=== PATIENT | female | born 1960 | race African-American/Black ===

== ENCOUNTER 2017-07-20 09:17 | Day surgery (SDC) | payer OTHER ==
[2017-07-19 14:59] VITALS: BMI 30.9
[2017-07-20 11:15] VITALS: TEMP 98.7
[2017-07-20 12:02] VITALS: BP 159/92; PULSE 62
--- NOTE | 2017-07-23 16:56 | PATH ---
Surgical Pathology Report Patient Name: FREDA VICTOR [facility]. Rec. #: [id number] /Age/Gender: 1960 (Age: 57) / F Account: [id number] Location: U-ENDOSCOPY Taken: 07/20/2017 Received: 07/20/2017 Reported: 07/23/2017 Physicians: Jimmy Smith M.D. Specimen(s) Received A: BX 2ND PORTION DUODENUM AND BULB B: BX ANTRUM C: SIGMOID POLYP D: POLYPS TRANSVERSE COLON Clinical History Preoperative diagnosis: Weight loss Postoperative diagnosis: Gastritis, polyps, diverticulosis Final Diagnosis A. DUODENUM, SECOND PORTION AND BULB, BIOPSY: DUODENAL MUCOSA WITHOUT SIGNIFICANT PATHOLOGIC FINDINGS. B. STOMACH, ANTRUM, BIOPSY: GASTRIC ANTRAL MUCOSA WITH SEVERE CHRONIC AND FOCAL ACTIVE GASTRITIS. DIFF-QUIK SPECIAL STAIN IS POSITIVE FOR HELICOBACTER-LIKE ORGANISMS. C. SIGMOID, POLYPS, BIOPSY: HYPERPLASTIC POLYP(S). D. TRANSVERSE COLON, POLYPS, BIOPSY: TUBULAR ADENOMA(S). Electronically Signed Tanja Xie M.D. Gross Description A. Received in formalin, labeled "biopsy second portion of duodenum and bulb" are 3 cook, irregular portions of soft tissue ranging from 0.3-0.4 cm. in greatest dimension. The specimens are submitted in toto in one cassette. B. Received in formalin, labeled "biopsy antrum" is a cook, irregular portion of soft tissue measuring 0.4 cm. in greatest dimension. The specimen is submitted in toto in one cassette. C. Received in formalin, labeled "sigmoid polyps" are 4 cook, irregular portions of soft tissue ranging from 0.2-0.3 cm. in greatest dimension. The specimens are submitted in toto in one cassette. D. Received in formalin, labeled "polyps transverse colon" are 6 cook, irregular portions of soft tissue ranging from 0.2-0.4 cm. in greatest dimension. The specimens are submitted in toto in one cassette. 07/20/201707/20/2017
== END 2017-07-20 12:02 | disposition home or self-care (01) ==
LOC: JASU-ENDO 09:17
PROVIDERS: ATTEND Internal Medicine Gastroenterology
PROC: 0DBL8ZX Excision of Transverse Colon, Via Natural or Artificial Opening Endoscopic, Diagnostic (ICD-10-PCS; 2017-07-20)
PROC: 0DB98ZX Excision of Duodenum, Via Natural or Artificial Opening Endoscopic, Diagnostic (ICD-10-PCS; 2017-07-20)
PROC: 0DB68ZX Excision of Stomach, Via Natural or Artificial Opening Endoscopic, Diagnostic (ICD-10-PCS; 2017-07-20)
PROC: 0DBN8ZX Excision of Sigmoid Colon, Via Natural or Artificial Opening Endoscopic, Diagnostic (ICD-10-PCS; principal; 2017-07-20 10:30)
DX: Z12.11 Encounter for screening for malignant neoplasm of colon (principal); R63.4 Abnormal weight loss; D64.9 Anemia, unspecified; D12.3 Benign neoplasm of transverse colon; D12.5 Benign neoplasm of sigmoid colon; K57.30 Diverticulosis of large intestine without perforation or abscess without bleeding; K64.8 Other hemorrhoids; K29.50 Unspecified chronic gastritis without bleeding; B96.81 Helicobacter pylori [H. pylori] as the cause of diseases classified elsewhere; I10 Essential (primary) hypertension; Z86.718 Personal history of other venous thrombosis and embolism
CPT/HCPCS: 88305-TC; 88312-TC

== ENCOUNTER 2017-09-05 12:43 | Inpatient (IN) | payer OTHER ==
[2017-09-05] MEDS ORDERED: ONDANSETRON 4 MG/2 ML VIAL IVPUSH ONE ×2 (13:41→13:45)
[2017-09-05] MEDS ORDERED: SODIUM CHLORIDE 1,000 ML IV STA (13:41)
[2017-09-05] MEDS ORDERED: FAMOTIDINE IV 20 MG/12 ML VIAL IVPB ONE (13:45)
--- NOTE | 2017-09-05 13:48 | PDOC ---
History of Present Illness - General Chief Complaint: Cold Symptoms Stated Complaint: FEVER, CHILLS Time Seen by Provider: 09/05/17 13:10 History Source: Patient Exam Limitations: No Limitations - History of Present Illness Initial Comments: This is a 57 YOF with h/o gastritis diverticulosis (dx by endoscopy in 07/2017) , HTN, distant DVT (on coumadin with unknown date or result of last INR), depression, and methadone use who p/w 10 episodes NBNB vomiting since this morning. She states she has taken Pepto Bismol without relief. Her additional symptoms are hot/cold flashes and decreased appetite. She denies measured fever , headache, numbness, tingling, focal weakness, chest pain, SOB, abdominal pain , diarrhea, blood in the vomit or stool, dysuria, or other symptoms. She has not missed any recent medication doses. Past History - Past Medical History Allergies/Adverse Reactions: Allergies Allergy/AdvReac Type Severity Reaction Status Date / Time No Known Allergies Allergy Verified 09/05/17 13:00 Home Medications: Ambulatory Orders Diltiazem HCl [Tiazac] 240 mg PO DAILY 11/04/13 Methadone [Dolophine -] 50 mg PO DAILY 11/04/13 Cholecalciferol (Vitamin D3) [Vitamin D3] 5,000 unit PO DAILY 07/18/17 Quetiapine Fumarate [Seroquel] 300 mg PO DAILY 07/18/17 Warfarin Sodium [Coumadin] 7 mg PO HS #60 tablet 07/20/17 Anemia: Yes Asthma: No Cancer: No Cardiac Disorders: (PULMONARY EMBOLI/DVT) CVA: No COPD: No CHF: No Dementia: No Diabetes: No GI Disorders: No Disorders: No HTN: Yes Hypercholesterolemia: No Liver Disease: No Psychiatric Problems: Yes (DEPRESSION) Seizures: No Thyroid Disease: Yes (hyper,not on meds x 1 year..) - Immunization History Immunization Up to Date: No - Suicide/Smoking/Psychosocial Hx Smoking History: Former smoker Have you smoked in the past 12 months: Yes Number of Cigarettes Smoked Daily: 0 If you are a former smoker, when did you quit?: 2013 Information on smoking cessation initiated: No 'Breaking Loose' booklet given: 11/04/13 Hx Alcohol Use: No Drug/Substance Use Hx: Yes (Methadone) Substance Use Type: Heroin Hx Substance Use Treatment: Yes *Physical Exam - Vital Signs Last Vital Signs Temp Pulse Resp BP Pulse Ox 98.2 F 83 18 147/89 99 09/05/17 13:00 09/05/17 13:00 09/05/17 13:00 09/05/17 13:00 09/05/17 13:00 - Physical Exam General Appearance: Yes: Nourished, Appropriately Dressed, Mild Distress, Other (initially in mild distress which increases to moderate distress with conversation, writhing on bed but states no pain, anxious, one episode of vomiting clear secretions) HEENT: positive: EOMI, PAUL, Normal Voice, Hearing Grossly Normal, Other ( mostly edentulous). negative: Scleral Icterus (R), Scleral Icterus (L), Nasal Congestion Neck: positive: Trachea midline, Supple. negative: Tender, Rigid Respiratory/Chest: positive: Lungs Clear, Normal Breath Sounds. negative: Chest Tender, Respiratory Distress, Crackles, Rhonchi, Stridor, Wheezing Cardiovascular: positive: Regular Rhythm, Regular Rate, S1, S2, Systolic Murmur (2/6 early systolic murmur at LUSB). negative: Edema Gastrointestinal/Abdominal: positive: Normal Bowel Sounds, Soft. negative: Tender, Organomegaly, Pulsatile Mass, Guarding, Rebound Musculoskeletal: positive: Normal Inspection. negative: Decreased Range of Motion, Vertebral Tenderness Extremity: positive: Normal Capillary Refill, Normal Inspection, Normal Range of Motion. negative: Tender, Cyanosis Integumentary: positive: Normal Color, Dry, Warm, Clammy, Diaphoresis. negative : Erythema, Rash, Bruising Neurologic: positive: speech and language assistant II-XII NML intact (grossly), Fully Oriented, Alert, Normal Mood/Affect, Normal Response, Motor Strength 5/5 ED Treatment Course - LABORATORY CBC & Chemistry Diagram: 09/05/17 13:49 09/05/17 15:15 - RADIOLOGY Radiology Studies Ordered: Category Date Time Status CHEST X-RAY PORTABLE* [RAD] Stat Radiology 09/05/17 13:41 Ordered Medical Decision Making - Medical Decision Making 57 YOF p/w nausea/vomiting without pain. On exam VS wnl except slight HTN, appears very uncomfortable, yelling, but states not in pain. Active vomiting x1 episode. DDX IBNLT gastritis, PUD, med withdrawal/ingestion, pancreatitis, cholecystitis , esophageal dysmotility/strict, influenza, ect. Ordered is CBCD CMP cardiac panel lipase UA Cx EKG CXR NS bolus Pepcid Zofran. 09/05/17 15:01 Chemistry, Mg, Phos, lipase, and cardiac panel hemolyzed and will be re-drawn. CBCD and UA wnl. EKG with prolonged QTc, otherwise unremarkable for acute pathology. 09/05/17 15:35 Patient with continued nausea, states still spitting up secretions. Benadryl and Reglan IV ordered. 09/05/17 16:29 Still awaiting results of chemistries. 09/05/17 17:20 Patient appears much more comfortable after additional medications. Mg repleted as she had Mg 1.7 on chemistries. 09/05/17 20:05 Patient's troponin slightly higher, now CK flags as elevated. Patient's PCP is Jeffery Garzon. Symphony microblogged for admission. *DC/Admit/Observation/Transfer Diagnosis at time of Disposition: Troponin level elevated, Acute electrocardiogram changes, Hypomagnesemia, Prolonged QT interval Vomiting Qualifiers: Vomiting type: unspecified Vomiting Intractability: non-intractable Nausea presence: with nausea Qualified Code(s): R11.2 - Nausea with vomiting, unspecified - Discharge Dispostion Condition at time of disposition: Guarded Admit: Yes - Referrals - Patient Instructions - Post Discharge Activity
--- NOTE | 2017-09-05 13:49 | PDOC ---
Attending Attestation - HPI HPI: 09/05/17 13:53 57 y.o female with significant past medical history of gastritis, diverticulitis , previous DVT (on Coumadin), and HTN, who presents today complaining of 10 episodes of nonbilious, nonbloody vomiting today. <Mari Putnam - Last Filed: 09/05/17 13:53> - Resident Resident Name: Taylor Fuentes - ED Attending Attestation I have performed the following: I have examined & evaluated the patient, The case was reviewed & discussed with the resident, I agree w/resident's findings & plan, Exceptions are as noted - Physicial Exam PE: 09/05/17 16:23 Patient is awake and alert, afebrile, nontoxic appearing. Intermittently, patient is noted to be writhing in pain. nc, atr adentuless mm-dry cta rrr sft, nt, nd - Medical Decision Making 09/05/17 16:27 Patient is a 57-year-old female with multiple comorbidities who presents to the ER with persistent nausea, and numerous episodes of nonbloody, nonbilious vomiting but denies abdominal pain. Symptoms appear he attic in nature. Serial abdominal exams reveal no focal abdominal tenderness. I suspect esophagitis/ gastritis. SBO is unlikely given the absence of abdominal pain. Will obtain CBC/ CMP/lipase/UA. Will hydrate, we'll administer antiemetics. Will reassess. Likely discharge if tolerates by mouth. <Enrico Mackey - Last Filed: 09/05/17 16:28>
[2017-09-05] MEDS ORDERED: ONDANSETRON 4 MG/2 ML VIAL ONE (13:55)
[2017-09-05] MEDS ORDERED: FAMOTIDINE 20 MG/50 ML IVPB 20 MG/50 ML MG IVPB ONE (13:55)
[2017-09-05 14:10] LABS: BASO % 0.7 % (0-2.0); HEMATOCRIT 36.4 % (32.4-45.2); LYMPH % 4.4 % (8-40); MCH 23.8 pg (25.7-33.7); MCHC 30.3 g/dl (32.0-36.0); MEAN CELL VOLUME 78.7 fl (80-96); MEAN PLT VOLUME 7.7 fl (7.5-11.1); MONO % 1.1 % (3.8-10.2); NEUT % 93.8 % (42.8-82.8); PLATELET COUNT 314 K/MM3 (134-434); RBC 4.63 M/mm3 (3.60-5.2); RDW 21.6 % (11.6-15.6); WHITE BLOOD COUNT 7.3 K/mm3 (4.0-10.0)
[2017-09-05 14:22] LABS: ADD RBC MORPHOLOGY YES
[2017-09-05 14:36] LABS: URINE APPEARANCE CLEAR; URINE BILIRUBIN NEGATIVE (NEGATIVE); URINE BLOOD NEGATIVE (NEGATIVE); URINE COLOR STRAW; URINE GLUCOSE (UA) 1+ (NEGATIVE); URINE KETONE NEGATIVE (NEGATIVE); URINE LEUK ESTERASE NEGATIVE (NEGATIVE); URINE NITRITE NEGATIVE (NEGATIVE); URINE UROBILINOGEN NEGATIVE mg/dL (0.2-1.0)
[2017-09-05 14:47] LABS: EPI CELLS RARE /HPF (FEW); URINE BACTERIA RARE /hpf (NONE SEEN); URINE PROTEIN 3+ (NEGATIVE)
[2017-09-05] MEDS ORDERED: METOCLOPRAMIDE HCL INJECTION 10 MG/2 ML VIAL IVPUSH ONE (15:34)
[2017-09-05] MEDS ORDERED: METOCLOPRAMIDE HCL INJECTION 10 MG/2 ML VIAL ONE (15:40)
[2017-09-05 15:45] LABS: ANISOCYTOSIS 2+; TARGET CELLS 2+
[2017-09-05 16:21] LABS: ALBUMIN 3.7 g/dl (3.4-5.0); ANION GAP 5 (8-16); BILIRUBIN,TOTAL 0.3 mg/dL (0.2-1.0); BLOOD UREA NITROGEN 13 mg/dL (7-18); CALCIUM 8.6 mg/dL (8.5-10.1); CHLORIDE 102 mmol/L (98-107); CO2 36 mmol/L (21-32); CREATININE 0.9 mg/dL (0.55-1.02); GLUCOSE,RANDOM 115 mg/dL (74-106); MAGNESIUM 1.7 mg/dL (1.8-2.4); PHOSPHOROUS 2.1 mg/dL (2.5-4.9); POTASSIUM 3.7 mmol/L (3.5-5.1); SGOT/AST 21 U/L (15-37); SGPT/ALT 32 U/L (12-78); SODIUM 143 mmol/L (136-145)
[2017-09-05 16:25] LABS: ALK PHOS 123 U/L (45-117)
[2017-09-05] MEDS ORDERED: DEXTROSE 5%-0.45% SALINE 1,000 ML IV SCH (16:45)
[2017-09-05] MEDS ORDERED: MAGNESIUM SULF 50% (8.12 MEQ/2 ML-1 GM VIAL) IVPB ONE (16:52)
[2017-09-05 17:16] LABS: INR 1.02 (0.82-1.09); PROTHROMBIN TIME (PATIENT) 11.5 SEC (9.98-11.88)
--- NOTE | 2017-09-05 17:43 | PDOC ---
*Physical Exam - Vital Signs Last Vital Signs Temp Pulse Resp BP Pulse Ox 98.2 F 83 18 147/89 100 09/05/17 13:00 09/05/17 13:00 09/05/17 13:40 09/05/17 13:00 09/05/17 13:40 - Physical Exam Comments: 09/05/17 17:40 gen: awake, uncomfortable heart:+s1s2 reg lungs: cta b/l abd : soft, mild epigastric abd pain ext: no c/c/e ED Treatment Course - LABORATORY CBC & Chemistry Diagram: 09/05/17 13:49 09/05/17 15:15 - ADDITIONAL ORDERS Additional order review: Laboratory Results 09/05/17 09/05/17 09/05/17 16:39 15:15 15:15 PT with INR 11.50 INR 1.02 Sodium 143 Potassium 3.7 Chloride 102 Carbon Dioxide 36 H Anion Gap 5 L BUN 13 Creatinine 0.9 Creat Clearance w eGFR > 60 POC Glucometer Random Glucose 115 H Calcium 8.6 Phosphorus 2.1 L Magnesium 1.7 L Total Bilirubin 0.3 D AST 21 ALT 32 Alkaline Phosphatase 123 H Creatine Kinase 156 Creatine Kinase Index 1.0 CK-MB (CK-2) 1.564 Troponin I 0.11 H Total Protein 7.0 Albumin 3.7 Lipase 81 Urine Color Urine Appearance Urine pH Ur Specific [place] Urine Protein Urine Glucose (UA) Urine Ketones Urine Blood Urine Nitrite Urine Bilirubin Urine Urobilinogen Ur Leukocyte Esterase Urine WBC (Auto) Urine RBC (Auto) Ur Epithelial Cells Urine Bacteria 09/05/17 09/05/17 09/05/17 14:26 13:49 13:49 PT with INR INR Sodium Cancelled Potassium Cancelled Chloride Cancelled Carbon Dioxide Cancelled Anion Gap Cancelled BUN Cancelled Creatinine Cancelled Creat Clearance w eGFR Cancelled POC Glucometer Random Glucose Cancelled Calcium Cancelled Phosphorus Magnesium Total Bilirubin Cancelled AST Cancelled ALT Cancelled Alkaline Phosphatase Cancelled Creatine Kinase Cancelled Creatine Kinase Index CK-MB (CK-2) Troponin I Cancelled Total Protein Cancelled Albumin Cancelled Lipase Cancelled Urine Color Straw Urine Appearance Clear Urine pH 9.0 H D Ur Specific [place] 1.011 Urine Protein 3+ H Urine Glucose (UA) 1+ H Urine Ketones Negative Urine Blood Negative Urine Nitrite Negative Urine Bilirubin Negative Urine Urobilinogen Negative Ur Leukocyte Esterase Negative Urine WBC (Auto) 1 Urine RBC (Auto) 1 Ur Epithelial Cells Rare Urine Bacteria Rare 09/05/17 13:39 PT with INR INR Sodium Potassium Chloride Carbon Dioxide Anion Gap BUN Creatinine Creat Clearance w eGFR POC Glucometer 135.65453 Random Glucose Calcium Phosphorus Magnesium Total Bilirubin AST ALT Alkaline Phosphatase Creatine Kinase Creatine Kinase Index CK-MB (CK-2) Troponin I Total Protein Albumin Lipase Urine Color Urine Appearance Urine pH Ur Specific [place] Urine Protein Urine Glucose (UA) Urine Ketones Urine Blood Urine Nitrite Urine Bilirubin Urine Urobilinogen Ur Leukocyte Esterase Urine WBC (Auto) Urine RBC (Auto) Ur Epithelial Cells Urine Bacteria 09/05/17 13:49 Influenza Types A,B Antigen ([place]) - Final Nasopharyngeal Swab - Final 09/05/17 09/05/17 13:49 13:39 RBC 4.63 MCV 78.7 L MCHC 30.3 L RDW 21.6 H D MPV 7.7 D Neutrophils % 93.8 H D Lymphocytes % 4.4 L D Monocytes % 1.1 L D Eosinophils % 0.0 D Basophils % 0.7 POC Glucometer 135.96886 - Medications Given in the ED: ED Medications Discontinued Medications Generic Name Dose Route Start Last Admin Trade Name Freq PRN Reason Stop Dose Admin Diphenhydramine HCl 50 mg 09/05/17 15:28 09/05/17 15:52 Benadryl Injection - IVPUSH 09/05/17 15:29 50 mg ONCE ONE Administration Sodium Chloride 1,000 mls @ 1,000 mls/hr 09/05/17 13:41 09/05/17 14:00 Normal Saline - IV 09/05/17 14:40 1,000 mls/hr ASDIR STA Administration Famotidine 20 mg in 12 mls @ 144 mls/hr 09/05/17 13:45 09/05/17 14:05 Pepcid 20 Mg/12 Ml Push IVPB 09/05/17 13:49 144 mls/hr ONCE ONE Administration Metoclopramide HCl 10 mg 09/05/17 15:34 09/05/17 15:52 Reglan Injection - IVPUSH 09/05/17 15:35 10 mg ONCE ONE Administration Ondansetron HCl 4 mg 09/05/17 13:41 09/05/17 14:16 Zofran Injection IVPUSH 09/05/17 13:42 Not Given ONCE ONE Ondansetron HCl 8 mg 09/05/17 13:45 09/05/17 14:05 Zofran Injection IVPUSH 09/05/17 13:46 8 mg ONCE ONE Administration Medical Decision Making - Medical Decision Making 09/05/17 17:42 a/p: 57yo female with n/v -signed out pending repeat trop -nausea improved with reglan -resting comfortably now 09/05/17 20:32 trop increasing, will keep for further eval case discussed with BRANDON who accepts pt to service *DC/Admit/Observation/Transfer Diagnosis at time of Disposition: Troponin level elevated, Acute electrocardiogram changes, Hypomagnesemia, Prolonged QT interval Vomiting Qualifiers: Vomiting type: unspecified Vomiting Intractability: non-intractable Nausea presence: with nausea Qualified Code(s): R11.2 - Nausea with vomiting, unspecified - Discharge Dispostion Condition at time of disposition: Guarded Admit: Yes - Referrals - Patient Instructions - Post Discharge Activity
[2017-09-05] MEDS ORDERED: MAGNESIUM SULF 50% (8.12 MEQ/2 ML-1 GM VIAL) ONE (18:26)
[2017-09-05] MEDS ORDERED: ASPIRIN 81 MG CHEWABLE TABLETS PO ONE (20:15)
--- NOTE | 2017-09-05 20:17 | PN ---
Teaching Attending Note Name of Resident: Jess Harper ATTENDING PHYSICIAN STATEMENT I saw and evaluated the patient. I reviewed the resident's note and discussed the case with the resident. I agree with the resident's findings and plan as documented. SUBJECTIVE: 57 to F with hx. of gastritis, diverticulosis, HTN, DVT (remote), depression, methadone who presents with 10 episodes of non- bilous /non-bloody vomiting. States she took pepto-Bismol without any relief. States she feels chills, but denies any fever. No diarrhea. No chest pain, pressure, diaphoresis or shortness of breath. OBJECTIVE: Physical: VS: Vital Signs Period Temp Pulse Resp BP Sys/Reyes Pulse Ox Last 24 Hr 98.2 F-100 F 83-85 16-18 147-167/87-89 96-100 GEN: NAD, resting in bed, AA0X3 HEENT: NCAT, PERRL, Throat without erythema or exudates CARD: RRR S1, S2 RESP: CTAB ABD: BSX4, NTD to palpation EXT: - C/C/E CBCD WBC 7.3 K/mm3 (4.0-10.0) D 09/05/17 13:49 RBC 4.63 M/mm3 (3.60-5.2) 09/05/17 13:49 Hgb 11.0 GM/dL (10.7-15.3) 09/05/17 13:49 Hct 36.4 % (32.4-45.2) 09/05/17 13:49 MCV 78.7 fl (80-96) L 09/05/17 13:49 MCHC 30.3 g/dl (32.0-36.0) L 09/05/17 13:49 RDW 21.6 % (11.6-15.6) H D 09/05/17 13:49 Plt Count 314 K/MM3 (134-434) 09/05/17 13:49 MPV 7.7 fl (7.5-11.1) D 09/05/17 13:49 CMP Sodium 143 mmol/L (136-145) 09/05/17 15:15 Potassium 3.7 mmol/L (3.5-5.1) 09/05/17 15:15 Chloride 102 mmol/L (98-107) 09/05/17 15:15 Carbon Dioxide 36 mmol/L (21-32) H 09/05/17 15:15 Anion Gap 5 (8-16) L 09/05/17 15:15 BUN 13 mg/dL (7-18) 09/05/17 15:15 Creatinine 0.9 mg/dL (0.55-1.02) 09/05/17 15:15 Creat Clearance w eGFR > 60 (>60) 09/05/17 15:15 Random Glucose 115 mg/dL (74-106) H 09/05/17 15:15 Calcium 8.6 mg/dL (8.5-10.1) 09/05/17 15:15 Total Bilirubin 0.3 mg/dL (0.2-1.0) D 09/05/17 15:15 AST 21 U/L (15-37) 09/05/17 15:15 ALT 32 U/L (12-78) 09/05/17 15:15 Alkaline Phosphatase 123 U/L (45-117) H 09/05/17 15:15 Total Protein 7.0 g/dl (6.4-8.2) 09/05/17 15:15 Albumin 3.7 g/dl (3.4-5.0) 09/05/17 15:15 CARDIAC ENZYMES Creatine Kinase 207 IU/L (26-192) H 09/05/17 18:50 Troponin I 0.24 ng/ml (0.00-0.05) H 09/05/17 18:50 EKG- NSR, Prolonged QtC CXR- No acute Pathology Home Medications Medication Instructions Recorded Diltiazem HCl [Tiazac] 240 mg PO DAILY 11/04/13 Methadone [Dolophine -] 50 mg PO DAILY 11/04/13 Cholecalciferol (Vitamin D3) 5,000 unit PO DAILY 07/18/17 [Vitamin D3] Quetiapine Fumarate [Seroquel] 300 mg PO DAILY 07/18/17 Warfarin Sodium [Coumadin] 7 mg PO HS #60 tablet 07/20/17 ASSESSMENT AND PLAN: 57 to F with hx. of gastritis, diverticulosis, HTN, DVT on Coumadin, depression , methadone who presents with 10 episodes of non- bilous /non-bloody vomiting. She is being admitted for elevated troponin and intractable nausea 1.) Intractable Nausea/Vomiting - Clear Liquid - Abd. Us - Inc. QtC- Compazine - IVF 2.) NSTEMI - HEART Score 5 - Lovenox - Cardio consult - Echo and Cardiology Consult - ASA, Metoprolol - 02, Plavix - Nitro/Morphine PRN pain - Trend Trop/EKG 3.) DVT - Sub Theraputic INR - Lovenox 1mg/kg BID - C/W Coumadin - Chk. PT/INR 4.) Inc. Qtc - Needs careful monitoring on Methadone - Avoid other QtC Prolonging Agents Place in Obs Tele
[2017-09-05] MEDS ORDERED: ASPIRIN 325 MG TABLET ONE (20:41)
--- NOTE | 2017-09-05 21:04 | HP ---
CHIEF COMPLAINT: nausea and vomiting PCP: HISTORY OF PRESENT ILLNESS: 57 y/o F with PMH HTN, gastritis, diverticulitis, previous DVT (on coumadin), polypectomy x 8 (seen on colonoscopy in past), currently on methadone via [facility] [place], who presents to the ED with 6-7 episodes of NBNB emesis. As per patient, at midnight, she was very hungry so she ate candy, soda, and a grilled cheese sandwich. At 10AM, pt had 6-7 episodes of constant NBNB emesis. According to daughter, at first, pt's vomit was voluminous, however towards the end she was spitting up. This happens to the pt twice a year, and has never been a/w food type. During this time, pt also endorses mid diaphoresis, chills and increased urinary frequency. Pt denies TA, fever, chest or abdominal pain, burning sensation in chest or throat, SOB, or changes in bowel function. Her last BM was today. ER course was notable for: (1) Benadryl 50mg x 1 (2) Mg level 1.7 (3) Mg sulfate 2gm IVPB x 1 (4) Reglan 10mg IVP x 1 (5) Zofran x 2 (4mg, 8mg) (6) Aspirin 324 x 1 (7) Pepcid x 1 (8) EKG with prolonged Qtc 479 (9) 1000ml NS bolus Recent Travel: denies PAST MEDICAL HISTORY: HTN, gastritis, diverticulitis, previous DVT (on coumadin) , polypectomy x 8 (seen on colonoscopy in past), currently on methadone via [facility] [place] PAST SURGICAL HISTORY: colon polypectomy x 8 in past Social History: Smoking: denies Alcohol: denies Drugs: denies Family History: DM, HTN - in brothers Allergies No Known Allergies Allergy (Verified 09/05/17 13:00) HOME MEDICATIONS: Home Medications Medication Instructions Recorded Diltiazem HCl [Tiazac] 240 mg PO DAILY 11/04/13 Methadone [Dolophine -] 50 mg PO DAILY 11/04/13 Cholecalciferol (Vitamin D3) 5,000 unit PO DAILY 07/18/17 [Vitamin D3] Quetiapine Fumarate [Seroquel] 300 mg PO DAILY 07/18/17 Warfarin Sodium [Coumadin] 7 mg PO HS #60 tablet 07/20/17 REVIEW OF SYSTEMS CONSTITUTIONAL: +chills, mild diaphoresis Absent: fever, generalized weakness, malaise, loss of appetite, weight change HEENT: Absent: rhinorrhea, nasal congestion, throat pain, throat swelling, difficulty swallowing, mouth swelling, ear pain, eye pain, visual changes CARDIOVASCULAR: Absent: chest pain, syncope, palpitations, irregular heart rate, lightheadedness , peripheral edema RESPIRATORY: Absent: cough, shortness of breath, dyspnea with exertion, orthopnea, wheezing, stridor, hemoptysis GASTROINTESTINAL: +nausea, vomiting Absent: abdominal pain, abdominal distension, diarrhea, constipation, melena, hematochezia GENITOURINARY: +urinary frequency Absent: dysuria, urgency, hesitancy, hematuria, flank pain, genital pain MUSCULOSKELETAL: Absent: myalgia, arthralgia, joint swelling, back pain, neck pain SKIN: Absent: rash, itching, pallor HEMATOLOGIC/IMMUNOLOGIC: Absent: easy bleeding, easy bruising, lymphadenopathy, frequent infections ENDOCRINE: Absent: unexplained weight gain, unexplained weight loss, heat intolerance, cold intolerance NEUROLOGIC: Absent: headache, focal weakness or paresthesias, dizziness, unsteady gait, seizure, mental status changes, bladder or bowel incontinence PSYCHIATRIC: Absent: anxiety, depression, suicidal or homicidal ideation, hallucinations. PHYSICAL EXAMINATION Vital Signs - 24 hr 09/05/17 09/05/17 13:00 19:15 Temperature 98.2 F 100 F H Pulse Rate 83 Pulse Rate [ 85 Right Radial] Respiratory 18 16 Rate Blood Pressure 147/89 Blood Pressure 167/87 [Right Arm] O2 Sat by Pulse 99 96 Oximetry (%) 09/05/17 19:44 Temperature 99.5 F GENERAL: Lying in bed, moaning with discomfort. Awake, alert, and fully oriented , in mild distress. HEAD: Normal with no signs of trauma. EYES: Pupils equal, round and reactive to light, extraocular movements intact, sclera anicteric, conjunctiva clear. EARS, NOSE, THROAT: Ears normal, nares patent, oropharynx clear without exudates. Dry mucous membranes NECK: Normal range of motion, supple LUNGS: Breath sounds equal, clear to auscultation bilaterally. No wheezes, and no crackles. No accessory muscle use. HEART: Regular rate and rhythm, normal S1 and S2 without murmur, rub or gallop. ABDOMEN: Soft, nontender, not distended, normoactive bowel sounds, no guarding, no rebound LOWER EXTREMITIES: 2+ posterior tibial pulses, warm, well-perfused. No peripheral edema. NEUROLOGICAL: Cranial nerves II-XII intact. Laboratory Results 09/05/17 09/05/17 09/05/17 13:49 13:49 14:26 WBC 7.3 D Hgb 11.0 Hct 36.4 Plt Count 314 Creatine Kinase Troponin I Urine pH 9.0 H D Urine Protein 3+ H Urine Glucose (UA) 1+ H Urine Ketones Negative Urine Blood Negative Urine Nitrite Negative Urine Bilirubin Negative Urine Urobilinogen Negative Ur Leukocyte Esterase Negative 09/05/17 18:50 Random Glucose Creatine Kinase 207 H Troponin I 0.24 Urine Urobilinogen Ur Leukocyte Esterase Microbiology 09/05/17 13:49 Nasopharyngeal Swab Influenza Types A,B Antigen ([place]) - Final 09/05/17 13:49 Nasopharyngeal Swab - Final Urine cx - pending Radio CXR: without interstitial infiltrates, no acute pathology EKG: NSR, prolonged Qtc 479 ASSESSMENT/PLAN: 57 y/o F with PMH HTN, gastritis, diverticulitis, previous DVT (on coumadin), polypectomy x 8 (seen on colonoscopy in past), currently on methadone via [facility] [place], who presents to the ED with 6-7 episodes of NBNB emesis. Pt admitted to [facility] obs for acute gastroenteritis, and r/o ACS. #Acute gastroenteritis -Pt with multiple episodes NBNB emesis, suddenly, afebrile without white count -most likely viral -F/u abdominal sono to r/o other etiologies such as acute cholecystitis -F/u TSH -Supportive care, IVF -If anti-emetics needed, use Compazine PRN. Since QT prolongation. Avoid zofran or reglan #R/o ACS -Received aspirin 324mg x 1 in ED -Pt with troponins trending up (0.11> 0.24> 1.57) -most likely 2/2 demand, however after admission, pt 3rd trop 1.57. pt received additionally: -aspirin 162mg x 1 -plavix 300mgx 1 -metoprolol tartate 25mg x 1 -NC 02 -F/u ECHO -F/u repeat EKG -F/u fourth troponin, see if peaks -Tele monitoring -F/u repeat EKG tomorrow AM -Cardio consult- Dr. Gunderson #subtherapeutic INR (1.02) -Hx DVT -Continue on coumadin 7mg PO qd -Started on lovenox 80mg BID - bridging -Will recheck INR tomorrow AM #HTN- currently controlled -Continue cardiazem 240mg PO qd #Hypomagnesemia 2/2 emesis -Mg 1.7 -Repleted with Mg sulfate 2gm IVPB #PPX DVT: started on Lovenox 80mg BID #F/E/N -IV NS 100 cc/hr -Monitor electrolytes -clear liquid diet #Dispo monitoring on tele observation Visit type - Emergency Visit Emergency Visit: Yes ED Registration Date: 09/05/17 Care time: The patient presented to the Emergency Department on the above date and was hospitalized for further evaluation of their emergent condition. - New Patient This patient is new to me today: Yes Date on this admission: 09/06/17 - Critical Care Critical Care patient: No
[2017-09-05] MEDS: SODIUM CHLORIDE 1,000 ML IV SCH (21:13)
[2017-09-05] MEDS ORDERED: METHADONE HCL 10 MG TABLET PO SCH (21:15)
[2017-09-05] MEDS ORDERED: QUEtiapine FUMARATE 300 MG TABLET PO SCH (21:15)
[2017-09-05] MEDS ORDERED: QUEtiapine FUMARATE 100 MG TABLET (FP) ONE (21:34)
[2017-09-05] MEDS ORDERED: dilTIAZem HCL 60 MG TABLET (FP) ONE (21:34)
[2017-09-05] MEDS ORDERED: WARFARIN NA 7.5 MG TABLET (FP) PO SCH (22:00)
[2017-09-05] MEDS ORDERED: METHADONE 40 MG, METHADONE 10 MG PO ONE (22:30)
[2017-09-05 23:43] VITALS: BMI 29.2
[2017-09-06] MEDS: CHOLECALCIFEROL (VITAMIN D3) 1,000 UNIT TABLET (FP) PO SCH ×2 (00:08→10:07)
[2017-09-06] MEDS: ENOXAPARIN NA (PORCINE) 80 MG/0.8 ML DISP.SYRIN SQ SCH ×3 (00:09→21:37)
[2017-09-06] MEDS ORDERED: ASPIRIN 81 MG CHEWABLE TABLETS PO STA (03:58)
[2017-09-06] MEDS ORDERED: METOPROLOL TARTRATE 25 MG TABLET (FP) PO STA (03:59)
[2017-09-06] MEDS ORDERED: CLOPIDOGREL BISULFATE 300 MG TABLET PO STA (04:01)
[2017-09-06 06:57] LABS: BASO % 0.3 % (0-2.0); HEMATOCRIT 35.3 % (32.4-45.2); HEMOGLOBIN 10.7 GM/dL (10.7-15.3); LYMPH % 13.1 % (8-40); MCH 23.6 pg (25.7-33.7); MCHC 30.3 g/dl (32.0-36.0); MEAN PLT VOLUME 7.6 fl (7.5-11.1); NEUT % 79.6 % (42.8-82.8); PLATELET COUNT 258 K/MM3 (134-434); RBC 4.53 M/mm3 (3.60-5.2); RDW 21.7 % (11.6-15.6); WHITE BLOOD COUNT 5.5 K/mm3 (4.0-10.0)
[2017-09-06 07:18] LABS: INR 1.17 (0.82-1.09); PROTHROMBIN TIME (PATIENT) 13.2 SEC (9.98-11.88)
[2017-09-06 08:14] LABS: ANION GAP 8 (8-16); BLOOD UREA NITROGEN 14 mg/dL (7-18); CALCIUM 8.7 mg/dL (8.5-10.1); CHLORIDE 104 mmol/L (98-107); CO2 32 mmol/L (21-32); GLUCOSE,RANDOM 93 mg/dL (74-106); POTASSIUM 3.4 mmol/L (3.5-5.1); SODIUM 144 mmol/L (136-145)
[2017-09-06] MEDS ORDERED: POTASSIUM CHLORIDE TABS 20 MEQ TABLET.ER (FP) PO ONE (08:45)
[2017-09-06] MEDS ORDERED: PT OWN MED DRAWER 7, Y5N ONE (09:39)
[2017-09-06] MEDS ORDERED: KCL 10 MEQ IVPB 10 MEQ/100 ML INFUS.BAG IVPB SCH (10:15)
--- NOTE | 2017-09-06 10:57 | EKG ---
Test Reason : Blood Pressure : / mmHG Vent. Rate : 072 BPM Atrial Rate : 072 BPM P-R Int : 172 ms QRS Dur : 082 ms QT Int : 478 ms P-R-T Axes : 081 057 040 degrees QTc Int : 523 ms NORMAL SINUS RHYTHM POSSIBLE LEFT ATRIAL ENLARGEMENT LEFT VENTRICULAR HYPERTROPHY CANNOT RULE OUT SEPTAL INFARCT (CITED ON OR BEFORE 04-NOV-2013) PROLONGED QT ABNORMAL ECG WHEN COMPARED WITH ECG OF 05-SEP-2017 21:40, QT HAS LENGTHENED Confirmed by SALEEM EDUARDO MD ([id number]) on 09/06/2017 10:57:09 AM Referred By: Confirmed By:SALEEM EDUARDO MD
--- NOTE | 2017-09-06 10:57 | EKG ---
Test Reason : Blood Pressure : / mmHG Vent. Rate : 050 BPM Atrial Rate : 050 BPM P-R Int : 180 ms QRS Dur : 082 ms QT Int : 522 ms P-R-T Axes : 082 060 039 degrees QTc Int : 475 ms SINUS BRADYCARDIA POSSIBLE LEFT ATRIAL ENLARGEMENT SEPTAL INFARCT (CITED ON OR BEFORE 04-NOV-2013) ABNORMAL ECG WHEN COMPARED WITH ECG OF 06-SEP-2017 04:23, NO SIGNIFICANT CHANGE WAS FOUND Confirmed by ALESHA OROSCO, SALEEM ([id number]) on 09/06/2017 10:56:38 AM Referred By: Confirmed By:SALEEM EDUARDO MD
--- NOTE | 2017-09-06 10:59 | EKG ---
Test Reason : Blood Pressure : / mmHG Vent. Rate : 097 BPM Atrial Rate : 097 BPM P-R Int : 180 ms QRS Dur : 074 ms QT Int : 370 ms P-R-T Axes : 075 057 025 degrees QTc Int : 469 ms NORMAL SINUS RHYTHM BIATRIAL ENLARGEMENT LEFT VENTRICULAR HYPERTROPHY CANNOT RULE OUT SEPTAL INFARCT (CITED ON OR BEFORE 04-NOV-2013) ABNORMAL ECG WHEN COMPARED WITH ECG OF 05-SEP-2017 15:01, ST NOW DEPRESSED IN ANTERIOR LEADS Confirmed by SALEEM EDUARDO MD ([id number]) on 09/06/2017 10:58:47 AM Referred By: Confirmed By:SALEEM EDUARDO MD
--- NOTE | 2017-09-06 11:03 | EKG ---
Test Reason : Blood Pressure : / mmHG Vent. Rate : 083 BPM Atrial Rate : 083 BPM P-R Int : 172 ms QRS Dur : 084 ms QT Int : 408 ms P-R-T Axes : 076 042 048 degrees QTc Int : 479 ms NORMAL SINUS RHYTHM POSSIBLE LEFT ATRIAL ENLARGEMENT SEPTAL INFARCT (CITED ON OR BEFORE 04-NOV-2013) ABNORMAL ECG WHEN COMPARED WITH ECG OF 05-NOV-2013 08:21, NO SIGNIFICANT CHANGE WAS FOUND Confirmed by SALEEM EDUARDO MD ([id number]) on 09/06/2017 11:02:50 AM Referred By: Confirmed By:SALEEM EDUARDO MD
[2017-09-06 12:02] LABS: CHOLESTEROL 228 mg/dL (50-200); HDL CHOLESTEROL 85 mg/dL (40-60); LDL CHOLESTEROL (ONLY SJRH) 134 mg/dL (5-100); TRIGLYCERIDES 89 mg/dL (35-160)
[2017-09-06 12:22] LABS: MAGNESIUM 2.4 mg/dL (1.8-2.4)
[2017-09-06] MEDS: POTASSIUM CHLORIDE 10 MEQ in SODIUM CHLORIDE 100 ML IVPB SCH ×2 (13:20→13:30)
[2017-09-06] MEDS ORDERED: QUEtiapine FUMARATE 50 MG TABLET PO ONE (13:30)
--- NOTE | 2017-09-06 14:05 | PN ---
Addendum entered and electronically signed by Renan Lay, RESIDENT 09/06 14:54: Patient will be transferred to [facility] tomorrow for cardiac catheterization. Will restart methadone prior to transfer. ASA 81mg QD started Patient's dose of seroquel reduced to 150. Original Note: <Renan Lay - Last Filed: 09/06/17 14:16> Physical Exam: SUBJECTIVE: Patient seen and examined at bedside. Patient states that she has not vomited since last night. Denies chest pain, SOB, n/v/d, fevers, chills. OBJECTIVE: Vital Signs Period Temp Pulse Resp BP Sys/Reyes Pulse Ox Last 24 Hr 98.7 F-100 F 70-85 16-20 109-167/63-87 96-100 GENERAL: The patient is awake, alert, and fully oriented, in no acute distress. HEAD: Normal with no signs of trauma. EYES: PERRL, extraocular movements intact, sclera anicteric, conjunctiva clear. No ptosis. ENT: Ears normal, nares patent, oropharynx clear without exudates, moist mucous membranes. NECK: Trachea midline, full range of motion, supple. LUNGS: Breath sounds equal, clear to auscultation bilaterally, no wheezes, no crackles, no accessory muscle use. HEART: Regular rate and rhythm, S1, S2 without murmur, rub or gallop. ABDOMEN: Soft, nontender, nondistended, normoactive bowel sounds, no guarding, no rebound, no hepatosplenomegaly, no masses. EXTREMITIES: 2+ pulses, warm, well-perfused, no edema. NEUROLOGICAL: Cranial nerves II through XII grossly intact. Normal speech, gait not observed. PSYCH: Normal mood, normal affect. SKIN: Warm, dry, normal turgor, no rashes or lesions noted Laboratory Results - last 24 hr 09/05/17 09/05/17 09/05/17 13:49 13:49 13:49 WBC 7.3 D RBC 4.63 Hgb 11.0 Hct 36.4 MCV 78.7 L MCH 23.8 L MCHC 30.3 L RDW 21.6 H D Plt Count 314 MPV 7.7 D Neutrophils % 93.8 H D Lymphocytes % 4.4 L D Monocytes % 1.1 L D Eosinophils % 0.0 D Basophils % 0.7 Hypochromia 2+ Anisocytosis 2+ Microcytosis 1+ Target Cells 2+ PT with INR INR Sodium Cancelled Potassium Cancelled Chloride Cancelled Carbon Dioxide Cancelled Anion Gap Cancelled BUN Cancelled Creatinine Cancelled Creat Clearance w eGFR Cancelled Random Glucose Cancelled Calcium Cancelled Phosphorus Magnesium Total Bilirubin Cancelled AST Cancelled ALT Cancelled Alkaline Phosphatase Cancelled Creatine Kinase Cancelled Creatine Kinase Index CK-MB (CK-2) Troponin I Cancelled Total Protein Cancelled Albumin Cancelled Triglycerides Cholesterol Total LDL Cholesterol HDL Cholesterol Lipase Cancelled TSH Urine Color Urine Appearance Urine pH Ur Specific [place] Urine Protein Urine Glucose (UA) Urine Ketones Urine Blood Urine Nitrite Urine Bilirubin Urine Urobilinogen Ur Leukocyte Esterase Urine WBC (Auto) Urine RBC (Auto) Ur Epithelial Cells Urine Bacteria 09/05/17 09/05/17 09/05/17 14:26 15:15 15:15 WBC RBC Hgb Hct MCV MCH MCHC RDW Plt Count MPV Neutrophils % Lymphocytes % Monocytes % Eosinophils % Basophils % Hypochromia Anisocytosis Microcytosis Target Cells PT with INR INR Sodium 143 Potassium 3.7 Chloride 102 Carbon Dioxide 36 H Anion Gap 5 L BUN 13 Creatinine 0.9 Creat Clearance w eGFR > 60 Random Glucose 115 H Calcium 8.6 Phosphorus 2.1 L Magnesium 1.7 L Total Bilirubin 0.3 D AST 21 ALT 32 Alkaline Phosphatase 123 H Creatine Kinase 156 Creatine Kinase Index 1.0 CK-MB (CK-2) 1.564 Troponin I 0.11 H Total Protein 7.0 Albumin 3.7 Triglycerides Cholesterol Total LDL Cholesterol HDL Cholesterol Lipase 81 TSH Urine Color Straw Urine Appearance Clear Urine pH 9.0 H D Ur Specific [place] 1.011 Urine Protein 3+ H Urine Glucose (UA) 1+ H Urine Ketones Negative Urine Blood Negative Urine Nitrite Negative Urine Bilirubin Negative Urine Urobilinogen Negative Ur Leukocyte Esterase Negative Urine WBC (Auto) 1 Urine RBC (Auto) 1 Ur Epithelial Cells Rare Urine Bacteria Rare 09/05/17 09/05/17 09/06/17 16:39 18:50 02:03 WBC RBC Hgb Hct MCV MCH MCHC RDW Plt Count MPV Neutrophils % Lymphocytes % Monocytes % Eosinophils % Basophils % Hypochromia Anisocytosis Microcytosis Target Cells PT with INR 11.50 INR 1.02 Sodium Potassium Chloride Carbon Dioxide Anion Gap BUN Creatinine Creat Clearance w eGFR Random Glucose Calcium Phosphorus Magnesium Total Bilirubin AST ALT Alkaline Phosphatase Creatine Kinase 207 H 282 H Creatine Kinase Index 1.2 1.9 CK-MB (CK-2) 2.551 5.530 H Troponin I 0.24 H 1.57 H* Total Protein Albumin Triglycerides Cholesterol Total LDL Cholesterol HDL Cholesterol Lipase TSH 1.28 Urine Color Urine Appearance Urine pH Ur Specific [place] Urine Protein Urine Glucose (UA) Urine Ketones Urine Blood Urine Nitrite Urine Bilirubin Urine Urobilinogen Ur Leukocyte Esterase Urine WBC (Auto) Urine RBC (Auto) Ur Epithelial Cells Urine Bacteria 09/06/17 09/06/17 09/06/17 06:15 06:15 06:15 WBC 5.5 RBC 4.53 Hgb 10.7 Hct 35.3 MCV 78.0 L MCH 23.6 L MCHC 30.3 L RDW 21.7 H Plt Count 258 MPV 7.6 Neutrophils % 79.6 Lymphocytes % 13.1 D Monocytes % 7.0 D Eosinophils % 0.0 Basophils % 0.3 Hypochromia Anisocytosis Microcytosis Target Cells PT with INR 13.20 H INR 1.17 H Sodium 144 Potassium 3.4 L Chloride 104 Carbon Dioxide 32 Anion Gap 8 BUN 14 Creatinine 1.0 Creat Clearance w eGFR Random Glucose 93 Calcium 8.7 Phosphorus Magnesium Total Bilirubin AST ALT Alkaline Phosphatase Creatine Kinase Creatine Kinase Index CK-MB (CK-2) Troponin I Total Protein Albumin Triglycerides Cholesterol Total LDL Cholesterol HDL Cholesterol Lipase TSH Urine Color Urine Appearance Urine pH Ur Specific [place] Urine Protein Urine Glucose (UA) Urine Ketones Urine Blood Urine Nitrite Urine Bilirubin Urine Urobilinogen Ur Leukocyte Esterase Urine WBC (Auto) Urine RBC (Auto) Ur Epithelial Cells Urine Bacteria 09/06/17 09/06/17 09/06/17 11:05 11:05 11:05 WBC RBC Hgb Hct MCV MCH MCHC RDW Plt Count MPV Neutrophils % Lymphocytes % Monocytes % Eosinophils % Basophils % Hypochromia Anisocytosis Microcytosis Target Cells PT with INR INR Sodium Potassium Chloride Carbon Dioxide Anion Gap BUN Creatinine Creat Clearance w eGFR Random Glucose Calcium Phosphorus 4.0 Magnesium 2.4 Total Bilirubin AST ALT Alkaline Phosphatase Creatine Kinase Creatine Kinase Index CK-MB (CK-2) Troponin I 1.40 H* Total Protein Albumin Triglycerides 89 Cholesterol 228 H Total LDL Cholesterol 134 H HDL Cholesterol 85 H Lipase TSH Urine Color Urine Appearance Urine pH Ur Specific [place] Urine Protein Urine Glucose (UA) Urine Ketones Urine Blood Urine Nitrite Urine Bilirubin Urine Urobilinogen Ur Leukocyte Esterase Urine WBC (Auto) Urine RBC (Auto) Ur Epithelial Cells Urine Bacteria Active Medications Generic Name Dose Route Start Last Admin Trade Name Candace PRN Reason Stop Dose Admin Cholecalciferol 5,000 unit 09/05/17 21:15 09/06/17 10:07 Vitamin D3 - PO 5,000 unit DAILY NAOMI Administration Diltiazem HCl 240 mg 09/05/17 21:15 09/06/17 10:27 Cardizem Cd - PO Not Given DAILY NAOMI Enoxaparin Sodium 80 mg 09/05/17 22:15 09/06/17 10:08 Lovenox - SQ 80 mg BID NAOMI Administration Sodium Chloride 1,000 mls @ 100 mls/hr 09/05/17 21:00 09/05/17 21:13 Normal Saline - IV 100 mls/hr ASDIR NAOMI Administration Quetiapine Fumarate 150 mg 09/06/17 22:00 Seroquel - PO HS NAOMI Warfarin Sodium 2 mg/ Warfarin 7 mg 09/06/17 18:00 Sodium 5 mg PO DAILY@1800 [facility] ASSESSMENT/PLAN: 57 y/o F with PMH HTN, gastritis, diverticulitis, 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 #Acute gastroenteritis: resolved - no more vomiting since last night, most likely viral -no leukocytosis or fever -most likely viral -IVF w/ NS -use chlorpromazine PRN due to QT prolongation. Avoid zofran or reglan - given zofran by ED #Acute Coronary Syndrome: unlikely due to clinical presentation, but could be atypical -troponins peaked and began trending down -Received aspirin 325mg in ED, plavix 300, metoprolol tartrate 25 -f/u echo -admit to tele -repeat EKG in Am -Cardio consult- Dr. Gunderson appreciated #Subtherapeutic INR (1.17 today): improving, continue current management -Hx DVT -Continue on coumadin 7mg PO qd -continue lovenox 80mg BID - bridging -recheck INR tomorrow AM #Detox: patient is on methadone -hold methadone due to prolonged QT -Dr. Perry consult #Hypertension: currently controlled -Continue cardiazem 240mg PO qd #Hypomagnesemia 2/2 emesis: repleted by night team -give another dose of mag -recheck in AM #Prophylaxis DVT: started on Lovenox 80mg BID #FEN -IV NS 100 cc/hr -replete in AM -clear liquid diet #Disposition -change to inpatient admission on telemetry Visit type - Emergency Visit Emergency Visit: No - New Patient This patient is new to me today: No - Critical Care Critical Care patient: No <Joaquin Coppola - Last Filed: 09/06/17 19:23> Physical Exam: Patient is seen and examined with the epidemiology intern, is being transferred by Cardio to [facility] in am for cath.
--- NOTE | 2017-09-06 14:24 | CON.CARD ---
Consult Consult Specialty:: Cardiology Reason for Consultation:: NSTEMI - History of Present Illness History of Present Illness: 57 y/o F with PMH HTN, gastritis, diverticulitis, previous DVT and possibly PE on chronic coumadin, polypectomy x 8, [place] [facility] [place] [place] stated having repeated bilious vomiting and diaphoresis without chest pain. ECG showed anterior ST depression which resolved on follow up testing. She did not have hypotension and her symptoms have resolved. TP peaked 1.6 CPK 280. Telemetry is negative. There is no dyspnea or chest discomfort with exertion. She is able to tolerate clears now. Echocardiogram showed normal LV function and no valvular pathology. - History Source History Provided By: Patient - Past Medical History Cardio/Vascular: Yes: Deep Vein Thrombosis, HTN Pulmonary: Yes: Pulmonary Embolus ...: No Psych: Yes: Anxiety, Depression - Past Surgical History Past Surgical History: Yes: None - Alcohol/Substance Use Hx Alcohol Use: No History of Substance Use: reports: Marijuana - Smoking History Smoking history: Former smoker Have you smoked in the past 12 months: Yes Aproximately how many cigarettes per day: 0 If you are a former smoker, when did you quit?: 2013 - Social History ADL: Independent History of Recent Travel: No Home Medications - Allergies Allergies/Adverse Reactions: Allergies Allergy/AdvReac Type Severity Reaction Status Date / Time No Known Allergies Allergy Verified 09/05/17 13:00 - Home Medications Home Medications: Ambulatory Orders Diltiazem HCl [Tiazac] 240 mg PO DAILY 11/04/13 Methadone [Dolophine -] 50 mg PO DAILY 11/04/13 Cholecalciferol (Vitamin D3) [Vitamin D3] 5,000 unit PO DAILY 07/18/17 Quetiapine Fumarate [Seroquel] 300 mg PO DAILY 07/18/17 Warfarin Sodium [Coumadin] 7 mg PO HS #60 tablet 07/20/17 Family Disease History - Family Disease History Family Disease History: Diabetes: Father, CA: Mother (Lung CA) Review of Systems - Review of Systems Constitutional: reports: No Symptoms Eyes: reports: No Symptoms HENT: reports: No Symptoms Neck: reports: No Symptoms Cardiovascular: reports: No Symptoms Respiratory: reports: No Symptoms Gastrointestinal: reports: No Symptoms Genitourinary: reports: No Symptoms Breasts: reports: No Symptoms Reported Musculoskeletal: reports: No Symptoms Vital Signs: Vital Signs Temperature 98.7 F 09/06/17 03:00 Pulse Rate 77 09/06/17 04:34 Respiratory Rate 20 09/06/17 04:34 Blood Pressure 141/74 09/06/17 04:34 O2 Sat by Pulse Oximetry (%) 100 09/05/17 23:43 Constitutional: Yes: Well Nourished, No Distress, Calm Eyes: Yes: Conjunctiva Clear, Ptosis HENT: Yes: Atraumatic, Normocephalic Neck: Yes: Supple, Trachea Midline Respiratory: Yes: Regular, CTA Bilaterally Gastrointestinal: Yes: Normal Bowel Sounds, Soft Cardiovascular: Yes: Regular Rate and Rhythm JVD: No Carotid Bruit: No Heart Sounds: Yes: S1, S2 Murmur: No: Systolic Murmur, Diastolic Murmur Extremities: Yes: WNL Edema: No - Other Data Labs, Other Data: CBC, BMP 09/06/17 06:15 09/06/17 06:15 INR, PTT INR 1.17 (0.82-1.09) H 09/06/17 06:15 Troponin, BNP 09/05/17 09/05/17 09/05/17 13:49 15:15 18:50 Troponin I Cancelled 0.11 H 0.24 H 09/06/17 09/06/17 02:03 11:05 Troponin I 1.57 H* 1.40 H* Troponin, BNP 09/05/17 09/05/17 09/05/17 13:49 15:15 18:50 Troponin I Cancelled 0.11 H 0.24 H 09/06/17 09/06/17 02:03 11:05 Troponin I 1.57 H* 1.40 H* Imaging - Results EKG: Image Reviewed (NSR anterolateral ischemia) Problem List - Problems (1) Troponin level elevated Code(s): R74.8 - ABNORMAL LEVELS OF OTHER SERUM ENZYMES (2) Chest pain Code(s): R07.9 - CHEST PAIN, UNSPECIFIED Assessment/Plan 57 F with remote history of DVT PE on chornic AC, methadone maintenance. Admitted with intractable vomiting and dynamic ECG changes with NSTEMI. -Hold Coumadin -Continue therapeutic lovenox. -Already loaded with plavix -ASA 81mg qd -Will transfer to [facility] tomorrow for cardiac cath tomorrow. Keep NPO after midnight. Can get her methadone and other pills tomorrow prior to transfer.
[2017-09-06] MEDS ORDERED: WARFARIN NA 5 MG, WARFARIN NA 2 MG PO SCH (18:00)
[2017-09-06] MEDS ORDERED: WARFARIN NA 2 MG, WARFARIN NA 5 MG PO SCH (18:00)
[2017-09-06] MEDS ORDERED: WARFARIN NA 7.5 MG TABLET (FP) PO SCH (18:00)
[2017-09-06] MEDS ORDERED: QUEtiapine FUMARATE 50 MG TABLET PO SCH ×2 (22:00)
[2017-09-06] MEDS: SODIUM CHLORIDE 1,000 ML IV SCH (22:20)
[2017-09-07 06:32] VITALS: BP 170/90; PULSE 70; TEMP 98.5
--- NOTE | 2017-09-07 07:48 | DS ---
Physical Exam: SUBJECTIVE: Patient seen and examined at bedside. No acute overnight events. Denies any chest pain, SOB, N/V/D. OBJECTIVE: Vital Signs Period Temp Pulse Resp BP Sys/Ryees Pulse Ox Last 24 Hr 98.1 F-99 F 47-70 20-22 133-170/58-90 99-100 PHYSICAL EXAM GENERAL: The patient is awake, alert, and fully oriented, in no acute distress. HEAD: Normal with no signs of trauma. EYES: PERRL, extraocular movements intact, sclera anicteric, conjunctiva clear. No ptosis. ENT: Ears normal, nares patent, oropharynx clear without exudates, moist mucous membranes. NECK: Trachea midline, full range of motion, supple. LUNGS: Breath sounds equal, clear to auscultation bilaterally, no wheezes, no crackles, no accessory muscle use. HEART: Regular rate and rhythm, S1, S2 without murmur, rub or gallop. ABDOMEN: Soft, nontender, nondistended, normoactive bowel sounds, no guarding, no rebound, no hepatosplenomegaly, no masses. EXTREMITIES: 2+ pulses, warm, well-perfused, no edema. NEUROLOGICAL: Cranial nerves II through XII grossly intact. Normal speech, gait not observed. PSYCH: Normal mood, normal affect. SKIN: Warm, dry, normal turgor, no rashes or lesions noted LABS Laboratory Results - last 24 hr 09/06/17 09/06/17 09/06/17 06:15 06:15 11:05 WBC 5.5 RBC 4.53 Hgb 10.7 Hct 35.3 MCV 78.0 L MCH 23.6 L MCHC 30.3 L RDW 21.7 H Plt Count 258 MPV 7.6 Neutrophils % 79.6 Lymphocytes % 13.1 D Monocytes % 7.0 D Eosinophils % 0.0 Basophils % 0.3 Sodium 144 Potassium 3.4 L Chloride 104 Carbon Dioxide 32 Anion Gap 8 BUN 14 Creatinine 1.0 Random Glucose 93 Calcium 8.7 Phosphorus Magnesium Troponin I 1.40 H* Triglycerides Cholesterol Total LDL Cholesterol HDL Cholesterol 09/06/17 09/06/17 11:05 11:05 WBC RBC Hgb Hct MCV MCH MCHC RDW Plt Count MPV Neutrophils % Lymphocytes % Monocytes % Eosinophils % Basophils % Sodium Potassium Chloride Carbon Dioxide Anion Gap BUN Creatinine Random Glucose Calcium Phosphorus 4.0 Magnesium 2.4 Troponin I Triglycerides 89 Cholesterol 228 H Total LDL Cholesterol 134 H HDL Cholesterol 85 H CBC, BMP 09/06/17 06:15 09/06/17 06:15 Abnormal Lab Results 09/05/17 09/06/17 09/06/17 06:15 06:15 11:05 MCV MCH MCHC RDW Potassium 3.4 L Troponin I 0.24 1.57 1.40 H* Cholesterol Total LDL Cholesterol HDL Cholesterol 09/06/17 11:05 MCV MCH MCHC RDW Potassium Troponin I Cholesterol 228 H Total LDL Cholesterol 134 H HDL Cholesterol 85 H HOSPITAL COURSE: Date of Admission:09/06/17 57 y/o F with PMH HTN, gastritis, diverticulitis, previous DVT (on coumadin), polypectomy x 8 (seen on colonoscopy in past), currently on methadone via [facility], who presents to the ED with 6-7 episodes of NBNB emesis. As per patient, at midnight, she was very hungry so she ate candy, soda, and a grilled cheese sandwich. At 10AM, pt had 6-7 episodes of constant NBNB emesis. According to daughter, at first, pt's vomit was voluminous, however towards the end she was spitting up. This happens to the pt twice a year, and has never been a/w food type. During this time, pt also endorses mid diaphoresis, chills and increased urinary frequency. Pt denies TA, fever, chest or abdominal pain, burning sensation in chest or throat, SOB, or changes in bowel function. Her last BM was today. She was found to have a hypomagnesemia (1.7) and a troponinemia (0.11 -> 0.24 -> 1.57 -> 1.40). Patient was treated with supportive care and IVF for suspected gastritis/gastroenteritis and was given chlorpromazine. Zofran and methadone were held due to QT prolongation on ECG. Patient was treated for ACS with loading doses of ASA/plavix and metoprolol. Patient's nausea/vomiting had improved. Echo: trace tricuspid regurgitation, mild mitral regurgitation, LV size and function normal, RV is normal in size and function EF 38.6%. Dr. Mcmullen (cardiology) arranged for transfer to [facility] for cardiac cath. Patient is NPO. Date of Discharge: 09/07/17 Minutes to complete discharge: 35 <Renan Lay Filed: 09/07/17 10:15> Physical Exam: Patient seen and examined. Patient is getting transferred to [facility]. Will give her methadone dose 50mg since is having withdrawel symptoms. EKG is done and QTc is within normal range. <Joaquin Coppola - Last Filed: 09/07/17 19:07> Discharge Summary Reason For Visit: ELEVATED TROP/PROLONGED QT INTERVAL/EKG Current Active Problems Acute electrocardiogram changes (Acute) Hypertension (Acute) Hypomagnesemia (Acute) Prolonged QT interval (Acute) Troponin level elevated (Acute) Vomiting (Acute) - Home Medications Comprehensive Discharge Medication List: Ambulatory Orders Diltiazem HCl [Tiazac] 240 mg PO DAILY 11/04/13 Cholecalciferol (Vitamin D3) [Vitamin D3] 5,000 unit PO DAILY 07/18/17 Quetiapine Fumarate [Seroquel] 300 mg PO DAILY 07/18/17 Aspirin [ASA -] 81 mg PO DAILY tab.chew 09/07/17 Methadone [Dolophine -] 50 mg PO DAILY #30 each 09/07/17 Warfarin Sodium [Coumadin] 7 mg PO HS #60 tablet 09/07/17 <Renan Lay Filed: 09/07/17 10:15> - Home Medications Comprehensive Discharge Medication List: Ambulatory Orders Diltiazem HCl [Tiazac] 240 mg PO DAILY 11/04/13 Cholecalciferol (Vitamin D3) [Vitamin D3] 5,000 unit PO DAILY 07/18/17 Quetiapine Fumarate [Seroquel] 300 mg PO DAILY 07/18/17 Aspirin [ASA -] 81 mg PO DAILY tab.chew 09/07/17 Methadone [Dolophine -] 50 mg PO DAILY #30 each 09/07/17 Warfarin Sodium [Coumadin] 7 mg PO HS #60 tablet 09/07/17 <Joaquin Coppola Filed: 09/07/17 19:07> Condition: Stable - Instructions Disposition: TRANSFER ACUTE CARE/OTHER HOSP This patient is new to me today: No Emergency Visit: No Critical Care patient: No - Discharge Referral Referred to [facility] No <Renan Lay Filed: 09/07/17 10:15>
[2017-09-07] MEDS ORDERED: METHADONE HCL 10 MG TABLET PO ONE (08:39)
--- NOTE | 2017-09-07 09:56 | EKG ---
Test Reason : Blood Pressure : / mmHG Vent. Rate : 075 BPM Atrial Rate : 075 BPM P-R Int : 160 ms QRS Dur : 074 ms QT Int : 422 ms P-R-T Axes : 076 018 034 degrees QTc Int : 471 ms NORMAL SINUS RHYTHM POSSIBLE LEFT ATRIAL ENLARGEMENT WHEN COMPARED WITH ECG OF 06-SEP-2017 08:49, VENT. RATE HAS INCREASED BY 25 BPM Confirmed by LUIS CARLOS SMITH MD ([id number]) on 09/07/2017 9:56:16 AM Referred By: Confirmed By:LUIS CARLOS SMITH MD
[2017-09-07] MEDS ORDERED: ASPIRIN 81 MG CHEWABLE TABLETS PO SCH (10:00)
== END 2017-09-07 09:28 | disposition short-term general hospital (02) | DRG 190 ==
LOC: JER 12:43 → JERBED 20:14 → J4W 23:50 → OBSVTOIN 09-06 09:05
PROVIDERS: ADMIT Internal Medicine; ATTEND Internal Medicine
DX: I21.4 Non-ST elevation (NSTEMI) myocardial infarction (principal); K52.9 Noninfective gastroenteritis and colitis, unspecified; I24.9 Acute ischemic heart disease, unspecified; R79.1 Abnormal coagulation profile; I10 Essential (primary) hypertension; E83.42 Hypomagnesemia; Z87.891 Personal history of nicotine dependence; R07.9 Chest pain, unspecified; R11.2 Nausea with vomiting, unspecified
CPT/HCPCS: 36415; 71045-TC; 76700-TC; 80048; 80053; 80061; 81003; 81015; 82550; 82553; 82962; 83690; 83721; 83735; 84100; 84443; 84484; 85025; 85610; 87086; 87804; 93005; 93010; 93306-TC; 99285-25; G0378

== ENCOUNTER 2017-09-20 12:42 | Emergency (ER) | payer OTHER ==
[2017-09-20 13:05] VITALS: BP 158/83; PULSE 97; TEMP 98.5; BMI 31.7
[2017-09-20] MEDS ORDERED: ACETAMINOPHEN 325 MG TABLET (FP) PO ONE (13:39)
--- NOTE | 2017-09-20 13:44 | PDOC ---
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 The patient states that her pain started last night and worsened throughout the day today. She says the pain is located in her entire R lower leg including her calf and feels "something like" her previous DVT. She denies any numbness, tingling, or weakness in her body. She denies any back pain, CP, SOB. Past History - Past Medical History Allergies/Adverse Reactions: Allergies Allergy/AdvReac Type Severity Reaction Status Date / Time No Known Allergies Allergy Verified 09/20/17 12:57 Home Medications: Ambulatory Orders Diltiazem HCl [Tiazac] 240 mg PO DAILY 11/04/13 Cholecalciferol (Vitamin D3) [Vitamin D3] 5,000 unit PO DAILY 07/18/17 Quetiapine Fumarate [Seroquel] 300 mg PO DAILY 07/18/17 Aspirin [ASA -] 81 mg PO DAILY tab.chew 09/07/17 Methadone [Dolophine -] 50 mg PO DAILY #30 each 09/07/17 Warfarin Sodium [Coumadin] 7 mg PO HS #60 tablet 09/07/17 Naproxen [Naprosyn -] 500 mg PO BID #14 tablet 09/20/17 Anemia: Yes Asthma: No Cancer: No Cardiac Disorders: No (PULMONARY EMBOLI/DVT) CVA: No COPD: No CHF: No Dementia: No Diabetes: No GI Disorders: No Disorders: No HTN: Yes Hypercholesterolemia: No Liver Disease: No Psychiatric Problems: Yes (DEPRESSION) Seizures: No Thyroid Disease: Yes (hyper,not on meds x 1 year..) - Immunization History Immunization Up to Date: No - Suicide/Smoking/Psychosocial Hx Smoking History: Former smoker Have you smoked in the past 12 months: Yes Number of Cigarettes Smoked Daily: 0 If you are a former smoker, when did you quit?: 2013 Information on smoking cessation initiated: No 'Breaking Loose' booklet given: 11/04/13 Hx Alcohol Use: No Drug/Substance Use Hx: No Substance Use Type: None Hx Substance Use Treatment: Yes Review of Systems - Review of Systems Able to Perform ROS?: Yes Comments:: 09/20/17 14:01 GENERAL/CONSTITUTIONAL: No fever or chills. No weakness. HEAD, EYES, EARS, NOSE AND THROAT: No change in vision. No ear pain or discharge. No sore throat. CARDIOVASCULAR: No chest pain, palpitations, or lightheadedness. RESPIRATORY: No cough, wheezing, shortness of breath, or hemoptysis. GASTROINTESTINAL: No nausea, vomiting, diarrhea, constipation, or abdominal pain. GENITOURINARY: No dysuria, frequency, hematuria, or change in urination. MUSCULOSKELETAL: Positive for R calf pain and R LE pain. No neck or back pain. SKIN: No rash or lesions. NEUROLOGIC: No headache, numbness, tingling, weakness, loss of consciousness, or change in strength/sensation. ENDOCRINE: No increased thirst. No abnormal weight change. HEMATOLOGIC/LYMPHATIC: No anemia, easy bleeding, or history of blood clots. ALLERGIC/IMMUNOLOGIC: No hives or skin allergy. Is the patient limited Micronesian proficient: No *Physical Exam - Vital Signs Last Vital Signs Temp Pulse Resp BP Pulse Ox 98.5 F 97 H 16 158/83 94 L 09/20/17 12:58 09/20/17 12:58 09/20/17 12:58 09/20/17 12:58 09/20/17 12:58 - Physical Exam Comments: 09/20/17 14:01 GENERAL: Well developed, well nourished. Awake and alert. No acute distress. HEENT: Normocephalic, atraumatic. Hearing grossly normal. Moist mucous membranes. PERRLA, EOMI. No conjunctival pallor. Sclera are non-icteric. NECK: Supple. Full ROM. No JVD. CARDIOVASCULAR: Regular rate and rhythm. No murmurs, rubs, or gallops. Distal pulses are 2+ and symmetric. PULMONARY: No evidence of respiratory distress. Lungs clear to auscultation bilaterally. No wheezing, rales or rhonchi. ABDOMINAL: Soft. Non-tender. Non-distended. No rebound or guarding. GENITOURINARY: No CVA tenderness bilaterally. MUSCULOSKELETAL: Normal range of motion at all joints. No bony deformities or tenderness. R calf mildly larger than L calf. No tenderness to palpation. Negative Pearson test. EXTREMITIES: No cyanosis. No clubbing. No edema. No calf tenderness. SKIN: Warm and dry. Normal capillary refill. No rashes. No jaundice. NEUROLOGICAL: Alert, awake, appropriate. Cranial nerves 2-12 intact. Normal speech. PSYCHIATRIC: Cooperative. Good eye contact. Appropriate mood and affect. ED Treatment Course - LABORATORY CBC & Chemistry Diagram: 09/20/17 14:20 09/20/17 14:20 - RADIOLOGY Radiology Studies Ordered: Category Date Time Status DUPLEX VASCUL US-1 LEG [US] Stat Ultrasound 09/20/17 13:37 Ordered Medical Decision Making - Medical Decision Making 09/20/17 14:35 The patient is a 57F with a PMH of DVT's on coumadin and on methadone who presents to the ER with R LE pain. U/S negative for DVT and cysts. Pending labs. 09/20/17 16:33 Labs negative. U/S negative for DVT. Will d/c home with naprosyn and PCP f/u. *DC/Admit/Observation/Transfer Diagnosis at time of Disposition: Leg pain Qualifiers: Laterality: right Qualified Code(s): M79.604 - Pain in right leg - Discharge Dispostion Disposition: HOME Condition at time of disposition: Stable Admit: No - Prescriptions Prescriptions: Naproxen [Naprosyn -] 500 mg PO BID #14 tablet - Referrals - Patient Instructions Printed Discharge Instructions: DI for Leg Pain Additional Instructions: Please return to the ER if symptoms persist, worsen, or new symptoms arise. Please follow up with your primary care physician tomorrow. Please return to the ER if you have any signs or symptoms of chest pain, shortness of breath, uncontrollable fever, chills, nausea, vomiting, numbness, tingling, or weakness in any part of your body, changes in vision, or slurred speech. Please take your Naprosyn as needed for pain. - Post Discharge Activity
[2017-09-20] MEDS ORDERED: ACETAMINOPHEN 325 MG TABLET (FP) ONE ×2 (13:50→13:52)
[2017-09-20] MEDS ORDERED: oxyCODONE HCL 5 MG TABLET PO ONE (14:52)
[2017-09-20 14:55] LABS: BASO % 0.7 % (0-2.0); EOS % 0.2 % (0-4.5); HEMOGLOBIN 10.2 GM/dL (10.7-15.3); LYMPH % 9.9 % (8-40); MCH 24.1 pg (25.7-33.7); MEAN CELL VOLUME 77.8 fl (80-96); MEAN PLT VOLUME 6.7 fl (7.5-11.1); MONO % 4.9 % (3.8-10.2); NEUT % 84.3 % (42.8-82.8); PLATELET COUNT 284 K/MM3 (134-434); RBC 4.25 M/mm3 (3.60-5.2); RDW 21.5 % (11.6-15.6); WHITE BLOOD COUNT 4.1 K/mm3 (4.0-10.0)
--- NOTE | 2017-09-20 14:57 | PDOC ---
Attending Attestation - Resident Resident Name: SelvinDex vanegas - ED Attending Attestation I have performed the following: I have examined & evaluated the patient, The case was reviewed & discussed with the resident, I agree w/resident's findings & plan, Exceptions are as noted - HPI HPI: 09/20/17 14:55 57-year-old female with history of hypertension, gastritis, diverticulitis, previous DVT on Coumadin, polypectomy, on methadone presents with right calf pain. Patient reports atraumatic right calf pain that has progressively worsened. Patient reports that the pain has not subsided and is worsened with walking. Denies any numbness or weakness. States that she was concerned for previous DVT but denies any chest pain short of breath. Denies any bony pain. Came into the ER for further evaluation. - Physicial Exam PE: 09/20/17 14:56 GENERAL: Awake, alert, and fully oriented, in no acute distress. HEAD: No signs of trauma EYES: PERRLA, EOMI, sclera anicteric, conjunctiva clear ENT: Auricles normal inspection, hearing grossly normal, nares patent, oropharynx clear without exudates. NECK: Normal ROM, supple, no lymphadenopathy, JVD, or masses LUNGS: Breath sounds equal, clear to auscultation bilaterally. No wheezes, and no crackles HEART: Regular rate and rhythm, normal S1 and S2, no murmurs, rubs or gallops ABDOMEN: Soft, nontender, normoactive bowel sounds. No guarding, no rebound. No masses EXTREMITIES: Normal range of motion, no edema. No clubbing or cyanosis. No cords, erythema. RLE: Pearson test negative. 2+ DP pulse RLE. Sensation intact throughout. No ankle or knee tenderness. no bony tenderness. Tenderness to R calf, but elton sign negative. NEUROLOGICAL: Cranial nerves II through XII grossly intact. Normal speech SKIN: Warm, Dry, normal turgor, no rashes or lesions noted. - Medical Decision Making 09/20/17 14:56 Vital Signs Temp Pulse Resp BP Pulse Ox 98.5 F 97 H 16 158/83 94 L 09/20/17 12:58 09/20/17 12:58 09/20/17 12:58 09/20/17 12:58 09/20/17 12:58 I agree with the plan to rule out DVT with duplex. However, if the duplex negative, he could be possible that this is cramping. There is no bony tenderness and I have no suspicion for fracture at this time. I agree with the plan to draw labs to check the INR level. We'll trial pain medications. Given her prior medical history, we'll check for lunch like disturbances for potential reasons for cramping. If workup is unremarkable and the patient feels better with medications, the patient can be discharged with outpatient follow- up.
[2017-09-20] MEDS ORDERED: oxyCODONE HCL 5 MG TABLET ONE (14:59)
[2017-09-20 15:08] LABS: INR 1.63 (0.82-1.09); PROTHROMBIN TIME (PATIENT) 18.4 SEC (9.98-11.88)
[2017-09-20 15:22] LABS: ALBUMIN 3.3 g/dl (3.4-5.0); ANION GAP 4 (8-16); BILIRUBIN,TOTAL 0.2 mg/dL (0.2-1.0); BLOOD UREA NITROGEN 13 mg/dL (7-18); CALCIUM 9.2 mg/dL (8.5-10.1); CHLORIDE 103 mmol/L (98-107); CO2 36 mmol/L (21-32); CREATININE 0.8 mg/dL (0.55-1.02); GLUCOSE,RANDOM 92 mg/dL (74-106); POTASSIUM 4.1 mmol/L (3.5-5.1); SGOT/AST 21 U/L (15-37); SGPT/ALT 41 U/L (12-78); SODIUM 143 mmol/L (136-145); TOT PROT 6.8 g/dl (6.4-8.2)
[2017-09-20 15:23] LABS: ALK PHOS 130 U/L (45-117)
== END 2017-09-20 16:49 | disposition home or self-care (01) ==
LOC: JER 12:42
DX: M79.661 Pain in right lower leg (principal); Z86.711 Personal history of pulmonary embolism; Z86.718 Personal history of other venous thrombosis and embolism; Z79.01 Long term (current) use of anticoagulants; I10 Essential (primary) hypertension; F32.9 Major depressive disorder, single episode, unspecified; E05.90 Thyrotoxicosis, unspecified without thyrotoxic crisis or storm; F11.20 Opioid dependence, uncomplicated
CPT/HCPCS: 36415; 80053; 85025; 85610; 93971-TC; 99282-25

== ENCOUNTER 2019-01-16 04:12 | Emergency (ER) | payer OTHER | END 2019-01-16 09:43 | disposition home or self-care (01) | LOC: JER 04:12 ==

== ENCOUNTER 2019-07-12 22:23 | Emergency (ER) | payer OTHER ==
[2019-07-12 22:41] VITALS: BMI 29.2
--- NOTE | 2019-07-12 22:46 | PDOC ---
History of Present Illness - General Chief Complaint: Pain, Acute Stated Complaint: ABD PAIN Time Seen by Provider: 07/12/19 22:45 - History of Present Illness Initial Comments: 07/13/19 00:00 59 y/o F hx of opioid abuse on methadone, dvt on coumadin, gastritis, diverticulitis and polypectomy (colon) presents to the ER with 1 day of abdominal pain, nausea and vomiting. She was at home having a conversation with family member when she began to have burning pain. She describes it as diffuse non-localized burning pain which feels like heartburn. She has has about 9 episodes of NBNB emesis. Pain radiates to her right back. Denies any alleviating / exacerbating factors. Pain is 10/10. She endorses subjective fevers at home. She denies chills, diarrhea, bloody stools, vaginal discharge or bleeding, dysuria, hematuria. 07/13/19 00:05 Past History - Past Medical History Allergies/Adverse Reactions: Allergies Allergy/AdvReac Type Severity Reaction Status Date / Time No Known Allergies Allergy Verified 07/12/19 22:40 Home Medications: Ambulatory Orders Diltiazem HCl [Diltiazem ER] 240 mg PO DAILY 07/13/19 Methadone [Dolophine -] 45 mg PO DAILY 07/13/19 Quetiapine Fumarate [Seroquel -] 200 mg PO DAILY 07/13/19 Warfarin Sodium [Coumadin] 7.5 mg PO DAILY 07/13/19 Anemia: Yes Asthma: No Cancer: No Cardiac Disorders: No (PULMONARY EMBOLI/DVT) CVA: No COPD: No CHF: No Dementia: No Diabetes: No GI Disorders: No Disorders: No HTN: Yes Hypercholesterolemia: No Liver Disease: No Psychiatric Problems: Yes (DEPRESSION) Seizures: No Thyroid Disease: Yes (hyper,not on meds x 1 year..) - Immunization History Immunization Up to Date: No - Psycho Social/Smoking Cessation Hx Smoking History: Never smoked Have you smoked in the past 12 months: No Number of Cigarettes Smoked Daily: 0 If you are a former smoker, when did you quit?: 2013 Information on smoking cessation initiated: No 'Breaking Loose' booklet given: 11/04/13 Hx Alcohol Use: No Drug/Substance Use Hx: No Substance Use Type: None Hx Substance Use Treatment: Yes Review of Systems - Review of Systems Constitutional: Yes: Fever. No: Chills HEENTM: No: Eye Pain, Blurred Vision Respiratory: No: Cough, Shortness of Breath Cardiac (ROS): No: Chest Pain, Lightheadedness ABD/GI: Yes: Nausea, Vomiting : No: Burning, Dysuria Musculoskeletal: No: Joint Pain, Joint Swelling Integumentary: No: Bruising, Erythema Neurological: No: Headache, Numbness *Physical Exam - Vital Signs Last Vital Signs Temp Pulse Resp BP Pulse Ox 99.6 F 127 H 18 172/104 H 96 07/12/19 22:40 07/12/19 22:40 07/12/19 22:40 07/12/19 22:40 07/12/19 22:40 - Physical Exam 07/13/19 00:09 PE: GENERAL: Awake, alert, and fully oriented, uncomfortable and agitated HEAD: No signs of trauma, normocephalic, atraumatic EYES: EOMI, sclera anicteric, conjunctiva clear ENT: Auricles normal inspection, hearing grossly normal, nares patent, oropharynx clear without exudates. Moist mucosa NECK: Normal ROM, supple, no lymphadenopathy, JVD, or masses LUNGS: No distress, speaks full sentences, clear to auscultation bilaterally HEART: tachycardic. normal S1 and S2, no murmurs, rubs or gallops, peripheral pulses normal and equal bilaterally. ABDOMEN: Soft, RLQ tenderness and epigastric tenderness. no masses,no CVA tenderness no rebound. EXTREMITIES : Normal inspection, Normal range of motion, no edema. No clubbing or cyanosis NEUROLOGICAL: Cranial nerves II through XII grossly intact. Normal speech,no focal sensorimotor deficits SKIN: Warm, Dry, normal turgor, no rashes or lesions noted ED Treatment Course - LABORATORY CBC & Chemistry Diagram: 07/12/19 23:40 07/12/19 23:40 Medical Decision Making - Medical Decision Making 07/13/19 00:11 59 y/o F hx of opioid abuse on methadone, dvt on coumadin, gastritis, diverticulitis and polypectomy (colon) presents to the ER with 1 day of abdominal pain, nausea and vomiting sepsis workup meds: zofran, tylenol, pepcid, normal saline EKG: sinus tachycardia, biatrial enlargement, LVH with QRS widening and repolarization abdnormality. previous EKG had prolonged QT, this one does not. T wave inversions in V5, V6 and I 07/13/19 00:[address] Palacios called for cardiology consult. 07/13/19 00:53 [facility] Called for consult. will call us back 325mg of aspirin po aspiring ordered for patient. 07/13/19 01:00 07/13/19 01:29 4000 units of heparin IV bolus heparin drip ordered Patient will head to CTA for continued tachycardia. CXR no infiltrate mass or effusion increased thickening or vascular markings in the right lung base, normal aeration no definite lobar consolidation, no definite signs of pneumonia in the lungs Patient transferred to [facility], accepted by Dr. Griffith Discharge - Discharge Information Clinical Impression/Diagnosis: Troponin level elevated, NSTEMI (non-ST elevated myocardial infarction) Condition: Poor Disposition: TRANSFER ACUTE CARE/OTHER HOSP - Follow up/Referral Referrals: Jeffery Garzon MD, [Primary Care Provider] - - Patient Discharge Instructions - Post Discharge Activity
[2019-07-12] MEDS ORDERED: SODIUM CHLORIDE 1,000 ML IV STA (23:04)
[2019-07-12] MEDS ORDERED: FAMOTIDINE 20 MG/50 ML IVPB 20 MG/50 ML MG IVPB ONE ×2 (23:04→23:28)
[2019-07-12 23:49] LABS: VENOUS PC02 48.3 mmHg (38-52); VENOUS PH 7.44 (7.31-7.41)
[2019-07-12 23:51] LABS: BASO % 0.3 % (0-2.0); HEMATOCRIT 43.7 % (32.4-45.2); HEMOGLOBIN 13.9 GM/dL (10.7-15.3); LYMPH % 5.8 % (8-40); MCH 26.6 pg (25.7-33.7); MCHC 31.9 g/dl (32.0-36.0); MEAN CELL VOLUME 83.3 fl (80-96); MEAN PLT VOLUME 8.1 fl (7.5-11.1); MONO % 2.8 % (3.8-10.2); NEUT % 91.1 % (42.8-82.8); PLATELET COUNT 287 K/MM3 (134-434); RBC 5.24 M/mm3 (3.60-5.2); RDW 15.3 % (11.6-15.6); WHITE BLOOD COUNT 5.5 K/mm3 (4.0-10.0)
[2019-07-12 23:51] LABS: VENOUS PO2 < 49 mmHg (28-48)
--- NOTE | 2019-07-13 00:03 | PDOC ---
Documentation entered by Topher Bateman SCRIBE, acting as scribe for Jocelyne Suresh MD. Jocelyne Suresh MD: This documentation has been prepared by the Bhavana osuna Xhesika, SCRIBE, under my direction and personally reviewed by me in its entirety. I confirm that the documentation accurately reflects all work, treatment, procedures, and medical decision making performed by me. Attending Attestation - Resident Resident Name: Chitra Carmona - ED Attending Attestation I have performed the following: I have examined & evaluated the patient, The case was reviewed & discussed with the resident, I agree w/resident's findings & plan, Exceptions are as noted - HPI HPI: 07/12/19 22:48 The patient is a 59 year old female, with a significant past medical history of HTN, gastritis, diverticulitis, previous DVT (on coumadin), polypectomy, currently on methadone who presents to the ED with nausea, vomiting, and abdominal pain since 8am. Pt describes her pain as "heart burning pain," 10/10 in severity, radiating to her right side, associated with subjective fevers. Pt denies any recent alcohol use. Denies chest pain, shortness of breath, headache and dizziness. Denies chills, cough, diarrhea and constipation. Denies dysuria, frequency, urgency and hematuria. Allergies: NKDA - Physicial Exam PE: 07/12/19 22:49 GENERAL: The patient is in no acute distress. HEAD: Normal with no signs of trauma. EYES: PERRLA, EOMI, sclera anicteric, conjunctiva clear. ENT: Ears normal, nares patent, oropharynx clear without exudates. Moist mucous membranes. NECK: Normal range of motion, supple LUNGS: Breath sounds equal, clear to auscultation bilaterally. HEART:Regular rate and rhythm, normal S1 and S2 without murmur, rub or gallop. ABDOMEN: Soft, nontender, normoactive bowel sounds. No involuntary guarding, no rebound. Right sided tenderness to palpation EXTREMITIES: Normal range of motion, no edema. NEUROLOGICAL: Cranial nerves II through XII grossly intact. Normal speech. No focal neurological deficits. SKIN: Warm, Dry, normal turgor, no rashes or lesions noted. 07/12/19 23:21 - Critical Care Time Total Critical Care Time: 60 Critical Care Statement: The care of this patient involved high complexity decision making to prevent further life threatening deterioration of the patient 's condition and/or to evaluate & treat vital organ system(s) failure or risk of failure. - Medical Decision Making 07/12/19 23:26 59 yo F presenting with a complaint of abdominal pain, nausea and vomiting since 8 am Pt demonstrates abdominal tenderness on examination Will do Labs Rectal temp (pt reports fevers, oral temp 99.6) CT abd and pelvis Re Assess 07/13/19 00:03 EKG: SR vs aflutter rate of 119 bpm, axis nml, new t wave inversions v5-v6, I, aVL (new) Laboratory Tests 07/12/19 07/12/19 23:28 23:40 WBC 5.5 Hgb 13.9 Hct 43.7 D Plt Count 287 VBG pH 7.44 H POC VBG pCO2 48.3 POC VBG pO2 < 49 H 07/13/19 00:52 Laboratory Tests 07/12/19 07/12/19 23:40 23:40 BUN 20.4 H Creatinine 1.3 Creatine Kinase 233 H Troponin I 2.52 H* 07/13/19 00:52 CXR: increased vascular markings Call placed to Dr Belle 07/13/19 01:04 Case reviewed with [facility] Fellow Pt noted to be tachycardiac and hypoxic (80%! good wave form) Will CTA 07/13/19 01:19 Accepted to the CCU by Dr Griffith Will send for CTA [facility] pending Bedside US no Right heart strain 07/13/19 01:20 07/13/19 01:21 Repeat EKG: ? Aflutter rate of 132 bpm, axis nml, LVH, T wave inversions laterally (more pronounced) 07/13/19 01:57 Laboratory Tests 07/13/19 01:10 Stool Occult Blood Negative 07/13/19 02:04 Received call from [facility] They are awaiting a bed Pt remains hypertensive Denies chest pain Continues to have nausea and abdominal discomfort Cardiology Attending: Dr. Elias 07/14/19 20:[address] obtained Pt called (she is at [facility]) Results relayed to her She is awaiting cardiac cathetherization Clinical impression: ACS, initial presentation Positive troponin, initial presentation Arrhythmia?, initial presentation Duodenal mucosal lesion, initial presentation Adrenal adenoma, initial presentation Discharge - Discharge Information Problems reviewed: Yes Clinical Impression/Diagnosis: Troponin level elevated, NSTEMI (non-ST elevated myocardial infarction) Condition: Poor Disposition: TRANSFER ACUTE CARE/OTHER HOSP - Follow up/Referral Referrals: Jeffery Garzon MD, MD [Primary Care Provider] - - Patient Discharge Instructions - Post Discharge Activity
[2019-07-13] MEDS ORDERED: ACETAMINOPHEN 1000 MG/100 ML VIAL (NON FORMULARY) IVPB ONE (00:04)
[2019-07-13] MEDS ORDERED: ONDANSETRON 4 MG/2 ML VIAL IVPUSH ONE (00:04)
[2019-07-13 00:05] LABS: INR 1.73 (0.83-1.09); PROTHROMBIN TIME (PATIENT) 20.5 SEC (9.7-13.0)
[2019-07-13] MEDS ORDERED: ONDANSETRON 4 MG/2 ML VIAL ONE (00:07)
[2019-07-13] MEDS ORDERED: ACETAMINOPHEN INJECTION 100 ML IVPB ONE (00:07)
[2019-07-13 00:30] LABS: ALBUMIN 3.9 g/dl (3.4-5.0); BILIRUBIN,TOTAL 0.4 mg/dL (0.2-1); BLOOD UREA NITROGEN 20.4 mg/dL (7-18); CALCIUM 10.3 mg/dL (8.5-10.1); CREATININE 1.3 mg/dL (0.55-1.3); POTASSIUM 3.2 mmol/L (3.5-5.1)
[2019-07-13] MEDS ORDERED: ASPIRIN 325 MG TABLET PO ONE (00:46)
[2019-07-13] MEDS ORDERED: ASPIRIN 325 MG ENTERIC COATED TABLET (FP) ONE (00:56)
[2019-07-13] MEDS ORDERED: HEPARIN NA (PORCINE) 5,000 UNITS/ML 1ML VIAL IVPUSH ONE (01:22)
[2019-07-13] MEDS ORDERED: HEPARIN - 25,000 UNIT in SODIUM CHLORIDE 495 ML IV SCH (01:30)
[2019-07-13 01:46] LABS: ANISOCYTOSIS 0; HELMET CELLS 0; HOWELL-JOLLY BODIES 0; MACROCYTOSIS 0; OVALOCYTE 0; PLATELET ESTIMATE NORMAL; ROULEAU 0; SICKELED CELLS 0; TARGET CELLS 0; TEAR DROP CELLS 0; TOXIC GRANULATION 0
[2019-07-13] MEDS ORDERED: HEPARIN NA (PORCINE) 5,000 UNITS/ML 1ML VIAL ONE (01:57)
[2019-07-13] MEDS ORDERED: HEPARIN INFUSION - 25,000 UNITS/500 ML INFUS.BAG IVPB ONE (01:57)
[2019-07-13 02:22] VITALS: BP 152/92; PULSE 128
[2019-07-13] MEDS ORDERED: CLOPIDOGREL BISULFATE 300 MG TABLET PO ONE (02:23)
[2019-07-13] MEDS ORDERED: CLOPIDOGREL BISULFATE 300 MG TABLET ONE (02:26)
[2019-07-13 02:36] VITALS: TEMP 98.4
--- NOTE | 2019-07-14 00:58 | EKG ---
Test Reason : Blood Pressure : / mmHG Vent. Rate : 132 BPM Atrial Rate : 132 BPM P-R Int : 164 ms QRS Dur : 088 ms QT Int : 288 ms P-R-T Axes : 073 077 -88 degrees QTc Int : 426 ms POSSIBLY ATRIAL FLUTTER WITH RAPID VENTRICULAR RESPONSE BIATRIAL ENLARGEMENT LEFT VENTRICULAR HYPERTROPHY ABNORMAL ECG WHEN COMPARED WITH ECG OF 12-JUL-2019 23:45, LIKELY NO SIGNIFICANT CHANGES Confirmed by JAZZ OROSCO, AZAR ([id number]) on 07/14/2019 12:58:21 AM Referred By: Confirmed By:AZAR SCHULZ MD
--- NOTE | 2019-07-14 01:01 | EKG ---
Test Reason : Blood Pressure : / mmHG Vent. Rate : 119 BPM Atrial Rate : 119 BPM P-R Int : 192 ms QRS Dur : 130 ms QT Int : 304 ms P-R-T Axes : 083 066 264 degrees QTc Int : 427 ms CANNOT RULE OUT ATRIAL FLUTTER WITH RAPID VENTRICULAR RESPONSE BIATRIAL ENLARGEMENT ABNORMAL ECG WHEN COMPARED WITH ECG OF 16-JAN-2019 05:31, T WAVE VARIATION VENT. RATE HAS INCREASED POSSIBLE RHYTHM CHANGE Confirmed by JAZZ OROSCO, AZAR ([id number]) on 07/14/2019 1:01:39 AM Referred By: Confirmed By:AZAR SCHULZ MD
== END 2019-07-13 02:45 | disposition short-term general hospital (02) ==
LOC: JER 22:23
PROC: 3E033NZ Introduction of Analgesics, Hypnotics, Sedatives into Peripheral Vein, Percutaneous Approach (ICD-10-PCS; principal; 2019-07-12)
PROC: 3E033GC Introduction of Other Therapeutic Substance into Peripheral Vein, Percutaneous Approach (ICD-10-PCS; 2019-07-12)
DX: I21.4 Non-ST elevation (NSTEMI) myocardial infarction (principal); Z86.718 Personal history of other venous thrombosis and embolism; Z79.01 Long term (current) use of anticoagulants; K29.70 Gastritis, unspecified, without bleeding; F11.90 Opioid use, unspecified, uncomplicated
CPT/HCPCS: 36415; 71045-TC-FY; 71275-TC; 74177-TC; 80053; 82150; 82272; 82550; 82553; 82803; 83605; 83690; 84484; 85025; 85610; 85730; 87040; 93005; 93010; 99285-25; J0131; J1644; J7030; Q9967

== ENCOUNTER 2019-08-09 00:24 | Inpatient (IN) | payer OTHER ==
[2019-08-09] MEDS ORDERED: NITROGLYCERIN 25MG/D5W 250ML 25 MG/250 ML ML IVPB ONE (00:38)
[2019-08-09] MEDS ORDERED: NITROGLYCERIN 50MG/D5W 250ML 50 MG/250 ML ML IVPB SCH (00:45)
[2019-08-09] MEDS ORDERED: NITROGLYCERIN 25MG/D5W 250ML 25 MG/250 ML ML IVPB SCH (00:45)
--- NOTE | 2019-08-09 00:49 | PDOC ---
Attending Attestation - Resident Resident Name: Yu Shook - HPI HPI: 08/09/19 01:32 pt presents to the Ed complaining of severe shortness of breath that started one hour prior to admission. found extremely hypoxic by EMS, with O2 sat of 60% . Started on cpap by EMS with improvement in her oxygenation to mid 70s. On arrival to the ED, patient was found to be in acute distress with severe shortness of breath, speaking in 1-2 word sentences. Started on bipap and nitro drip with rapid improvement in her symptoms. - Physicial Exam PE: 08/09/19 01:41 agree with resident exam. gen: alert, in acute respiratory distress. CV:tachycardic, regular Resp; + diffuse crackles, speaking in one word sentences, using accessory muscles Ext: + RLE tenderness without pitting edema. 08/09/19 01:49 - Critical Care Time Total Critical Care Time: 30 Critical Care Statement: The care of this patient involved high complexity decision making to prevent further life threatening deterioration of the patient 's condition and/or to evaluate & treat vital organ system(s) failure or risk of failure. - Medical Decision Making 08/09/19 01:50 Pt presents to the ED in acute respiratory distress. Extremely hypertensive and hypoxic on arrival to the ED. Improving rapidly on bipap and nitro drip. Will continue to monitor and admit to medicine for continued management.
[2019-08-09 01:19] LABS: BASO % 0.6 % (0-2.0); EOS % 3.2 % (0-4.5); HEMATOCRIT 36.4 % (32.4-45.2); HEMOGLOBIN 10.8 GM/dL (10.7-15.3); LYMPH % 43.7 % (8-40); MCHC 29.8 g/dl (32.0-36.0); MEAN CELL VOLUME 90.6 fl (80-96); MEAN PLT VOLUME 9.1 fl (7.5-11.1); MONO % 7.2 % (3.8-10.2); NEUT % 45.3 % (42.8-82.8); PLATELET COUNT 248 K/MM3 (134-434); RBC 4.01 M/mm3 (3.60-5.2); RDW 16.9 % (11.6-15.6)
--- NOTE | 2019-08-09 01:38 | PDOC ---
History of Present Illness - General Stated Complaint: RESPIRATORY DISTRESS Time Seen by Provider: 08/09/19 00:48 Past History - Past Medical History Allergies/Adverse Reactions: Allergies Allergy/AdvReac Type Severity Reaction Status Date / Time No Known Allergies Allergy Verified 07/12/19 22:40 Home Medications: Ambulatory Orders Diltiazem HCl [Diltiazem ER] 240 mg PO DAILY 07/13/19 Methadone [Dolophine -] 45 mg PO DAILY 07/13/19 Quetiapine Fumarate [Seroquel -] 200 mg PO DAILY 07/13/19 Warfarin Sodium [Coumadin] 7.5 mg PO DAILY 07/13/19 Anemia: Yes Asthma: No Cancer: No Cardiac Disorders: No (PULMONARY EMBOLI/DVT) CVA: No COPD: No CHF: No Dementia: No Diabetes: No GI Disorders: No Disorders: No HTN: Yes Hypercholesterolemia: No Liver Disease: No Psychiatric Problems: Yes (DEPRESSION) Seizures: No Thyroid Disease: Yes (hyper,not on meds x 1 year..) - Immunization History Immunization Up to Date: No - Psycho Social/Smoking Cessation Hx Smoking History: Never smoked Have you smoked in the past 12 months: No Number of Cigarettes Smoked Daily: 0 If you are a former smoker, when did you quit?: 2013 'Breaking Loose' booklet given: 11/04/13 Hx Alcohol Use: No Drug/Substance Use Hx: No Substance Use Type: None Hx Substance Use Treatment: Yes *Physical Exam - Vital Signs Last Vital Signs Temp Pulse Resp BP Pulse Ox 89 L 08/09/19 00:42 ED Treatment Course - LABORATORY CBC & Chemistry Diagram: 08/09/19 00:50 08/09/19 00:50 - ADDITIONAL ORDERS Additional order review: Laboratory Results 08/09/19 00:50 PTT (Actin FS) 31.3 08/09/19 00:50 RBC 4.01 MCV 90.6 D MCHC 29.8 L RDW 16.9 H MPV 9.1 D Neutrophils % 45.3 D Lymphocytes % 43.7 H D Monocytes % 7.2 D Eosinophils % 3.2 D Basophils % 0.6 Medical Decision Making - Medical Decision Making 08/09/19 01:37 HPI: 59yo F hx "abdominal heart attack" (presented here in 07/2019, transferred to [facility] for Trop 2.5), CHF? (denies, does not know what that means), HTN, HLD, unknown psych condition on Abillify, and hx RLE DVT and PE years ago on Coumadin BIBA in respiratory distress. Daughter at bedside. Pt c/o 3 days BLE pain and swelling R>L, and acute onset SOB, diaphoresis, nausea, and RLE pain at 2315 tonight waking her from sleep. Other than BLE pain and swelling, pt was in USOH prior to 2315 today. Pt saw PCP and cook chili earlier today. Pt's BP was high >200 at office so was given 2 medications at 1600 today, pt believes was HCTZ 40 and a new medication with some improvement in BP. Pt was sleeping when pt was woken with acute onset SOB, diaphoresis, nausea, feeling hot, and worsening RLE pain at 2315. Called EMS. Denies recent illness, recent travel, sick contacts, fever, chills, fatigue, headache, dizziness, numbness/tingling, weakness, vision changes, chest pain, palpitations, cough, abdominal pain, blood in stool, diarrhea, constipation, nausea, vomiting, dysuria, hematuria, confusion. PCP - [facility] - Kit Sagastume ROS: Constitutional: Positive for diaphoresis. Negative for chills, fever, fatigue, diaphoresis. HENT: Negative for sore throat, rhinorrhea, congestion. Eyes: Negative for visual disturbance. Respiratory: Positive for shortness of breath. Negative for cough, and wheezing. Cardiovascular: Positive for b/l leg swelling and pain. Negative for chest pain , palpitations. Gastrointestinal: Positive for nausea. Negative for abdominal pain, blood in stool, constipation, diarrhea, and vomiting. Genitourinary: Negative for dysuria, flank pain, and hematuria. Musculoskeletal: Positive for BLE pain. Negative for myalgias, back pain, and neck pain. Skin: Negative for rash. Neurological: Negative for light-headedness, dizziness, vertigo, syncope, weakness, numbness and headaches. Psychiatric/Behavioral: Negative for behavioral problems and confusion. PE: Gen: Alert, NAD, uncomfortable-appearing, sleepy but arousable, in respiratory distress on bipap HEENT: PERRL, EOMI, MMM, NCAT. No conjunctival pallor. Sclera are non-icteric. Oropharynx is clear. CV: Tachycardic rate and regular rhythm. No murmurs, rubs, or gallops. PULM: In resp distress. Speaking in one word sentences, using accessory muscles , coughing/spitting up pink foamy sputum, diffuse crackles b/l. ABD: soft, NT/ND, no rebound tenderness or guarding, no CVA tenderness. BACK: No TTP of c/t/l-spine. No step-offs or deformities. MSK: No bony deformities. 2+ pulses in all extremities. NEURO: AAOx3. PERRL. No gross CN deficits. Strength and sensation grossly intact throughout. EXTREMITIES: No cyanosis. No clubbing. 2+ BLE pitting edema. + b/l circumferential calf tenderness. PSYCH: Anxious mood and normal thought pattern. SKIN: Warm and dry. Normal capillary refill. No rashes. No jaundice. MDM: 59yo F hx "abdominal heart attack" (presented here in 07/2019, transferred to [facility] for Trop 2.5), CHF? (denies, does not know what that means), HTN, HLD, unknown psych condition on Abillify, and hx RLE DVT and PE years ago on Coumadin BIBA with 3 days BLE pain and swelling R>L, and acute onset SOB, diaphoresis, nausea, and RLE pain at 2315 tonight waking her from sleep. Per EMS, pt O2 sat 60%, BP 200s/100s, bipap placed, rales b/l, nitro given x2, improvement to O2 sat 70%. On arrival, BP 193/110, tachy 130s, O2 sat 60s%, RR 28, airway intact, respiratory distress, speaking in one word sentences, using accessory muscles, coughing/spitting up pink foamy sputum, diffuse crackles b/l , 2+ pitting edema BLEs with b/l calf/diffuse leg tenderness. Nitro drip started at 40mcg/min and respiratory set bipap with improvement in VS and appearance. Within half an hour, improvement in BP to 140s/90s, pulse 80s, RR 14 , O2 sat 100% on bipap, pt speaking in 4-5 word sentences, no accessory muscle use. Ddx: CHF exacerbation, PE, DVT, COPD, PNA, ACS/WV, arrhythmia, metabolic derangement, anemia -CBC,CMP,Coags,BNP,VBG,Mg,Phos -Nitro drip -EKG -CXR -US RLE -Dispo: likely admit ICU pending w/u 08/09/19 02:32 Multiple VS checks - remains BP 140s/60s-90s, P80s, O2 sat 100% on bipap. Labs reviewed. CBC,CMP WBC 7.0 K/mm3 (4.0-10.0) 08/09/19 00:50 RBC 4.01 M/mm3 (3.60-5.2) 08/09/19 00:50 Hgb 10.8 GM/dL (10.7-15.3) 08/09/19 00:50 Hct 36.4 % (32.4-45.2) D 08/09/19 00:50 MCV 90.6 fl (80-96) D 08/09/19 00:50 MCH 27.0 pg (25.7-33.7) 08/09/19 00:50 MCHC 29.8 g/dl (32.0-36.0) L 08/09/19 00:50 RDW 16.9 % (11.6-15.6) H 08/09/19 00:50 Plt Count 248 K/MM3 (134-434) 08/09/19 00:50 MPV 9.1 fl (7.5-11.1) D 08/09/19 00:50 Absolute Neuts (auto) 3.2 K/mm3 (1.5-8.0) 08/09/19 00:50 Neutrophils % 45.3 % (42.8-82.8) D 08/09/19 00:50 Lymphocytes % 43.7 % (8-40) H D 08/09/19 00:50 Monocytes % 7.2 % (3.8-10.2) D 08/09/19 00:50 Eosinophils % 3.2 % (0-4.5) D 08/09/19 00:50 Basophils % 0.6 % (0-2.0) 08/09/19 00:50 Nucleated RBC % 0 % (0-0) 08/09/19 00:50 Sodium 142 mmol/L (136-145) 08/09/19 00:50 Potassium 3.7 mmol/L (3.5-5.1) 08/09/19 00:50 Chloride 104 mmol/L (98-107) 08/09/19 00:50 Carbon Dioxide 22 mmol/L (21-32) 08/09/19 00:50 Anion Gap 16 MMOL/L (8-16) 08/09/19 00:50 BUN 21.6 mg/dL (7-18) H 08/09/19 00:50 Creatinine 1.4 mg/dL (0.55-1.3) H 08/09/19 00:50 Est GFR (CKD-EPI)AfAm 46.88 08/09/19 00:50 Est GFR (CKD-EPI)NonAf 40.45 08/09/19 00:50 POC Glucometer 141 UNITS (80-120) 08/09/19 01:44 Random Glucose 210 mg/dL (74-106) H 08/09/19 00:50 Calcium 9.4 mg/dL (8.5-10.1) 08/09/19 00:50 Phosphorus 7.9 mg/dL (2.5-4.9) H 08/09/19 00:50 Magnesium 2.2 mg/dL (1.8-2.4) 08/09/19 00:50 Total Bilirubin 0.2 mg/dL (0.2-1) 08/09/19 00:50 AST 250 U/L (15-37) H 08/09/19 00:50 ALT 272 U/L (13-61) H 08/09/19 00:50 Alkaline Phosphatase 246 U/L (45-117) H 08/09/19 00:50 Creatine Kinase 199 U/L (26-192) H 08/09/19 00:50 Creatine Kinase Index 1.1 % (0.0-5.0) 08/09/19 00:50 CK-MB (CK-2) 2.2 ng/mL (0.5-3.6) 08/09/19 00:50 Troponin I 0.04 ng/ml (0.00-0.05) 08/09/19 00:50 B-Natriuretic Peptide 7123.4 pg/ml (5-125) H 08/09/19 00:50 Total Protein 6.3 g/dl (6.4-8.2) L 08/09/19 00:50 Albumin 2.9 g/dl (3.4-5.0) L 08/09/19 00:50 EKG reviewed: sinus tachycardia, 120bpm, QTc 421ms, normal axis, TWIs in V5/V6, no ST elevations or depressions CXR reviewed: R>L pulmonary vascular congestion Confirmed RLE DVT on US. Subtherapeutic INR. SOB most consistent with CHF exacerbation, possibly 2/2 PE. Spoke with ICU - recommend heparin bolus plus drip over Lovenox due to Cr. Will admit to ICU. Microblogged hospitalist. -Heparin protocol ordered 08/09/19 03:28 VSS stable on bipap and nitro drip. Pt comfortable. Signed out to hospitalist - accepted for admission. Discharge - Discharge Information Problems reviewed: Yes Clinical Impression/Diagnosis: DVT (deep venous thrombosis), CHF exacerbation Condition: Stable - Admission Yes - Follow up/Referral Referrals: Jeffery Garzon MD, MD [Primary Care Provider] - - Patient Discharge Instructions - Post Discharge Activity
[2019-08-09 01:44] LABS: ALBUMIN 2.9 g/dl (3.4-5.0); BILIRUBIN,TOTAL 0.2 mg/dL (0.2-1); BLOOD UREA NITROGEN 21.6 mg/dL (7-18); CALCIUM 9.4 mg/dL (8.5-10.1); CREATININE 1.4 mg/dL (0.55-1.3); POTASSIUM 3.7 mmol/L (3.5-5.1); TOT PROT 6.3 g/dl (6.4-8.2); VENOUS PO2 < 49 mmHg (28-48)
[2019-08-09 01:45] LABS: INR 1.67 (0.83-1.09); PROTHROMBIN TIME (PATIENT) 19.8 SEC (9.7-13.0)
[2019-08-09 01:47] LABS: VENOUS PC02 83.1 mmHg (38-52); VENOUS PH 7.09 (7.31-7.41)
[2019-08-09] MEDS ORDERED: HEPARIN NA (PORCINE) 5,000 UNITS/ML 1ML VIAL IVPUSH PRN ×3 (02:34→02:57)
[2019-08-09] MEDS ORDERED: HEPARIN - 25,000 UNIT in SODIUM CHLORIDE 495 ML IV SCH (02:45)
[2019-08-09] MEDS ORDERED: HEPARIN SOD,PORK IN 0.45% NACL 25,000 UNITS/500 ML INFUS.BAG IVPB SCH (03:00)
--- NOTE | 2019-08-09 03:08 | HP ---
Admitting History and Physical - Primary Care Physician PCP: Jeffery Garzon MD - Admission Chief Complaint: Respiratory Distress, RLE pain and swelling History of Present Illness: This is a 59 y/o woman with a PMHx of "abdominal heart attack" (presented here in 07/2019, transferred to [facility] for Trop 2.5), CHF? (unable to confirm), HTN, HLD, Depression (on Abillify), DVT (RLE), PE (years ago on Coumadin). Who presents to the ED via ambulance from home in acute respiratory distress. Per the daughter who was at bedside, the patient reported bilateral LE pain and swelling R>L x 3 days, and acute onset SOB, diaphoresis, nausea, and RLE pain at 2315 last night awaking her from sleep. Patient was seen by her PCP and Scrum Coach yesterday, Pt's BP was high >200 at office so was given 2 medications at 1600 today, pt believes was HCTZ 40 and a new medication with some improvement in BP. Patient denies recent illness, recent travel, sick contacts. Patient denies fever, chills, fatigue, headache, dizziness, numbness/ tingling, weakness, vision changes, chest pain, palpitations, cough, abdominal pain, blood in stool, diarrhea, constipation, nausea, vomiting, dysuria, hematuria, confusion. Per chart, EMS reported, pt O2 sat 60%, BP 200s/100s, placed on bipap, received nitro x2, with improvement in sats to 70%. In the ED she was noted to have BP 193/110, tachy 130s, had desated to 60%, RR 28, maintaining her airway but in respiratory distress, speaking in one word sentences, using accessory muscles, coughing/spitting up pink foamy sputum. Patient was suspected to have PE with positive pinkish sputum, positive DVT and hx of PE and DVT. Due to her renal function, CTA was not ordered Nitro drip was started at 40mcg/min, with bipap and overall improvement in patient's respiratory rate and HR. When I saw the pt, she was on bipap, able to speak in full sentences, tachycardic but with minimal work of breathing. EKG-sinus tachy-vent rate 120bpm, Twave inversion lateral and inferior leads, Qwaves, anterioseptal leads normal axis, normal intervals, QTC-421 VBG showed PH-7.01 with CO2 retention Elevated BP to 200/100>>193/110 >>144/63 Pt's creatinine was elevated to 1.4 and she could not get a CTA CXR- Congestive changes She was placed on nitroglycerin drip and will be started on heparin drip for the DVT with possible PE History Source: Patient, Family Member Limitations to Obtaining History: Poor Historian - Past Medical History Cardiovascular: Yes: Deep Vein Thrombosis, HTN Pulmonary: Yes: Pulmonary Embolus Psych: Yes: Anxiety, Depression - Past Surgical History Additional Past Surgical History: angiogram - Smoking History Smoking history: Former smoker Have you smoked in the past 12 months: No Aproximately how many cigarettes per day: 0 If you are a former smoker, when did you quit?: 2013 - Alcohol/Substance Use Hx Alcohol Use: No History of Substance Use: reports: Heroin (on methadone), Marijuana - Social History Usual Living Arrangement: Yes: With Child ADL: Independent History of Recent Travel: No Home Medications - Allergies Allergies/Adverse Reactions: Allergies Allergy/AdvReac Type Severity Reaction Status Date / Time No Known Allergies Allergy Verified 08/09/19 04:38 - Home Medications Home Medications: Ambulatory Orders Diltiazem HCl [Diltiazem ER] 240 mg PO DAILY 07/13/19 Methadone [Dolophine -] 45 mg PO DAILY 07/13/19 Warfarin Sodium [Coumadin] 7.5 mg PO DAILY 07/13/19 Aripiprazole [Abilify] 0 mg PO DAILY 08/09/19 Family Medical History Family Hx Cancer: Mother (Lung Ca- ) Family Hx Diabetes: Mother, Father, Brother Review of Systems - Review of Systems Constitutional: reports: Diaphoresis Eyes: reports: No Symptoms HENT: reports: No Symptoms Neck: reports: No Symptoms Cardiovascular: reports: Edema, Shortness of Breath Respiratory: reports: Cough, Orthopnea, SOB, SOB on Exertion, Wheezing Gastrointestinal: reports: No Symptoms Genitourinary: reports: No Symptoms Breasts: reports: No Symptoms Reported Musculoskeletal: reports: Extremity Pain, Joint Swelling Integumentary: reports: No Symptoms Neurological: reports: No Symptoms Endocrine: reports: No Symptoms Hematology/Lymphatic: reports: No Symptoms Psychiatric: reports: No Symptoms Pain Intensity: 6 Physical Examination Vital Signs: Vital Signs Temperature 99.5 F 08/09/19 00:50 Pulse Rate 132 H 08/09/19 00:50 Respiratory Rate 28 H 08/09/19 00:50 Blood Pressure 193/110 H 08/09/19 00:50 O2 Sat by Pulse Oximetry (%) 96 08/09/19 00:50 Constitutional: Yes: Severe Distress Eyes: Yes: WNL, Conjunctiva Clear, EOM Intact, PERRL HENT: Yes: WNL, Atraumatic, Normocephalic Neck: Yes: WNL, Supple, Trachea Midline Cardiovascular: Yes: Tachycardia, S1, S2 Respiratory: Yes: Accessory Muscle Use, Cough, Diminished, On BiPap, Rales, Rhonchi, SOB, SOB on Exertion, Wheezes Gastrointestinal: Yes: WNL, Normal Bowel Sounds, Soft ...Rectal Exam: Yes: Deferred Renal/: Yes: WNL Breast(s): Yes: WNL Musculoskeletal: Yes: WNL Extremities: Yes: WNL Edema: Yes Edema: LLE: 1+, RLE: 2+ Peripheral Pulses WNL: Yes Neurological: Yes: WNL, Alert, Oriented, Cran Nerves II-XII Intact ...Motor Strength: WNL Psychiatric: Yes: WNL, Alert, Oriented Labs: CBC, BMP 08/09/19 00:50 08/09/19 00:50 Laboratory Results - last 24 hr 08/09/19 08/09/19 08/09/19 00:50 00:50 00:50 WBC RBC Hgb Hct MCV MCH MCHC RDW Plt Count MPV Absolute Neuts (auto) Neutrophils % Lymphocytes % Monocytes % Eosinophils % Basophils % Nucleated RBC % PT with INR INR PTT (Actin FS) 31.3 Anticoagulation Therapy Puncture Site Patient Temperature ABG pH ABG pCO2 at Pt Temp ABG pO2 at Pt Temp ABG HCO3 ABG O2 Sat (Measured) ABG O2 Content ABG Base Excess Jose Antonio Test VBG pH 7.09 L* POC VBG pCO2 83.1 H* POC VBG pO2 < 49 H VBG HCO3 23.9 VBG O2 Sat (Shar) 27.6 L VBG Base Excess -6.8 L Carboxyhemoglobin Methemoglobin O2 Delivery Device Oxygen Flow Rate Vent Mode Vent Rate Mechanical Rate PEEP Pressure Support Vent Sodium Potassium Chloride Carbon Dioxide Anion Gap BUN Creatinine Est GFR (CKD-EPI)AfAm Est GFR (CKD-EPI)NonAf POC Glucometer Random Glucose Calcium Phosphorus Magnesium Total Bilirubin AST ALT Alkaline Phosphatase Creatine Kinase 199 H Creatine Kinase Index 1.1 CK-MB (CK-2) 2.2 Troponin I 0.04 B-Natriuretic Peptide Total Protein Albumin 08/09/19 08/09/19 08/09/19 00:50 00:50 00:50 WBC 7.0 RBC 4.01 Hgb 10.8 Hct 36.4 D MCV 90.6 D MCH 27.0 MCHC 29.8 L RDW 16.9 H Plt Count 248 MPV 9.1 D Absolute Neuts (auto) 3.2 Neutrophils % 45.3 D Lymphocytes % 43.7 H D Monocytes % 7.2 D Eosinophils % 3.2 D Basophils % 0.6 Nucleated RBC % 0 PT with INR INR PTT (Actin FS) Anticoagulation Therapy Puncture Site Patient Temperature ABG pH ABG pCO2 at Pt Temp ABG pO2 at Pt Temp ABG HCO3 ABG O2 Sat (Measured) ABG O2 Content ABG Base Excess Jose Antonio Test VBG pH POC VBG pCO2 POC VBG pO2 VBG HCO3 VBG O2 Sat (Shar) VBG Base Excess Carboxyhemoglobin Methemoglobin O2 Delivery Device Oxygen Flow Rate Vent Mode Vent Rate Mechanical Rate PEEP Pressure Support Vent Sodium 142 Potassium 3.7 Chloride 104 Carbon Dioxide 22 Anion Gap 16 BUN 21.6 H Creatinine 1.4 H Est GFR (CKD-EPI)AfAm 46.88 Est GFR (CKD-EPI)NonAf 40.45 POC Glucometer Random Glucose 210 H Calcium 9.4 Phosphorus Magnesium 2.2 Total Bilirubin 0.2 AST 250 H ALT 272 H Alkaline Phosphatase 246 H Creatine Kinase Creatine Kinase Index CK-MB (CK-2) Troponin I B-Natriuretic Peptide Total Protein 6.3 L Albumin 2.9 L 08/09/19 08/09/19 08/09/19 00:50 00:50 00:50 WBC RBC Hgb Hct MCV MCH MCHC RDW Plt Count MPV Absolute Neuts (auto) Neutrophils % Lymphocytes % Monocytes % Eosinophils % Basophils % Nucleated RBC % PT with INR 19.80 H INR 1.67 H PTT (Actin FS) Anticoagulation Therapy Puncture Site Patient Temperature ABG pH ABG pCO2 at Pt Temp ABG pO2 at Pt Temp ABG HCO3 ABG O2 Sat (Measured) ABG O2 Content ABG Base Excess Jose Antonio Test VBG pH POC VBG pCO2 POC VBG pO2 VBG HCO3 VBG O2 Sat (Shar) VBG Base Excess Carboxyhemoglobin Methemoglobin O2 Delivery Device Oxygen Flow Rate Vent Mode Vent Rate Mechanical Rate PEEP Pressure Support Vent Sodium Potassium Chloride Carbon Dioxide Anion Gap BUN Creatinine Est GFR (CKD-EPI)AfAm Est GFR (CKD-EPI)NonAf POC Glucometer Random Glucose Calcium Phosphorus 7.9 H Magnesium Total Bilirubin AST ALT Alkaline Phosphatase Creatine Kinase Creatine Kinase Index CK-MB (CK-2) Troponin I B-Natriuretic Peptide 7123.4 H Total Protein Albumin 08/09/19 08/09/19 08/09/19 01:44 03:30 03:49 WBC RBC Hgb Hct MCV MCH MCHC RDW Plt Count MPV Absolute Neuts (auto) Neutrophils % Lymphocytes % Monocytes % Eosinophils % Basophils % Nucleated RBC % PT with INR INR PTT (Actin FS) Anticoagulation Therapy Cancelled Puncture Site Cancelled Patient Temperature Cancelled ABG pH Cancelled ABG pCO2 at Pt Temp Cancelled ABG pO2 at Pt Temp Cancelled ABG HCO3 Cancelled ABG O2 Sat (Measured) Cancelled ABG O2 Content Cancelled ABG Base Excess Cancelled Jose Antonio Test Cancelled VBG pH 7.29 L POC VBG pCO2 68.1 H POC VBG pO2 < 49 H VBG HCO3 31.9 H VBG O2 Sat (Shar) 64.6 L VBG Base Excess 4.6 H Carboxyhemoglobin Cancelled Methemoglobin Cancelled O2 Delivery Device Cancelled Oxygen Flow Rate Cancelled Vent Mode Cancelled Vent Rate Cancelled Mechanical Rate Cancelled PEEP Cancelled Pressure Support Vent Cancelled Sodium Potassium Chloride Carbon Dioxide Anion Gap BUN Creatinine Est GFR (CKD-EPI)AfAm Est GFR (CKD-EPI)NonAf POC Glucometer 141 Random Glucose Calcium Phosphorus Magnesium Total Bilirubin AST ALT Alkaline Phosphatase Creatine Kinase Creatine Kinase Index CK-MB (CK-2) Troponin I B-Natriuretic Peptide Total Protein Albumin Imaging - Results Chest X-ray: Image Reviewed Ultrasound: Report Reviewed, Image Reviewed Problem List - Problems (1) Acute respiratory failure with hypoxia and hypercapnia Assessment/Plan: Continue Bipap ABG- 7.29/68.1/49/31.9/64.6 Appreciate Pulm Consult Chest Xray image- reviewed Code(s): J96.01 - ACUTE RESPIRATORY FAILURE WITH HYPOXIA; J96.02 - ACUTE RESPIRATORY FAILURE WITH HYPERCAPNIA (2) Hypertensive urgency Assessment/Plan: Likely secondary to non-compliance vs PE Continue Nitro Drip Appreciate Cardiology consult Continue cardiac monitoring Renal US Echo EKG- reviewed Chest xray reviewed Monitor CBC, BMP Code(s): I16.0 - HYPERTENSIVE URGENCY (3) CHF exacerbation Assessment/Plan: BNP > 7000, no baseline to compare VBG- respiratory acidosis, hypercapnia Chest Xray- reviewed Continue BIPAP Continue Nitro Drip, titrate Continue cardiac monitoring Appreciate Cardiology consult CBC, BMP Code(s): I50.9 - HEART FAILURE, UNSPECIFIED (4) DVT (deep venous thrombosis) Assessment/Plan: Duplex Study- +DVT RLE Wells Score 2 Heparin Drip started in ED, will continue Series CBC, PTT Monitor vitals Code(s): I82.409 - ACUTE EMBOLISM AND THOMBOS UNSP DEEP VN UNSP LOWER EXTREMITY (5) Subtherapeutic international normalized ratio (INR) Assessment/Plan: Likely secondary to non-compliance Started on Heparin for acute DVT Consider Coumadin bridge- will defer to Pulm Series INRs Monitor vitals Code(s): R79.1 - ABNORMAL COAGULATION PROFILE (6) Hx of pulmonary embolus Assessment/Plan: Concerning for active PE in light of acute DVT Wells Score 7 Cr 1.4- baseline- CTA not done Heparin Drip started in ED Series PTT Series CBC Appreciate Pulmonology Consult Continue cardiac monitoring Chest xray image reviewed EKG- reviewed O2 Code(s): Z86.711 - PERSONAL HISTORY OF PULMONARY EMBOLISM (7) Depression Assessment/Plan: Continue home med when verified in AM Code(s): F32.9 - MAJOR DEPRESSIVE DISORDER, SINGLE EPISODE, UNSPECIFIED (8) Methadone maintenance therapy patient Assessment/Plan: Will need to verify dosage with [facility] in am Continue Methadone Code(s): F11.20 - OPIOID DEPENDENCE, UNCOMPLICATED Assessment/Plan This is a 59 y/o woman with a PMHx of "abdominal heart attack" (presented here in 07/2019, transferred to [facility] for Trop 2.5), CHF? (unable to confirm), HTN, HLD, Depression (on Abillify), DVT (RLE), PE (years ago on Coumadin). Admitted to ICU for Acute Respiratory Failure with Hypoxia and Hypercapnia, Acute DVT, Hypertensive Urgency, CHF Exacerbation for further evaluation of their emergent condition. Plan: See Problem List FEN Replete lytes prn NPO DVT ppx OOB SCD to LLE only Continue Heparin Drip for DVT Code Status: Full Code Dispo: Requires Inpatient Care Visit type - Emergency Visit Emergency Visit: Yes ED Registration Date: 08/09/19 Care time: The patient presented to the Emergency Department on the above date and was hospitalized for further evaluation of their emergent condition. - New Patient This patient is new to me today: Yes Date on this admission: 08/09/19 - Critical Care Critical Care patient: Yes Total Critical Care Time (in minutes): 35 Critical Care Statement: The care of this patient involved high complexity decision making to prevent further life threatening deterioration of the patient 's condition and/or to evaluate & treat vital organ system(s) failure or risk of failure.
[2019-08-09 03:56] LABS: VENOUS PC02 68.1 mmHg (38-52); VENOUS PH 7.29 (7.31-7.41)
[2019-08-09] MEDS ORDERED: HEPARIN NA (PORCINE) 5,000 UNITS/ML 1ML VIAL ONE (04:00)
--- NOTE | 2019-08-09 04:04 | CONSULT ---
Consult Consult Specialty:: Critical Care Reason for Consultation:: Hypertensive Emergency - History of Present Illness Chief Complaint: SOB, weak legs x 1 day History of Present Illness: Pt is a 59 y/o F with PMHx of HTN, CHF, HLD, gastritis, diverticulitis, previous DVT (on coumadin), polypectomy x 8 (seen on colonoscopy in past), depression/anxiety (on abilify), currently on methadone via [facility], recent NSTEMI (07/2019) treated with heparin at [facility] presenting from home with acute SOB with b/l feeling of tiredness in legs x3 days. Per pt she has been having weight gain since cardiac cath with leg swelling. Today, she woke up suddenly from sleep around 11pm and attempted to go to bathroom when she felt like her legs were "tired", with diaphoresis and nausea. No pain, no loss of sensation, no chest pain, no blurry vision. No fevers or cough. Pt reported to have had a PE in 2016 (per daughter by the bedside, described as possibly unprovoked), abd DVT about 10 years ago in [facility]. Pt had been placed on warfarin and reports being compliant on medications prior to presentation. Today she saw her Criminal Analyst, Dr Sagastume and was placed on some medications. Per chart, EMS reported, pt O2 sat 60%, BP 200s/100s, placed on bipap, received nitro x2, with improvement in sats to 70%. In the ED she was noted to have BP 193/110, tachy 130s, had desated to 60%, RR 28, maintaining her airway but in respiratory distress, speaking in one word sentences, using accessory muscles, coughing/spitting up pink foamy sputum. Pt was suspected to have PE with positive pinkish sputum, positive DVT and hx of PE and DVT. Due to her renal function, pt did not get a CTA. Nitro drip was started at 40mcg/min, with bipap and overall improvement in patient's respiratory rate and HR. When I saw the pt, she was on bipap, able to speak in full sentences, tachycardic but with minimal work of breathing. EKG-sinus tachy-vent rate 120bpm, Twave inversion lateral and inferior leads, Qwaves, anterioseptal leads normal axis, normal intervals, [id number] VBG showed PH-7.01 with CO2 retention Elevated BP to 200/100>>193/110 >>144/63 Pt's creatinine was elevated to 1.4 and she could not get a CTA CXR- Congestive changes She was placed on nitroglycerin drip and will be started on heparin drip for the DVT with possible PE - History Source History Provided By: Patient, Medical Record - Past Medical History Cardio/Vascular: Yes: Deep Vein Thrombosis, HTN Pulmonary: Yes: Pulmonary Embolus Psych: Yes: Anxiety, Depression - Past Surgical History Past Surgical History: Yes: None - Alcohol/Substance Use Hx Alcohol Use: No History of Substance Use: reports: Marijuana - Smoking History Smoking history: Never smoked Have you smoked in the past 12 months: No Aproximately how many cigarettes per day: 0 If you are a former smoker, when did you quit?: 2013 - Social History ADL: Independent History of Recent Travel: No Home Medications - Allergies Allergies/Adverse Reactions: Allergies Allergy/AdvReac Type Severity Reaction Status Date / Time No Known Allergies Allergy Verified 08/09/19 04:38 - Home Medications Home Medications: Ambulatory Orders Diltiazem HCl [Diltiazem ER] 240 mg PO DAILY 07/13/19 Methadone [Dolophine -] 45 mg PO DAILY 07/13/19 Warfarin Sodium [Coumadin] 7.5 mg PO DAILY 07/13/19 Aripiprazole [Abilify] 0 mg PO DAILY 08/09/19 Family Medical History Family Hx Diabetes: Mother, Father Review of Systems - Review of Systems Constitutional: denies: Chills, Fever HENT: denies: Nasal Congestion Cardiovascular: reports: Edema, Shortness of Breath. denies: Chest Pain Respiratory: reports: SOB. denies: Cough, Wheezing Gastrointestinal: reports: No Symptoms Genitourinary: reports: No Symptoms Musculoskeletal: reports: Other (leg swelling) Neurological: denies: Change in LOC Psychiatric: reports: Anxiety, Depression Physical Exam Vital Signs: Vital Signs Temperature 99.5 F 08/09/19 00:50 Pulse Rate 132 H 08/09/19 00:50 Respiratory Rate 28 H 08/09/19 00:50 Blood Pressure 193/110 H 08/09/19 00:50 O2 Sat by Pulse Oximetry (%) 100 08/09/19 03:50 Constitutional: Yes: Anxious HENT: Yes: Other (Bipap) Neck: Yes: WNL Cardiovascular: Yes: Tachycardia, S1, S2 Respiratory: Yes: Diminished Gastrointestinal: Yes: Normal Bowel Sounds, Soft Renal/: No: CVA Tenderness - Left, CVA Tenderness - Right Musculoskeletal: No: Muscle Weakness Edema: Yes Edema: LLE: 1+, RLE: 2+ Integumentary: Yes: WNL Neurological: Yes: Alert, Oriented. No: Confusion, Lethargy, Seizure, Tremors ...Motor Strength: WNL Psychiatric: Yes: Alert, Oriented Labs: CBC, BMP 08/09/19 00:50 08/09/19 00:50 Imaging - Results Chest X-ray: Report Reviewed Ultrasound: Report Reviewed (Acute partially occlusive DVT of R popliteal vein.) Assessment/Plan Ambulatory Orders Diltiazem HCl [Diltiazem ER] 240 mg PO DAILY 07/13/19 Methadone [Dolophine -] 45 mg PO DAILY 07/13/19 Warfarin Sodium [Coumadin] 7.5 mg PO DAILY 07/13/19 Aripiprazole [Abilify] 0 mg PO DAILY 08/09/19 Current Medications Chlorhexidine Gluconate (Hibiclens For Decolonization -) 1 applic TP HS NAOMI Heparin Sodium (Porcine) (Heparin -) 1,000 unit IVPUSH PRN PRN PRN Reason: Heparin Heparin Sodium (Porcine) (Heparin -) 5,000 unit IVPUSH PRN PRN PRN Reason: Heparin Last Admin: 08/09/19 04:14 Dose: 5,000 unit Nitroglycerin/Dextrose (Nitroglycerin 25mg/D5w 250ml) 25 mg in 250 mls @ 24 mls /hr IVPB TITR NAOMI Last Admin: 08/09/19 00:49 Dose: 40 mcg/min, 24 mls/hr HEPARIN SOD,PORK IN 0.45% NACL (Heparin-1/2ns 25,000 Units/500) 25,000 units in 500 mls @ 20 mls/hr IVPB TITR NAOMI; Protocol Last Admin: 08/09/19 04:13 Dose: 1,000 units/hr, 20 mls/hr Mupirocin (Bactroban Ointment (For Decolonization) -) 1 applic NS BID NAOMI Stop: 08/14/19 09:59 Assessment/Plan: Pt is a 59 y/o F with PMHx of HTN, CHF, HLD, gastritis, diverticulitis, previous DVT (on coumadin), polypectomy x 8 (seen on colonoscopy in past), depression/anxiety (on abilify), on methadone, recent NSTEMI (07/2019), presenting from home with acute SOB and leg swelling found to have RLE DVT with HTNsive emergency and pulmonary congestion with possible PE Neuro: Pt AAO x3 #On MMT- needs to be verified #depression/anxiety (on abilify) Cont to monitor may cont Cardio: #Hx of HTN, #Hx of CHF, #HLD, #recent NSTEMI (07/2019) #HTNsive emergency Tachycardia with HTNsive emergency possibly in setting of DVT Pt with congestive changes possibly flash pulm edema in setting of PE BNP 7123 On nitrodrip, will need PO BP meds will add procardia Wells PE score-10 points- high risk Heparin drip stat Will add procardia 60mg, and hold diltiazem 240mg Will add lasix 40mg iv stat Pulm #Acute hypercapnic, hypoxic respiratory failure in setting of flash pulm edema secondary to possible PE vs HTNsive emergency Cont Bipap (hypercapnea improving) Cont to monitor Cont nitro drip CXR abg Hemonc #RLE DVT with possible PE Hx of DVT/PE subtherapeutic on warfarin (may benefit from Noac as outpt) May require outpt workup Heparin drip stat GI: #Transaminitis possibly insetting of congestion Hx of gastritis, Hx of diverticulitis, Hx of polypectomy x 8 (seen on colonoscopy in past), Stable, cont to monitor Liver US Renal: WALE on CKD Hx of CKD , pt did not get CTA for PE Will treat DVT and possible PE Strict ins and outs FEN No standing fluids Lasix 40mg iv stat Monitor lytes replete as needed Salt restricted diet whenoff bipap PPx Heparin drip ICU level care for HTNsive emergency Visit type - Emergency Visit Emergency Visit: Yes ED Registration Date: 08/09/19 Care time: The patient presented to the Emergency Department on the above date and was hospitalized for further evaluation of their emergent condition. - New Patient This patient is new to me today: Yes Date on this admission: 08/09/19 - Critical Care Critical Care patient: Yes Total Critical Care Time (in minutes): 40 Critical Care Statement: The care of this patient involved high complexity decision making to prevent further life threatening deterioration of the patient 's condition and/or to evaluate & treat vital organ system(s) failure or risk of failure. ATTENDING PHYSICIAN STATEMENT I saw and evaluated the patient. I reviewed the resident's note and discussed the case with the resident. I agree with the resident's findings and plan as documented. SUBJECTIVE: OBJECTIVE: ASSESSMENT AND PLAN:
[2019-08-09 04:07] LABS: VENOUS PO2 < 49 mmHg (28-48)
[2019-08-09] MEDS: HEPARIN NA (PORCINE) 5,000 UNITS/ML 1ML VIAL IVPUSH PRN ×2 (04:14→12:15)
[2019-08-09] MEDS ORDERED: FUROSEMIDE 40 MG/4 ML INJECTABLE VIAL IVPUSH ONE (05:14)
[2019-08-09 07:09] LABS: HEMATOCRIT 32.2 % (32.4-45.2); HEMOGLOBIN 9.9 GM/dL (10.7-15.3); MCH 26.9 pg (25.7-33.7); MCHC 30.8 g/dl (32.0-36.0); MEAN CELL VOLUME 87.3 fl (80-96); MEAN PLT VOLUME 9.1 fl (7.5-11.1); PLATELET COUNT 213 K/MM3 (134-434); RDW 16.3 % (11.6-15.6); WHITE BLOOD COUNT 6.8 K/mm3 (4.0-10.0)
[2019-08-09 07:25] LABS: ACTIVATED PTT 39.1 SECONDS (25.2-36.5)
[2019-08-09 07:38] LABS: ALBUMIN 2.8 g/dl (3.4-5.0); BILIRUBIN,DIRECT 0.1 mg/dL (0.0-0.2); BILIRUBIN,TOTAL 0.2 mg/dL (0.2-1); BLOOD UREA NITROGEN 22.4 mg/dL (7-18); CALCIUM 8.8 mg/dL (8.5-10.1); CREATININE 1.1 mg/dL (0.55-1.3); MAGNESIUM 2.1 mg/dL (1.8-2.4); PHOSPHOROUS 3.6 mg/dL (2.5-4.9); POTASSIUM 3.9 mmol/L (3.5-5.1); TOT PROT 5.8 g/dl (6.4-8.2)
[2019-08-09 08:13] VITALS: BMI 28.4
[2019-08-09 09:17] LABS: INR 2.24 (0.83-1.09); PROTHROMBIN TIME (PATIENT) 26.7 SEC (9.7-13.0)
[2019-08-09] MEDS: MUPIROCIN 2% TOPICAL OINTMENT FOR DECOLONIZATION NS SCH ×2 (09:35→21:21)
[2019-08-09] MEDS ORDERED: NIFEdipine E.R 60 MG TABLET (UD) PO SCH (10:00)
[2019-08-09] MEDS ORDERED: ARIPiprazole 5 MG TABLET (FP) PO SCH (10:00)
[2019-08-09] MEDS ORDERED: LIDOCAINE 5% TOPICAL PATCH TP ONE (10:00)
--- NOTE | 2019-08-09 10:05 | PN ---
Teaching Attending Note Name of Resident: Iain Gerber ATTENDING PHYSICIAN STATEMENT I saw and evaluated the patient. I reviewed the resident's note and discussed the case with the resident. I agree with the resident's findings and plan as documented. SUBJECTIVE: Patient seen and examined in the ICU. Awake and alert on NIPPV support. Denies CP. SOB is improved on NIPPV. Received a dose of Lasix at 8AM. Intake & Output 08/06/19 08/07/19 08/08/19 08/09/19 23:59 23:59 23:59 23:59 Intake Total 88 Balance 88 Weight 171 lb Last Vital Signs Temp Pulse Resp BP Pulse Ox 98.2 F 89 18 140/87 100 08/09/19 06:00 08/09/19 06:00 08/09/19 06:00 08/09/19 06:00 08/09/19 08:11 Active Medications Aripiprazole (Abilify) 5 mg PO DAILY NAOMI Last Admin: 08/09/19 09:35 Dose: 5 mg Chlorhexidine Gluconate (Hibiclens For Decolonization -) 1 applic TP HS NAOMI Heparin Sodium (Porcine) (Heparin -) 1,000 unit IVPUSH PRN PRN PRN Reason: Heparin Heparin Sodium (Porcine) (Heparin -) 5,000 unit IVPUSH PRN PRN PRN Reason: Heparin Last Admin: 08/09/19 04:14 Dose: 5,000 unit Nitroglycerin/Dextrose (Nitroglycerin 25mg/D5w 250ml) 25 mg in 250 mls @ 24 mls /hr IVPB TITR NAOMI Last Admin: 08/09/19 00:49 Dose: 40 mcg/min, 24 mls/hr HEPARIN SOD,PORK IN 0.45% NACL (Heparin-1/2ns 25,000 Units/500) 25,000 units in 500 mls @ 20 mls/hr IVPB TITR NAOMI; Protocol Last Titration: 08/09/19 09:38 Dose: 1,100 units/hr, 22 mls/hr Methadone HCl (Dolophine -) 45 mg PO DAILY [facility] Miscellaneous (Lidoderm Patch Removal) 1 each MC DAILY@2200 [facility] Mupirocin (Bactroban Ointment (For Decolonization) -) 1 applic NS BID NAOMI Stop: 08/14/19 09:59 Last Admin: 08/09/19 09:35 Dose: 1 applic Nifedipine (Procardia Xl -) 60 mg PO DAILY NAOMI Last Admin: 08/09/19 09:35 Dose: 60 mg Constitutional: Yes: Awake and alert on NIPPV support HENT: Yes: Other (Bipap) Neck: Yes: WNL Cardiovascular: Yes: Tachycardia, S1, S2 Respiratory: Yes: Bibasilar Rales, no wheeze Gastrointestinal: Yes: Normal Bowel Sounds, Soft Renal/: No: CVA Tenderness - Left, CVA Tenderness - Right Musculoskeletal: No: Muscle Weakness Edema: Yes Edema: LLE: 1+, RLE: 2+ Integumentary: Yes: WNL Neurological: Yes: Alert, Oriented. No: Confusion, Lethargy, Seizure, Tremors ...Motor Strength: WNL Psychiatric: Yes: Alert, Oriented Labs: Laboratory Results - last 24 hr 08/09/19 08/09/19 08/09/19 00:50 00:50 00:50 WBC RBC Hgb Hct MCV MCH MCHC RDW Plt Count MPV Absolute Neuts (auto) Neutrophils % Lymphocytes % Monocytes % Eosinophils % Basophils % Nucleated RBC % PT with INR Cancelled INR Cancelled PTT (Actin FS) 31.3 Anticoagulation Therapy Puncture Site Patient Temperature ABG pH ABG pCO2 at Pt Temp ABG pO2 at Pt Temp ABG HCO3 ABG O2 Sat (Measured) ABG O2 Content ABG Base Excess Jose Antonio Test VBG pH 7.09 L* POC VBG pCO2 83.1 H* POC VBG pO2 < 49 H VBG HCO3 23.9 VBG O2 Sat (Shar) 27.6 L VBG Base Excess -6.8 L Carboxyhemoglobin Methemoglobin O2 Delivery Device Oxygen Flow Rate Vent Mode Vent Rate Mechanical Rate PEEP Pressure Support Vent Sodium Potassium Chloride Carbon Dioxide Anion Gap BUN Creatinine Est GFR (CKD-EPI)AfAm Est GFR (CKD-EPI)NonAf POC Glucometer Random Glucose Hemoglobin A1c % Calcium Phosphorus Magnesium Total Bilirubin Direct Bilirubin AST ALT Alkaline Phosphatase Creatine Kinase 199 H Creatine Kinase Index 1.1 CK-MB (CK-2) 2.2 Troponin I 0.04 B-Natriuretic Peptide Total Protein Albumin 08/09/19 08/09/19 08/09/19 00:50 00:50 00:50 WBC 7.0 RBC 4.01 Hgb 10.8 Hct 36.4 D MCV 90.6 D MCH 27.0 MCHC 29.8 L RDW 16.9 H Plt Count 248 MPV 9.1 D Absolute Neuts (auto) 3.2 Neutrophils % 45.3 D Lymphocytes % 43.7 H D Monocytes % 7.2 D Eosinophils % 3.2 D Basophils % 0.6 Nucleated RBC % 0 PT with INR INR PTT (Actin FS) Anticoagulation Therapy Puncture Site Patient Temperature ABG pH ABG pCO2 at Pt Temp ABG pO2 at Pt Temp ABG HCO3 ABG O2 Sat (Measured) ABG O2 Content ABG Base Excess Jose Antonio Test VBG pH POC VBG pCO2 POC VBG pO2 VBG HCO3 VBG O2 Sat (Shar) VBG Base Excess Carboxyhemoglobin Methemoglobin O2 Delivery Device Oxygen Flow Rate Vent Mode Vent Rate Mechanical Rate PEEP Pressure Support Vent Sodium 142 Potassium 3.7 Chloride 104 Carbon Dioxide 22 Anion Gap 16 BUN 21.6 H Creatinine 1.4 H Est GFR (CKD-EPI)AfAm 46.88 Est GFR (CKD-EPI)NonAf 40.45 POC Glucometer Random Glucose 210 H Hemoglobin A1c % Calcium 9.4 Phosphorus Magnesium 2.2 Total Bilirubin 0.2 Direct Bilirubin AST 250 H ALT 272 H Alkaline Phosphatase 246 H Creatine Kinase Creatine Kinase Index CK-MB (CK-2) Troponin I B-Natriuretic Peptide Total Protein 6.3 L Albumin 2.9 L 08/09/19 08/09/19 08/09/19 00:50 00:50 00:50 WBC RBC Hgb Hct MCV MCH MCHC RDW Plt Count MPV Absolute Neuts (auto) Neutrophils % Lymphocytes % Monocytes % Eosinophils % Basophils % Nucleated RBC % PT with INR 19.80 H INR 1.67 H PTT (Actin FS) Anticoagulation Therapy Puncture Site Patient Temperature ABG pH ABG pCO2 at Pt Temp ABG pO2 at Pt Temp ABG HCO3 ABG O2 Sat (Measured) ABG O2 Content ABG Base Excess Jose Antonio Test VBG pH POC VBG pCO2 POC VBG pO2 VBG HCO3 VBG O2 Sat (Shar) VBG Base Excess Carboxyhemoglobin Methemoglobin O2 Delivery Device Oxygen Flow Rate Vent Mode Vent Rate Mechanical Rate PEEP Pressure Support Vent Sodium Potassium Chloride Carbon Dioxide Anion Gap BUN Creatinine Est GFR (CKD-EPI)AfAm Est GFR (CKD-EPI)NonAf POC Glucometer Random Glucose Hemoglobin A1c % Calcium Phosphorus 7.9 H Magnesium Total Bilirubin Direct Bilirubin AST ALT Alkaline Phosphatase Creatine Kinase Creatine Kinase Index CK-MB (CK-2) Troponin I B-Natriuretic Peptide 7123.4 H Total Protein Albumin 08/09/19 08/09/19 08/09/19 01:44 03:30 03:49 WBC RBC Hgb Hct MCV MCH MCHC RDW Plt Count MPV Absolute Neuts (auto) Neutrophils % Lymphocytes % Monocytes % Eosinophils % Basophils % Nucleated RBC % PT with INR INR PTT (Actin FS) Anticoagulation Therapy Cancelled Puncture Site Cancelled Patient Temperature Cancelled ABG pH Cancelled ABG pCO2 at Pt Temp Cancelled ABG pO2 at Pt Temp Cancelled ABG HCO3 Cancelled ABG O2 Sat (Measured) Cancelled ABG O2 Content Cancelled ABG Base Excess Cancelled Jose Antonio Test Cancelled VBG pH 7.29 L POC VBG pCO2 68.1 H POC VBG pO2 < 49 H VBG HCO3 31.9 H VBG O2 Sat (Shar) 64.6 L VBG Base Excess 4.6 H Carboxyhemoglobin Cancelled Methemoglobin Cancelled O2 Delivery Device Cancelled Oxygen Flow Rate Cancelled Vent Mode Cancelled Vent Rate Cancelled Mechanical Rate Cancelled PEEP Cancelled Pressure Support Vent Cancelled Sodium Potassium Chloride Carbon Dioxide Anion Gap BUN Creatinine Est GFR (CKD-EPI)AfAm Est GFR (CKD-EPI)NonAf POC Glucometer 141 Random Glucose Hemoglobin A1c % Calcium Phosphorus Magnesium Total Bilirubin Direct Bilirubin AST ALT Alkaline Phosphatase Creatine Kinase Creatine Kinase Index CK-MB (CK-2) Troponin I B-Natriuretic Peptide Total Protein Albumin 08/09/19 08/09/19 08/09/19 05:50 05:50 05:50 WBC 6.8 RBC 3.70 Hgb 9.9 L Hct 32.2 L MCV 87.3 MCH 26.9 MCHC 30.8 L RDW 16.3 H Plt Count 213 MPV 9.1 Absolute Neuts (auto) Neutrophils % Lymphocytes % Monocytes % Eosinophils % Basophils % Nucleated RBC % PT with INR 26.70 H INR 2.24 H PTT (Actin FS) 39.1 H Anticoagulation Therapy Puncture Site Patient Temperature ABG pH ABG pCO2 at Pt Temp ABG pO2 at Pt Temp ABG HCO3 ABG O2 Sat (Measured) ABG O2 Content ABG Base Excess Jose Antonio Test VBG pH POC VBG pCO2 POC VBG pO2 VBG HCO3 VBG O2 Sat (Shar) VBG Base Excess Carboxyhemoglobin Methemoglobin O2 Delivery Device Oxygen Flow Rate Vent Mode Vent Rate Mechanical Rate PEEP Pressure Support Vent Sodium Potassium Chloride Carbon Dioxide Anion Gap BUN Creatinine Est GFR (CKD-EPI)AfAm Est GFR (CKD-EPI)NonAf POC Glucometer Random Glucose Hemoglobin A1c % 4.6 Calcium Phosphorus Magnesium Total Bilirubin Direct Bilirubin AST ALT Alkaline Phosphatase Creatine Kinase Creatine Kinase Index CK-MB (CK-2) Troponin I B-Natriuretic Peptide Total Protein Albumin 08/09/19 05:50 WBC RBC Hgb Hct MCV MCH MCHC RDW Plt Count MPV Absolute Neuts (auto) Neutrophils % Lymphocytes % Monocytes % Eosinophils % Basophils % Nucleated RBC % PT with INR INR PTT (Actin FS) Anticoagulation Therapy Puncture Site Patient Temperature ABG pH ABG pCO2 at Pt Temp ABG pO2 at Pt Temp ABG HCO3 ABG O2 Sat (Measured) ABG O2 Content ABG Base Excess Jose Antonio Test VBG pH POC VBG pCO2 POC VBG pO2 VBG HCO3 VBG O2 Sat (Shar) VBG Base Excess Carboxyhemoglobin Methemoglobin O2 Delivery Device Oxygen Flow Rate Vent Mode Vent Rate Mechanical Rate PEEP Pressure Support Vent Sodium 143 Potassium 3.9 Chloride 106 Carbon Dioxide 31 Anion Gap 5 L BUN 22.4 H Creatinine 1.1 Est GFR (CKD-EPI)AfAm 62.75 Est GFR (CKD-EPI)NonAf 54.14 POC Glucometer Random Glucose 104 Hemoglobin A1c % Calcium 8.8 Phosphorus 3.6 Magnesium 2.1 Total Bilirubin 0.2 Direct Bilirubin 0.1 AST 179 H ALT 261 H Alkaline Phosphatase 213 H Creatine Kinase Creatine Kinase Index CK-MB (CK-2) Troponin I 0.20 H B-Natriuretic Peptide Total Protein 5.8 L Albumin 2.8 L Assessment/Plan: Acute Respiratory Failure due to Acute Pulmonary Edema / CHF Hypertensive Emergency HTN CHF HLD Gastritis Diverticulitis Previous DVT/PE on coumadin Polypectomy x 8 Depression/anxiety Methadone maintenance Recent NSTEMI (07/2019) NIPPV Support Lasix NTG Daily weights Strict I & O Cardiology evaluation IV Heparin and Coumadin Requires ICU monitoring Dr Choi Critical care time spent in reviewing chart, evaluating patient and formulating plan - 36 minutes.
[2019-08-09] MEDS: METHADONE HCL 40 MG DISPERSABLE TABLET PO SCH (11:56)
[2019-08-09] MEDS ORDERED: METHADONE HCL 5 MG TABLET (FOR DETOX USE ONLY) PO SCH (12:00)
--- NOTE | 2019-08-09 12:03 | PN ---
Physical Exam: SUBJECTIVE: Patient seen and examined in the morning. Patient was transferred to ICU from ED overnight. Patient had no acute events overnight or on cardiac monitoring. Patient denies any chest pains, abdominal pains, and lower extremity pain and edema. Endorses breathing better and feeling well on the BiPAP. OBJECTIVE: Vital Signs Period Temp Pulse Resp BP Sys/Reyes Pulse Ox Last 24 Hr 98.2 F-99.5 F 66-132 15-28 129-193/55-110 65-100 GENERAL: The patient is awake, alert, and fully oriented, in no acute distress. HEAD: Normal with no signs of trauma. EYES: PERRL, extraocular movements intact, sclera anicteric, conjunctiva clear. No ptosis. ENT: Ears normal, nares patent. BiPAP is on. NECK: Trachea midline, full range of motion, supple. LUNGS: Crackles HEART: Regular rate and rhythm, S1, S2 without murmur, rub or gallop. ABDOMEN: Soft, nontender, nondistended, normoactive bowel sounds, no guarding, no rebound, no hepatosplenomegaly, no masses. EXTREMITIES: 2+ pulses, warm, well-perfused, lower extremity edema present. NEUROLOGICAL: Cranial nerves II through XII grossly intact. Normal speech, gait not observed. PSYCH: Normal mood, normal affect. SKIN: Warm, dry, normal turgor, no rashes or lesions noted Laboratory Results - last 24 hr 08/09/19 08/09/19 08/09/19 00:50 00:50 00:50 WBC RBC Hgb Hct MCV MCH MCHC RDW Plt Count MPV Absolute Neuts (auto) Neutrophils % Lymphocytes % Monocytes % Eosinophils % Basophils % Nucleated RBC % PT with INR Cancelled INR Cancelled PTT (Actin FS) 31.3 Anticoagulation Therapy Puncture Site Patient Temperature ABG pH ABG pCO2 at Pt Temp ABG pO2 at Pt Temp ABG HCO3 ABG O2 Sat (Measured) ABG O2 Content ABG Base Excess Jose Antonio Test VBG pH 7.09 L* POC VBG pCO2 83.1 H* POC VBG pO2 < 49 H VBG HCO3 23.9 VBG O2 Sat (Shar) 27.6 L VBG Base Excess -6.8 L Carboxyhemoglobin Methemoglobin O2 Delivery Device Oxygen Flow Rate Vent Mode Vent Rate Mechanical Rate PEEP Pressure Support Vent Sodium Potassium Chloride Carbon Dioxide Anion Gap BUN Creatinine Est GFR (CKD-EPI)AfAm Est GFR (CKD-EPI)NonAf POC Glucometer Random Glucose Hemoglobin A1c % Calcium Phosphorus Magnesium Total Bilirubin Direct Bilirubin AST ALT Alkaline Phosphatase Creatine Kinase 199 H Creatine Kinase Index 1.1 CK-MB (CK-2) 2.2 Troponin I 0.04 B-Natriuretic Peptide Total Protein Albumin 08/09/19 08/09/19 08/09/19 00:50 00:50 00:50 WBC 7.0 RBC 4.01 Hgb 10.8 Hct 36.4 D MCV 90.6 D MCH 27.0 MCHC 29.8 L RDW 16.9 H Plt Count 248 MPV 9.1 D Absolute Neuts (auto) 3.2 Neutrophils % 45.3 D Lymphocytes % 43.7 H D Monocytes % 7.2 D Eosinophils % 3.2 D Basophils % 0.6 Nucleated RBC % 0 PT with INR INR PTT (Actin FS) Anticoagulation Therapy Puncture Site Patient Temperature ABG pH ABG pCO2 at Pt Temp ABG pO2 at Pt Temp ABG HCO3 ABG O2 Sat (Measured) ABG O2 Content ABG Base Excess Jose Antonio Test VBG pH POC VBG pCO2 POC VBG pO2 VBG HCO3 VBG O2 Sat (Shar) VBG Base Excess Carboxyhemoglobin Methemoglobin O2 Delivery Device Oxygen Flow Rate Vent Mode Vent Rate Mechanical Rate PEEP Pressure Support Vent Sodium 142 Potassium 3.7 Chloride 104 Carbon Dioxide 22 Anion Gap 16 BUN 21.6 H Creatinine 1.4 H Est GFR (CKD-EPI)AfAm 46.88 Est GFR (CKD-EPI)NonAf 40.45 POC Glucometer Random Glucose 210 H Hemoglobin A1c % Calcium 9.4 Phosphorus Magnesium 2.2 Total Bilirubin 0.2 Direct Bilirubin AST 250 H ALT 272 H Alkaline Phosphatase 246 H Creatine Kinase Creatine Kinase Index CK-MB (CK-2) Troponin I B-Natriuretic Peptide Total Protein 6.3 L Albumin 2.9 L 08/09/19 08/09/19 08/09/19 00:50 00:50 00:50 WBC RBC Hgb Hct MCV MCH MCHC RDW Plt Count MPV Absolute Neuts (auto) Neutrophils % Lymphocytes % Monocytes % Eosinophils % Basophils % Nucleated RBC % PT with INR 19.80 H INR 1.67 H PTT (Actin FS) Anticoagulation Therapy Puncture Site Patient Temperature ABG pH ABG pCO2 at Pt Temp ABG pO2 at Pt Temp ABG HCO3 ABG O2 Sat (Measured) ABG O2 Content ABG Base Excess Jose Antonio Test VBG pH POC VBG pCO2 POC VBG pO2 VBG HCO3 VBG O2 Sat (Shar) VBG Base Excess Carboxyhemoglobin Methemoglobin O2 Delivery Device Oxygen Flow Rate Vent Mode Vent Rate Mechanical Rate PEEP Pressure Support Vent Sodium Potassium Chloride Carbon Dioxide Anion Gap BUN Creatinine Est GFR (CKD-EPI)AfAm Est GFR (CKD-EPI)NonAf POC Glucometer Random Glucose Hemoglobin A1c % Calcium Phosphorus 7.9 H Magnesium Total Bilirubin Direct Bilirubin AST ALT Alkaline Phosphatase Creatine Kinase Creatine Kinase Index CK-MB (CK-2) Troponin I B-Natriuretic Peptide 7123.4 H Total Protein Albumin 08/09/19 08/09/19 08/09/19 01:44 03:30 03:49 WBC RBC Hgb Hct MCV MCH MCHC RDW Plt Count MPV Absolute Neuts (auto) Neutrophils % Lymphocytes % Monocytes % Eosinophils % Basophils % Nucleated RBC % PT with INR INR PTT (Actin FS) Anticoagulation Therapy Cancelled Puncture Site Cancelled Patient Temperature Cancelled ABG pH Cancelled ABG pCO2 at Pt Temp Cancelled ABG pO2 at Pt Temp Cancelled ABG HCO3 Cancelled ABG O2 Sat (Measured) Cancelled ABG O2 Content Cancelled ABG Base Excess Cancelled Jose Antonio Test Cancelled VBG pH 7.29 L POC VBG pCO2 68.1 H POC VBG pO2 < 49 H VBG HCO3 31.9 H VBG O2 Sat (Shar) 64.6 L VBG Base Excess 4.6 H Carboxyhemoglobin Cancelled Methemoglobin Cancelled O2 Delivery Device Cancelled Oxygen Flow Rate Cancelled Vent Mode Cancelled Vent Rate Cancelled Mechanical Rate Cancelled PEEP Cancelled Pressure Support Vent Cancelled Sodium Potassium Chloride Carbon Dioxide Anion Gap BUN Creatinine Est GFR (CKD-EPI)AfAm Est GFR (CKD-EPI)NonAf POC Glucometer 141 Random Glucose Hemoglobin A1c % Calcium Phosphorus Magnesium Total Bilirubin Direct Bilirubin AST ALT Alkaline Phosphatase Creatine Kinase Creatine Kinase Index CK-MB (CK-2) Troponin I B-Natriuretic Peptide Total Protein Albumin 08/09/19 08/09/19 08/09/19 05:50 05:50 05:50 WBC 6.8 RBC 3.70 Hgb 9.9 L Hct 32.2 L MCV 87.3 MCH 26.9 MCHC 30.8 L RDW 16.3 H Plt Count 213 MPV 9.1 Absolute Neuts (auto) Neutrophils % Lymphocytes % Monocytes % Eosinophils % Basophils % Nucleated RBC % PT with INR 26.70 H INR 2.24 H PTT (Actin FS) 39.1 H Anticoagulation Therapy Puncture Site Patient Temperature ABG pH ABG pCO2 at Pt Temp ABG pO2 at Pt Temp ABG HCO3 ABG O2 Sat (Measured) ABG O2 Content ABG Base Excess Jose Antonio Test VBG pH POC VBG pCO2 POC VBG pO2 VBG HCO3 VBG O2 Sat (Shar) VBG Base Excess Carboxyhemoglobin Methemoglobin O2 Delivery Device Oxygen Flow Rate Vent Mode Vent Rate Mechanical Rate PEEP Pressure Support Vent Sodium Potassium Chloride Carbon Dioxide Anion Gap BUN Creatinine Est GFR (CKD-EPI)AfAm Est GFR (CKD-EPI)NonAf POC Glucometer Random Glucose Hemoglobin A1c % 4.6 Calcium Phosphorus Magnesium Total Bilirubin Direct Bilirubin AST ALT Alkaline Phosphatase Creatine Kinase Creatine Kinase Index CK-MB (CK-2) Troponin I B-Natriuretic Peptide Total Protein Albumin 08/09/19 05:50 WBC RBC Hgb Hct MCV MCH MCHC RDW Plt Count MPV Absolute Neuts (auto) Neutrophils % Lymphocytes % Monocytes % Eosinophils % Basophils % Nucleated RBC % PT with INR INR PTT (Actin FS) Anticoagulation Therapy Puncture Site Patient Temperature ABG pH ABG pCO2 at Pt Temp ABG pO2 at Pt Temp ABG HCO3 ABG O2 Sat (Measured) ABG O2 Content ABG Base Excess Jose Antonio Test VBG pH POC VBG pCO2 POC VBG pO2 VBG HCO3 VBG O2 Sat (Shar) VBG Base Excess Carboxyhemoglobin Methemoglobin O2 Delivery Device Oxygen Flow Rate Vent Mode Vent Rate Mechanical Rate PEEP Pressure Support Vent Sodium 143 Potassium 3.9 Chloride 106 Carbon Dioxide 31 Anion Gap 5 L BUN 22.4 H Creatinine 1.1 Est GFR (CKD-EPI)AfAm 62.75 Est GFR (CKD-EPI)NonAf 54.14 POC Glucometer Random Glucose 104 Hemoglobin A1c % Calcium 8.8 Phosphorus 3.6 Magnesium 2.1 Total Bilirubin 0.2 Direct Bilirubin 0.1 AST 179 H ALT 261 H Alkaline Phosphatase 213 H Creatine Kinase Creatine Kinase Index CK-MB (CK-2) Troponin I 0.20 H B-Natriuretic Peptide Total Protein 5.8 L Albumin 2.8 L Active Medications Generic Name Dose Route Start Last Admin Trade Name Freq PRN Reason Stop Dose Admin Aripiprazole 5 mg 08/09/19 10:00 08/09/19 09:35 Abilify PO 5 mg DAILY NAOMI Administration Chlorhexidine Gluconate 1 applic 08/09/19 22:00 Hibiclens For Decolonization - TP HS NAOMI Heparin Sodium (Porcine) 1,000 unit 08/09/19 02:57 Heparin - IVPUSH PRN PRN Heparin Heparin Sodium (Porcine) 5,000 unit 08/09/19 02:57 08/09/19 04:14 Heparin - IVPUSH 5,000 unit PRN PRN Administration Heparin Nitroglycerin/Dextrose 25 mg in 250 mls @ 24 mls/hr 08/09/19 00:45 08/09/19 00:49 Nitroglycerin 25mg/D5w 250ml IVPB 40 mcg/min TITR NAOMI 24 mls/hr Administration 40 MCG/MIN HEPARIN SOD,PORK IN 0.45% NACL 25,000 units in 500 mls @ 20 mls/hr 08/09/19 03 :00 08/09/19 10:33 Heparin-1/2ns 25,000 Units/500 IVPB 1,150 units/hr TITR NAOMI 23 mls/hr Titration Protocol 1,000 UNITS/HR Methadone HCl 45 mg 08/09/19 10:00 Dolophine - PO DAILY [facility] Miscellaneous 1 each 08/09/19 22:00 Lidoderm Patch Removal MC DAILY@2200 [facility] Mupirocin 1 applic 08/09/19 10:00 08/09/19 09:35 Bactroban Ointment (For Decolonization) - NS 08/14/19 09:59 1 applic BID NAOMI Administration Nifedipine 60 mg 08/09/19 10:00 08/09/19 09:35 Procardia Xl - PO 60 mg DAILY NAOMI Administration ASSESSMENT/PLAN: 59F PMH of HTN, CHF, HLD, gastritis, diverticulitis, previous DVT (coumadin), polypectomy x8, depression/anxiety, on methadone, NSTEMI in (07/2019) presentd with HTN emergency and RLE DVT, and pulmonary edema. Neuro: Patient is AAOX3 Methadone 45 mg verified Hx of depression and anxiety- continue abilify Cardio Hx of HTN, CHF, HLD, NSTEMI, Presents with HTN emergency BNP 7123 Nitrodrip Started on Procardia Lasix given Cardiology consulted Pulm -Hypoxic respiratory failure 2/2 to Pulmonary edema -Continue BiPAP, downgrade to ventimask or NC as patient improves. -Continue Nitro drip -Chest X-ray shows pulmonary edema. Repeat chest x-ray tomorrow. -ABG tomorrow Heme/Onc -Patient has hx of DVT -Patient has RLE DVT -Heparin drip started GI -Hx of gastritis, diverticulitis, polypectomy -Transaminitis -U/S shows mild hepatomegaly and no cholelithiasis -Stable Renal -WALE on CKD -Strict I&O -Lasix 40 given F: No standing fluids E: Monitor CMP N: Salt restricted diet when off BiPAP DVT PPX: Heparin Drip Dispo: ICU monitoring Visit type - Emergency Visit Emergency Visit: Yes ED Registration Date: 08/09/19 Care time: The patient presented to the Emergency Department on the above date and was hospitalized for further evaluation of their emergent condition. - New Patient This patient is new to me today: Yes Date on this admission: 08/09/19 - Critical Care Critical Care patient: Yes Total Critical Care Time (in minutes): 45 Critical Care Statement: The care of this patient involved high complexity decision making to prevent further life threatening deterioration of the patient 's condition and/or to evaluate & treat vital organ system(s) failure or risk of failure. ATTENDING PHYSICIAN STATEMENT I saw and evaluated the patient. I reviewed the resident's note and discussed the case with the resident. I agree with the resident's findings and plan as documented. SUBJECTIVE: OBJECTIVE: ASSESSMENT AND PLAN:
[2019-08-09] MEDS ORDERED: METHADONE HCL 5 MG TABLET PO SCH (12:15)
[2019-08-09] MEDS ORDERED: KETOROLAC TROMETHAMINE 30 MG/1 ML VIAL IVPUSH ONE (12:25)
--- NOTE | 2019-08-09 13:18 | CON.CARD ---
Consult Consult Specialty:: Cardiology - History of Present Illness History of Present Illness: [id number], history of substance abuse on methadone, hypertension, gastritis, diverticulitis, DVT 2014 on Coumadin, [facility], [facility] and vomiting, found to have elevated cardiac markers. The patient also developed diaphoresis and chest discomfort. She was transferred to [facility] for cardiac catheterization admitted [facility] 07/13/19 to 07/21/19. Theechocardiogram showed severe left ventricular systolic dysfunction. There was contractility on the basal segments of the left ventricle suggestive of Takotsubo cardiomyopathy.Prior echo showed normal systolic function. Cardiaccatheterization showed nonobstructive coronary artery disease. The patient has a nonischemic cardiomyopathy. Possibly takotsubo. She was seen yesterday by Dr. Garibay in cardiology and noted to have severe HTN. her meidcations were adjuested. At the time of her [facility] discharge, her BP was well maintained. She reports medication compliance. She is admitted with weakness and dyspnea and noted to have hypoxia and heart failure and was placed on BIPAP. CXR is consistent with heart failure. Loext duplex showed Rt Popliteal DVT. Echo [facility] 07/13/19 Mild left atrial dilatation. Severely decreased left ventricular ejection fraction. Preserved contractility seen in the basal LV segments. Remainder (most) of LV is akinetic Consider Takatsubo's cardiomyopathy The patient was tachycardic during the exam. Cardiac cath 07/18 mild luminal irregularities. PCWP 14mmHg PAP Out patient HTN/cardiac therapies. w w w w w w w w w w w w aspirin 81 mg EC tablet w Take 1 tablet (81 mg total) by mouth daily w 30 tablet w 0 w w atorvastatin (LIPITOR) 80 mg tablet w Take 1 tablet (80 mg total) by mouth nightly w 30 tablet w 5 w w w w w w w w w w w w w w w w w hydrALAZINE (APRESOLINE) 50 mg tablet w Take 1 tablet (50 mg total) by mouth every 8 (eight) hours w 90 tablet w 3 w w hydroCHLOROthiazide (HYDRODIURIL) 25 mg tablet w Take 1 tablet (25 mg total ) by mouth daily w 30 tablet w 11 w w lisinopril (PRINIVIL,ZESTRIL) 40 mg tablet w Take 1 tablet (40 mg total) by mouth daily w 30 tablet w 11 w w methadone (DOLOPHINE) 10 mg tablet w Take 50 mg by mouth, w w w w metoprolol (TOPROL-XL) 50 mg 24 hr tablet w Take 1 tablet (50 mg total) by mouth daily w 30 tablet w 3 w w pantoprazole (PROTONIX) 40 mg tablet w Take 1 tablet (40 mg total) by mouth daily w 30 tablet w 3 w w warfarin (COUMADIN) 7.5 mg tablet w Take 1 tablet (7.5 mg total) by mouth nightly w 30 tablet w 0 - Past Medical History Cardio/Vascular: Yes: Deep Vein Thrombosis, HTN Pulmonary: Yes: Pulmonary Embolus Psych: Yes: Anxiety, Depression - Past Surgical History Past Surgical History: Yes: None - Alcohol/Substance Use Hx Alcohol Use: No History of Substance Use: reports: Heroin (on methadone), Marijuana - Smoking History Smoking history: Former smoker Have you smoked in the past 12 months: No Aproximately how many cigarettes per day: 0 If you are a former smoker, when did you quit?: 2013 - Social History ADL: Independent History of Recent Travel: No Home Medications - Allergies Allergies/Adverse Reactions: Allergies Allergy/AdvReac Type Severity Reaction Status Date / Time No Known Allergies Allergy Verified 08/09/19 04:38 - Home Medications Home Medications: Ambulatory Orders Diltiazem HCl [Diltiazem ER] 240 mg PO DAILY 07/13/19 Methadone [Dolophine -] 45 mg PO DAILY 07/13/19 Warfarin Sodium [Coumadin] 7.5 mg PO DAILY 07/13/19 Aripiprazole [Abilify] 0 mg PO DAILY 08/09/19 Review of Systems - Review of Systems Constitutional: denies: Chills, Diaphoresis, Fever, Lethargy Eyes: reports: No Symptoms HENT: reports: No Symptoms Neck: reports: No Symptoms Cardiovascular: reports: Edema, Shortness of Breath. denies: Chest Pain Respiratory: reports: SOB Gastrointestinal: reports: No Symptoms Genitourinary: reports: No Symptoms Breasts: reports: No Symptoms Reported Musculoskeletal: reports: No Symptoms Integumentary: reports: No Symptoms Vital Signs: Vital Signs Temperature 97.9 F 08/09/19 10:00 Pulse Rate 86 08/09/19 12:00 Respiratory Rate 17 08/09/19 12:00 Blood Pressure 155/81 08/09/19 12:00 O2 Sat by Pulse Oximetry (%) 98 08/09/19 12:40 Constitutional: Yes: Well Nourished, No Distress Eyes: Yes: Conjunctiva Clear, EOM Intact HENT: Yes: Atraumatic, Normocephalic Neck: Yes: Supple, Trachea Midline Respiratory: Yes: Regular, CTA Bilaterally Gastrointestinal: Yes: Normal Bowel Sounds Cardiovascular: Yes: Regular Rate and Rhythm JVD: No Carotid Bruit: No PMI: Non-Displaced Heart Sounds: Yes: S1, S2 Murmur: No: Systolic Murmur, Diastolic Murmur Edema: No - Other Data Labs, Other Data: CBC, BMP 08/09/19 05:50 08/09/19 05:50 INR, PTT INR 2.24 (0.83-1.09) H 08/09/19 05:50 Troponin, BNP 08/09/19 08/09/19 08/09/19 00:50 00:50 05:50 Troponin I 0.04 0.20 H B-Natriuretic Peptide 7123.4 H Troponin, BNP 08/09/19 08/09/19 08/09/19 00:50 00:50 05:50 Troponin I 0.04 0.20 H B-Natriuretic Peptide 7123.4 H Imaging - Results Chest X-ray: Report Reviewed Problem List - Problems (1) Acute respiratory failure with hypoxia and hypercapnia Code(s): J96.01 - ACUTE RESPIRATORY FAILURE WITH HYPOXIA; J96.02 - ACUTE RESPIRATORY FAILURE WITH HYPERCAPNIA (2) CHF exacerbation Code(s): I50.9 - HEART FAILURE, UNSPECIFIED Assessment/Plan 59 F with severe systolic dysfunction due to non-ischemic cardiomyopathy ( cardiac cath 07/2019 showed non-obstructive CAD with moderate luminal irregularities and Mildly elevated LV end diastolic pressure) suspected to have Takotsubo cardiomyopathy. She has history of HTN and DVT and is on chronic coumadin. She reports being compliant with her medications. was admitted with hypertensive urgency and flash pulmonary edema requiried BiPAP and NTG drip. Her symptoms improved. Lext duplex showed Rt Popliteal DVT. 1. Nonischemic Cardiomyopathy with acute HfREF: She had significant subjective diuresis although I/O not recorded fully and symptoms have improved. Her TP is elevated and is due to heart failure and not acute coronary syndrome. Discontinue Nifedipine. Discontinue Nitroglycerine drip Lasix 40mg IV daily Lisinopril 40mg qd Hydralazine 50mg TID Toprol XL 50mg QD Follow up electrolytes daily. 2. DVT: on chronic coumadin INR is >2 continue coumadin Discontinue heparin. Continue to monitor on telemetry when ready for transfer out of the ICU.
--- NOTE | 2019-08-09 13:21 | PN ---
Progress Note, Physician Chief Complaint: IN ICU AWAKE ALERT POOR HISTORIAN COMFORTABLE EVENTS AND NOTES REVIEWED 59 F with severe systolic dysfunction due to non-ischemic cardiomyopathy ( cardiac cath 07/2019 showed non-obstructive CAD with moderate luminal irregularities and Mildly elevated LV end diastolic pressure) suspected to have Takotsubo cardiomyopathy. She has history of HTN and DVT and is on chronic coumadin. She reports being compliant with her medications. was admitted with hypertensive urgency and flash pulmonary edema requiried BiPAP and NTG drip. Her symptoms improved. Lext duplex showed Rt Popliteal DVT. - Current Medication List Current Medications: Active Medications Aripiprazole (Abilify) 5 mg PO DAILY COUNT INCLUDES THE [facility] Last Admin: 08/09/19 09:35 Dose: 5 mg Chlorhexidine Gluconate (Hibiclens For Decolonization -) 1 applic TP HS NAOMI Heparin Sodium (Porcine) (Heparin -) 1,000 unit IVPUSH PRN PRN PRN Reason: Heparin Heparin Sodium (Porcine) (Heparin -) 5,000 unit IVPUSH PRN PRN PRN Reason: Heparin Last Admin: 08/09/19 12:15 Dose: 5,000 unit Nitroglycerin/Dextrose (Nitroglycerin 25mg/D5w 250ml) 25 mg in 250 mls @ 24 mls /hr IVPB TITR COUNT INCLUDES THE [facility] Last Admin: 08/09/19 00:49 Dose: 40 mcg/min, 24 mls/hr HEPARIN SOD,PORK IN 0.45% NACL (Heparin-1/2ns 25,000 Units/500) 25,000 units in 500 mls @ 20 mls/hr IVPB TITR COUNT INCLUDES THE [facility]; Protocol Last Titration: 08/09/19 10:33 Dose: 1,150 units/hr, 23 mls/hr Methadone HCl (Dolophine -) 40 mg PO DAILY COUNT INCLUDES THE [facility] Last Admin: 08/09/19 11:56 Dose: 40 mg Methadone HCl (Dolophine -) 5 mg PO DAILY COUNT INCLUDES THE [facility] Miscellaneous (Lidoderm Patch Removal) 1 each MC DAILY@2200 COUNT INCLUDES THE [facility] Mupirocin (Bactroban Ointment (For Decolonization) -) 1 applic NS BID COUNT INCLUDES THE [facility] Stop: 08/14/19 09:59 Last Admin: 08/09/19 09:35 Dose: 1 applic Nifedipine (Procardia Xl -) 60 mg PO DAILY COUNT INCLUDES THE [facility] Last Admin: 08/09/19 09:35 Dose: 60 mg - Objective Vital Signs: Vital Signs Temperature 97.9 F 08/09/19 10:00 Pulse Rate 86 08/09/19 12:00 Respiratory Rate 17 08/09/19 12:00 Blood Pressure 155/81 08/09/19 12:00 O2 Sat by Pulse Oximetry (%) 98 08/09/19 12:40 Constitutional: Yes: Mild Distress Cardiovascular: Yes: Regular Rate and Rhythm Respiratory: Yes: Diminished, On Nasal O2 Gastrointestinal: Yes: Soft Genitourinary: Yes: Incontinence Musculoskeletal: Yes: Muscle Weakness Edema: No Neurological: Yes: Confusion Psychiatric: Yes: Other Labs: CBC, BMP 08/09/19 05:50 08/09/19 05:50 INR, PTT INR 2.24 (0.83-1.09) H 08/09/19 05:50 Problem List - Problems (1) Acute respiratory failure with hypoxia and hypercapnia Code(s): J96.01 - ACUTE RESPIRATORY FAILURE WITH HYPOXIA; J96.02 - ACUTE RESPIRATORY FAILURE WITH HYPERCAPNIA (2) Hx of pulmonary embolus Code(s): Z86.711 - PERSONAL HISTORY OF PULMONARY EMBOLISM (3) Acute electrocardiogram changes Code(s): R94.31 - ABNORMAL ELECTROCARDIOGRAM [ECG] [EKG] (4) Anemia Code(s): D64.9 - ANEMIA, UNSPECIFIED (5) Depression Code(s): F32.9 - MAJOR DEPRESSIVE DISORDER, SINGLE EPISODE, UNSPECIFIED (6) Fatigue Code(s): R53.83 - OTHER FATIGUE (7) Troponin level elevated Code(s): R74.8 - ABNORMAL LEVELS OF OTHER SERUM ENZYMES Assessment/Plan CARDIAC WORKUP ACUTE CORONARY SYNDROME IN THE ICU ON CARDIAC MONITORING CARDIOLOGY WORKUP IN PROGRESS BP CONTROL AC NITRO IV FULL CODE
[2019-08-09] MEDS: hydrALAZINE HCL 25 MG TABLET (FP) PO SCH ×2 (15:39→21:21)
[2019-08-09] MEDS ORDERED: WARFARIN NA 7.5 MG TABLET (FP) PO SCH (18:00)
[2019-08-09] MEDS: ASPIRIN COATED 81 MG TABLET.EC PO SCH (18:59)
[2019-08-09] MEDS ORDERED: CHLORHEXIDINE GLUCONATE 4% CLEANSER FOR DECOLONIZATION TP SCH (22:00)
[2019-08-09] MEDS ORDERED: hydrALAZINE HCL 25 MG TABLET (FP) PO SCH (22:00)
[2019-08-09] MEDS ORDERED: LIDOCAINE PATCH REMOVAL MC SCH (22:00)
[2019-08-09] MEDS: ARIPiprazole 2 MG TABLET PO SCH (22:21)
--- NOTE | 2019-08-09 23:17 | EKG ---
Test Reason : Blood Pressure : / mmHG Vent. Rate : 120 BPM Atrial Rate : 120 BPM P-R Int : 184 ms QRS Dur : 074 ms QT Int : 298 ms P-R-T Axes : 062 021 105 degrees QTc Int : 421 ms SINUS TACHYCARDIA T WAVE ABNORMALITY, CONSIDER LATERAL ISCHEMIA ABNORMAL ECG WHEN COMPARED WITH ECG OF 13-JUL-2019 01:58, T WAVE VARIATION Confirmed by AZAR SCHULZ MD ([id number]) on 08/09/2019 11:16:52 PM Referred By: Confirmed By:AZAR SCHULZ MD
[2019-08-10] MEDS: hydrALAZINE HCL 25 MG TABLET (FP) PO SCH ×3 (06:04→14:19)
[2019-08-10 07:41] LABS: BASO % 0.9 % (0-2.0); EOS % 2.4 % (0-4.5); HEMATOCRIT 32.9 % (32.4-45.2); HEMOGLOBIN 10.3 GM/dL (10.7-15.3); LYMPH % 19.8 % (8-40); MCH 26.7 pg (25.7-33.7); MCHC 31.2 g/dl (32.0-36.0); MEAN CELL VOLUME 85.7 fl (80-96); MEAN PLT VOLUME 8.2 fl (7.5-11.1); MONO % 7.9 % (3.8-10.2); PLATELET COUNT 208 K/MM3 (134-434); RBC 3.84 M/mm3 (3.60-5.2); RDW 15.6 % (11.6-15.6); WHITE BLOOD COUNT 3.4 K/mm3 (4.0-10.0)
[2019-08-10 08:14] LABS: ALBUMIN 2.7 g/dl (3.4-5.0); BILIRUBIN,TOTAL 0.3 mg/dL (0.2-1); BLOOD UREA NITROGEN 13.2 mg/dL (7-18); CALCIUM 8.9 mg/dL (8.5-10.1); CREATININE 0.9 mg/dL (0.55-1.3); MAGNESIUM 1.7 mg/dL (1.8-2.4); PHOSPHOROUS 2.5 mg/dL (2.5-4.9); POTASSIUM 3.4 mmol/L (3.5-5.1); TOT PROT 5.6 g/dl (6.4-8.2)
[2019-08-10] MEDS ORDERED: MAGNESIUM SULF 50% (8.12 MEQ/2 ML-1 GM VIAL) IVPB ONE (08:15)
[2019-08-10] MEDS ORDERED: POTASSIUM CHLORIDE TABS 20 MEQ TABLET.ER (FP) PO ONE (08:22)
--- NOTE | 2019-08-10 08:44 | PN ---
Progress Note, Physician Chief Complaint: IN BED OFFERS NO COMPLAINTS IN ICU ON CARDIAC MONITORING - Current Medication List Current Medications: Active Medications Aripiprazole (Abilify) 2 mg PO DAILY [facility] Last Admin: 08/09/19 22:21 Dose: 2 mg Aripiprazole (Abilify) 5 mg PO [facility] Aspirin (Ecotrin -) 81 mg PO DAILY [facility] Last Admin: 08/09/19 18:59 Dose: Not Given Chlorhexidine Gluconate (Hibiclens For Decolonization -) 1 applic TP HS [facility] Last Admin: 08/09/19 21:21 Dose: 1 applic Furosemide (Lasix Injection -) 40 mg IVPUSH DAILY [facility] Hydralazine HCl (Apresoline -) 50 mg PO TID [facility] Last Admin: 08/10/19 06:04 Dose: 50 mg Lisinopril (Prinivil) 40 mg PO DAILY [facility] Methadone HCl (Dolophine -) 40 mg PO DAILY [facility] Last Admin: 08/09/19 11:56 Dose: 40 mg Methadone HCl (Dolophine -) 5 mg PO DAILY [facility] Metoprolol Succinate (Toprol Xl -) 50 mg PO DAILY [facility] Miscellaneous (Lidoderm Patch Removal) 1 each [facility] DAILY@2200 [facility] Last Admin: 08/09/19 21:22 Dose: 1 each Mupirocin (Bactroban Ointment (For Decolonization) -) 1 applic NS BID [facility] Stop: 08/14/19 09:59 Last Admin: 08/09/19 21:21 Dose: 1 applic Warfarin Sodium (Coumadin -) 7.5 mg PO 1800 [facility] Last Admin: 08/09/19 18:01 Dose: 7.5 mg - Objective Vital Signs: Vital Signs Temperature 98.6 F 08/10/19 06:00 Pulse Rate 79 08/10/19 06:00 Respiratory Rate 14 08/10/19 06:00 Blood Pressure 175/89 H 08/10/19 06:00 O2 Sat by Pulse Oximetry (%) 100 08/10/19 08:15 Constitutional: Yes: Mild Distress Cardiovascular: Yes: Regular Rate and Rhythm Respiratory: Yes: Diminished, On Nasal O2 Gastrointestinal: Yes: Soft Genitourinary: Yes: WNL Musculoskeletal: Yes: Muscle Weakness Integumentary: Yes: WNL Wound/Incision: Yes: Clean/Dry Neurological: Yes: WNL ...Motor Strength: WNL Psychiatric: Yes: WNL Labs: CBC, BMP 08/10/19 07:20 08/10/19 06:00 INR, PTT INR 2.24 (0.83-1.09) H 08/09/19 05:50 Problem List - Problems (1) Acute respiratory failure with hypoxia and hypercapnia Code(s): J96.01 - ACUTE RESPIRATORY FAILURE WITH HYPOXIA; J96.02 - ACUTE RESPIRATORY FAILURE WITH HYPERCAPNIA (2) Hx of pulmonary embolus Code(s): Z86.711 - PERSONAL HISTORY OF PULMONARY EMBOLISM (3) Acute electrocardiogram changes Code(s): R94.31 - ABNORMAL ELECTROCARDIOGRAM [ECG] [EKG] (4) Anemia Code(s): D64.9 - ANEMIA, UNSPECIFIED (5) Depression Code(s): F32.9 - MAJOR DEPRESSIVE DISORDER, SINGLE EPISODE, UNSPECIFIED (6) Fatigue Code(s): R53.83 - OTHER FATIGUE (7) Troponin level elevated Code(s): R74.8 - ABNORMAL LEVELS OF OTHER SERUM ENZYMES Assessment/Plan CARDIAC WORKUP ACUTE CORONARY SYNDROME IN THE ICU ON CARDIAC MONITORING CARDIOLOGY WORKUP IN PROGRESS BP CONTROL AC NITRO IV STOPPED FULL CODE
--- NOTE | 2019-08-10 09:03 | PN ---
Progress Note, Physician Chief Complaint: Cardiology FU No dyspnea Telem NSR History of Present Illness: [id number], history of substance abuse on methadone, hypertension, gastritis, diverticulitis, DVT 2014 on Coumadin, [facility], nausea and vomiting, found to have elevated cardiac markers. The patient also developed diaphoresis and chest discomfort. She was transferred to [facility] for cardiac catheterization admitted [facility] 07/13/19 to 07/21/19. Theechocardiogram showed severe left ventricular systolic dysfunction. There was contractility on the basal segments of the left ventricle suggestive of Takotsubo cardiomyopathy.Prior echo showed normal systolic function. Cardiaccatheterization showed nonobstructive coronary artery disease. The patient has a nonischemic cardiomyopathy. Possibly takotsubo. She was seen yesterday by Dr. Garibay in cardiology and noted to have severe HTN. her meidcations were adjuested. At the time of her [facility] discharge, her BP was well maintained. She reports medication compliance. She is admitted with weakness and dyspnea and noted to have hypoxia and heart failure and was placed on BIPAP. CXR is consistent with heart failure. Loext duplex showed Rt Popliteal DVT. Echo [facility] 07/13/19 Mild left atrial dilatation. Severely decreased left ventricular ejection fraction. Preserved contractility seen in the basal LV segments. Remainder (most) of LV is akinetic Consider Takatsubo's cardiomyopathy The patient was tachycardic during the exam. Cardiac cath 07/18 mild luminal irregularities. PCWP 14mmHg PAP Out patient HTN/cardiac therapies. w w w w w w w w w w w w aspirin 81 mg EC tablet w Take 1 tablet (81 mg total) by mouth daily w 30 tablet w 0 w w atorvastatin (LIPITOR) 80 mg tablet w Take 1 tablet (80 mg total) by mouth nightly w 30 tablet w 5 w w w w w w w w w w w w w w w w w hydrALAZINE (APRESOLINE) 50 mg tablet w Take 1 tablet (50 mg total) by mouth every 8 (eight) hours w 90 tablet w 3 w w hydroCHLOROthiazide (HYDRODIURIL) 25 mg tablet w Take 1 tablet (25 mg total ) by mouth daily w 30 tablet w 11 w w lisinopril (PRINIVIL,ZESTRIL) 40 mg tablet w Take 1 tablet (40 mg total) by mouth daily w 30 tablet w 11 w w methadone (DOLOPHINE) 10 mg tablet w Take 50 mg by mouth, w w w w metoprolol (TOPROL-XL) 50 mg 24 hr tablet w Take 1 tablet (50 mg total) by mouth daily w 30 tablet w 3 w w pantoprazole (PROTONIX) 40 mg tablet w Take 1 tablet (40 mg total) by mouth daily w 30 tablet w 3 w w warfarin (COUMADIN) 7.5 mg tablet w Take 1 tablet (7.5 mg total) by mouth nightly w 30 tablet w 0 - Current Medication List Current Medications: Active Medications Aripiprazole (Abilify) 2 mg PO DAILY [facility] Last Admin: 08/09/19 22:21 Dose: 2 mg Aripiprazole (Abilify) 5 mg PO HS [facility] Aspirin (Ecotrin -) 81 mg PO DAILY [facility] Last Admin: 08/09/19 18:59 Dose: Not Given Chlorhexidine Gluconate (Hibiclens For Decolonization -) 1 applic TP HS [facility] Last Admin: 08/09/19 21:21 Dose: 1 applic Furosemide (Lasix Injection -) 40 mg IVPUSH DAILY [facility] Hydralazine HCl (Apresoline -) 50 mg PO TID [facility] Last Admin: 08/10/19 06:04 Dose: 50 mg Lisinopril (Prinivil) 40 mg PO DAILY [facility] Methadone HCl (Dolophine -) 40 mg PO DAILY [facility] Last Admin: 08/09/19 11:56 Dose: 40 mg Methadone HCl (Dolophine -) 5 mg PO DAILY [facility] Metoprolol Succinate (Toprol Xl -) 50 mg PO DAILY [facility] Miscellaneous (Lidoderm Patch Removal) 1 each MC DAILY@2200 [facility] Last Admin: 08/09/19 21:22 Dose: 1 each Mupirocin (Bactroban Ointment (For Decolonization) -) 1 applic NS BID [facility] Stop: 08/14/19 09:59 Last Admin: 08/09/19 21:21 Dose: 1 applic Warfarin Sodium (Coumadin -) 7.5 mg PO 1800 [facility] Last Admin: 08/09/19 18:01 Dose: 7.5 mg - Objective Vital Signs: Vital Signs Temperature 98.6 F 08/10/19 06:00 Pulse Rate 79 08/10/19 06:00 Respiratory Rate 14 08/10/19 06:00 Blood Pressure 175/89 H 08/10/19 06:00 O2 Sat by Pulse Oximetry (%) 100 08/10/19 08:15 Constitutional: Yes: Well Nourished, No Distress Eyes: Yes: Conjunctiva Clear, EOM Intact HENT: Yes: Atraumatic, Normocephalic Neck: Yes: Supple, Trachea Midline Cardiovascular: Yes: Regular Rate and Rhythm, S1, S2. No: JVD Respiratory: Yes: Regular, CTA Bilaterally Gastrointestinal: Yes: Normal Bowel Sounds, Soft Edema: No Labs: CBC, BMP 08/10/19 07:20 08/10/19 06:00 INR, PTT INR 2.24 (0.83-1.09) H 08/09/19 05:50 Problem List - Problems (1) Acute respiratory failure with hypoxia and hypercapnia Code(s): J96.01 - ACUTE RESPIRATORY FAILURE WITH HYPOXIA; J96.02 - ACUTE RESPIRATORY FAILURE WITH HYPERCAPNIA (2) CHF exacerbation Code(s): I50.9 - HEART FAILURE, UNSPECIFIED Assessment/Plan 59 F with severe systolic dysfunction due to non-ischemic cardiomyopathy ( cardiac cath 07/2019 showed non-obstructive CAD with moderate luminal irregularities and Mildly elevated LV end diastolic pressure) suspected to have Takotsubo cardiomyopathy. She has history of HTN and DVT and is on chronic coumadin. She reports being compliant with her medications. was admitted with hypertensive urgency and flash pulmonary edema requiried BiPAP and NTG drip. Her symptoms improved. Lext duplex showed Rt Popliteal DVT. 1. Nonischemic Cardiomyopathy with acute HfREF: d symptoms have improved. Her TP is elevated and is due to heart failure and not acute coronary syndrome. Correct hypokalemia and hypomagnesemia. Had QT prolongation during her prior admission. Please repeat ECG. Lasix 40mg IV daily Lisinopril 40mg qd Hydralazine 50mg TID/Toprol 50 qd. Follow up electrolytes daily. 2. DVT: on chronic coumadin INR followup continue coumadin Continue to monitor on telemetry when ready for transfer out of the ICU.
--- NOTE | 2019-08-10 09:27 | PN ---
Teaching Attending Note Name of Resident: Sally Monet ATTENDING PHYSICIAN STATEMENT I saw and evaluated the patient. I reviewed the resident's note and discussed the case with the resident. I agree with the resident's findings and plan as documented. SUBJECTIVE: Patient seen and examined in the ICU. Awake and alert on NC O2. Denies CP. SOB is improved. Intake & Output 08/07/19 08/08/19 08/09/19 08/10/19 23:59 23:59 23:59 23:59 Intake Total 88 100 Output Total 1500 600 Balance -1412 -500 Weight 171 lb 155 lb 4.8 oz Last Vital Signs Temp Pulse Resp BP Pulse Ox 98.6 F 79 14 175/89 H 100 08/10/19 06:00 08/10/19 06:00 08/10/19 06:00 08/10/19 06:00 08/10/19 08:15 Active Medications Aripiprazole (Abilify) 2 mg PO DAILY [facility] Last Admin: 08/09/19 22:21 Dose: 2 mg Aripiprazole (Abilify) 5 mg PO HS [facility] Aspirin (Ecotrin -) 81 mg PO DAILY [facility] Last Admin: 08/09/19 18:59 Dose: Not Given Chlorhexidine Gluconate (Hibiclens For Decolonization -) 1 applic TP HS [facility] Last Admin: 08/09/19 21:21 Dose: 1 applic Furosemide (Lasix Injection -) 40 mg IVPUSH DAILY [facility] Hydralazine HCl (Apresoline -) 50 mg PO TID [facility] Last Admin: 08/10/19 06:04 Dose: 50 mg Lisinopril (Prinivil) 40 mg PO DAILY [facility] Methadone HCl (Dolophine -) 40 mg PO DAILY [facility] Last Admin: 08/09/19 11:56 Dose: 40 mg Methadone HCl (Dolophine -) 5 mg PO DAILY [facility] Metoprolol Succinate (Toprol Xl -) 50 mg PO DAILY [facility] Miscellaneous (Lidoderm Patch Removal) 1 each MC DAILY@2200 [facility] Last Admin: 08/09/19 21:22 Dose: 1 each Mupirocin (Bactroban Ointment (For Decolonization) -) 1 applic NS BID [facility] Stop: 08/14/19 09:59 Last Admin: 08/09/19 21:21 Dose: 1 applic Warfarin Sodium (Coumadin -) 7.5 mg PO 1800 [facility] Last Admin: 08/09/19 18:01 Dose: 7.5 mg Constitutional: Yes: Awake and alert, NAD HENT: Yes: Other (Bipap) Neck: Yes: WNL Cardiovascular: Yes: S1, S2 Respiratory: Yes: Bibasilar Rales, no wheeze Gastrointestinal: Yes: Normal Bowel Sounds, Soft Renal/: No: CVA Tenderness - Left, CVA Tenderness - Right Musculoskeletal: No: Muscle Weakness Edema: Yes Edema: LLE: 1+, RLE: 2+ Integumentary: Yes: WNL Neurological: Yes: Alert, Oriented. No: Confusion, Lethargy, Seizure, Tremors ...Motor Strength: WNL Psychiatric: Yes: Alert, Oriented Labs: Laboratory Results - last 24 hr 08/09/19 08/09/19 08/10/19 12:52 19:30 06:00 WBC RBC Hgb Hct MCV MCH MCHC RDW Plt Count MPV Absolute Neuts (auto) Neutrophils % Lymphocytes % Monocytes % Eosinophils % Basophils % Nucleated RBC % PTT (Actin FS) 71.8 H Sodium 141 Potassium 3.4 L Chloride 100 Carbon Dioxide 37 H Anion Gap 5 L BUN 13.2 Creatinine 0.9 Est GFR (CKD-EPI)AfAm 79.98 Est GFR (CKD-EPI)NonAf 69.01 Random Glucose 78 Calcium 8.9 Phosphorus 2.5 Magnesium 1.7 L Total Bilirubin 0.3 AST 60 H ALT 175 H Alkaline Phosphatase 179 H Troponin I 0.20 H Total Protein 5.6 L Albumin 2.7 L 08/10/19 07:20 WBC 3.4 L RBC 3.84 Hgb 10.3 L Hct 32.9 MCV 85.7 MCH 26.7 MCHC 31.2 L RDW 15.6 Plt Count 208 MPV 8.2 Absolute Neuts (auto) 2.4 Neutrophils % 69.0 D Lymphocytes % 19.8 D Monocytes % 7.9 Eosinophils % 2.4 Basophils % 0.9 Nucleated RBC % 0 PTT (Actin FS) Sodium Potassium Chloride Carbon Dioxide Anion Gap BUN Creatinine Est GFR (CKD-EPI)AfAm Est GFR (CKD-EPI)NonAf Random Glucose Calcium Phosphorus Magnesium Total Bilirubin AST ALT Alkaline Phosphatase Troponin I Total Protein Albumin Assessment/Plan: Acute Respiratory Failure due to Acute Pulmonary Edema / CHF Hypertensive Emergency HTN CHF HLD Gastritis Diverticulitis Previous DVT/PE on coumadin Polypectomy x 8 Depression/anxiety Methadone maintenance Recent NSTEMI (07/2019) NC O2 as tolerated NIPPV Support as needed Lasix NTG Daily weights Strict I & O IV Heparin and Coumadin Cardiac Telemetry monitoring Dr Choi
[2019-08-10] MEDS ORDERED: PT OWN MED DRAWER 7, Y5N ONE (09:35)
--- NOTE | 2019-08-10 09:38 | PN ---
Physical Exam: SUBJECTIVE: Patient seen and examined at bedside- no acute events overnight patient states that she is feeling well and that her breathing is much improved ; also her right leg pain and swelling has improved; she denies any CP/SOB/N/V OBJECTIVE: Vital Signs Period Temp Pulse Resp BP Sys/Reyes Pulse Ox Last 24 Hr 97.9 F-98.6 F 64-86 12-19 123-175/57-89 97-100 GENERAL: The patient is awake, alert, and fully oriented, in no acute distress. EYES: PEERLA;EOMI; no scleral icterus NECK: no JVD; no lymphadenopathy LUNGS: CTA B/L; no rales, rhonchi or wheezing HEART: Regular rate and rhythm, S1, S2 without murmur, rub or gallop. ABDOMEN: Soft, NT/ND +BS in all 4 quadrants EXTREMITIES: 2+ pulses, warm, well-perfused, no edema, slight R calf tenderness upon palaption however no erythema present and minimal swelling. PSYCH: Normal mood, normal affect. SKIN: Warm, dry, normal turgor, no rashes or lesions noted Laboratory Results - last 24 hr 08/09/19 08/09/19 08/10/19 12:52 19:30 06:00 WBC RBC Hgb Hct MCV MCH MCHC RDW Plt Count MPV Absolute Neuts (auto) Neutrophils % Lymphocytes % Monocytes % Eosinophils % Basophils % Nucleated RBC % PTT (Actin FS) 71.8 H Sodium 141 Potassium 3.4 L Chloride 100 Carbon Dioxide 37 H Anion Gap 5 L BUN 13.2 Creatinine 0.9 Est GFR (CKD-EPI)AfAm 79.98 Est GFR (CKD-EPI)NonAf 69.01 Random Glucose 78 Calcium 8.9 Phosphorus 2.5 Magnesium 1.7 L Total Bilirubin 0.3 AST 60 H ALT 175 H Alkaline Phosphatase 179 H Troponin I 0.20 H Total Protein 5.6 L Albumin 2.7 L 08/10/19 07:20 WBC 3.4 L RBC 3.84 Hgb 10.3 L Hct 32.9 MCV 85.7 MCH 26.7 MCHC 31.2 L RDW 15.6 Plt Count 208 MPV 8.2 Absolute Neuts (auto) 2.4 Neutrophils % 69.0 D Lymphocytes % 19.8 D Monocytes % 7.9 Eosinophils % 2.4 Basophils % 0.9 Nucleated RBC % 0 PTT (Actin FS) Sodium Potassium Chloride Carbon Dioxide Anion Gap BUN Creatinine Est GFR (CKD-EPI)AfAm Est GFR (CKD-EPI)NonAf Random Glucose Calcium Phosphorus Magnesium Total Bilirubin AST ALT Alkaline Phosphatase Troponin I Total Protein Albumin Active Medications Generic Name Dose Route Start Last Admin Trade Name Freq PRN Reason Stop Dose Admin Aripiprazole 2 mg 08/09/19 21:45 08/09/19 22:21 Abilify PO 2 mg DAILY [facility] Administration Aripiprazole 5 mg 08/10/19 22:00 Abilify PO HS [facility] Aspirin 81 mg 08/09/19 18:45 08/09/19 18:59 Ecotrin - PO Not Given DAILY [facility] Chlorhexidine Gluconate 1 applic 08/09/19 22:00 08/09/19 21:21 Hibiclens For Decolonization - TP 1 applic HS [facility] Administration Furosemide 40 mg 08/10/19 10:00 Lasix Injection - IVPUSH DAILY [facility] Hydralazine HCl 50 mg 08/09/19 15:30 08/10/19 06:04 Apresoline - PO 50 mg TID [facility] Administration Lisinopril 40 mg 08/10/19 10:00 Prinivil PO DAILY [facility] Methadone HCl 40 mg 08/09/19 12:00 08/09/19 11:56 Dolophine - PO 40 mg DAILY [facility] Administration Methadone HCl 5 mg 08/09/19 12:15 Dolophine - PO DAILY [facility] Metoprolol Succinate 50 mg 08/10/19 10:00 Toprol Xl - PO DAILY [facility] Miscellaneous 1 each 08/09/19 22:00 08/09/19 21:22 Lidoderm Patch Removal MC 1 each DAILY@2200 [facility] Administration Mupirocin 1 applic 08/09/19 10:00 08/09/19 21:21 Bactroban Ointment (For Decolonization) - NS 08/14/19 09:59 1 applic BID [facility] Administration Warfarin Sodium 7.5 mg 08/09/19 18:00 08/09/19 18:01 Coumadin - PO 7.5 mg 1800 [facility] Administration ASSESSMENT/PLAN: 59F PMH of HTN, CHF, HLD, gastritis, diverticulitis, previous DVT (coumadin), polypectomy x8, depression/anxiety, on methadone, NSTEMI in (07/2019) presented with HTN emergency and RLE DVT, and pulmonary edema. #Neuro history of anxiety/depression; on abilify c/w methadone 45mg daily #Cardiovascular history of NSTEMI; HTN; CHF; HLD; -IV lasix 40 daily - monitor i's and o's ; daily weights -c/w toprol XL 5 daily -c/w Hydralazine 50 TID -c/w lisinpril 40mg daily #GI history of polypectomy x8, gastritis, diverticulitis stable; no issues sodium-controlled diet #Heme RLE DVT (past and present) on coumadin 7.5 daily monitor PT/INR #Pulmonary patient initially presented with flash pulmonary edema requiring BIPAP saturating well on NC responding well to IV lasix c/w IV lasix repeat CXR in AM monitor o2 #Renal patient initially had WALE on presentation with Cr of 1.4 Cr this AM 0.9 renal US negative for hydro/obstruction avoid nephrotoxic agents F/E/N not on standing fluids hypokalemia/hypomag- repleted sodium-controlled diet dvt ppx: coumadin dispo: transfer to tele Problem List - Problems (1) DVT (deep venous thrombosis) Code(s): I82.409 - ACUTE EMBOLISM AND THOMBOS UNSP DEEP VN UNSP LOWER EXTREMITY (2) Hypertensive urgency Code(s): I16.0 - HYPERTENSIVE URGENCY Visit type - Emergency Visit Emergency Visit: Yes ED Registration Date: 08/09/19 Care time: The patient presented to the Emergency Department on the above date and was hospitalized for further evaluation of their emergent condition. - New Patient This patient is new to me today: Yes Date on this admission: 08/10/19 - Critical Care Critical Care patient: Yes Total Critical Care Time (in minutes): 35 Critical Care Statement: The care of this patient involved high complexity decision making to prevent further life threatening deterioration of the patient 's condition and/or to evaluate & treat vital organ system(s) failure or risk of failure. ATTENDING PHYSICIAN STATEMENT I saw and evaluated the patient. I reviewed the resident's note and discussed the case with the resident. I agree with the resident's findings and plan as documented. SUBJECTIVE: OBJECTIVE: ASSESSMENT AND PLAN:
[2019-08-10 09:46] LABS: INR 3.3 (0.83-1.09); PROTHROMBIN TIME (PATIENT) 39.4 SEC (9.7-13.0)
[2019-08-10] MEDS: ASPIRIN COATED 81 MG TABLET.EC PO SCH (09:51)
[2019-08-10] MEDS: METHADONE HCL 40 MG DISPERSABLE TABLET PO SCH (09:51)
[2019-08-10] MEDS: ARIPiprazole 2 MG TABLET PO SCH (09:52)
[2019-08-10] MEDS: MUPIROCIN 2% TOPICAL OINTMENT FOR DECOLONIZATION NS SCH ×2 (09:52→21:00)
[2019-08-10] MEDS ORDERED: LISINOPRIL 20 MG TABLET (FP) PO SCH (10:00)
[2019-08-10] MEDS ORDERED: FUROSEMIDE 40 MG/4 ML INJECTABLE VIAL IVPUSH SCH (10:00)
[2019-08-10] MEDS ORDERED: ACETAMINOPHEN 325 MG TABLET (FP) PO ONE (20:13)
[2019-08-10] MEDS: hydrALAZINE HCL 50 MG TABLET (FP) PO SCH (21:00)
[2019-08-10] MEDS: CHLORHEXIDINE GLUCONATE 4% CLEANSER FOR DECOLONIZATION TP SCH (21:00)
[2019-08-10] MEDS: ARIPiprazole 5 MG TABLET (FP) PO SCH (21:00)
[2019-08-10] MEDS ORDERED: LIDOCAINE PATCH REMOVAL MC SCH (22:00)
[2019-08-10] MEDS ORDERED: ARIPiprazole 5 MG TABLET (FP) PO SCH (22:00)
[2019-08-11] MEDS: hydrALAZINE HCL 50 MG TABLET (FP) PO SCH ×3 (06:20→22:21)
[2019-08-11 06:32] LABS: HEMATOCRIT 31.5 % (32.4-45.2); HEMOGLOBIN 9.9 GM/dL (10.7-15.3); MCH 26.8 pg (25.7-33.7); MCHC 31.3 g/dl (32.0-36.0); MEAN CELL VOLUME 85.5 fl (80-96); MEAN PLT VOLUME 8.3 fl (7.5-11.1); PLATELET COUNT 202 K/MM3 (134-434); RBC 3.69 M/mm3 (3.60-5.2); RDW 15.7 % (11.6-15.6); WHITE BLOOD COUNT 3.1 K/mm3 (4.0-10.0)
[2019-08-11 07:01] LABS: INR 2.42 (0.83-1.09); PROTHROMBIN TIME (PATIENT) 28.8 SEC (9.7-13.0)
[2019-08-11 07:04] LABS: ACTIVATED PTT 41.9 SECONDS (25.2-36.5); ALBUMIN 2.6 g/dl (3.4-5.0); BILIRUBIN,TOTAL 0.4 mg/dL (0.2-1); BLOOD UREA NITROGEN 19.5 mg/dL (7-18); CALCIUM 9.4 mg/dL (8.5-10.1); CREATININE 1.2 mg/dL (0.55-1.3); MAGNESIUM 2.2 mg/dL (1.8-2.4); POTASSIUM 4.5 mmol/L (3.5-5.1); TOT PROT 5.3 g/dl (6.4-8.2)
[2019-08-11] MEDS ORDERED: METHADONE HCL 5 MG TABLET ONE (09:04)
[2019-08-11] MEDS ORDERED: PT OWN MED DRAWER 7, Y5N ONE ×4 (09:05→10:55)
[2019-08-11] MEDS ORDERED: METHADONE HCL 40 MG DISPERSABLE TABLET ONE (09:05)
[2019-08-11] MEDS: METHADONE 40 MG, METHADONE 5 MG PO SCH (09:15)
[2019-08-11] MEDS: ASPIRIN COATED 81 MG TABLET.EC PO SCH (09:16)
[2019-08-11] MEDS: LISINOPRIL 20 MG TABLET (FP) PO SCH (09:17)
[2019-08-11] MEDS: MUPIROCIN 2% TOPICAL OINTMENT FOR DECOLONIZATION NS SCH ×2 (09:17→22:23)
--- NOTE | 2019-08-11 09:19 | PN ---
Progress Note, Physician - Current Medication List Current Medications: Active Medications Amlodipine Besylate (Norvasc -) 5 mg PO DAILY [facility] Aripiprazole (Abilify) 2 mg PO DAILY [facility] Aripiprazole (Abilify) [address] [facility] Last Admin: 08/10/19 21:00 Dose: 5 mg Aspirin (Ecotrin -) 81 mg PO DAILY [facility] Last Admin: 08/11/19 09:16 Dose: 81 mg Chlorhexidine Gluconate (Hibiclens For Decolonization -) 1 applic TP HS [facility] Last Admin: 08/10/19 21:00 Dose: 1 applic Hydralazine HCl (Apresoline -) 50 mg PO TID [facility] Last Admin: 08/11/19 06:20 Dose: 50 mg Lisinopril (Prinivil) 40 mg PO DAILY [facility] Last Admin: 08/11/19 09:17 Dose: 40 mg Methadone HCl 40 mg/ Methadone (HCl 5 mg) 45 mg PO DAILY [facility] Last Admin: 08/11/19 09:15 Dose: 45 mg Metoprolol Succinate (Toprol Xl -) 50 mg PO DAILY [facility] Last Admin: 08/11/19 09:17 Dose: 50 mg Mupirocin (Bactroban Ointment (For Decolonization) -) 1 applic NS BID [facility] Stop: 08/14/19 09:59 Last Admin: 08/11/19 09:17 Dose: 1 applic Warfarin Sodium (Coumadin -) 7.5 mg PO 1800 [facility] - Objective Vital Signs: Vital Signs Temperature 98.4 F 08/11/19 08:10 Pulse Rate 68 08/11/19 08:10 Respiratory Rate 18 08/11/19 08:10 Blood Pressure 193/73 H 08/11/19 08:10 O2 Sat by Pulse Oximetry (%) 99 08/10/19 22:00 Cardiovascular: Yes: S1, S2 Respiratory: Yes: Regular, CTA Bilaterally Gastrointestinal: Yes: Normal Bowel Sounds, Soft Edema: No Labs: CBC, BMP 08/11/19 05:25 08/11/19 05:25 INR, PTT INR 2.42 (0.83-1.09) H 08/11/19 05:25 Problem List - Problems (1) CHF exacerbation Assessment/Plan: will change to po meds monitor Code(s): I50.9 - HEART FAILURE, UNSPECIFIED (2) Hypertensive urgency Assessment/Plan: continue with current meds add norvasc 5 and monitor may need to increase hydralazine Code(s): I16.0 - HYPERTENSIVE URGENCY (3) Acute respiratory failure with hypoxia and hypercapnia Assessment/Plan: as above Code(s): J96.01 - ACUTE RESPIRATORY FAILURE WITH HYPOXIA; J96.02 - ACUTE RESPIRATORY FAILURE WITH HYPERCAPNIA (4) DVT (deep venous thrombosis) Assessment/Plan: on Coumadin inr 2.4 Code(s): I82.409 - ACUTE EMBOLISM AND THOMBOS UNSP DEEP VN UNSP LOWER EXTREMITY (5) Troponin level elevated Assessment/Plan: as noted by cardio probably due to chf Code(s): R74.8 - ABNORMAL LEVELS OF OTHER SERUM ENZYMES (6) Anemia Assessment/Plan: monitor hgb --9.9 Code(s): D64.9 - ANEMIA, UNSPECIFIED
[2019-08-11] MEDS: TORSEMIDE 20 MG TABLET (FP) PO SCH (09:27)
[2019-08-11] MEDS ORDERED: amLODIPine BESYLATE 5 MG TABLET (FP) PO SCH (10:00)
[2019-08-11] MEDS ORDERED: FUROSEMIDE 40 MG/4 ML INJECTABLE VIAL IVPUSH SCH (10:00)
[2019-08-11] MEDS ORDERED: METHADONE HCL 40 MG DISPERSABLE TABLET PO SCH (10:00)
[2019-08-11] MEDS ORDERED: METHADONE HCL 5 MG TABLET PO SCH (10:00)
[2019-08-11] MEDS: ARIPiprazole 2 MG TABLET PO SCH (10:57)
--- NOTE | 2019-08-11 11:09 | ECHO ---
Name: FREDA VICTOR Exam:Adult Echocardiogram Study Date: 08/11/2019 08:13 AM Age: 59 yrs Reason For Study: Pericardial Effusion Height: 62 in Weight: 164 lb BSA: 1.8 m2 MMode/2D Measurements & Calculations IVSd: 1.2 cm Ao root diam: 2.7 cm LVIDd: 5.2 cm LA dimension: 3.3 cm LVIDs: 3.6 cm LVPWd: 1.3 cm EDV(Teich): 129.1 ml LVOT diam: 2.0 cm ESV(Teich): 55.7 ml LAV (MOD-bp): 73.4 ml RV S Edgar: 15.6 cm/sec Doppler Measurements & Calculations MV E max edgar: 125.0 cm/sec Ao V2 max: 248.1 cm/sec MV A max edgar: 143.8 cm/sec Ao max P.7 mmHg MV E/A: 0.87 Ao V2 mean: 150.2 cm/sec MV dec time: 0.19 sec Ao mean P.4 mmHg Ao V2 VTI: 48.5 cm TRENA(I,D): 1.6 cm2 TRENA(V,D): 1.8 cm2 LV V1 max P.1 mmHg MR max edgar: 469.5 cm/sec LV V1 mean P.2 mmHg MR max P.2 mmHg LV V1 max: 142.6 cm/sec LV V1 mean: 78.7 cm/sec LV V1 VTI: 25.2 cm SV(LVOT): 77.9 ml PA V2 max: 131.7 cm/sec PA max P.9 mmHg Med Peak E' Edgar: 6.7 cm/sec PI Vmax: 202.2 cm/sec Med E/e': 18.5 Lat Peak E' Edgar: 4.4 cm/sec Lat E/e': 28.7 Procedure A complete two-dimensional transthoracic echocardiogram was performed (2D, M-mode, Doppler and color flow Doppler). The study was technically good with many images being of high quality. Left Ventricle The left ventricle is normal in size. There is mild concentric left ventricular hypertrophy. Left audrey tricular systolic function is normal. Ejection Fraction = 55-60%. No regional wall motion abnormalities noted. Right Ventricle The right ventricle is normal size. The right ventricular systolic function is normal. RV systolic TD I is 16 cm/s. Atria LA cavity appears mildly diated on apical 4 chamber view. Right atrial size is normal. Mitral Valve The mitral valve is normal in structure and function. There is mild mitral regurgitation. Tricuspid Valve The tricuspid valve is normal in structure and function. There is mild tricuspid regurgitation. Aortic Valve There is mild aortic sclerosis.;. No aortic regurgitation is present. Pulmonic Valve The pulmonic valve is not well visualized. Mild pulmonic valvular regurgitation. Great Vessels The aortic root is normal size. Pericardium/Pleura Trivial pericardial effusion not hemodynamically significant. Interpretation Summary The left ventricle is normal in size. There is mild concentric left ventricular hypertrophy. Left ventricular systolic function is normal. No regional wall motion abnormalities noted. Ejection Fraction = 55-60%. The right ventricular systolic function is normal. LA cavity appears mildly diated on apical 4 chamber view Right atrial size is normal. There is mild mitral regurgitation. There is mild tricuspid regurgitation. There is mild aortic sclerosis. Mild pulmonic valvular regurgitation. Trivial pericardial effusion not hemodynamically significant Corona Lawson MD 08/11/2019 11:09 AM
--- NOTE | 2019-08-11 13:23 | PN ---
Progress Note (short form) - Note Progress Note: PULMONARY Denies shortness of breath, cough, chest pain. Vital Signs Period Temp Pulse Resp BP Sys/Reyes Pulse Ox Last 24 Hr 97.6 F-98.4 F 50-68 12-20 106-193/62-99 99-100 Gen: NAD at rest Heart: RRR Lung: decreased breath sounds at the bases Abd: soft, nontender Ext: no edema CBC, BMP 08/11/19 05:25 08/11/19 05:25 Active Medications Amlodipine Besylate (Norvasc -) 5 mg PO DAILY [facility] Last Admin: 08/11/19 09:24 Dose: 5 mg Aripiprazole (Abilify) 2 mg PO DAILY [facility] Last Admin: 08/11/19 10:57 Dose: 2 mg Aripiprazole (Abilify) 5 mg PO [facility] Last Admin: 08/10/19 21:00 Dose: 5 mg Aspirin (Ecotrin -) 81 mg PO DAILY [facility] Last Admin: 08/11/19 09:16 Dose: 81 mg Chlorhexidine Gluconate (Hibiclens For Decolonization -) 1 applic TP HS [facility] Last Admin: 08/10/19 21:00 Dose: 1 applic Hydralazine HCl (Apresoline -) 50 mg PO TID [facility] Last Admin: 08/11/19 12:59 Dose: 50 mg Lisinopril (Prinivil) 40 mg PO DAILY [facility] Last Admin: 08/11/19 09:17 Dose: 40 mg Methadone HCl 40 mg/ Methadone (HCl 5 mg) 45 mg PO DAILY [facility] Last Admin: 08/11/19 09:15 Dose: 45 mg Metoprolol Succinate (Toprol Xl -) 50 mg PO DAILY [facility] Last Admin: 08/11/19 09:17 Dose: 50 mg Mupirocin (Bactroban Ointment (For Decolonization) -) 1 applic NS BID [facility] Stop: 08/14/19 09:59 Last Admin: 08/11/19 09:17 Dose: 1 applic Torsemide (Demadex -) 40 mg PO DAILY [facility] Last Admin: 08/11/19 09:27 Dose: Not Given Warfarin Sodium (Coumadin -) 7.5 mg PO 1800 [facility] A/P Acute Hypoxic Respiratory Failure Acute on Chronic Systolic Heart Failure Acute Pulmonary Edema Hypertensive Urgency CAD h/o PE/DVT Anemia HTN Hyperlipidemia Anxiety/Depression Methadone Maintenance - continue torsemide - monitor urine output, creatinine - continue anticoagulation - O2 to keep Spo2 >90%
--- NOTE | 2019-08-11 15:08 | PN ---
Progress Note, Physician History of Present Illness: pt seen and examined today in nad. states she is feeling better. sob is improved. no chest pain. - Current Medication List Current Medications: Active Medications Amlodipine Besylate (Norvasc -) 5 mg PO DAILY [facility] Last Admin: 08/11/19 09:24 Dose: 5 mg Aripiprazole (Abilify) 2 mg PO DAILY [facility] Last Admin: 08/11/19 10:57 Dose: 2 mg Aripiprazole (Abilify) 5 mg PO HS [facility] Last Admin: 08/10/19 21:00 Dose: 5 mg Aspirin (Ecotrin -) 81 mg PO DAILY [facility] Last Admin: 08/11/19 09:16 Dose: 81 mg Chlorhexidine Gluconate (Hibiclens For Decolonization -) 1 applic TP HS [facility] Last Admin: 08/10/19 21:00 Dose: 1 applic Hydralazine HCl (Apresoline -) 50 mg PO TID [facility] Last Admin: 08/11/19 12:59 Dose: 50 mg Lisinopril (Prinivil) 40 mg PO DAILY [facility] Last Admin: 08/11/19 09:17 Dose: 40 mg Methadone HCl 40 mg/ Methadone (HCl 5 mg) 45 mg PO DAILY [facility] Last Admin: 08/11/19 09:15 Dose: 45 mg Metoprolol Succinate (Toprol Xl -) 50 mg PO DAILY [facility] Last Admin: 08/11/19 09:17 Dose: 50 mg Mupirocin (Bactroban Ointment (For Decolonization) -) 1 applic NS BID [facility] Stop: 08/14/19 09:59 Last Admin: 08/11/19 09:17 Dose: 1 applic Torsemide (Demadex -) 40 mg PO DAILY [facility] Last Admin: 08/11/19 09:27 Dose: Not Given Warfarin Sodium (Coumadin -) 7.5 mg PO 1800 [facility] - Objective Vital Signs: Vital Signs Temperature 97.8 F 08/11/19 14:25 Pulse Rate 56 L 08/11/19 12:57 Respiratory Rate 14 08/11/19 12:57 Blood Pressure 148/70 08/11/19 12:57 O2 Sat by Pulse Oximetry (%) 100 08/11/19 10:51 Constitutional: Yes: No Distress, Calm Eyes: Yes: Conjunctiva Clear, EOM Intact HENT: Yes: Atraumatic, Normocephalic Neck: Yes: Supple, Trachea Midline Cardiovascular: Yes: Regular Rate and Rhythm, Murmur, S1, S2. No: Bradycardia, Tachycardia, Pulse Irregular, Bruit, JVD, Gallop, Rub, S3, S4, Varicosities Respiratory: Yes: Regular, Diminished, On Nasal O2, Wheezes. No: Rales, Rhonchi , SOB Gastrointestinal: Yes: Normal Bowel Sounds, Soft. No: Distention, Tenderness Extremities: Yes: WNL Edema: RLE: Trace Peripheral Pulses WNL: Yes Neurological: Yes: Alert, Oriented Psychiatric: Yes: Alert, Oriented Labs: CBC, BMP 08/11/19 05:25 08/11/19 05:25 INR, PTT INR 2.42 (0.83-1.09) H 08/11/19 05:25 - ....Imaging Chest X-ray: Report Reviewed, Image Reviewed EKG: Report Reviewed, Image Reviewed Other: Report Reviewed, Image Reviewed (tele-nsr) Assessment/Plan 59 F with severe systolic dysfunction due to non-ischemic cardiomyopathy ( cardiac cath 07/2019 showed non-obstructive CAD with moderate luminal irregularities and Mildly elevated LV end diastolic pressure) suspected to have Takotsubo cardiomyopathy. She has history of HTN and DVT and is on chronic coumadin. She reports being compliant with her medications. was admitted with hypertensive urgency and flash pulmonary edema requiried BiPAP and NTG drip. Her symptoms improved. Lext duplex showed Rt Popliteal DVT. Nonischemic Cardiomyopathy-recently diagnosed with echo findings c/w Takatsubo cardiomyopathy -repeat echo today 08/11/19 showed normalization of LVEF and only mild valvular abnl -uncontrolled HTN on office visit last week and meds were adjusted -admitted with acute on chronic combined systolic/diastolic CHF likely secondary to uncontrolled HTN -mild troponin elevation not c/w ACS, secondary to CHF -recent cardiac cath on last admission showed non-obs CAD -she does not require additional ischemic work up at this time -volume status improved with IV Lasix -near euvolemic -cont diuresis with po Torsemide -HTN control Electrolyte abnormalities -Had QT prolongation during her prior admission. -Keep K and Mg wnl HTN-uncontrolled -cont Lisinopril 40mg qd, Hydralazine 50mg TID and Toprol 50 qd. -cont amlodipine 5mg daily DVT: -history of DVT on chronic coumadin -cont warfarin for goal INR 2-3 Check tox screen
[2019-08-11] MEDS ORDERED: NIFEdipine E.R. 30 MG TABLET (FP) PO ONE (17:34)
[2019-08-11] MEDS ORDERED: WARFARIN NA 7.5 MG TABLET (FP) PO SCH (18:00)
[2019-08-11] MEDS: ARIPiprazole 5 MG TABLET (FP) PO SCH (22:23)
[2019-08-11] MEDS: CHLORHEXIDINE GLUCONATE 4% CLEANSER FOR DECOLONIZATION TP SCH (22:23)
[2019-08-12] MEDS: hydrALAZINE HCL 50 MG TABLET (FP) PO SCH ×2 (06:44→13:05)
[2019-08-12 06:48] LABS: HEMATOCRIT 33.7 % (32.4-45.2); HEMOGLOBIN 10.6 GM/dL (10.7-15.3); MCH 26.9 pg (25.7-33.7); MCHC 31.6 g/dl (32.0-36.0); MEAN CELL VOLUME 85.4 fl (80-96); PLATELET COUNT 238 K/MM3 (134-434); RBC 3.95 M/mm3 (3.60-5.2); RDW 15.7 % (11.6-15.6); WHITE BLOOD COUNT 3.3 K/mm3 (4.0-10.0)
[2019-08-12 07:06] LABS: INR 2.34 (0.83-1.09); PROTHROMBIN TIME (PATIENT) 27.8 SEC (9.7-13.0)
[2019-08-12 07:09] LABS: ACTIVATED PTT 42.9 SECONDS (25.2-36.5)
--- NOTE | 2019-08-12 08:38 | DS ---
Physical Examination Vital Signs: Vital Signs Temperature 98.2 F 08/12/19 02:00 Pulse Rate 81 08/12/19 04:00 Respiratory Rate 20 08/12/19 04:00 Blood Pressure 150/88 08/12/19 04:00 O2 Sat by Pulse Oximetry (%) 100 08/11/19 20:05 Cardiovascular: Yes: Regular Rate and Rhythm Respiratory: Yes: Regular, CTA Bilaterally Gastrointestinal: Yes: Normal Bowel Sounds, Soft Labs: CBC, BMP 08/12/19 06:00 08/11/19 05:25 Discharge Summary Problems reviewed: Yes Reason For Visit: ACUTE ON CHRONIC CONGESTIVE HEART FAILURE Current Active Problems Acute respiratory failure with hypoxia and hypercapnia (Acute) CHF exacerbation (Acute) DVT (deep venous thrombosis) (Acute) Hx of pulmonary embolus (Acute) Hypertensive urgency (Acute) Subtherapeutic international normalized ratio (INR) (Acute) Hospital Course: - Problems (1) CHF exacerbation Assessment/Plan: will change to po meds monitor Code(s): I50.9 - HEART FAILURE, UNSPECIFIED (2) Hypertensive urgency Assessment/Plan: continue with current meds added procardia may need to increase hydralazine Code(s): I16.0 - HYPERTENSIVE URGENCY (3) Acute respiratory failure with hypoxia and hypercapnia Assessment/Plan: as above Code(s): J96.01 - ACUTE RESPIRATORY FAILURE WITH HYPOXIA; J96.02 - ACUTE RESPIRATORY FAILURE WITH HYPERCAPNIA (4) DVT (deep venous thrombosis) Assessment/Plan: on Coumadin inr 2.4 Code(s): I82.409 - ACUTE EMBOLISM AND THOMBOS UNSP DEEP VN UNSP LOWER EXTREMITY (5) Troponin level elevated Assessment/Plan: as noted by cardio probably due to chf Code(s): R74.8 - ABNORMAL LEVELS OF OTHER SERUM ENZYMES (6) Anemia Assessment/Plan: monitor hgb --STABLE Code(s): D64.9 - ANEMIA, UNSPECIFIED Condition: Stable - Instructions Referrals: Jeffery Garzon MD, [Primary Care Provider] - 1 Week - Home Medications Comprehensive Discharge Medication List: Ambulatory Orders Methadone [Dolophine -] 45 mg PO DAILY 07/13/19 Warfarin Sodium [Coumadin] 7.5 mg PO DAILY 07/13/19 Amlodipine Besylate [Norvasc -] 5 mg PO DAILY #30 tablet 08/12/19 Aripiprazole [Abilify -] 2 mg PO DAILY tablet 08/12/19 Aripiprazole [Abilify -] 5 mg PO HS tablet 08/12/19 Aspirin Coated [Ecotrin -] 81 mg PO DAILY #30 tablet.ec 08/12/19 Lidocaine Patch Removal [Lidoderm Patch Removal] 1 each [facility] DAILY@2200 #30 each 08/12/19 Lisinopril [Prinivil] 40 mg PO DAILY #30 tablet 08/12/19 Methadone [Dolophine -] 45 mg PO DAILY tablet MDD 45 mg 08/12/19 Metoprolol Succinate [Toprol XL -] 50 mg PO DAILY #30 tab.sr.24h 08/12/19 Nifedipine ER [Procardia XL -] 60 mg PO DAILY #30 tab.er.24 08/12/19 Torsemide [Demadex -] 40 mg PO DAILY #60 tablet 08/12/19 hydrALAZINE HCL [Apresoline -] 50 mg PO TID #90 tablet 08/12/19
[2019-08-12] MEDS ORDERED: METHADONE HCL 40 MG DISPERSABLE TABLET ONE (08:59)
[2019-08-12] MEDS ORDERED: METHADONE HCL 5 MG TABLET ONE (08:59)
[2019-08-12] MEDS ORDERED: PT OWN MED DRAWER 7, Y5N ONE ×2 (09:01→09:06)
[2019-08-12] MEDS: LISINOPRIL 20 MG TABLET (FP) PO SCH (09:02)
[2019-08-12] MEDS: METHADONE 40 MG, METHADONE 5 MG PO SCH (09:02)
[2019-08-12] MEDS: ASPIRIN COATED 81 MG TABLET.EC PO SCH (09:03)
[2019-08-12] MEDS: MUPIROCIN 2% TOPICAL OINTMENT FOR DECOLONIZATION NS SCH (09:03)
[2019-08-12] MEDS: TORSEMIDE 20 MG TABLET (FP) PO SCH (09:03)
[2019-08-12] MEDS ORDERED: NIFEdipine E.R 60 MG TABLET (UD) PO SCH (10:00)
--- NOTE | 2019-08-12 10:15 | PN ---
Progress Note (short form) - Note Progress Note: PULMONARY Denies shortness of breath, cough, chest pain. Vital Signs Period Temp Pulse Resp BP Sys/Reyes Pulse Ox Last 24 Hr 97.8 F-98.2 F 54-81 14-20 148-181/61-94 100-100 Intake & Output 08/09/19 08/10/19 08/11/19 08/12/19 23:59 23:59 23:59 23:59 Intake Total 88 900 100 Output Total 1500 2100 900 Balance -1412 -1200 -800 Weight 77.564 kg 70.443 kg 70.902 kg 69.2 kg Gen: NAD at rest Heart: RRR Lung: decreased breath sounds at the bases Abd: soft, nontender Ext: no edema CBC, BMP 08/12/19 06:00 08/11/19 05:25 Active Medications Aripiprazole (Abilify) 2 mg PO DAILY [facility] Last Admin: 08/11/19 10:57 Dose: 2 mg Aripiprazole (Abilify) 5 mg PO [facility] Last Admin: 08/11/19 22:23 Dose: 5 mg Aspirin (Ecotrin -) 81 mg PO DAILY [facility] Last Admin: 08/12/19 09:03 Dose: 81 mg Chlorhexidine Gluconate (Hibiclens For Decolonization -) 1 applic TP HS [facility] Last Admin: 08/11/19 22:23 Dose: 1 applic Hydralazine HCl (Apresoline -) 50 mg PO TID [facility] Last Admin: 08/12/19 06:44 Dose: 50 mg Lisinopril (Prinivil) 40 mg PO DAILY [facility] Last Admin: 08/12/19 09:02 Dose: 40 mg Methadone HCl 40 mg/ Methadone (HCl 5 mg) 45 mg PO DAILY [facility] Last Admin: 08/12/19 09:02 Dose: 45 mg Metoprolol Succinate (Toprol Xl -) 50 mg PO DAILY [facility] Last Admin: 08/12/19 09:03 Dose: 50 mg Mupirocin (Bactroban Ointment (For Decolonization) -) 1 applic NS BID [facility] Stop: 08/14/19 09:59 Last Admin: 08/12/19 09:03 Dose: 1 applic Nifedipine (Procardia Xl -) 60 mg PO DAILY [facility] Last Admin: 08/12/19 09:03 Dose: 60 mg Torsemide (Demadex -) 40 mg PO DAILY [facility] Last Admin: 08/12/19 09:03 Dose: 40 mg Warfarin Sodium (Coumadin -) 7.5 mg PO 1800 [facility] Last Admin: 08/11/19 17:13 Dose: 7.5 mg A/P Acute Hypoxic Respiratory Failure improved Acute on Chronic Systolic Heart Failure Acute Pulmonary Edema resolved Hypertensive Urgency CAD h/o PE/DVT Anemia HTN Hyperlipidemia Anxiety/Depression Methadone Maintenance - continue torsemide - monitor urine output, creatinine - continue anticoagulation - O2 to keep Spo2 >90% - d/c planning in progress
[2019-08-12] MEDS: ARIPiprazole 2 MG TABLET PO SCH (10:24)
[2019-08-12 11:13] VITALS: BP 162/64
--- NOTE | 2019-08-12 11:26 | PN ---
Progress Note, Physician History of Present Illness: pt seen and examined today in nad. feeling better. planned for discharge home. no overnight events or new complaints. - Current Medication List Current Medications: Active Medications Aripiprazole (Abilify) 2 mg PO DAILY [facility] Last Admin: 08/12/19 10:24 Dose: 2 mg Aripiprazole (Abilify) 5 mg PO HS [facility] Last Admin: 08/11/19 22:23 Dose: 5 mg Aspirin (Ecotrin -) 81 mg PO DAILY [facility] Last Admin: 08/12/19 09:03 Dose: 81 mg Chlorhexidine Gluconate (Hibiclens For Decolonization -) 1 applic TP HS [facility] Last Admin: 08/11/19 22:23 Dose: 1 applic Hydralazine HCl (Apresoline -) 50 mg PO TID [facility] Last Admin: 08/12/19 06:44 Dose: 50 mg Lisinopril (Prinivil) 40 mg PO DAILY [facility] Last Admin: 08/12/19 09:02 Dose: 40 mg Methadone HCl 40 mg/ Methadone (HCl 5 mg) 45 mg PO DAILY [facility] Last Admin: 08/12/19 09:02 Dose: 45 mg Metoprolol Succinate (Toprol Xl -) 50 mg PO DAILY [facility] Last Admin: 08/12/19 09:03 Dose: 50 mg Mupirocin (Bactroban Ointment (For Decolonization) -) 1 applic NS BID [facility] Stop: 08/14/19 09:59 Last Admin: 08/12/19 09:03 Dose: 1 applic Nifedipine (Procardia Xl -) 60 mg PO DAILY [facility] Last Admin: 08/12/19 09:03 Dose: 60 mg Torsemide (Demadex -) 40 mg PO DAILY [facility] Last Admin: 08/12/19 09:03 Dose: 40 mg Warfarin Sodium (Coumadin -) 7.5 mg PO 1800 [facility] Last Admin: 08/11/19 17:13 Dose: 7.5 mg - Objective Vital Signs: Vital Signs Temperature 98.1 F 08/12/19 08:00 Pulse Rate 86 08/12/19 08:00 Respiratory Rate 20 08/12/19 09:00 Blood Pressure 162/64 08/12/19 08:00 O2 Sat by Pulse Oximetry (%) 100 08/12/19 09:00 Constitutional: Yes: No Distress, Calm Eyes: Yes: Conjunctiva Clear, EOM Intact HENT: Yes: Atraumatic, Normocephalic Neck: Yes: Supple, Trachea Midline Cardiovascular: Yes: Regular Rate and Rhythm, S1, S2. No: Bradycardia, Tachycardia, Pulse Irregular, Bruit, JVD, Gallop, Murmur, Rub, S3, S4, Varicosities Respiratory: Yes: Regular, CTA Bilaterally. No: Rales, Rhonchi, SOB, Wheezes Gastrointestinal: Yes: Normal Bowel Sounds, Soft. No: Distention, Tenderness Musculoskeletal: Yes: WNL Extremities: Yes: WNL Edema: No Peripheral Pulses WNL: Yes Neurological: Yes: Alert, Oriented Psychiatric: Yes: Alert, Oriented Labs: CBC, BMP 08/12/19 06:00 08/11/19 05:25 INR, PTT INR 2.34 (0.83-1.09) H 08/12/19 06:00 - ....Imaging Chest X-ray: Report Reviewed, Image Reviewed EKG: Report Reviewed, Image Reviewed Other: Report Reviewed, Image Reviewed (tele-no sig arrhythmias recorded) Assessment/Plan 59 F with severe systolic dysfunction due to non-ischemic cardiomyopathy ( cardiac cath 07/2019 showed non-obstructive CAD with moderate luminal irregularities and Mildly elevated LV end diastolic pressure) suspected to have Takotsubo cardiomyopathy. She has history of HTN and DVT and is on chronic coumadin. She reports being compliant with her medications. was admitted with hypertensive urgency and flash pulmonary edema requiried BiPAP and NTG drip. Her symptoms improved. Lext duplex showed Rt Popliteal DVT. Nonischemic Cardiomyopathy-recently diagnosed with echo findings c/w Takatsubo cardiomyopathy -repeat echo this admission 08/11/19 showed normalization of LVEF and only mild valvular abnl -uncontrolled HTN on office visit last week and meds were adjusted -admitted with acute on chronic combined systolic/diastolic CHF likely secondary to uncontrolled HTN -mild troponin elevation not c/w ACS, secondary to CHF -recent cardiac cath on last admission showed non-obs CAD -she does not require additional ischemic work up at this time -volume status improved with IV Lasix -near euvolemic -cont po Torsemide on discharge -HTN control Electrolyte abnormalities -Had QT prolongation during her prior admission. -Keep K and Mg wnl HTN-has been uncontrolled, better controlled today, still above mcc goal -cont Lisinopril 40mg qd, Hydralazine 50mg TID and Toprol 50 qd. -cont nifedipine -close outpatient fup DVT: -history of DVT on chronic coumadin -cont warfarin for goal INR 2-3 pt acceptable for discharge from a cardiac standpoint. she will fup with me in office in 1 week.
[2019-08-12 12:36] VITALS: PULSE 84; TEMP 98.7
== END 2019-08-12 13:59 | disposition home or self-care (01) | DRG 133 ==
LOC: JER 00:24 → JERBED 02:31 → JICU 05:39 → J2W 08-10 23:34
PROVIDERS: ADMIT Internal Medicine; ATTEND Family Medicine
DX: J96.01 Acute respiratory failure with hypoxia (principal); F41.8 Other specified anxiety disorders; I16.0 Hypertensive urgency; R79.1 Abnormal coagulation profile; F11.20 Opioid dependence, uncomplicated; I11.0 Hypertensive heart disease with heart failure; I50.23 Acute on chronic systolic (congestive) heart failure; I25.2 Old myocardial infarction; I51.81 Takotsubo syndrome; F32.9 Major depressive disorder, single episode, unspecified; K29.70 Gastritis, unspecified, without bleeding; I21.4 Non-ST elevation (NSTEMI) myocardial infarction; R16.0 Hepatomegaly, not elsewhere classified; N17.9 Acute kidney failure, unspecified; J81.0 Acute pulmonary edema; I16.1 Hypertensive emergency; I42.8 Other cardiomyopathies; J96.02 Acute respiratory failure with hypercapnia; I25.10 Atherosclerotic heart disease of native coronary artery without angina pectoris; R94.31 Abnormal electrocardiogram [ECG] [EKG]; D64.9 Anemia, unspecified; R53.83 Other fatigue; E83.42 Hypomagnesemia; E87.6 Hypokalemia; R74.8 Abnormal levels of other serum enzymes; Z86.711 Personal history of pulmonary embolism; Z86.718 Personal history of other venous thrombosis and embolism
CPT/HCPCS: 36415; 71045-TC-FY; 76705-TC; 76775-TC; 80053; 80076; 82550; 82553; 82607; 82728; 82803; 82962; 83036; 83540; 83550; 83735; 83880; 84100; 84484; 85025; 85027; 85610; 85730; 93005; 93010; 93306-TC; 93970-TC; 94660; 99285-25; J1644

== ENCOUNTER 2019-10-09 21:10 | Emergency (ER) | payer OTHER ==
--- NOTE | 2019-10-09 21:28 | PDOC ---
Heart Score/ECG Review - ECG Impressions Comment:: 10/09/19 22:24 HR 91, NSR, normal intervals, no deviations, no GIOVANNI/STD/TWI Medical Decision Making - Medical Decision Making 10/09/19 21:27 Patient seen as pre-attending with Dr. Das (PGY-2) and Dr. Cheng (Attending) 59 y/o female with significant cardiac history including Systolic CHF, DVT (on Coumadin), HTN, Takotsubo here with palpitations. States she ran out of her Metoprolol three days previous. Has all her other medications and has been taking them regularly. Denies chest pain/shortness of breath/palpitations/nausea/diaphoresis/abdominal pain. Will obtain EKG as patient tachycardic (HR 102) As no active CP or anginal equivalent, will refrain from ACS rule out at this time. 10/09/19 22:16 Repeat HR 96 s/p Metoprolol EKG w/no acute ischemic change as documented in EKG section of EMR Will give 7 day prescription and d/c home Discharge - Discharge Information Problems reviewed: Yes Clinical Impression/Diagnosis: Tachycardia, Medication refill Condition: Improved Disposition: HOME - Admission No - Additional Discharge Information Prescriptions: Metoprolol Succinate 50 mg PO BID 7 Days #14 tab.er.24h - Follow up/Referral Referrals: Jeffery Garzon MD, [Primary Care Provider] - Wolf Goodwin MD [Staff Physician] - - Patient Discharge Instructions Patient Printed Discharge Instructions: Tachycardia Additional Instructions: You came into the ER with a fast heart rate after not taking your home dose of metoprolol. We have sent a 7 day prescription to your pharmacy. Please make sure to go and pick this up. You must schedule a follow up appointment with Dr. Garzon tomorrow to get permanent medication refills. Come back to the ER immediately if you have any chest pain, SOB, difficulty breathing, or any other new or worsening concerns. Thank you for coming to the [facility] er we hope you feel better soon! Print Language: UPPER SORBIAN - Post Discharge Activity
[2019-10-09 21:33] VITALS: TEMP 98.8; BMI 27.4
--- NOTE | 2019-10-09 21:36 | PDOC ---
History of Present Illness - General Chief Complaint: Tachycardia Stated Complaint: TACHYCARDIA Time Seen by Provider: 10/09/19 21:14 History Source: Patient Exam Limitations: No Limitations - History of Present Illness Initial Comments: Liliana Aguilar is a 59 yo F w a pmh of HTN, DVT on chronic coumadin systolic dysfunction due to non-ischemic cardiomyopathy (cardiac cath 07/2019 showed non- obstructive CAD with moderate luminal irregularities and Mildly elevated LV end diastolic pressure) suspected to have Takotsubo cardiomyopathy, PE, anxiety, depression presents to the ER stating her heart is beating fast because she ran out of her heart rate slowing medication metoprolol. She requests to have a medication refill for the next few days as she can see her PCP Dr. Garzon tomorrow in the office. She states she has no symptoms other than a fast heart rate. She states she has been compliant with al of her meds except for metorprolol. She has been taking torsemide daily at home. Denies chest pain, SOB, difficulty breathing, leg swelling, fevers, chills, infections, nausea, vomiting. PCP: Dr. Garzon Cards: Dr. 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, uses marijuana Allergies: NKA, NKDA Past History - Past Medical History Allergies/Adverse Reactions: Allergies Allergy/AdvReac Type Severity Reaction Status Date / Time No Known Allergies Allergy Verified 10/09/19 21:31 Home Medications: Ambulatory Orders Methadone [Dolophine -] 45 mg PO DAILY 07/13/19 Warfarin Sodium [Coumadin] 7.5 mg PO DAILY 07/13/19 Aripiprazole [Abilify -] 2 mg PO DAILY tablet 08/12/19 Aripiprazole [Abilify -] 5 mg PO HS tablet 08/12/19 Aspirin Coated [Ecotrin -] 81 mg PO DAILY #30 tablet.ec 08/12/19 Lidocaine Patch Removal [Lidoderm Patch Removal] 1 each MC DAILY@2200 #30 each 08/12/19 Lisinopril [Prinivil] 40 mg PO DAILY #30 tablet 08/12/19 Methadone [Dolophine -] 45 mg PO DAILY tablet MDD 45 mg 08/12/19 Metoprolol Succinate [Toprol XL -] 50 mg PO DAILY #30 tab.sr.24h 08/12/19 Nifedipine ER [Procardia XL -] 60 mg PO DAILY #30 tab.er.24 08/12/19 Torsemide [Demadex -] 40 mg PO DAILY #60 tablet 08/12/19 hydrALAZINE HCL [Apresoline -] 50 mg PO TID #90 tablet 08/12/19 Metoprolol Succinate 50 mg PO BID 7 Days #14 tab.er.24h 10/09/19 Anemia: Yes Asthma: No Cancer: No Cardiac Disorders: No (PULMONARY EMBOLI/DVT) CVA: No COPD: No CHF: No Dementia: No Diabetes: No GI Disorders: No Disorders: No HTN: Yes Hypercholesterolemia: No Liver Disease: No Psychiatric Problems: Yes (DEPRESSION) Seizures: No Thyroid Disease: Yes (hyper,not on meds x 1 year..) - Immunization History Immunization Up to Date: No - Psycho Social/Smoking Cessation Hx Smoking History: Unknown if ever smoked Have you smoked in the past 12 months: No Number of Cigarettes Smoked Daily: 0 If you are a former smoker, when did you quit?: 2013 Information on smoking cessation initiated: No 'Breaking Loose' booklet given: 11/04/13 Hx Alcohol Use: No Drug/Substance Use Hx: No Substance Use Type: None Hx Substance Use Treatment: Yes Review of Systems - Review of Systems Able to Perform ROS?: Yes Comments:: CONSTITUTIONAL: Absent: fever, no chills, no fatigue EYES: Absent: visual changes ENT: Absent: ear pain, no sore throat CARDIOVASCULAR: Present: Palpitations Absent: chest pain RESPIRATORY: Absent: cough, no SOB GI: Absent: abdominal pain, no nausea, no vomiting, no constipation, no diarrhea GENITOURINARY: Absent: dysuria, no frequency, no hematuria MUSKULOSKELETAL: Absent: back pain, no arthralgia, no myalgia SKIN: Absent: rash NEURO: Absent: headache *Physical Exam - Vital Signs Last Vital Signs Temp Pulse Resp BP Pulse Ox 98.8 F 102 H 20 150/73 99 10/09/19 21:31 10/09/19 21:31 10/09/19 21:31 10/09/19 21:31 10/09/19 21:31 - Physical Exam GENERAL: Well-appearing, well-nourished. No apparent distress. HEENT: Normocephalic, atraumatic. PERRL, EOM intact. CARDIOVASCULAR: Crescendo/decrescendo systolic murmur in aortic region. Regular rate and rhythm. PULMONARY: No evidence of respiratory distress. Lungs clear to auscultation bilaterally. No wheezing, rales or rhonchi. ABDOMEN: Soft, non-distended, non-tender. EXTREMITIES: Normal ROM in all four extremities. No gross deformities. SKIN: Warm, dry. No rash NEUROLOGICAL: No focal neurological deficits. Medical Decision Making - Medical Decision Making Liliana Aguilar is a 59 yo F w a pmh of HTN, DVT on chronic coumadin systolic dysfunction due to non-ischemic cardiomyopathy (cardiac cath 07/2019 showed non- obstructive CAD with moderate luminal irregularities and Mildly elevated LV end diastolic pressure) suspected to have Takotsubo cardiomyopathy, PE, anxiety, de pression presents to the ER stating her heart is beating fast because she ran out of her heart rate slowing medication metoprolol. She requests to have a medication refill for the next few days as she can see her PCP Dr. Garzon tomorrow in the office. She states she has no symptoms other than a fast heart rate. She states she has been compliant with al of her meds except for metorprolol. She has been taking torsemide daily at home. Vital Signs Temp Pulse Resp BP Pulse Ox 98.8 F 102 H 20 150/73 99 10/09/19 21:31 10/09/19 21:31 10/09/19 21:31 10/09/19 21:31 10/09/19 21:31 DDx IBNLT: medication non-compliance, arrythmia, prolonged QT Plan: EKG, administer home meds, re-assess EKG: NS rate of 91, narrow complexes, normal axis, LAE, no ST elevations or depressions, QTc 445, AK 188 Re-assessment: Patient no longer tachycardic or symptomatic after receiving home dose of metoprolol Disposition: Home with PCP fu tomorrow for med refills - 7 days sent to pharmacy Discharge - Discharge Information Problems reviewed: Yes Clinical Impression/Diagnosis: Tachycardia, Medication refill Condition: Improved Disposition: HOME - Admission No - Follow up/Referral Referrals: Jeffery Garzon MD, MD [Primary Care Provider] - Wolf Goodwin MD [Staff Physician] - - Patient Discharge Instructions Patient Printed Discharge Instructions: Tachycardia Additional Instructions: You came into the ER with a fast heart rate after not taking your home dose of metoprolol. We have sent a 7 day prescription to your pharmacy. Please make sure to go and pick this up. You must schedule a follow up appointment with Dr. Garzon tomorrow to get permanent medication refills. Come back to the ER immediately if you have any chest pain, SOB, difficulty breathing, or any other new or worsening concerns. Thank you for coming to the [facility] er we hope you feel better soon! Print Language: MALTESE - Post Discharge Activity
[2019-10-09 22:47] VITALS: BP 142/84; PULSE 90
--- NOTE | 2019-10-09 22:50 | PDOC ---
Attending Attestation - Resident Resident Name: Jed Walker - ED Attending Attestation I have performed the following: I have examined & evaluated the patient, The case was reviewed & discussed with the resident, I agree w/resident's findings & plan, Exceptions are as noted - HPI HPI: 10/09/19 23:42 See resident HPI - Physicial Exam PE: 10/09/19 23:42 Agree with documented exam - Medical Decision Making 10/09/19 23:43 59F pmh HTN, DVT/PE on coumadin, cardiomyopathy with elevated HR, states that she has not taken her metoprolol b/c she ran out. She has PCP appointment tomorrow. No c/p, n/v, diaphoresis, sob, no other complaints give home dose of metoprolol Rx 7days to pharmacy of choice f/u with PCP tomorrow
--- NOTE | 2019-10-10 11:10 | EKG ---
Test Reason : Blood Pressure : / mmHG Vent. Rate : 091 BPM Atrial Rate : 091 BPM P-R Int : 188 ms QRS Dur : 082 ms QT Int : 362 ms P-R-T Axes : 070 029 023 degrees QTc Int : 445 ms NORMAL SINUS RHYTHM POSSIBLE LEFT ATRIAL ENLARGEMENT SEPTAL INFARCT , AGE UNDETERMINED ABNORMAL ECG WHEN COMPARED WITH ECG OF 09-AUG-2019 00:37, SEPTAL INFARCT IS NOW PRESENT NONSPECIFIC T WAVE ABNORMALITY NOW EVIDENT IN INFERIOR LEADS T WAVE INVERSION NO LONGER EVIDENT IN LATERAL LEADS Confirmed by LUIS CARLOS SMITH MD ([id number]) on 10/10/2019 11:09:35 AM Referred By: Confirmed By:LUIS CARLOS SMITH MD
== END 2019-10-09 23:16 | disposition home or self-care (01) ==
LOC: JER 21:10
DX: R00.0 Tachycardia, unspecified (principal); Z76.0 Encounter for issue of repeat prescription; Z86.711 Personal history of pulmonary embolism; Z86.718 Personal history of other venous thrombosis and embolism; Z79.01 Long term (current) use of anticoagulants; I42.8 Other cardiomyopathies; F11.20 Opioid dependence, uncomplicated
CPT/HCPCS: 93005; 93010; 99283-25

== ENCOUNTER 2020-04-07 13:35 | Emergency (ER) | payer OTHER ==
[2020-04-07 13:43] VITALS: BMI 32.9
--- NOTE | 2020-04-07 13:43 | PDOC ---
Rapid Medical Evaluation Chief Complaint: Injury Time Seen by Provider: 04/07/20 13:40 Medical Evaluation: Allergies Allergy/AdvReac Type Severity Reaction Status Date / Time No Known Allergies Allergy Verified 10/09/19 21:31 04/07/20 13:42 CC: rt foot pain with swelling , on coumadin for dvt to area, no sob, or chest pain Exam: 1+ edema , no skin discoloration Plan: duplex Discharge Disposition - Diagnosis Leg pain - Referrals - Patient Instructions - Post Discharge Activity
--- NOTE | 2020-04-07 15:01 | PDOC ---
History of Present Illness - General Chief Complaint: Injury Stated Complaint: RT FOOT INJURY (SWOLLEN) Time Seen by Provider: 04/07/20 13:40 History Source: Patient - History of Present Illness Occurred: reports: other Lower Extremity Pain Location: right: foot, ankle Past History - Medical History Allergies/Adverse Reactions: Allergies Allergy/AdvReac Type Severity Reaction Status Date / Time No Known Allergies Allergy Verified 10/09/19 21:31 Home Medications: Ambulatory Orders Methadone [Dolophine -] 45 mg PO DAILY 07/13/19 Warfarin Sodium [Coumadin] 7.5 mg PO DAILY 07/13/19 Aripiprazole [Abilify -] 2 mg PO DAILY tablet 08/12/19 Aripiprazole [Abilify -] 5 mg PO HS tablet 08/12/19 Aspirin Coated [Ecotrin -] 81 mg PO DAILY #30 tablet.ec 08/12/19 Lidocaine Patch Removal [Lidoderm Patch Removal] 1 each MC DAILY@2200 #30 each 08/12/19 Lisinopril [Prinivil] 40 mg PO DAILY #30 tablet 08/12/19 Methadone [Dolophine -] 45 mg PO DAILY tablet MDD 45 mg 08/12/19 Metoprolol Succinate [Toprol XL -] 50 mg PO DAILY #30 tab.sr.24h 08/12/19 Nifedipine ER [Procardia XL -] 60 mg PO DAILY #30 tab.er.24 08/12/19 Torsemide [Demadex -] 40 mg PO DAILY #60 tablet 08/12/19 hydrALAZINE HCL [Apresoline -] 50 mg PO TID #90 tablet 08/12/19 Metoprolol Succinate 50 mg PO BID 7 Days #14 tab.er.24h 10/09/19 Anemia: Yes Asthma: No Cancer: No Cardiac Disorders: No (PULMONARY EMBOLI/DVT) CVA: No COPD: No CHF: No Dementia: No Diabetes: No GI Disorders: No Disorders: No HTN: Yes Hypercholesterolemia: No Liver Disease: No Psychiatric Problems: Yes (DEPRESSION) Seizures: No Thyroid Disease: Yes (hyper,not on meds x 1 year..) - Reproductive History Is Patient Now?: No - Immunization History Immunization Up to Date: No - Psycho-Social/Smoking History Smoking History: Never smoked Have you smoked in the past 12 months: No Number of Cigarettes Smoked Daily: 0 If you are a former smoker, when did you quit?: 2013 Information on smoking cessation initiated: No 'Breaking Loose' booklet given: 11/04/13 - Substance Abuse Hx (Audit-C & DAST Scrn) How often the patient has a drink containing alcohol: Never Score: In Men: 4 or > Positive; In Women: 3 or > Positive: 0 Screen Result (Pos requires Nsg. Audit-10AR): Negative In the last yr the pt used illegal drug/Rx for NonMed reason: No Score: Yes response is considered Positive: 0 Screen Result (Positive result requires Nsg. DAST-10): Negative Review of Systems - Review of Systems Constitutional: No: Chills, Fever Respiratory: No: Cough, Shortness of Breath Cardiac (ROS): No: Chest Pain, Palpitations *Physical Exam - Vital Signs Last Vital Signs Temp Pulse Resp BP Pulse Ox 98.8 F 94 H 16 146/62 99 04/07/20 13:39 04/07/20 13:39 04/07/20 13:39 04/07/20 13:39 04/07/20 13:39 - Physical Exam General Appearance: Yes: Appropriately Dressed. No: Apparent Distress HEENT: positive: Normal Voice Neck: positive: Supple Respiratory/Chest: positive: Lungs Clear, Normal Breath Sounds. negative: Respiratory Distress Cardiovascular: positive: Regular Rate, S1, S2 Extremity: positive: Other (minimal swelling to R foot diffusely compared to L foot, no erythema, warmth or ttp) Integumentary: positive: Dry, Warm Neurologic: positive: Fully Oriented, Alert, Normal Mood/Affect ED Treatment Course - LABORATORY CBC & Chemistry Diagram: 04/07/20 15:40 04/07/20 15:40 Medical Decision Making - Medical Decision Making 04/07/20 14:54 60 yo F, former smoker, on methadone, HTN, HLD, CAD, PE/DVT on lifelong coumadin, anxiety/depression, here w/ R foot pain and swelling x several days. States pain has since sig improved. No injury. Denies CP/SOB or palpitations. Had INR done last week, does not remember number but states "it was good" per pt see exam R foot/ankle swelling H/o DVT on lifelong coumadin w/ "good" INR in MD's office last week, no recent med adjustment Minimal swelling to R foot compared to L on exam -US -labs -dispo pending 04/07/20 16:00 US neg for DVT. Labs pending. Pt signed out to ARI Mane at this time Discharge - Discharge Information Problems reviewed: Yes Clinical Impression/Diagnosis: Leg pain, Swelling of right foot, Subtherapeutic anticoagulation Condition: Stable Disposition: HOME - Follow up/Referral Referrals: Jeffery Garzon MD, [Primary Care Provider] - 2 Days (You must see your doctor for a repeat INR in 2 days on 04/09/2020) - Patient Discharge Instructions Patient Printed Discharge Instructions: DI for Peripheral Edema, Unilateral Additional Instructions: You were given an extra dose of Coumadin while in the emergency department today. Resume your normal Coumadin schedule and take it tonight as scheduled. Be sure to follow-up with your primary doctor in 2 days for repeat INR (coumadin level) check. Elevate your legs to help with swelling. If you have been instructed to wear compression stockings you should do so as instructed by her previous doctors. - Post Discharge Activity
[2020-04-07 16:26] LABS: BASO % 0.8 % (0-2.0); EOS % 0.8 % (0-4.5); HEMATOCRIT 36.9 % (32.4-45.2); HEMOGLOBIN 11.5 GM/dL (10.7-15.3); LYMPH % 17.8 % (8-40); MEAN CELL VOLUME 86.8 fl (80-96); MEAN PLT VOLUME 8.6 fl (7.5-11.1); MONO % 4.5 % (3.8-10.2); NEUT % 76.1 % (42.8-82.8); PLATELET COUNT 246 K/MM3 (134-434); RBC 4.25 M/mm3 (3.60-5.2); RDW 15.3 % (11.6-15.6); WHITE BLOOD COUNT 5.7 K/mm3 (4.0-10.0)
[2020-04-07 16:34] LABS: INR 1.74 (0.83-1.09); PROTHROMBIN TIME (PATIENT) 20.6 SEC (9.7-13.0)
[2020-04-07 16:39] LABS: EPI CELLS 13 /uL (0-25.1); HYALINE CASTS 0 /uL (0-3.1); URINE APPEARANCE CLEAR; URINE BACTERIA 164 /uL (0-1359); URINE BILIRUBIN NEGATIVE (NEGATIVE); URINE COLOR YELLOW; URINE GLUCOSE (UA) NEGATIVE (NEGATIVE); URINE KETONE NEGATIVE (NEGATIVE); URINE LEUK ESTERASE NEGATIVE (NEGATIVE); URINE NITRITE NEGATIVE (NEGATIVE); URINE PROTEIN 1+ (NEGATIVE); URINE RBC 8 /uL (0-23.9); URINE UROBILINOGEN 0.2 mg/dL (0.2-1.0); URINE WBC 10 /uL (0-25.8)
[2020-04-07 16:51] LABS: ALBUMIN 3.1 g/dl (3.4-5.0); BILIRUBIN,TOTAL 0.2 mg/dL (0.2-1); BLOOD UREA NITROGEN 38.1 mg/dL (7-18); CALCIUM 9.3 mg/dL (8.5-10.1); CREATININE 1.4 mg/dL (0.55-1.3); POTASSIUM 4.8 mmol/L (3.5-5.1); TOT PROT 5.9 g/dl (6.4-8.2)
[2020-04-07] MEDS ORDERED: WARFARIN NA 5 MG TABLET PO ONE (17:28)
--- NOTE | 2020-04-07 17:32 | PDOC ---
*Physical Exam - Vital Signs Last Vital Signs Temp Pulse Resp BP Pulse Ox 98.8 F 94 H 16 146/62 99 04/07/20 13:39 04/07/20 13:39 04/07/20 13:39 04/07/20 13:39 04/07/20 13:39 ED Treatment Course - LABORATORY CBC & Chemistry Diagram: 04/07/20 15:40 04/07/20 15:40 - ADDITIONAL ORDERS Additional order review: Laboratory Results 04/07/20 04/07/20 04/07/20 15:50 15:40 15:40 PT with INR 20.60 H INR 1.74 H Sodium 146 H Potassium 4.8 Chloride 112 H Carbon Dioxide 31 Anion Gap 3 L BUN 38.1 H Creatinine 1.4 H Est GFR (CKD-EPI)AfAm 46.55 Est GFR (CKD-EPI)NonAf 40.17 Random Glucose 99 Calcium 9.3 Total Bilirubin 0.2 AST 28 ALT 46 Alkaline Phosphatase 98 Total Protein 5.9 L Albumin 3.1 L Urine Color Yellow Urine Appearance Clear Urine pH 6.0 Ur Specific [place] 1.014 Urine Protein 1+ H Urine Glucose (UA) Negative Urine Ketones Negative Urine Blood Negative Urine Nitrite Negative Urine Bilirubin Negative Urine Urobilinogen 0.2 Ur Leukocyte Esterase Negative Urine WBC (Auto) 10 Urine RBC (Auto) 8 Urine Casts (Auto) 0 U Epithel Cells (Auto) 13 Urine Bacteria (Auto) 164 04/07/20 15:40 RBC 4.25 MCV 86.8 MCHC 31.0 L RDW 15.3 D MPV 8.6 Neutrophils % 76.1 Lymphocytes % 17.8 Monocytes % 4.5 Eosinophils % 0.8 Basophils % 0.8 Medical Decision Making - Medical Decision Making 04/07/20 17:29 Assessment: Patient is a 60-year-old female endorsed to me for continuation of care by ARI Parnell who presented to the ED with right foot pain and swelling for the last few days. She was concerned she had an underlying DVT secondary to having them in the past. The patient had an ultrasound which was negative for acute pathology. She was pending lab work when endorsed to me by ARI Parnell for continuation of care. Plan: -The patient has been made aware that her ultrasound is negative for acute pathology. She has been made aware that if she continues to have left foot swelling and pain she should have a repeat ultrasound over the next 1 to 2 weeks. -She has been made aware that her INR is 1.7 in the ED today. A dose of 5 mg Coumadin has been given to the patient in the ED but she should resume her normal p.o. Coumadin. She is to take her normal dose of 7.5 mg tonight as sc heduled. She must follow-up with her primary doctor within 2 days for a repeat INR. She understands and states she will see him on Sunday to recheck her INR. -The patient understands and agrees with this treatment plan and she is stable for discharge. Discharge - Discharge Information Problems reviewed: Yes Clinical Impression/Diagnosis: Leg pain, Swelling of right foot, Subtherapeutic anticoagulation Condition: Stable Disposition: HOME - Follow up/Referral Referrals: Jeffery Garzon MD, MD [Primary Care Provider] - 2 Days (You must see your doctor for a repeat INR in 2 days on 04/09/2020) - Patient Discharge Instructions Patient Printed Discharge Instructions: DI for Peripheral Edema, Unilateral Additional Instructions: You were given an extra dose of Coumadin while in the emergency department today. Resume your normal Coumadin schedule and take it tonight as scheduled. Be sure to follow-up with your primary doctor in 2 days for repeat INR (coumadin level) check. Elevate your legs to help with swelling. If you have been instru cted to wear compression stockings you should do so as instructed by her previous doctors. - Post Discharge Activity
[2020-04-07] MEDS ORDERED: WARFARIN NA 5 MG TABLET ONE (17:33)
[2020-04-07 17:43] VITALS: BP 138/64; PULSE 86; TEMP 98.2
== END 2020-04-07 17:43 | disposition home or self-care (01) ==
LOC: JER 13:35
DX: M79.671 Pain in right foot (principal)
CPT/HCPCS: 36415; 80053; 81003; 85025; 85610; 93971-TC; 99284-25

== ENCOUNTER 2020-04-21 03:53 | Emergency (ER) | payer OTHER ==
--- NOTE | 2020-04-21 04:08 | PDOC ---
History of Present Illness - General Chief Complaint: Pain Stated Complaint: R LEG PAIN Time Seen by Provider: 04/21/20 04:08 History Source: Patient - History of Present Illness Initial Comments: 04/21/20 05:19 59 y/o woman with a PMHx , HTN, HLD, Depression (on Abillify), DVT (RLE), PE (years ago on Coumadin c/o right knee pain. patient reports that she had swelling to her right foot and ankle seen in this ER on April 07. No DVT was found at that time. Patient reports that she is taking her Coumadin daily. Denies chest pain, nausea, vomiting, shortness of breath, swelling, patient reports that she ran out of her Percocet, gabapentin does not help with pain. Headache, dizziness, chest pain, shortness of breath, fever, chills, nausea, vomiting,. Patient denies Past History - Medical History Allergies/Adverse Reactions: Allergies Allergy/AdvReac Type Severity Reaction Status Date / Time No Known Allergies Allergy Verified 04/21/20 03:59 Home Medications: Ambulatory Orders Methadone [Dolophine -] 45 mg PO DAILY 07/13/19 Warfarin Sodium [Coumadin] 7.5 mg PO DAILY 07/13/19 Aripiprazole [Abilify -] 2 mg PO DAILY tablet 08/12/19 Aripiprazole [Abilify -] 5 mg PO HS tablet 08/12/19 Aspirin Coated [Ecotrin -] 81 mg PO DAILY #30 tablet.ec 08/12/19 Lidocaine Patch Removal [Lidoderm Patch Removal] 1 each MC DAILY@2200 #30 each 08/12/19 Lisinopril [Prinivil] 40 mg PO DAILY #30 tablet 08/12/19 Methadone [Dolophine -] 45 mg PO DAILY tablet MDD 45 mg 08/12/19 Metoprolol Succinate [Toprol XL -] 50 mg PO DAILY #30 tab.sr.24h 08/12/19 Nifedipine ER [Procardia XL -] 60 mg PO DAILY #30 tab.er.24 08/12/19 Torsemide [Demadex -] 40 mg PO DAILY #60 tablet 08/12/19 hydrALAZINE HCL [Apresoline -] 50 mg PO TID #90 tablet 08/12/19 Metoprolol Succinate 50 mg PO BID 7 Days #14 tab.er.24h 10/09/19 Anemia: Yes Asthma: No Cancer: No Cardiac Disorders: No (PULMONARY EMBOLI/DVT) CVA: No COPD: No CHF: No Dementia: No Diabetes: No GI Disorders: No Disorders: No HTN: Yes Hypercholesterolemia: No Liver Disease: No Psychiatric Problems: Yes (DEPRESSION) Seizures: No Thyroid Disease: Yes (hyper,not on meds x 1 year..) - Reproductive History Is Patient Now?: No - Immunization History Immunization Up to Date: No - Psycho-Social/Smoking History Smoking History: Never smoked Have you smoked in the past 12 months: No Number of Cigarettes Smoked Daily: 0 If you are a former smoker, when did you quit?: 2013 Information on smoking cessation initiated: No 'Breaking Loose' booklet given: 11/04/13 - Substance Abuse Hx (Audit-C & DAST Scrn) How often the patient has a drink containing alcohol: Never Score: In Men: 4 or > Positive; In Women: 3 or > Positive: 0 Screen Result (Pos requires Nsg. Audit-10AR): Negative In the last yr the pt used illegal drug/Rx for NonMed reason: No Score: Yes response is considered Positive: 0 Screen Result (Positive result requires Nsg. DAST-10): Negative Review of Systems - Review of Systems Able to Perform ROS?: Yes Is the patient limited Spanish proficient: No Constitutional: No: Symptoms Reported, See HPI, Chills, Diaphoresis, Fever, Loss of Appetite, Malaise, Night Sweats, Weakness, Weight Stable, Unintentional Wgt. Loss, Unexplained wgt Loss, Other Musculoskeletal: Yes: Joint Pain (knee pain). No: Muscle Weakness *Physical Exam - Vital Signs Last Vital Signs Temp Pulse Resp BP Pulse Ox 98.6 F 86 17 189/90 H 98 04/21/20 03:58 04/21/20 03:58 04/21/20 03:58 04/21/20 03:58 04/21/20 03:58 - Physical Exam General Appearance: Yes: Appropriately Dressed Musculoskeletal: positive: Normal Inspection Extremity: negative: Pedal Edema, Swelling, Calf Tenderness Integumentary: positive: Normal Color, Dry, Warm Neurologic: positive: Fully Oriented, Alert, Normal Mood/Affect ED Treatment Course - LABORATORY CBC & Chemistry Diagram: 04/21/20 04:45 04/21/20 04:45 ED Progress Note - Progress Note Progress Note: 04/21/20 06:00 A: leg pain P: labs percocet. coumadin to be adjusted by PCP Dr. Garzon. patient verbalized understanding. Medical Decision Making - Medical Decision Making 04/21/20 05:37 Patient will be given 1 dose of Percocet here. Patient is advised to follow-up with her primary later on today. Discharge - Discharge Information Problems reviewed: Yes Clinical Impression/Diagnosis: Knee pain Qualifiers: Chronicity: acute Laterality: left Qualified Code(s): M25.562 - Pain in left knee Condition: Stable Disposition: HOME - Follow up/Referral Referrals: Jeffery Garzon MD, MD [Primary Care Provider] - Call tomorrow - Patient Discharge Instructions Additional Instructions: Continue take Tylenol every 4-6 hours as needed for pain. It is important that you follow-up with your primary care doctor for pain management referral. Return to the emergency room for any worsening symptoms - Post Discharge Activity
[2020-04-21 04:21] VITALS: TEMP 98.6; BMI 29.2
--- OUTSIDE RECORDS SUMMARY | 2020-04-21 04:24 | XMS ---
:1960 Author Organization [facility] Support Name Relationship Address Phone UE, UNEMPLOYED Unavailable Unavailable Unavailable UE Unavailable Unavailable Unavailable BRENDEN VICTOR [address] [place] [address] ABRAM VICTOR Unavailable UNEMPLOYED Unavailable [address] [facility] Unavailable [address] [place] [address] MATTHEW VICTOR DAUGHTER [address] [facility] [address] [address] [address] VICTOR [address] [place] [address] Re-disclosure Warning The records that you are about to access may contain information from federally- assisted alcohol or drug abuse programs. If such information is present, then the following federally mandated warning applies: This information has been disclosed to you from records protected by federal confidentiality rules (42 CFR part 2). The federal rules prohibit you from making any further disclosure of this information unless further disclosure is expressly permitted by the written consent of the person to whom it pertains or as otherwise permitted by 42 CFR part 2. A general authorization for the release of medical or other information is NOT sufficient for this purpose. The Federal rules restrict any use of the information to criminally investigate or prosecute any alcohol or drug abuse patient.The records that you are about to access may contain highly sensitive health information, the redisclosure of which is protected by Article 27-F of the [facility] Public Health law. If you continue you may haveaccess to information: Regarding HIV / AIDS; Provided by facilities licensed or operated by the [facility] Office of Mental Health; or Provided by the [facility] Office for People With Developmental Disabilities. If such information is present, then the following [facility] mandated warning applies: This information has been disclosed to you from confidential records which are protected by state law. State law prohibits you from making any further disclosure of this information without the specific written consent of the person to whom it pertains, or as otherwise permitted by law. Any unauthorized further disclosure in violation of state law may result in a fine or mcc sentence or both. A general authorization for the release of medical or other information is NOT sufficient authorization for further disclosure. Allergies and Adverse Reactions Type Description Substance Reaction Status Data Source(s ) Food allergy No Known Food No Known Food [facility] Allergies Allergies [place] Drug allergy No Known Drug No Known Drug [facility] Allergies Allergies [place] Drug allergy No Known Allergies No Known Allergies [facility] Encounters Encounter Providers Location Date Indications Data Source(s ) Emergency H 05/22/2019 10:39:00 [facility] EDT - 05/22/2019 Cente r 04:38:00 PM EDT Patient discharged. Emergency H 10/18/2018 01:55:00 PM EDT [facility] Medications Medication Brand Start Product Dose Route Administrative Pharmacy [facility] Indications Reaction Description Data Name Date Form Instructions Instructions Source(s) Esomeprazol esomep 1 complet Fito nt e 40 MG razole [facility] Delayed magnes Medical Release ium 40 Center Oral mg Capsule capsul esomeprazol e,tez e magnesium yed 40 mg releas capsule,del e(/Mauricio Sims), release(/ Curtis ADAMES), d By: Ordered By: She Henry MDDirection , s: 1 MDDire capsule ctions oral daily : 1 capsul e oral daily TAB-A-CAMILLA complet Saint TAB [facility] ferrous complet Saint sulfate 324 [facility] mg (65 mg Medical iron) Center tablet,tez yed release (/EC) QUEtiapine complet Saint 200 mg [facility] Tablet Medical Center QUEtiapine complet Saint 100 mg [facility] Tablet [place] mupirocin 2 complet Saint % Ointment [facility] mupirocin 2 complet Saint % Ointment [facility] magnesium complet Saint oxide 400 [facility] mg [facility] diltiazem complet Saint HCl 240 mg [facility] capsule,ext Medical ended Center release 24hr ergocalcife complet Vitamin D2 Saint rol [facility] (vitamin Medical D2) [place] (Vitamin D2) 50,000 unit Capsule warfarin complet Saint 7.5 mg [facility] ALPRAZolam complet Saint 2 mg Tablet [facility] ammonium complet Saint lactate 12 [facility] % Cream [place] Insurance Providers Payer name Policy type Policy ID Covered Covered democrat's Policy P sage / Coverage democrat ID relationship to [facility] ormation type cummings SDAE [place] [id number] SP [id number] NON CAP MEDICAID [id number] SP [id number] SADE [id number] 01 [id number] METHADONE [id number] SP [id number] MAINTENANCE PROGRAM BC OUT OF [id number] [id number] [id number] Medicaid Medicaid [id number] S [id number] Wrap Claims Dental [id number] S [id number] Dentaquest MKD Willy Vision [id number] S [id number] Medicaid [id number] S [id number] Regular Clinic Visit (DO NOT USE) [id number] S [id number] [facility] Auth PCP Not MVNHC/YHC/GHC Problems, Conditions, and Diagnoses Code Display Name Description Problem Type Effective Data Sour ce(s) Dates I10 Essential ESSENTIAL Diagnosis 05/22/2019 [facility] (primary) (PRIMARY) 10:39:00 AM Medical [place] [facility] hypertension HYPERTENSION EDT K21.9 Gastro-esophageal GASTRO-ESOPHAGEAL Diagnosis 05/22/2019 [facility] reflux disease REFLUX DISEASE 10:39:00 AM Medic al Center without WITHOUT EDT esophagitis ESOPHAGITIS R11.10 Vomiting, VOMITING, Diagnosis 05/22/2019 [facility] unspecified UNSPECIFIED 10:39:[address] EDT R10.9 Unspecified UNSPECIFIED Diagnosis 10/18/2018 [facility] abdominal pain ABDOMINAL PAIN 01:55:00 PM Medic al Center EDT R11.2 Nausea with NAUSEA WITH Diagnosis 10/18/2018 [facility] vomiting, VOMITING, 01:55:00 PM Medical Cente r unspecified UNSPECIFIED EDT 627.2 SYMPTOMATIC FEMALE Diagnosis 10/04/2018 [facility] (Stefanie nt MENOPAUSAL OR CLIMACTERIC STATE 03:58:29 PM Inga non FEMALE EST [facility] STATES Results ID Date Data Source Liver 05/22/2019 11:36:00 AM EDT [facility] Profile.[id number] Name Value Range Interpretation Description Data Sup porting Code Source(s) Document(s ) Aspartate 14-36 <content [facility] aminotransferase styleCode="Bold"> [facility] [Enzymatic Aspartate Medical activity/volume] Aminotransferase Center in Serum or Plasma (AST) </content>36 IU/L<content styleCode="Italic s"> (14-36 IU/L)</content> Bilirubin.total 0.2-1.3 <content Saint [Mass/volume] in styleCode="Bold"> Eliazar hs Serum or Plasma Bilirubin Total Medical </content>0.3 Center MG/DL<content styleCode="Italic s"> (0.2-1.3 MG/DL)</content> Alanine 7-30 <content [facility] aminotransferase styleCode="Bold"> [facility] hs [Enzymatic Alanine Medical activity/volume] Aminotransferase Center in Serum or Plasma (ALT) </content>25 IU/L<content styleCode="Italic s"> (7-30 IU/L)</content> Alkaline 38-126 Above high <content [facility] phosphatase normal styleCode="Bold"> [facility] [Enzymatic Alkaline Medical activity/volume] Phosphatase (ALP) Cente r in Serum or Plasma </content>148 IU/L H<content styleCode="Italic s"> (38-126 IU/L)</content> UNK 0.0-0.3 <content Saint styleCode="Bold"> Sheryl Bilirubin, Direct Medical </content>< 0.2 Center MG/DL<content styleCode="Italic s"> (0.0-0.3 MG/DL)</content> Albumin 3.5-5.0 <content [facility] [Mass/volume] in styleCode="Bold"> Eliazar hs Serum or Plasma Albumin Medical </content>4.9 Center G/DL<content styleCode="Italic s"> (3.5-5.0 G/DL)</content> ID Date Data Source HematologyRou.[id number] 05/22/2019 11:36:00 AM EDT Fito [facility] 0400 Name Value Range Interpretation Description Data Sup porting Code Source(s) Document(s ) Hemoglobin 12.3-16. <content Saint [Mass/volume] in 0 styleCode="Bold Sheryl Blood ">Hemoglobin Medical </content>13.4 Center G/DL<content styleCode="Ital ics"> (12.3-16.0 G/DL)</content> Leukocytes 4.4-11.0 <content Saint [#/volume] in styleCode="Bold Sheryl Blood by ">White Blood Medical Automated count Cell Count Center </content>6.39 KCUMM<content styleCode="Ital ics"> (4.4-11.0 KCUMM)</content > Erythrocytes 4.0-5.1 <content Saint [#/volume] in styleCode="Bold Sheryl Blood by ">Red Blood Medical Automated count Cell Count Center </content>4.99 MCUMM<content styleCode="Ital ics"> (4.0-5.1 MCUMM)</content > Hematocrit 36.0-46. <content [facility] [Volume 0 styleCode="Bold Sheryl Fraction] of ">Hematocrit Medical Blood by </content>43.8 Center Automated count %<content styleCode="Ital ics"> (36.0-46.0 %)</content> Platelets 130-400 <content Saint [#/volume] in styleCode="Bold Sheryl Blood by ">Platelet Medical Automated count Count Center </content>296 KCUMM<content styleCode="Ital ics"> (130-400 KCUMM)</content > Erythrocyte mean 32.0-37. Below low normal <content [facility] corpuscular 0 styleCode="Bold Sheryl hemoglobin ">Mean Corpus. Medical concentration Hgb Center [Mass/volume] by Concentration Automated count (MCHC) </content>30.6 G/DL L<content styleCode="Ital ics"> (32.0-37.0 G/DL)</content> Erythrocyte mean 26.0-34. <content [facility] corpuscular 0 styleCode="Bold Sheryl hemoglobin ">Mean Medical [Entitic mass] Corposcular Center by Automated Hemoglobin count </content>26.9 PG<content styleCode="Ital ics"> (26.0-34.0 PG)</content> Erythrocyte 11.5-14. <content Saint distribution 5 styleCode="Bold Sheryl width [Ratio] by ">Red Cell Medical Automated count Distribution Center Width </content>14.2 %<content styleCode="Ital ics"> (11.5-14.5 %)</content> Erythrocyte mean 80.0-100 <content Saint corpuscular .0 styleCode="Bold Sheryl volume [Entitic ">Mean Medical volume] by Corpuscular Center Automated count Volume </content>87.8 FL<content styleCode="Ital ics"> (80.0-100.0 FL)</content> Neutrophils 36-66 Above high <content Saint [#/volume] in normal styleCode="Bold Sheryl Blood by ">Neutrophil Medical Automated count </content>93.0 Center % H<content styleCode="Ital ics"> (36-66 %)</content> Platelet mean 8.0-11.0 <content Saint volume [Entitic styleCode="Bold Sheryl volume] in Blood ">Mean Platelet Medical by Automated Volume Center count </content>9.6 FL<content styleCode="Ital ics"> (8.0-11.0 FL)</content> UNK 1.6-7.3 <content Saint styleCode="Bold Sheryl ">Neutrophil Medical Count Center </content>5.94 KCUMM<content styleCode="Ital ics"> (1.6-7.3 KCUMM)</content > Lymphocytes 24.0-44. Below low normal <content Saint [#/volume] in 0 styleCode="Bold Sheryl Blood by ">Lymphocyte Medical Automated count </content>4.5 % Center L<content styleCode="Ital ics"> (24.0-44.0 %)</content> UNK 1.0-4.8 Below low normal <content Saint styleCode="Bold Sheryl ">Lymphocyte Medical Count Center </content>0.29 KCUMM L<content styleCode="Ital ics"> (1.0-4.8 KCUMM)</content > UNK 0.2-0.9 Below low normal <content Saint styleCode="Bold Sheryl ">Monocyte Medical Count Center </content>0.11 KCUMM L<content styleCode="Ital ics"> (0.2-0.9 KCUMM)</content > UNK 0.0-0.6 <content Saint styleCode="Bold Sheryl ">Eosinophil Medical Count Center </content>0.00 KCUMM<content styleCode="Ital ics"> (0.0-0.6 KCUMM)</content > Monocytes 3.0-10.0 Below low normal <content Saint [#/volume] in styleCode="Bold Sheryl Blood by ">Monocyte Medical Automated count </content>1.7 % Center L<content styleCode="Ital ics"> (3.0-10.0 %)</content> Eosinophils 0-5.0 <content Saint [#/volume] in styleCode="Bold Sehryl Blood by ">Eosinophil Medical Automated count </content>0.0 Center %<content styleCode="Ital ics"> (0-5.0 %)</content> Basophils 0.0-1.0 <content Saint [#/volume] in styleCode="Bold Sheryl Blood by ">Basophil Medical Automated count </content>0.3 Center %<content styleCode="Ital ics"> (0.0-1.0 %)</content> UNK 0.0 <content Saint styleCode="Bold Sheryl ">Nucleated Red Medical Blood Cell Center Count </content>0.00 KCUMM<content styleCode="Ital ics"> (0.0 KCUMM)</content > UNK 0-0.1 <content Saint styleCode="Bold Sheryl ">Immature Medical Granulocyte Center Count </content>0.03 KCUMM<content styleCode="Ital ics"> (0-0.1 KCUMM)</content > UNK < 1 <content Saint styleCode="Bold Sheryl ">Immature Medical Granulocyte Center Ratio </content>0.5 %<content styleCode="Ital ics"> (< 1 %)</content> UNK 0 <content Saint styleCode="Bold Sheryl ">Nucleated Red Medical Blood Cell Center </content>0.0 /100<content styleCode="Ital ics"> (0 /100)</content> UNK 0.0-0.3 <content Saint styleCode="Bold Sheryl ">Basophil Medical Count Center </content>0.02 KCUMM<content styleCode="Ital ics"> (0.0-0.3 KCUMM)</content > UNK 21-51 Below low normal <content Saint styleCode="Bold Sheryl ">Manual Medical Lymphocyte Center Count </content>5.0 % L<content styleCode="Ital ics"> (21-51 %)</content> UNK NORMAL <content Saint styleCode="Bold Sheryl ">Platelet Medical Estimate Center </content>GRICELDA L <content styleCode="Ital ics"> (NORMAL )</content> UNK 42-75 Above high <content Saint normal styleCode="Bold Sheryl ">Manual Medical Neutrophil Center count </content>95.0 % H<content styleCode="Ital ics"> (42-75 %)</content> UNK NONE <content Saint SEEN styleCode="Bold Sheryl ">Platelet Medical Clumping Center </content>SLIGH T <content styleCode="Ital ics"> (NONE SEEN )</content> UNK NORMAL <content Saint styleCode="Bold Sheryl ">RBC Medical Morphology Center </content>ABNOR MAL <content styleCode="Ital ics"> (NORMAL )</content> UNK NORMAL <content Saint styleCode="Bold Sheryl ">Poikilocyte Medical </content>SLIGH Center T <content styleCode="Ital ics"> (NORMAL )</content> UNK NORMAL <content Saint styleCode="Bold Sheryl ">Spherocyte Medical </content>SLIGH Center T <content styleCode="Ital ics"> (NORMAL )</content> UNK NONE <content Saint SEEN styleCode="Bold Sheryl ">Smudge Cell Medical </content>MODER Center ATE <content styleCode="Ital ics"> (NONE SEEN )</content> UNK NORMAL <content Saint styleCode="Bold Sheryl ">Schistocyte Medical </content>SLIGH Center T <content styleCode="Ital ics"> (NORMAL )</content> ID Date Data Source GFR(Creatinine).[id number] 05/22/2019 11:36:00 AM EDT [facility] 0-0400 Name Value Range Interpretation Code Description Data Gay rce(s) Supporting Document(s ) UNK > 60 <content [facility] styleCode="Bold"> Medical Cent er EGFR </content>65 GFR<content styleCode="Italic s"> (> 60 GFR)</content> ID Date Data Source Coagulation 05/22/2019 11:36:00 AM [facility] ical Center Rout.[id number] EDT Name Value Range Interpretation Description Data Sup porting Code Source(s) Document(s ) aPTT in 25.1-36. <content Saint Platelet poor 5 styleCode="Bold" Sheryl plasma by >Partial Medical Coagulation Thromboplastin Center assay Time </content>31.7 SEC<content styleCode="Itali cs"> (25.1-36.5 SEC)</content> INR in 0.80-1.2 Above high normal <content Saint Platelet poor 0 styleCode="Bold" Sheryl plasma by >INR Medical Coagulation </content>1.27 # Center assay H<content styleCode="Itali cs"> (0.80-1.20 #)</content> UNK 9.0-13.0 Above high normal <content Saint styleCode="Bold" Sheryl >Protime Medical </content>14.1 Center SEC H<content styleCode="Itali cs"> (9.0-13.0 SEC)</content> ID Date Data Source CHMROUTINECCDA.[id number] 05/22/2019 11:36:00 AM EDT [facility] -0400 Name Value Range Interpretation Description Data Sup porting Code Source(s) Document(s ) Lipase 23-300 <content [facility] [Enzymatic styleCode="Bold Medical activity/vo ">Lipase Center lume] in </content>132 Serum or IU/L<content Plasma styleCode="Ital ics"> (23-300 IU/L)</content> UNK 30-110 <content [facility] styleCode="Bold Medical ">Amylase Center </content>70 IU/L<content styleCode="Ital ics"> (30-110 IU/L)</content> ID Date Data Source [facility].[id number] 05/22/2019 11:36:00 AM EDT [facility] Center Name Value Range Interpretation Description Data Sup porting Code Source(s) Document(s ) Potassium 3.5-5.3 <content [facility] [Moles/volume] in styleCode="Bold"> [facility] Serum or Plasma Potassium Medical </content>3.5 Center MEQ/L<content styleCode="Italic s"> (3.5-5.3 MEQ/L)</content> Sodium 137-145 <content [facility] [Moles/volume] in styleCode="Bold"> [facility] Serum or Plasma Sodium Medical </content>143 Center MEQ/L<content styleCode="Italic s"> (137-145 MEQ/L)</content> Chloride 98-107 <content [facility] [Moles/volume] in styleCode="Bold"> Matt phs Serum or Plasma Chloride Medical </content>98 Center MEQ/L<content styleCode="Italic s"> (98-107 MEQ/L)</content> Creatinine 0.5-1.3 <content Saint [Mass/volume] in styleCode="Bold"> Eliazar hs Serum or Plasma Creatinine Medical </content>1.1 Center MG/DL<content styleCode="Italic s"> (0.5-1.3 MG/DL)</content> Calcium 8.4-10. Above high <content [facility] [Mass/volume] in 2 normal styleCode="Bold"> Eliazar hs Serum or Plasma Calcium Medical </content>11.0 Center MG/DL H<content styleCode="Italic s"> (8.4-10.2 MG/DL)</content> Carbon dioxide, 22-30 Above high <content Saint total normal styleCode="Bold"> Sheryl [Moles/volume] in Carbon Dioxide Medical Serum or Plasma </content>35 Center MEQ/L H<content styleCode="Italic s"> (22-30 MEQ/L)</content> Glucose 74-106 Above high <content [facility] [Mass/volume] in normal styleCode="Bold"> Eliazar hs Serum or Plasma Glucose Medical </content>177 Center MG/DL H<content styleCode="Italic s"> (74-106 MG/DL)</content> UNK 7-17 Above high <content Saint normal styleCode="Bold"> Sheryl BUN </content>22 Medical MG/DL H<content Center styleCode="Italic s"> (7-17 MG/DL)</content> Alanine 7-30 <content Saint aminotransferase styleCode="Bold"> [facility] [Enzymatic Alanine Medical activity/volume] Aminotransferase Center in Serum or Plasma (ALT) </content>25 IU/L<content styleCode="Italic s"> (7-30 IU/L)</content> Bilirubin.total 0.2-1.3 <content [facility] [Mass/volume] in styleCode="Bold"> Eliazar hs Serum or Plasma Bilirubin Total Medical </content>0.3 Center MG/DL<content styleCode="Italic s"> (0.2-1.3 MG/DL)</content> UNK > 60 <content Saint styleCode="Bold"> Sheryl EGFR </content>65 Medical GFR<content Center styleCode="Italic s"> (> 60 GFR)</content> Aspartate 14-36 <content [facility] aminotransferase styleCode="Bold"> [facility] hs [Enzymatic Aspartate Medical activity/volume] Aminotransferase Center in Serum or Plasma (AST) </content>36 IU/L<content styleCode="Italic s"> (14-36 IU/L)</content> Albumin 3.5-5.0 <content Saint [Mass/volume] in styleCode="Bold"> Eliazar hs Serum or Plasma Albumin Medical </content>4.9 Center G/DL<content styleCode="Italic s"> (3.5-5.0 G/DL)</content> Alkaline 38-126 Above high <content Saint phosphatase normal styleCode="Bold"> Sheryl [Enzymatic Alkaline Medical activity/volume] Phosphatase (ALP) Cente r in Serum or Plasma </content>148 IU/L H<content styleCode="Italic s"> (38-126 IU/L)</content> ID Date Data Source [facility] 10/18/2018 02:47:00 PM EDT [facility] Name Value Range Interpretation Code Description Data Gay rce(s) Supporting Document(s ) UNK <content [facility] styleCode="Bold"> Medical Cent er RH Type </content>POSITIV E (Reference Range: not available)
ID Date Data Source Liver Profile 10/18/2018 02:35:00 PM EDT [facility] Name Value Range Interpretation Description Data Sup porting Code Source(s) Document(s ) Aspartate 14-36 Above high <content [facility] aminotransferase normal styleCode="Bold"> [facility] hs [Enzymatic Aspartate Medical activity/volume] Aminotransferase Center in Serum or Plasma (AST) </content>39 IU/L H<content styleCode="Italic s"> (14-36 IU/L)</content> UNK 0.0-0.3 <content Saint styleCode="Bold"> Sheryl Bilirubin, Direct Medical </content>< 0.2 Center MG/DL<content styleCode="Italic s"> (0.0-0.3 MG/DL)</content> Bilirubin.total 0.2-1.3 <content [facility] [Mass/volume] in styleCode="Bold"> Eliazar hs Serum or Plasma Bilirubin Total Medical </content>0.4 Center MG/DL<content styleCode="Italic s"> (0.2-1.3 MG/DL)</content> Alanine 7-30 Above high <content Saint aminotransferase normal styleCode="Bold"> [facility] hs [Enzymatic Alanine Medical activity/volume] Aminotransferase Center in Serum or Plasma (ALT) </content>34 IU/L H<content styleCode="Italic s"> (7-30 IU/L)</content> Alkaline 38-126 Above high <content Saint phosphatase normal styleCode="Bold"> Sheryl [Enzymatic Alkaline Medical activity/volume] Phosphatase (ALP) Cente r in Serum or Plasma </content>198 IU/L H<content styleCode="Italic s"> (38-126 IU/L)</content> Albumin 3.5-5.0 <content Saint [Mass/volume] in styleCode="Bold"> Eliazar hs Serum or Plasma Albumin Medical </content>4.9 Center G/DL<content styleCode="Italic s"> (3.5-5.0 G/DL)</content> ID Date Data Source HematologyRou 10/18/2018 02:35:00 PM EDT [facility] Name Value Range Interpretation Description Data Sup porting Code Source(s) Document(s ) Hemoglobin 12.3-16. Above high <content Saint [Mass/volume] in 0 normal styleCode="Bold Sheryl Blood ">Hemoglobin Medical </content>16.1 Center G/DL H<content styleCode="Ital ics"> (12.3-16.0 G/DL)</content> Hematocrit 36.0-46. Above high <content Saint [Volume 0 normal styleCode="Bold Sheryl Fraction] of ">Hematocrit Medical Blood by </content>53.5 Center Automated count % H<content styleCode="Ital ics"> (36.0-46.0 %)</content> Erythrocytes 4.0-5.1 Above high <content Saint [#/volume] in normal styleCode="Bold Sheryl Blood by ">Red Blood Medical Automated count Cell Count Center </content>6.10 MCUMM H<content styleCode="Ital ics"> (4.0-5.1 MCUMM)</content > Leukocytes 4.4-11.0 <content Saint [#/volume] in styleCode="Bold Sheryl Blood by ">White Blood Medical Automated count Cell Count Center </content>7.15 KCUMM<content styleCode="Ital ics"> (4.4-11.0 KCUMM)</content > Erythrocyte mean 26.0-34. <content Saint corpuscular 0 styleCode="Bold Sheryl hemoglobin ">Mean Medical [Entitic mass] Corposcular Center by Automated Hemoglobin count </content>26.4 PG<content styleCode="Ital ics"> (26.0-34.0 PG)</content> Erythrocyte mean 80.0-100 <content Saint corpuscular .0 styleCode="Bold Sheryl volume [Entitic ">Mean Medical volume] by Corpuscular Center Automated count Volume </content>87.7 FL<content styleCode="Ital ics"> (80.0-100.0 FL)</content> Erythrocyte 11.5-14. Above high <content Saint distribution 5 normal styleCode="Bold Sheryl width [Ratio] by ">Red Cell Medical Automated count Distribution Center Width </content>14.7 % H<content styleCode="Ital ics"> (11.5-14.5 %)</content> Erythrocyte mean 32.0-37. Below low normal <content Saint corpuscular 0 styleCode="Bold Sheryl hemoglobin ">Mean Corpus. Medical concentration Hgb Center [Mass/volume] by Concentration Automated count (MCHC) </content>30.1 G/DL L<content styleCode="Ital ics"> (32.0-37.0 G/DL)</content> Platelets 130-400 <content Saint [#/volume] in styleCode="Bold Sheryl Blood by ">Platelet Medical Automated count Count Center </content>338 KCUMM<content styleCode="Ital ics"> (130-400 KCUMM)</content > UNK 0 <content Saint styleCode="Bold Sherly ">Nucleated Red Medical Blood Cell Center </content>0.0 /100<content styleCode="Ital ics"> (0 /100)</content> UNK 0.0 <content Saint styleCode="Bold Sheryl ">Nucleated Red Medical Blood Cell Center Count </content>0.00 KCUMM<content styleCode="Ital ics"> (0.0 KCUMM)</content > Platelet mean 8.0-11.0 <content Saint volume [Entitic styleCode="Bold Sheryl volume] in Blood ">Mean Platelet Medical by Automated Volume Center count </content>9.7 FL<content styleCode="Ital ics"> (8.0-11.0 FL)</content> ID Date Data Source GFR(Creatinine) 10/18/2018 02:35:00 PM EDT [facility] Name Value Range Interpretation Code Description Data Gay rce(s) Supporting Document(s ) UNK > 60 Below low normal <content [facility] styleCode="Bold"> Medical Cent er EGFR </content>49 GFR L<content styleCode="Italic s"> (> 60 GFR)</content> ID Date Data Source [id number] 10/18/2018 02:35:00 PM EDT [facility] Name Value Range Interpretation Description Data Sup porting Code Source(s) Document(s ) Lipase 23-300 <content [facility] [Enzymatic styleCode="Bold Medical activity/vo ">Lipase Center lume] in </content>159 Serum or IU/L<content Plasma styleCode="Ital ics"> (23-300 IU/L)</content> UNK 30-110 <content [facility] styleCode="Bold Medical ">Amylase Center </content>89 IU/L<content styleCode="Ital ics"> (30-110 IU/L)</content> ID Date Data Source BMP 10/18/2018 02:35:00 PM EDT [facility] Name Value Range Interpretation Description Data Sup porting Code Source(s) Document(s ) Sodium 137-145 <content [facility] [Moles/volume] in styleCode="Bold"> Matt phs Serum or Plasma Sodium Medical </content>145 Center MEQ/L<content styleCode="Italic s"> (137-145 MEQ/L)</content> Potassium 3.5-5.3 <content [facility] [Moles/volume] in styleCode="Bold"> Matt phs Serum or Plasma Potassium Medical </content>4.4 Center MEQ/L<content styleCode="Italic s"> (3.5-5.3 MEQ/L)</content> Carbon dioxide, 22-30 Above upper <content [facility] total panic limits styleCode="Bold"> Sheryl [Moles/volume] in Carbon Dioxide Medical Serum or Plasma </content><conten Center t styleCode="Bold"> 40 MEQ/L HH</content><cont ent styleCode="Italic s"> (22-30 MEQ/L)</content> Glucose 74-106 Above high <content [facility] [Mass/volume] in normal styleCode="Bold"> Eliazar hs Serum or Plasma Glucose Medical </content>216 Center MG/DL H<content styleCode="Italic s"> (74-106 MG/DL)</content> Chloride 98-107 Below low <content [facility] [Moles/volume] in normal styleCode="Bold"> Matt phs Serum or Plasma Chloride Medical </content>95 Center MEQ/L L<content styleCode="Italic s"> (98-107 MEQ/L)</content> Creatinine 0.5-1.3 Above high <content [facility] [Mass/volume] in normal styleCode="Bold"> Eliazar hs Serum or Plasma Creatinine Medical </content>1.4 Center MG/DL H<content styleCode="Italic s"> (0.5-1.3 MG/DL)</content> UNK 7-17 Above high <content [facility] normal styleCode="Bold"> [facility]yl BUN </content>21 Medical MG/DL H<content Center styleCode="Italic s"> (7-17 MG/DL)</content> Alanine 7-30 Above high <content [facility] aminotransferase normal styleCode="Bold"> [facility]iaz[facility] hs [Enzymatic Alanine Medical activity/volume] Aminotransferase Center in Serum or Plasma (ALT) </content>34 IU/L H<content styleCode="Italic s"> (7-30 IU/L)</content> Calcium 8.4-10. Above high <content [facility] [Mass/volume] in 2 normal styleCode="Bold"> Eliazar hs Serum or Plasma Calcium Medical </content>11.1 Center MG/DL H<content styleCode="Italic s"> (8.4-10.2 MG/DL)</content> UNK > 60 Below low <content [facility] normal styleCode="Bold"> Sheryl EGFR </content>49 Medical GFR L<content Center styleCode="Italic s"> (> 60 GFR)</content> Aspartate 14-36 Above high <content [facility] aminotransferase normal styleCode="Bold"> [facility] hs [Enzymatic Aspartate Medical activity/volume] Aminotransferase Center in Serum or Plasma (AST) </content>39 IU/L H<content styleCode="Italic s"> (14-36 IU/L)</content> Albumin 3.5-5.0 <content [facility] [Mass/volume] in styleCode="Bold"> Eliazar hs Serum or Plasma Albumin Medical </content>4.9 Center G/DL<content styleCode="Italic s"> (3.5-5.0 G/DL)</content> Bilirubin.total 0.2-1.3 <content [facility] [Mass/volume] in styleCode="Bold"> Eliazar hs Serum or Plasma Bilirubin Total Medical </content>0.4 Center MG/DL<content styleCode="Italic s"> (0.2-1.3 MG/DL)</content> Alkaline 38-126 Above high <content [facility] phosphatase normal styleCode="Bold"> Sheryl [Enzymatic Alkaline Medical activity/volume] Phosphatase (ALP) Cente r in Serum or Plasma </content>198 IU/L H<content styleCode="Italic s"> (38-126 IU/L)</content> Procedure Social History Code Duration Value Status Description Data Source(s ) Smoking 05/22/2019 Occasional Smoker completed Occasional Smoker [facility] 11:32:00 AM EDT Medical C enter Smoking 05/22/2019 Occasional Smoker completed Occasional Smoker [facility] 11:07:00 AM EDT Medical C enter Smoking 05/22/2019 Occasional Smoker completed Occasional Smoker [facility] 10:46:00 AM EDT Medical C enter Smoking 10/18/2018 Occasional Smoker completed Occasional Smoker [facility] 02:25:00 PM EDT Medical C enter Smoking 10/18/2018 Occasional Smoker completed Occasional Smoker [facility] 01:55:00 PM EDT Medical C enter Vital Signs ID Date Data Source UNK Name Value Range Interpretation Code Description Data Source(s) Body temperature 36.494541 36.069446 [facility] Respiratory rate 20 /min 20 /min [facility] Oxygen saturation 98 % 98 % [facility] osephs in Arterial blood [facility] Center by Pulse oximetry Heart rate 90 /min 90 /min [facility] Diastolic blood 95 mm[Hg] 95 mm[Hg] [facility] pressure Medical Center Systolic blood 180 mm[Hg] 180 mm[Hg] [facility] pressure Medical Center Heart rate 105 /min 105 /min [facility] Diastolic blood 111 mm[Hg] 111 mm[Hg] [facility] pressure Medical Center Systolic blood 204 mm[Hg] 204 mm[Hg] [facility] Body temperature 36.088118 36.772211 [facility] Respiratory rate 18 /min 18 /min [facility] Heart rate 83 /min 83 /min [facility] Diastolic blood 100 mm[Hg] 100 mm[Hg] [facility] pressure Medical Center Systolic blood 198 mm[Hg] 198 mm[Hg] [facility] Body weight 60.378620 kg 60.212960 kg [facility] Measured Medical Center Body temperature 36.768685 36.975417 [facility] Respiratory rate 19 /min 19 /min [facility] Oxygen saturation 97 % 97 % [facility]ph[facility] in Arterial blood Medical Center by Pulse oximetry Heart rate 82 /min 82 /min [facility] Body height 157.429530 157.829048 cm [facility] Diastolic blood 112 mm[Hg] 112 mm[Hg] [facility] pressure Medical Center Systolic blood 204 mm[Hg] 204 mm[Hg] [facility] Body mass index 24.1 kg/m2 24.1 kg/m2 [facility] (BMI) [Ratio] Medical [address] Body temperature 36.530628 36.409118 [facility] Respiratory rate 18 /min 18 /min [facility] Oxygen saturation 98 % 98 % [facility]ph[facility] in Arterial blood [facility] Center by Pulse oximetry Heart rate 80 /min 80 /min [facility] Diastolic blood 80 mm[Hg] 80 mm[Hg] [facility] pressure Medical Center Systolic blood 114 mm[Hg] 114 mm[Hg] [facility] Body weight 65.308936 kg 65.520351 kg [facility] Measured Medical Center Body temperature 37.711989 37.827716 [facility] Respiratory rate 18 /min 18 /min [facility] Oxygen saturation 98 % 98 % [facility] in Arterial blood Medical Center by Pulse oximetry Heart rate 94 /min 94 /min [facility] Body height 162.187388 162.569586 cm [facility] Medical [place] Diastolic blood 84 mm[Hg] 84 mm[Hg] [facility] pressure Medical Center Systolic blood 150 mm[Hg] 150 mm[Hg] [facility] pressure [place] Body mass index 24.8 kg/m2 24.8 kg/m2 [facility] (BMI) [Ratio] Medical [address] Patient Treatment Plan of Care Planned Activity Planned Date Details Description Data Source (s) mupirocin 2 % Ointment [facility] mupirocin 2 % Ointment [facility] ferrous sulfate 324 mg (65 mg [facility] iron) tablet,delayed release Center (DR/EC) magnesium oxide 400 mg Tablet [facility] diltiazem HCl 240 mg [facility] Medical capsule,extended release 24hr Center ALPRAZolam 2 mg Tablet [facility] ammonium lactate 12 % Cream [facility] ergocalciferol (vitamin D2) [facility] (Vitamin D2) 50,000 unit [facility] ter Capsule warfarin 7.5 mg Tablet [facility] QUEtiapine 200 mg Tablet [facility] QUEtiapine 100 mg Tablet [facility] TAB-A-CAMILLA TAB [facility] Esomeprazole 40 MG Delayed S aiARH [facility] Medical Release Oral Capsule [place]
[2020-04-21 04:59] LABS: BASO % 0.9 % (0-2.0); EOS % 2.3 % (0-4.5); HEMATOCRIT 36.9 % (32.4-45.2); HEMOGLOBIN 11.9 GM/dL (10.7-15.3); MCHC 32.1 g/dl (32.0-36.0); MEAN CELL VOLUME 87.1 fl (80-96); MEAN PLT VOLUME 7.3 fl (7.5-11.1); NEUT % 69.8 % (42.8-82.8); PLATELET COUNT 248 K/MM3 (134-434); RBC 4.24 M/mm3 (3.60-5.2); RDW 15.6 % (11.6-15.6); WHITE BLOOD COUNT 4.4 K/mm3 (4.0-10.0)
[2020-04-21 05:07] LABS: INR 1.65 (0.83-1.09); PROTHROMBIN TIME (PATIENT) 19.6 SEC (9.7-13.0)
[2020-04-21 05:09] LABS: ACTIVATED PTT 35.5 SECONDS (25.2-36.5)
[2020-04-21 05:28] LABS: ALBUMIN 3.2 g/dl (3.4-5.0); BILIRUBIN,TOTAL 0.2 mg/dL (0.2-1); BLOOD UREA NITROGEN 31.2 mg/dL (7-18); CALCIUM 9.4 mg/dL (8.5-10.1); CREATININE 1.2 mg/dL (0.55-1.3); POTASSIUM 4.6 mmol/L (3.5-5.1); TOT PROT 6.1 g/dl (6.4-8.2)
[2020-04-21 05:59] VITALS: BP 163/82; PULSE 78
== END 2020-04-21 06:00 | disposition home or self-care (01) ==
LOC: JER 03:53
DX: M25.562 Pain in left knee (principal)
CPT/HCPCS: 36415; 80053; 85025; 85610; 85730; 99284-25

== ENCOUNTER 2020-11-12 09:49 | Inpatient (IN) | payer OTHER ==
[2020-11-12] MEDS ORDERED: SODIUM CHLORIDE 1,000 ML IV STA (10:13)
[2020-11-12 11:33] LABS: BASO % 0.5 % (0-2.0); HEMATOCRIT 37.6 % (32.4-45.2); HEMOGLOBIN 12.2 GM/dL (10.7-15.3); LYMPH % 8.9 % (8-40); MCH 28.2 pg (25.7-33.7); MCHC 32.5 g/dl (32.0-36.0); MEAN CELL VOLUME 86.9 fl (80-96); MEAN PLT VOLUME 7.6 fl (7.5-11.1); MONO % 2.9 % (3.8-10.2); NEUT % 87.7 % (42.8-82.8); PLATELET COUNT 308 K/MM3 (134-434); RBC 4.33 M/mm3 (3.60-5.2); WHITE BLOOD COUNT 6.1 K/mm3 (4.0-10.0)
[2020-11-12 12:00] LABS: CALCIUM 10.5 mg/dL (8.5-10.1)
[2020-11-12 12:01] LABS: ALBUMIN 3.6 g/dl (3.4-5.0); BLOOD UREA NITROGEN 23.2 mg/dL (7-18)
[2020-11-12 12:04] LABS: CREATININE 1.3 mg/dL (0.55-1.3)
[2020-11-12 12:05] LABS: BILIRUBIN,TOTAL 0.2 mg/dL (0.2-1)
[2020-11-12 12:34] LABS: N-TERMINAL BNP 1788.4 pg/ml (5-125)
[2020-11-12 14:07] LABS: EPI CELLS 11 /uL (0-25.1); HYALINE CASTS 1 /uL (0-3.1); PH,URINE 7.5 (5.0-8.0); URINE APPEARANCE CLEAR; URINE BACTERIA >9,000 /uL (0-1359); URINE BILIRUBIN NEGATIVE (NEGATIVE); URINE COLOR YELLOW; URINE GLUCOSE (UA) NEGATIVE (NEGATIVE); URINE KETONE NEGATIVE (NEGATIVE); URINE LEUK ESTERASE NEGATIVE (NEGATIVE); URINE NITRITE POSITIVE (NEGATIVE); URINE PROTEIN 2+ (NEGATIVE); URINE RBC 4 /uL (0-23.9); URINE UROBILINOGEN 0.2 mg/dL (0.2-1.0); URINE WBC 35 /uL (0-25.8)
[2020-11-12] MEDS ORDERED: CEFTRIAXONE 1 GM in DEXTROSE 5%-WATER - 50 ML IVPB ONE (14:39)
[2020-11-12] MEDS ORDERED: CEFTRIAXONE 1 GM/50 ML BAG ONE (15:11)
[2020-11-12 19:27] LABS: INR 1.21 (0.83-1.09); PROTHROMBIN TIME (PATIENT) 14.6 SEC (9.7-13.0)
[2020-11-12] MEDS ORDERED: PATIENT'S OWN MEDICATION (NON-FORMULARY) (Lidocaine Patch Removal 1 EACH Each) MC SCH (22:00)
[2020-11-12] MEDS ORDERED: ARIPiprazole 5 MG TABLET ONE (22:37)
[2020-11-12] MEDS ORDERED: hydrALAZINE HCL 25 MG TABLET (FP) ONE (22:37)
[2020-11-12] MEDS: ARIPiprazole 5 MG TABLET PO SCH (22:41)
[2020-11-12] MEDS: hydrALAZINE HCL 50 MG TABLET (FP) PO SCH (22:41)
[2020-11-13] MEDS ORDERED: WARFARIN NA 7.5 MG TABLET PO ONE (01:30)
[2020-11-13] MEDS ORDERED: WARFARIN NA 1 MG TABLET ONE (01:58)
[2020-11-13] MEDS ORDERED: WARFARIN NA 5 MG TABLET ONE (01:58)
[2020-11-13] MEDS ORDERED: hydrALAZINE HCL 25 MG TABLET (FP) ONE (06:17)
[2020-11-13] MEDS: hydrALAZINE HCL 50 MG TABLET (FP) PO SCH ×3 (06:51→22:13)
[2020-11-13 07:57] LABS: INR 1.31 (0.83-1.09); PROTHROMBIN TIME (PATIENT) 15.7 SEC (9.7-13.0)
[2020-11-13 08:14] LABS: BASO % 0.8 % (0-2.0); EOS % 0.2 % (0-4.5); HEMATOCRIT 39.2 % (32.4-45.2); HEMOGLOBIN 12.7 GM/dL (10.7-15.3); LYMPH % 17.1 % (8-40); MCH 27.9 pg (25.7-33.7); MCHC 32.5 g/dl (32.0-36.0); MEAN PLT VOLUME 7.8 fl (7.5-11.1); MONO % 7.2 % (3.8-10.2); NEUT % 74.7 % (42.8-82.8); PLATELET COUNT 295 K/MM3 (134-434); RBC 4.56 M/mm3 (3.60-5.2); RDW 15.7 % (11.6-15.6)
[2020-11-13 08:19] LABS: ALBUMIN 3.4 g/dl (3.4-5.0); CALCIUM 10.3 mg/dL (8.5-10.1)
[2020-11-13 08:20] LABS: MAGNESIUM 1.7 mg/dL (1.8-2.4)
[2020-11-13 08:21] LABS: CREATININE 1.1 mg/dL (0.55-1.3)
[2020-11-13 08:22] LABS: PHOSPHOROUS 2.7 mg/dL (2.5-4.9)
[2020-11-13 08:23] LABS: BILIRUBIN,TOTAL 0.4 mg/dL (0.2-1); TOT PROT 6.7 g/dl (6.4-8.2)
[2020-11-13] MEDS ORDERED: CEFTRIAXONE 1 GM/50 ML BAG ONE (09:41)
[2020-11-13] MEDS ORDERED: ASPIRIN COATED 81 MG TABLET.EC ONE (09:41)
[2020-11-13] MEDS ORDERED: LISINOPRIL 20 MG TABLET ONE (09:41)
[2020-11-13] MEDS ORDERED: METHADONE HCL 40 MG DISPERSABLE TABLET PO SCH (10:00)
[2020-11-13] MEDS: LISINOPRIL 20 MG TABLET PO SCH (10:01)
[2020-11-13] MEDS: CEFTRIAXONE 1 GM in DEXTROSE 5%-WATER - 50 ML IVPB SCH (10:01)
[2020-11-13] MEDS: ARIPiprazole 2 MG TABLET PO SCH (10:01)
[2020-11-13] MEDS: ASPIRIN COATED 81 MG TABLET.EC PO SCH (10:01)
[2020-11-13] MEDS: NIFEdipine E.R 60 MG TABLET PO SCH (10:01)
[2020-11-13] MEDS: TORSEMIDE 20 MG TABLET (FP) PO SCH (10:01)
[2020-11-13] MEDS ORDERED: SODIUM CHLORIDE 1,000 ML IV SCH (11:45)
[2020-11-13] MEDS ORDERED: WARFARIN NA 7.5 MG TABLET PO SCH (18:00)
[2020-11-13 18:20] VITALS: BMI 22.3
[2020-11-13] MEDS ORDERED: MAGNESIUM SULF 50% (8.12 MEQ/2 ML-1 GM VIAL) IVPB ONE (19:45)
[2020-11-13] MEDS: ARIPiprazole 5 MG TABLET PO SCH (22:12)
[2020-11-14] MEDS: hydrALAZINE HCL 50 MG TABLET (FP) PO SCH ×3 (05:45→21:12)
[2020-11-14] MEDS ORDERED: METHADONE HCL 5 MG TABLET ONE (09:40)
[2020-11-14] MEDS ORDERED: METHADONE HCL 40 MG DISPERSABLE TABLET ONE (09:40)
[2020-11-14 09:41] LABS: BASO % 0.4 % (0-2.0); EOS % 0.6 % (0-4.5); HEMATOCRIT 39.7 % (32.4-45.2); HEMOGLOBIN 12.8 GM/dL (10.7-15.3); LYMPH % 17.2 % (8-40); MCH 27.5 pg (25.7-33.7); MCHC 32.3 g/dl (32.0-36.0); MEAN CELL VOLUME 85.2 fl (80-96); MEAN PLT VOLUME 7.5 fl (7.5-11.1); MONO % 6.3 % (3.8-10.2); NEUT % 75.5 % (42.8-82.8); PLATELET COUNT 264 K/MM3 (134-434); RBC 4.66 M/mm3 (3.60-5.2)
[2020-11-14] MEDS ORDERED: cefTRIAXone SODIUM 1 GM VIAL ONE (09:41)
[2020-11-14] MEDS ORDERED: DEXTROSE 5%-WATER - 50 ML IVPB ONE (09:41)
[2020-11-14] MEDS ORDERED: PT OWN MED DRAWER 7, Y5N ONE ×2 (09:41→21:09)
[2020-11-14] MEDS: LISINOPRIL 20 MG TABLET PO SCH (09:47)
[2020-11-14] MEDS: ASPIRIN COATED 81 MG TABLET.EC PO SCH (09:47)
[2020-11-14] MEDS: METHADONE 40 MG, METHADONE 5 MG PO SCH (09:48)
[2020-11-14] MEDS: ARIPiprazole 2 MG TABLET PO SCH (09:48)
[2020-11-14] MEDS: NIFEdipine E.R 60 MG TABLET PO SCH (09:48)
[2020-11-14] MEDS: CEFTRIAXONE 1 GM in DEXTROSE 5%-WATER - 50 ML IVPB SCH (09:49)
[2020-11-14] MEDS: TORSEMIDE 20 MG TABLET (FP) PO SCH (09:49)
[2020-11-14 09:58] LABS: BLOOD UREA NITROGEN 26.4 mg/dL (7-18); CALCIUM 10.1 mg/dL (8.5-10.1)
[2020-11-14 10:01] LABS: CREATININE 1.5 mg/dL (0.55-1.3)
[2020-11-14] MEDS ORDERED: WARFARIN NA 10 MG TABLET PO ONE (18:00)
[2020-11-14] MEDS: ARIPiprazole 5 MG TABLET PO SCH (21:54)
[2020-11-15] MEDS ORDERED: METHADONE HCL 5 MG TABLET ONE (05:28)
[2020-11-15] MEDS ORDERED: METHADONE HCL 40 MG DISPERSABLE TABLET ONE (05:28)
[2020-11-15] MEDS: METHADONE 40 MG, METHADONE 5 MG PO SCH (06:05)
[2020-11-15] MEDS: hydrALAZINE HCL 50 MG TABLET (FP) PO SCH ×5 (06:05→21:11)
[2020-11-15] MEDS ORDERED: DEXTROSE 5%-WATER - 50 ML IVPB ONE (09:39)
[2020-11-15] MEDS ORDERED: cefTRIAXone SODIUM 1 GM VIAL ONE (09:39)
[2020-11-15] MEDS: ARIPiprazole 2 MG TABLET PO SCH (09:45)
[2020-11-15] MEDS: CEFTRIAXONE 1 GM in DEXTROSE 5%-WATER - 50 ML IVPB SCH (09:45)
[2020-11-15] MEDS: LISINOPRIL 20 MG TABLET PO SCH (09:45)
[2020-11-15] MEDS: TORSEMIDE 20 MG TABLET (FP) PO SCH (09:45)
[2020-11-15] MEDS: NIFEdipine E.R 60 MG TABLET PO SCH (09:45)
[2020-11-15] MEDS: ASPIRIN COATED 81 MG TABLET.EC PO SCH (09:45)
[2020-11-15 10:41] LABS: BASO % 0.7 % (0-2.0); EOS % 1.4 % (0-4.5); HEMATOCRIT 38.5 % (32.4-45.2); HEMOGLOBIN 12.4 GM/dL (10.7-15.3); INR 2.47 (0.83-1.09); LYMPH % 24.8 % (8-40); MCH 27.5 pg (25.7-33.7); MCHC 32.2 g/dl (32.0-36.0); MEAN CELL VOLUME 85.4 fl (80-96); MEAN PLT VOLUME 7.7 fl (7.5-11.1); MONO % 9.2 % (3.8-10.2); NEUT % 63.9 % (42.8-82.8); PLATELET COUNT 266 K/MM3 (134-434); PROTHROMBIN TIME (PATIENT) 29.6 SEC (9.7-13.0); RBC 4.51 M/mm3 (3.60-5.2); RDW 15.5 % (11.6-15.6); WHITE BLOOD COUNT 4.4 K/mm3 (4.0-10.0)
[2020-11-15 10:56] LABS: ALBUMIN 3.2 g/dl (3.4-5.0); BLOOD UREA NITROGEN 35.6 mg/dL (7-18)
[2020-11-15 11:00] LABS: CREATININE 1.9 mg/dL (0.55-1.3)
[2020-11-15 11:02] LABS: BILIRUBIN,TOTAL 0.4 mg/dL (0.2-1); TOT PROT 5.9 g/dl (6.4-8.2)
[2020-11-15] MEDS ORDERED: POTASSIUM CHLORIDE TABS 20 MEQ TABLET.ER (FP) PO ONE (15:45)
[2020-11-15] MEDS: WARFARIN NA 7.5 MG TABLET PO SCH (17:09)
[2020-11-15] MEDS ORDERED: SODIUM CHLORIDE 1,000 ML IV SCH (17:15)
[2020-11-15] MEDS ORDERED: INSULIN (NOVOLOG) ASPART 100 UNITS/ML 10ML VIAL ONE (18:02)
[2020-11-15] MEDS ORDERED: INSULIN (NOVOLOG MIX 70/30) 100 UNITS/ML MDV SQ ONE (18:02)
[2020-11-15] MEDS ORDERED: PT OWN MED DRAWER 7, Y5N ONE ×2 (18:02→21:08)
[2020-11-15] MEDS: ARIPiprazole 5 MG TABLET PO SCH ×2 (21:11→21:13)
[2020-11-15] MEDS ORDERED: MELATONIN 5 MG TABLETS PO ONE (21:57)
[2020-11-16] MEDS ORDERED: METHADONE HCL 40 MG DISPERSABLE TABLET ONE (05:17)
[2020-11-16] MEDS ORDERED: METHADONE HCL 5 MG TABLET ONE (05:17)
[2020-11-16] MEDS: METHADONE 40 MG, METHADONE 5 MG PO SCH (05:20)
[2020-11-16] MEDS: hydrALAZINE HCL 50 MG TABLET (FP) PO SCH ×3 (05:20→22:31)
[2020-11-16] MEDS ORDERED: DEXTROSE 5%-WATER - 50 ML IVPB ONE (09:19)
[2020-11-16] MEDS ORDERED: PT OWN MED DRAWER 7, Y5N ONE ×2 (09:19→21:06)
[2020-11-16] MEDS ORDERED: cefTRIAXone SODIUM 1 GM VIAL ONE (09:19)
[2020-11-16] MEDS: CEFTRIAXONE 1 GM in DEXTROSE 5%-WATER - 50 ML IVPB SCH (09:26)
[2020-11-16] MEDS: ARIPiprazole 2 MG TABLET PO SCH ×2 (09:27→09:33)
[2020-11-16] MEDS: NIFEdipine E.R 60 MG TABLET PO SCH (09:27)
[2020-11-16] MEDS: ASPIRIN COATED 81 MG TABLET.EC PO SCH (09:27)
[2020-11-16 09:51] LABS: BASO % 0.6 % (0-2.0); EOS % 5.8 % (0-4.5); HEMATOCRIT 36.8 % (32.4-45.2); HEMOGLOBIN 11.8 GM/dL (10.7-15.3); LYMPH % 28.9 % (8-40); MCH 27.4 pg (25.7-33.7); MEAN CELL VOLUME 85.5 fl (80-96); MEAN PLT VOLUME 8.1 fl (7.5-11.1); MONO % 10.9 % (3.8-10.2); NEUT % 53.8 % (42.8-82.8); PLATELET COUNT 231 K/MM3 (134-434); RDW 15.4 % (11.6-15.6); WHITE BLOOD COUNT 4.6 K/mm3 (4.0-10.0)
[2020-11-16 09:56] LABS: INR 2.73 (0.83-1.09); PROTHROMBIN TIME (PATIENT) 32.1 SEC (9.7-13.0)
[2020-11-16 10:25] LABS: ALBUMIN 3.2 g/dl (3.4-5.0); BLOOD UREA NITROGEN 35.5 mg/dL (7-18); CALCIUM 9.5 mg/dL (8.5-10.1)
[2020-11-16 10:26] LABS: CREATININE 1.8 mg/dL (0.55-1.3)
[2020-11-16 10:28] LABS: BILIRUBIN,TOTAL 0.2 mg/dL (0.2-1)
[2020-11-16] MEDS ORDERED: POTASSIUM CHLORIDE TABS 20 MEQ TABLET.ER (FP) PO ONE (10:52)
[2020-11-16] MEDS: SODIUM CHLORIDE 0.9%/KCL 20 MEQ/1,000 ML INFUS.BAG IV SCH (14:15)
[2020-11-16 17:52] LABS: VENOUS BASE EXCESS 8.5 mmol/L (-2-2); VENOUS O2 SATURATION 99.5 % (70-80); VENOUS PH 7.491 (7.310-7.410)
[2020-11-16] MEDS: WARFARIN NA 7.5 MG TABLET PO SCH (18:45)
[2020-11-16] MEDS: ARIPiprazole 5 MG TABLET PO SCH (22:31)
[2020-11-17] MEDS: SODIUM CHLORIDE 0.9%/KCL 20 MEQ/1,000 ML INFUS.BAG IV SCH (02:53)
[2020-11-17] MEDS ORDERED: METHADONE HCL 40 MG DISPERSABLE TABLET ONE (06:09)
[2020-11-17] MEDS ORDERED: METHADONE HCL 5 MG TABLET ONE (06:09)
[2020-11-17] MEDS: METHADONE 40 MG, METHADONE 5 MG PO SCH (06:19)
[2020-11-17] MEDS: hydrALAZINE HCL 50 MG TABLET (FP) PO SCH (06:19)
[2020-11-17 08:44] LABS: INR 2.39 (0.83-1.09); PROTHROMBIN TIME (PATIENT) 28.7 SEC (9.7-13.0)
[2020-11-17 09:01] VITALS: BP 127/53; PULSE 60; TEMP 98
[2020-11-17 09:02] LABS: CALCIUM 9.2 mg/dL (8.5-10.1)
[2020-11-17 09:03] LABS: ALBUMIN 3.4 g/dl (3.4-5.0); BLOOD UREA NITROGEN 34.7 mg/dL (7-18)
[2020-11-17 09:08] LABS: TOT PROT 6.1 g/dl (6.4-8.2)
[2020-11-17 09:09] LABS: CREATININE 1.3 mg/dL (0.55-1.3)
[2020-11-17] MEDS ORDERED: DEXTROSE 5%-WATER - 50 ML IVPB ONE (09:10)
[2020-11-17] MEDS ORDERED: cefTRIAXone SODIUM 1 GM VIAL ONE (09:10)
[2020-11-17 09:11] LABS: BILIRUBIN,TOTAL 0.5 mg/dL (0.2-1)
[2020-11-17] MEDS: NIFEdipine E.R 60 MG TABLET PO SCH (09:15)
[2020-11-17] MEDS: CEFTRIAXONE 1 GM in DEXTROSE 5%-WATER - 50 ML IVPB SCH (09:15)
[2020-11-17] MEDS: ARIPiprazole 2 MG TABLET PO SCH (09:16)
== END 2020-11-17 14:21 | disposition home or self-care (01) | DRG 463 ==
LOC: JER 09:49 → JERBED 14:18 → J5S 11-13 15:31
PROVIDERS: ADMIT Family Medicine; ATTEND Family Medicine
DX: N39.0 Urinary tract infection, site not specified (principal); N17.9 Acute kidney failure, unspecified; B96.20 Unspecified Escherichia coli [E. coli] as the cause of diseases classified elsewhere; R53.1 Weakness; Z68.22 Body mass index [BMI] 22.0-22.9, adult; I13.0 Hypertensive heart and chronic kidney disease with heart failure and stage 1 through stage 4 chronic kidney disease, or unspecified chronic kidney disease; N18.30 Chronic kidney disease, stage 3 unspecified; I50.32 Chronic diastolic (congestive) heart failure; E78.5 Hyperlipidemia, unspecified; R63.0 Anorexia; F41.8 Other specified anxiety disorders; Z86.718 Personal history of other venous thrombosis and embolism; Z86.711 Personal history of pulmonary embolism; Z79.01 Long term (current) use of anticoagulants
CPT/HCPCS: 36415; 71046-TC-FY; 80048; 80053; 81003; 82550; 82803; 83690; 83735; 83880; 84100; 84443; 84484; 85025; 85610; 87040; 87086; 87186; 93005; 93010; 97116-GP; 97162-GP; 99285-25; C9803; U0003; U0005

== ENCOUNTER 2021-10-03 10:47 | Observation (INO) | payer OTHER ==
[2021-10-03] MEDS ORDERED: MAG HYDROX/AL HYDROX/SIMETH 30 ML UNIT-DOSE CUP PO ONE (11:27)
[2021-10-03] MEDS ORDERED: FAMOTIDINE 10 MG TABLET PO ONE (11:27)
[2021-10-03] MEDS ORDERED: SUCRALFATE 1 GM TABLET (FP) PO ONE (11:27)
[2021-10-03] MEDS ORDERED: MAG HYDROX/AL HYDROX/SIMETH 30 ML UNIT-DOSE CUP ONE (11:40)
[2021-10-03] MEDS ORDERED: FAMOTIDINE 10 MG TABLET ONE (11:40)
[2021-10-03] MEDS ORDERED: SUCRALFATE 1 GM TABLET (FP) ONE (11:40)
[2021-10-03 12:41] LABS: EOS % 0.1 % (0-4.5); HEMATOCRIT 31.3 % (32.4-45.2); HEMOGLOBIN 9.5 GM/dL (10.7-15.3); LYMPH % 13.5 % (8-40); MCH 22.3 pg (25.7-33.7); MCHC 30.2 g/dl (32.0-36.0); MEAN CELL VOLUME 73.7 fl (80-96); MONO % 8.2 % (3.8-10.2); NEUT % 77.2 % (42.8-82.8); PLATELET COUNT 292 10^3/uL (134-434); RBC 4.24 M/mm3 (3.60-5.2); WHITE BLOOD COUNT 2.6 K/mm3 (4.0-10.0)
[2021-10-03 13:02] LABS: CALCIUM 9.6 mg/dL (8.5-10.1)
[2021-10-03 13:03] LABS: ALBUMIN 3.2 g/dl (3.4-5.0); BLOOD UREA NITROGEN 15.8 mg/dL (7-18); MAGNESIUM 2.1 mg/dL (1.8-2.4)
[2021-10-03 13:06] LABS: CREATININE 1.2 mg/dL (0.55-1.3)
[2021-10-03 13:07] LABS: BILIRUBIN,TOTAL 0.5 mg/dL (0.2-1); TOT PROT 6.5 g/dl (6.4-8.2)
[2021-10-03 13:34] LABS: ANISOCYTOSIS 1+; MACROCYTOSIS 1+; OVALOCYTE 1+
[2021-10-03 13:35] LABS: PLATELET ESTIMATE ADEQUATE
[2021-10-03 18:44] LABS: INR 1.6 (0.83-1.09); PROTHROMBIN TIME (PATIENT) 18.5 SEC (9.7-13.0)
[2021-10-03] MEDS: hydrALAZINE HCL 50 MG TABLET (FP) PO SCH (23:49)
[2021-10-03] MEDS: WARFARIN NA 7.5 MG TABLET PO SCH (23:49)
[2021-10-04] MEDS: hydrALAZINE HCL 50 MG TABLET (FP) PO SCH ×3 (05:50→23:20)
[2021-10-04] MEDS ORDERED: methaDONE HCL 40 MG DISPERSABLE TABLET PO SCH (06:30)
[2021-10-04] MEDS ORDERED: methaDONE HCL 40 MG DISPERSABLE TABLET ONE (06:33)
[2021-10-04 08:23] LABS: INR 1.58 (0.83-1.09); PROTHROMBIN TIME (PATIENT) 18.2 SEC (9.7-13.0)
[2021-10-04 08:25] LABS: BASO % 1.2 % (0-2.0); EOS % 2.3 % (0-4.5); HEMATOCRIT 33.8 % (32.4-45.2); HEMOGLOBIN 10.1 GM/dL (10.7-15.3); LYMPH % 25.1 % (8-40); MCH 22.1 pg (25.7-33.7); MCHC 29.9 g/dl (32.0-36.0); MEAN CELL VOLUME 73.8 fl (80-96); MEAN PLT VOLUME 7.3 fl (7.5-11.1); MONO % 7.2 % (3.8-10.2); NEUT % 64.2 % (42.8-82.8); PLATELET COUNT 290 10^3/uL (134-434); RBC 4.57 M/mm3 (3.60-5.2); WHITE BLOOD COUNT 3.2 K/mm3 (4.0-10.0)
[2021-10-04 08:43] LABS: BLOOD UREA NITROGEN 18.4 mg/dL (7-18); CALCIUM 9.6 mg/dL (8.5-10.1); MAGNESIUM 2.2 mg/dL (1.8-2.4)
[2021-10-04 08:46] LABS: CREATININE 1.2 mg/dL (0.55-1.3)
[2021-10-04 08:47] LABS: BILIRUBIN,TOTAL 0.2 mg/dL (0.2-1); TOT PROT 5.9 g/dl (6.4-8.2)
[2021-10-04] MEDS: NIFEdipine E.R 60 MG TABLET PO SCH (09:49)
[2021-10-04] MEDS: WARFARIN NA 7.5 MG TABLET PO SCH (09:49)
[2021-10-04] MEDS: ENOXAPARIN NA (PORCINE) 60 MG/0.6 ML DISP.SYRIN SQ SCH ×2 (12:13→23:20)
[2021-10-04 16:24] LABS: IRON SERUM 20 ug/dL (50-175); TOTAL IRON BINDING CAPACITY 334 ug/dL (250-450)
[2021-10-04] MEDS ORDERED: IRON SUCROSE INJECTION 200 MG in SODIUM CHLORIDE 90 ML IVPB ONE (16:28)
[2021-10-05] MEDS ORDERED: methaDONE HCL 40 MG DISPERSABLE TABLET ONE (05:39)
[2021-10-05] MEDS: hydrALAZINE HCL 50 MG TABLET (FP) PO SCH ×3 (05:49→21:13)
[2021-10-05 07:43] LABS: INR 1.83 (0.83-1.09); PROTHROMBIN TIME (PATIENT) 21.2 SEC (9.7-13.0)
[2021-10-05 07:49] LABS: BASO % 0.9 % (0-2.0); EOS % 1.3 % (0-4.5); HEMATOCRIT 34.6 % (32.4-45.2); HEMOGLOBIN 10.1 GM/dL (10.7-15.3); LYMPH % 16.4 % (8-40); MCH 21.6 pg (25.7-33.7); MCHC 29.1 g/dl (32.0-36.0); MEAN CELL VOLUME 74.2 fl (80-96); MEAN PLT VOLUME 8.1 fl (7.5-11.1); MONO % 6.7 % (3.8-10.2); NEUT % 74.7 % (42.8-82.8); PLATELET COUNT 310 10^3/uL (134-434); RBC 4.66 M/mm3 (3.60-5.2); RDW 21.2 % (11.6-15.6); WHITE BLOOD COUNT 3.3 K/mm3 (4.0-10.0)
[2021-10-05 08:16] LABS: ALBUMIN 3.1 g/dl (3.4-5.0); BLOOD UREA NITROGEN 16.1 mg/dL (7-18)
[2021-10-05 08:17] LABS: CALCIUM 9.4 mg/dL (8.5-10.1)
[2021-10-05 08:20] LABS: CREATININE 1.1 mg/dL (0.55-1.3)
[2021-10-05 08:22] LABS: TOT PROT 5.9 g/dl (6.4-8.2)
[2021-10-05 08:23] LABS: BILIRUBIN,TOTAL 0.8 mg/dL (0.2-1)
[2021-10-05] MEDS: NIFEdipine E.R 60 MG TABLET PO SCH (09:14)
[2021-10-05] MEDS: PANTOPRAZOLE 20 MG TABLET PO SCH (09:31)
[2021-10-05] MEDS: ENOXAPARIN NA (PORCINE) 60 MG/0.6 ML DISP.SYRIN SQ SCH ×2 (10:02→22:47)
[2021-10-05 10:08] LABS: SARS-CoV-2 NAA Not Detected (Not Detected)
[2021-10-05] MEDS: ALPRAZolam 0.25 MG TABLET PO PRN (16:07)
[2021-10-05] MEDS: WARFARIN NA 7.5 MG TABLET PO SCH (18:10)
[2021-10-06] MEDS ORDERED: ENOXAPARIN NA (PORCINE) 60 MG/0.6 ML DISP.SYRIN SQ ONE
[2021-10-06 00:02] VITALS: BMI 23.3
[2021-10-06] MEDS: ALPRAZolam 0.25 MG TABLET PO PRN ×3 (00:10→19:00)
[2021-10-06] MEDS ORDERED: methaDONE HCL 40 MG DISPERSABLE TABLET ONE (05:10)
[2021-10-06] MEDS: hydrALAZINE HCL 50 MG TABLET (FP) PO SCH ×3 (05:27→21:26)
[2021-10-06] MEDS: PANTOPRAZOLE 20 MG TABLET PO SCH ×2 (08:58→10:44)
[2021-10-06] MEDS: NIFEdipine E.R 60 MG TABLET PO SCH ×2 (08:59→10:44)
[2021-10-06] MEDS ORDERED: FERRIC CARBOXYMALTOSE 750 MG in SODIUM CHLORIDE 250 ML IVPB ONE ×2 (11:00→13:59)
[2021-10-06 11:43] LABS: INR 1.7 (0.83-1.09); PROTHROMBIN TIME (PATIENT) 19.7 SEC (9.7-13.0)
[2021-10-06] MEDS ORDERED: BISACODYL 5 MG TABLET.DR (FP) PO ONE (16:00)
[2021-10-06] MEDS ORDERED: PEG 3350/NA SULF BICARB CL/KCL 4000 ML SOLN.RECON PO ONE (17:00)
[2021-10-06] MEDS: WARFARIN NA 7.5 MG TABLET PO SCH (17:32)
[2021-10-06 22:06] LABS: GLIADIN ANTIBODY IGA 3 units (0-19); GLIADIN ANTIBODY IGG 2 units (0-19); TRANSGLUTAMINASE IGG < 2 U/mL (0-5)
[2021-10-07] MEDS ORDERED: ENOXAPARIN NA (PORCINE) 60 MG/0.6 ML DISP.SYRIN SQ ONE
[2021-10-07] MEDS: ALPRAZolam 0.25 MG TABLET PO PRN ×2 (03:22→10:41)
[2021-10-07] MEDS ORDERED: methaDONE HCL 40 MG DISPERSABLE TABLET ONE (05:21)
[2021-10-07] MEDS: hydrALAZINE HCL 50 MG TABLET (FP) PO SCH ×2 (05:28→13:59)
[2021-10-07 08:44] LABS: EOS % 3.5 % (0-4.5); HEMATOCRIT 34.2 % (32.4-45.2); HEMOGLOBIN 10.2 GM/dL (10.7-15.3); LYMPH % 38.6 % (8-40); MCH 22.1 pg (25.7-33.7); MCHC 29.7 g/dl (32.0-36.0); MEAN CELL VOLUME 74.3 fl (80-96); MEAN PLT VOLUME 6.9 fl (7.5-11.1); MONO % 9.5 % (3.8-10.2); NEUT % 47.4 % (42.8-82.8); PLATELET COUNT 284 10^3/uL (134-434); RDW 20.7 % (11.6-15.6); WHITE BLOOD COUNT 2.8 K/mm3 (4.0-10.0)
[2021-10-07 08:49] LABS: INR 1.52 (0.83-1.09); PROTHROMBIN TIME (PATIENT) 17.6 SEC (9.7-13.0)
[2021-10-07 09:32] LABS: ANISOCYTOSIS 3+; MACROCYTOSIS 0; OVALOCYTE 1+; TARGET CELLS 2+
[2021-10-07 09:56] LABS: ERYTHROCYTE SEDIMENTATION RATE 10 mm/hr (0-30)
[2021-10-07] MEDS: PANTOPRAZOLE 20 MG TABLET PO SCH (10:42)
[2021-10-07] MEDS: NIFEdipine E.R 60 MG TABLET PO SCH (10:48)
[2021-10-07 11:26] VITALS: BP 161/84; PULSE 72; TEMP 98.8
[2021-10-07 14:10] LABS: CHLORIDE 109 mmol/L (98-107); SODIUM 147 mmol/L (136-145)
[2021-10-07 14:16] LABS: CREATININE 1.4 mg/dL (0.55-1.3)
[2021-10-07 14:45] LABS: CO2 33 mmol/L (21-32)
[2021-10-07 14:51] LABS: ANION GAP 5 MMOL/L (8-16); BLOOD UREA NITROGEN 26.1 mg/dL (7-18); GLUCOSE,RANDOM 88 mg/dL (74-106)
[2021-10-07] MEDS: WARFARIN NA 7.5 MG TABLET PO SCH (17:51)
[2021-10-07] MEDS ORDERED: ENOXAPARIN NA (PORCINE) 60 MG/0.6 ML DISP.SYRIN SQ SCH (22:00)
== END 2021-10-07 18:45 | disposition home or self-care (01) ==
LOC: JER 10:47 → JERBED 16:24 → J4W 23:41
PROVIDERS: ADMIT Internal Medicine; ATTEND Family Medicine
PROC: 3E023GC Introduction of Other Therapeutic Substance into Muscle, Percutaneous Approach (ICD-10-PCS; principal; 2021-10-03)
PROC: 3E033GC Introduction of Other Therapeutic Substance into Peripheral Vein, Percutaneous Approach (ICD-10-PCS; 2021-10-03)
DX: I42.8 Other cardiomyopathies (principal); R79.89 Other specified abnormal findings of blood chemistry; E78.5 Hyperlipidemia, unspecified; F11.21 Opioid dependence, in remission; F41.8 Other specified anxiety disorders; E05.90 Thyrotoxicosis, unspecified without thyrotoxic crisis or storm; D64.9 Anemia, unspecified; Z20.822 Contact with and (suspected) exposure to COVID-19; Z86.718 Personal history of other venous thrombosis and embolism; Z79.01 Long term (current) use of anticoagulants; Z79.891 Long term (current) use of opiate analgesic
CPT/HCPCS: 36415; 71045-TC-FY; 71250-TC; 74177-TC; 80048; 80053; 80061; 82728; 82784; 83516; 83540; 83550; 83735; 84155; 84165; 84443; 84484; 85025; 85045; 85610; 85651; 86038; 86140; 86334; 86431; 86850; 86870; 86900; 86901; 86902; 88300-TC; 88305-TC; 88342-TC; 93005; 93010; 96365; 96367; 96372; 99285-25; C9803; G0378; J1439; J1756; U0003; U0005

== ENCOUNTER 2021-11-14 09:36 | Inpatient (IN) | payer OTHER ==
[2021-11-14] MEDS ORDERED: SODIUM CHLORIDE 0.9% 500 ML INFUS.BAG IV ONE ×2 (09:59→11:57)
[2021-11-14] MEDS ORDERED: ACETAMINOPHEN 1000 MG/100 ML BAG IVPB ONE (09:59)
[2021-11-14] MEDS ORDERED: ONDANSETRON 4 MG/2 ML VIAL IVPUSH ONE (09:59)
[2021-11-14] MEDS ORDERED: FAMOTIDINE 20 MG/50 ML IVPB 20 MG/50 ML MG IVPB ONE (09:59)
[2021-11-14] MEDS ORDERED: hydrALAZINE HCL 20 MG/ML VIAL IVPUSH ONE ×2 (10:04→16:20)
[2021-11-14] MEDS ORDERED: ONDANSETRON 4 MG/2 ML VIAL ONE (10:33)
[2021-11-14] MEDS ORDERED: hydrALAZINE HCL 20 MG/ML VIAL ONE ×2 (10:33→16:22)
[2021-11-14] MEDS ORDERED: ACETAMINOPHEN INJECTION 100 ML IVPB ONE (10:33)
[2021-11-14 11:14] LABS: HEMATOCRIT 43.4 % (32.4-45.2); HEMOGLOBIN 13.9 GM/dL (10.7-15.3); MEAN CELL VOLUME 78.2 fl (80-96); MEAN PLT VOLUME 8.6 fl (7.5-11.1); PLATELET COUNT 297 10^3/uL (134-434); RBC 5.56 M/mm3 (3.60-5.2); RDW 24.4 % (11.6-15.6); WHITE BLOOD COUNT 7.4 K/mm3 (4.0-10.0)
[2021-11-14 11:32] LABS: INR 0.97 (0.83-1.09); PROTHROMBIN TIME (PATIENT) 11.1 SEC (9.7-13.0)
[2021-11-14 11:35] LABS: ACTIVATED PTT 28.8 SECONDS (25.2-36.5)
[2021-11-14 11:39] LABS: CHLORIDE 103 mmol/L (98-107); SODIUM 146 mmol/L (136-145)
[2021-11-14 11:41] LABS: CALCIUM 10.7 mg/dL (8.5-10.1); LACTIC ACID 2.5 mmol/L (0.4-2.0)
[2021-11-14 11:42] LABS: ALBUMIN 3.7 g/dl (3.4-5.0); ANION GAP 8 MMOL/L (8-16); BLOOD UREA NITROGEN 23.3 mg/dL (7-18); CO2 35 mmol/L (21-32); GLUCOSE,RANDOM 140 mg/dL (74-106); LIPASE 381 U/L (73-393); MAGNESIUM 1.9 mg/dL (1.8-2.4)
[2021-11-14 11:44] LABS: CREATININE 1.3 mg/dL (0.55-1.3); SGOT/AST 34 U/L (15-37); SGPT/ALT 32 U/L (13-61)
[2021-11-14 11:46] LABS: BILIRUBIN,TOTAL 0.3 mg/dL (0.2-1); TOT PROT 7.4 g/dl (6.4-8.2)
[2021-11-14 11:47] LABS: ALK PHOS 135 U/L (45-117)
[2021-11-14] MEDS ORDERED: FAMOTIDINE 10 MG TABLET PO ONE (11:53)
[2021-11-14] MEDS ORDERED: ASPIRIN 81 MG CHEWABLE TABLETS PO ONE (11:56)
[2021-11-14] MEDS ORDERED: ASPIRIN 81 MG CHEWABLE TABLETS ONE (12:12)
[2021-11-14] MEDS ORDERED: FAMOTIDINE 10 MG TABLET ONE (12:12)
[2021-11-14] MEDS ORDERED: KCL 10 MEQ IVPB 20 MEQ/200 ML INFUS.BAG IVPB ONE (12:12)
[2021-11-14 12:18] LABS: ANISOCYTOSIS 2+; MACROCYTOSIS 1+
[2021-11-14] MEDS: KCL 10 MEQ IVPB 10 MEQ/100 ML INFUS.BAG IVPB SCH ×2 (12:30→14:00)
[2021-11-14 14:30] LABS: EPI CELLS 18 /uL (0-25.1); HYALINE CASTS 0 /uL (0-3.1); URINE APPEARANCE CLEAR; URINE BACTERIA 42 /uL (0-1359); URINE BILIRUBIN NEGATIVE (NEGATIVE); URINE COLOR YELLOW; URINE GLUCOSE (UA) TRACE (NEGATIVE); URINE KETONE NEGATIVE (NEGATIVE); URINE LEUK ESTERASE NEGATIVE (NEGATIVE); URINE NITRITE NEGATIVE (NEGATIVE); URINE PROTEIN 3+ (NEGATIVE); URINE RBC 9 /uL (0-23.9); URINE UROBILINOGEN 0.2 mg/dL (0.2-1.0); URINE WBC 7 /uL (0-25.8)
[2021-11-14 14:38] LABS: COCAINE, UR NEGATIVE (NEGATIVE); OPIATES, URI NEGATIVE (NEGATIVE)
[2021-11-14 14:39] LABS: METHADONE, UR POSITIVE (NEGATIVE); PHENCYCLIDINE,URINE NEGATIVE (NEGATIVE); URINE AMPHETAMINES NEGATIVE (NEGATIVE); URINE BARBITURATES NEGATIVE (NEGATIVE); URINE BENZODIAZEPINES NEGATIVE (NEGATIVE)
[2021-11-14 15:02] LABS: VENOUS BASE EXCESS 4.6 mmol/L (-2-2); VENOUS O2 SATURATION 98.9 % (70-80); VENOUS PCO2 43.6 mmHg (38-52)
[2021-11-14 15:03] LABS: VENOUS PH 7.445 (7.310-7.410)
[2021-11-14] MEDS ORDERED: morphine CARPU-JECT 2 MG/1 ML DISP.SYRIN IVPUSH ONE (15:29)
[2021-11-14] MEDS ORDERED: NIFEdipine E.R. 30 MG TABLET ONE (16:22)
[2021-11-14] MEDS ORDERED: NIFEdipine E.R 60 MG TABLET PO ONE (16:24)
[2021-11-14] MEDS ORDERED: methaDONE HCL 10 MG TABLET PO ONE (17:00)
[2021-11-14] MEDS ORDERED: methaDONE HCL 40 MG DISPERSABLE TABLET ONE (17:36)
[2021-11-14] MEDS ORDERED: ENALAPRILAT DIHYDRATE 2.5 MG/2 ML VIAL IVPB ONE ×2 (17:43→18:02)
[2021-11-14] MEDS ORDERED: NITROGLYCERIN SUBLINGUAL 1/150 0.4 MG TAB SL ONE (18:23)
[2021-11-14] MEDS ORDERED: TRIMETHOBENZAMIDE HCL 200MG/2ML INJ IM ONE ×2 (18:23→18:33)
[2021-11-14] MEDS ORDERED: NITROGLYCERIN SUBLINGUAL 1/150 0.4 MG TAB ONE (18:32)
[2021-11-14] MEDS ORDERED: APIXABAN 2.5 MG TABLET ONE (22:01)
[2021-11-14] MEDS: APIXABAN 2.5 MG TABLET PO SCH (22:05)
[2021-11-15 07:25] LABS: BASO % 0.9 % (0-2.0); EOS % 0.1 % (0-4.5); HEMATOCRIT 40.3 % (32.4-45.2); HEMOGLOBIN 12.5 GM/dL (10.7-15.3); LYMPH % 17.5 % (8-40); MCH 24.6 pg (25.7-33.7); MEAN CELL VOLUME 79.6 fl (80-96); MEAN PLT VOLUME 8.7 fl (7.5-11.1); MONO % 8.5 % (3.8-10.2); PLATELET COUNT 237 10^3/uL (134-434); RBC 5.07 M/mm3 (3.60-5.2); RDW 24.7 % (11.6-15.6); WHITE BLOOD COUNT 5.3 K/mm3 (4.0-10.0)
[2021-11-15 07:53] LABS: CREATININE 1.5 mg/dL (0.55-1.3)
[2021-11-15 07:55] LABS: BILIRUBIN,TOTAL 0.3 mg/dL (0.2-1); TOT PROT 5.7 g/dl (6.4-8.2)
[2021-11-15 08:02] LABS: ALBUMIN 2.9 g/dl (3.4-5.0)
[2021-11-15] MEDS: NIFEdipine E.R 60 MG TABLET PO SCH (10:40)
[2021-11-15] MEDS: PANTOPRAZOLE 20 MG TABLET PO SCH (10:40)
[2021-11-15] MEDS: APIXABAN 2.5 MG TABLET PO SCH ×2 (10:40→22:51)
[2021-11-15] MEDS ORDERED: methaDONE HCL 40 MG DISPERSABLE TABLET ONE (12:53)
[2021-11-15] MEDS ORDERED: NIFEdipine E.R 60 MG TABLET PO ONE (16:09)
[2021-11-16] MEDS ORDERED: methaDONE HCL 40 MG DISPERSABLE TABLET ONE (05:50)
[2021-11-16] MEDS: PANTOPRAZOLE 20 MG TABLET PO SCH (09:24)
[2021-11-16] MEDS: APIXABAN 2.5 MG TABLET PO SCH ×2 (09:24→22:08)
[2021-11-16] MEDS: NIFEdipine E.R 60 MG TABLET PO SCH (09:24)
[2021-11-16 11:36] LABS: CHLORIDE 101 mmol/L (98-107); SODIUM 143 mmol/L (136-145)
[2021-11-16 11:39] LABS: CALCIUM 10.3 mg/dL (8.5-10.1)
[2021-11-16 11:40] LABS: ALBUMIN 2.9 g/dl (3.4-5.0); ANION GAP 5 MMOL/L (8-16); BLOOD UREA NITROGEN 32.3 mg/dL (7-18); CO2 36 mmol/L (21-32); GLUCOSE,RANDOM 103 mg/dL (74-106)
[2021-11-16 11:43] LABS: CREATININE 1.7 mg/dL (0.55-1.3); SGOT/AST 24 U/L (15-37); SGPT/ALT 24 U/L (13-61)
[2021-11-16 11:44] LABS: TOT PROT 6.1 g/dl (6.4-8.2)
[2021-11-16 11:45] LABS: BILIRUBIN,TOTAL 0.3 mg/dL (0.2-1)
[2021-11-16 11:46] LABS: ALK PHOS 108 U/L (45-117)
[2021-11-16] MEDS ORDERED: BISMUTH SUBSALICYLATE 524 MG/30 ML PO SCH (14:00)
[2021-11-17] MEDS ORDERED: methaDONE HCL 40 MG DISPERSABLE TABLET ONE (06:03)
[2021-11-17 09:47] VITALS: BMI 21.2
[2021-11-17 09:54] LABS: CALCIUM 9.4 mg/dL (8.5-10.1)
[2021-11-17 09:55] LABS: BLOOD UREA NITROGEN 26.8 mg/dL (7-18)
[2021-11-17 09:58] LABS: CREATININE 1.7 mg/dL (0.55-1.3)
[2021-11-17] MEDS: PANTOPRAZOLE 20 MG TABLET PO SCH (10:20)
[2021-11-17] MEDS: APIXABAN 2.5 MG TABLET PO SCH ×2 (10:20→22:02)
[2021-11-17] MEDS: NIFEdipine E.R 60 MG TABLET PO SCH (10:20)
[2021-11-17] MEDS ORDERED: SODIUM CHLORIDE 0.45% 1,000 ML IV SCH (15:15)
[2021-11-17] MEDS ORDERED: ALPRAZolam 0.25 MG TABLET PO ONE (17:40)
[2021-11-18] MEDS ORDERED: methaDONE HCL 40 MG DISPERSABLE TABLET ONE (05:01)
[2021-11-18 09:34] LABS: CALCIUM 9.7 mg/dL (8.5-10.1)
[2021-11-18 09:35] LABS: BLOOD UREA NITROGEN 32.2 mg/dL (7-18)
[2021-11-18 09:38] LABS: CREATININE 1.8 mg/dL (0.55-1.3)
[2021-11-18] MEDS: PANTOPRAZOLE 20 MG TABLET PO SCH (10:11)
[2021-11-18] MEDS: APIXABAN 2.5 MG TABLET PO SCH (10:11)
[2021-11-18] MEDS: NIFEdipine E.R 60 MG TABLET PO SCH (10:11)
[2021-11-18] MEDS ORDERED: POTASSIUM CHLORIDE TABS 20 MEQ TABLET.ER (FP) PO ONE (10:15)
[2021-11-18 11:46] VITALS: BP 134/83; PULSE 69; TEMP 97.9
== END 2021-11-18 12:41 | disposition home or self-care (01) | DRG 199 ==
LOC: JER 09:36 → JERBED 14:53 → J4W 11-15 02:59
PROVIDERS: ADMIT Internal Medicine; ATTEND Family Medicine
DX: I16.1 Hypertensive emergency (principal); I50.22 Chronic systolic (congestive) heart failure; A04.9 Bacterial intestinal infection, unspecified; F11.20 Opioid dependence, uncomplicated; N17.9 Acute kidney failure, unspecified; N18.30 Chronic kidney disease, stage 3 unspecified; D64.9 Anemia, unspecified; E78.5 Hyperlipidemia, unspecified; R11.2 Nausea with vomiting, unspecified; R63.0 Anorexia; R74.8 Abnormal levels of other serum enzymes; I13.0 Hypertensive heart and chronic kidney disease with heart failure and stage 1 through stage 4 chronic kidney disease, or unspecified chronic kidney disease
CPT/HCPCS: 36415; 71045-TC-FY; 71275-TC; 74174-TC; 80048; 80053; 80061; 80307; 81003; 82803; 82962; 83605; 83690; 83735; 84443; 84484; 85025; 85610; 85730; 86850; 86870; 86900; 86901; 86902; 87086; 93005; 93010; 99285-25; C9803-CS; Q9967; U0003; U0005

== ENCOUNTER 2022-02-09 04:47 | Inpatient (IN) | payer OTHER ==
[2022-02-09] MEDS ORDERED: FAMOTIDINE 20 MG/50 ML IVPB 20 MG/50 ML MG IVPB ONE ×2 (05:35→05:38)
[2022-02-09] MEDS ORDERED: ONDANSETRON 4 MG/2 ML VIAL IVPUSH ONE (05:35)
[2022-02-09] MEDS ORDERED: SODIUM CHLORIDE 0.9% 500 ML INFUS.BAG IV ONE (05:35)
[2022-02-09] MEDS ORDERED: ONDANSETRON 4 MG/2 ML VIAL ONE (05:38)
[2022-02-09] MEDS ORDERED: ACETAMINOPHEN 1000 MG/100 ML BAG IVPB ONE (06:14)
[2022-02-09] MEDS ORDERED: ACETAMINOPHEN INJECTION 100 ML IVPB ONE (06:17)
[2022-02-09 06:23] LABS: CALCIUM 10.2 mg/dL (8.5-10.1)
[2022-02-09 06:24] LABS: BLOOD UREA NITROGEN 38.2 mg/dL (7-18)
[2022-02-09 06:26] LABS: CREATININE 2.1 mg/dL (0.55-1.3)
[2022-02-09 06:28] LABS: BILIRUBIN,TOTAL 0.2 mg/dL (0.2-1); TOT PROT 7.5 g/dl (6.4-8.2)
[2022-02-09 06:29] LABS: BASO % 0.4 % (0-2.0); EOS % 0.2 % (0-4.5); HEMOGLOBIN 13.5 GM/dL (10.7-15.3); LYMPH % 10.2 % (8-40); MCH 27.6 pg (25.7-33.7); MCHC 32.9 g/dl (32.0-36.0); MEAN CELL VOLUME 83.9 fl (80-96); MEAN PLT VOLUME 7.3 fl (7.5-11.1); MONO % 2.3 % (3.8-10.2); NEUT % 86.9 % (42.8-82.8); PLATELET COUNT 238 10^3/uL (134-434); RBC 4.88 M/mm3 (3.60-5.2); RDW 15.4 % (11.6-15.6); WHITE BLOOD COUNT 5.3 K/mm3 (4.0-10.0)
[2022-02-09] MEDS ORDERED: LABETALOL HCL 5 MG/1 ML (100MG/20 ML VIAL) IVPUSH ONE (06:31)
[2022-02-09] MEDS ORDERED: morphine CARPU-JECT 2 MG/1 ML DISP.SYRIN IVPUSH ONE (07:16)
[2022-02-09] MEDS ORDERED: METOCLOPRAMIDE HCL INJECTION 10 MG/2 ML VIAL IVPUSH ONE (08:14)
[2022-02-09] MEDS ORDERED: METOCLOPRAMIDE HCL INJECTION 10 MG/2 ML VIAL ONE (08:16)
[2022-02-09] MEDS ORDERED: hydrALAZINE HCL 20 MG/ML VIAL IVPUSH ONE (12:25)
[2022-02-09] MEDS ORDERED: hydrALAZINE HCL 20 MG/ML VIAL ONE (12:28)
[2022-02-09] MEDS ORDERED: ONDANSETRON 4 MG/2 ML VIAL IVPUSH PRN (14:13)
[2022-02-09] MEDS ORDERED: hydrALAZINE HCL 20 MG/ML VIAL IVPUSH PRN (14:16)
[2022-02-09] MEDS ORDERED: METOPROLOL TARTRATE 5 MG/5 ML VIAL IVPUSH PRN (14:17)
[2022-02-09] MEDS ORDERED: NIFEdipine E.R 60 MG TABLET ONE (15:20)
[2022-02-09] MEDS ORDERED: PANTOPRAZOLE SODIUM 40 MG VIAL ONE (15:20)
[2022-02-09] MEDS: NIFEdipine E.R 60 MG TABLET PO SCH (15:27)
[2022-02-09] MEDS: PANTOPRAZOLE SODIUM 40 MG VIAL IVPUSH SCH (15:27)
[2022-02-09] MEDS ORDERED: methaDONE HCL 10 MG TABLET (FOR DETOX USE ONLY) PO ONE (17:16)
[2022-02-09] MEDS ORDERED: methaDONE HCL 40 MG DISPERSABLE TABLET ONE (17:25)
[2022-02-09] MEDS: APIXABAN 2.5 MG TABLET PO SCH (21:35)
[2022-02-10] MEDS ORDERED: methaDONE HCL 40 MG DISPERSABLE TABLET ONE (06:26)
[2022-02-10 08:45] LABS: BASO % 0.4 % (0-2.0); EOS % 0.1 % (0-4.5); HEMATOCRIT 44.8 % (32.4-45.2); HEMOGLOBIN 14.5 GM/dL (10.7-15.3); LYMPH % 18.1 % (8-40); MCH 27.4 pg (25.7-33.7); MCHC 32.4 g/dl (32.0-36.0); MEAN CELL VOLUME 84.6 fl (80-96); MONO % 7.2 % (3.8-10.2); NEUT % 74.2 % (42.8-82.8); PLATELET COUNT 204 10^3/uL (134-434); RBC 5.29 M/mm3 (3.60-5.2); RDW 15.4 % (11.6-15.6); WHITE BLOOD COUNT 4.2 K/mm3 (4.0-10.0)
[2022-02-10 08:57] LABS: CHLORIDE 105 mmol/L (98-107); SODIUM 145 mmol/L (136-145)
[2022-02-10 09:05] LABS: ALBUMIN 3.7 g/dl (3.4-5.0); ANION GAP 6 MMOL/L (8-16); BLOOD UREA NITROGEN 31.6 mg/dL (7-18); CALCIUM 10.4 mg/dL (8.5-10.1); CO2 34 mmol/L (21-32)
[2022-02-10 09:06] LABS: GLUCOSE,RANDOM 104 mg/dL (74-106)
[2022-02-10 09:09] LABS: CREATININE 1.8 mg/dL (0.55-1.3); SGOT/AST 32 U/L (15-37); SGPT/ALT 20 U/L (13-61)
[2022-02-10 09:10] LABS: BILIRUBIN,TOTAL 0.8 mg/dL (0.2-1); TOT PROT 6.9 g/dl (6.4-8.2)
[2022-02-10 09:11] LABS: ALK PHOS 140 U/L (45-117)
[2022-02-10] MEDS ORDERED: methaDONE HCL 40 MG DISPERSABLE TABLET PO SCH (10:00)
[2022-02-10] MEDS: PANTOPRAZOLE SODIUM 40 MG VIAL IVPUSH SCH (10:46)
[2022-02-10] MEDS: NIFEdipine E.R 60 MG TABLET PO SCH (10:46)
[2022-02-10] MEDS: APIXABAN 2.5 MG TABLET PO SCH ×2 (10:46→21:08)
[2022-02-10] MEDS ORDERED: SODIUM CHLORIDE 0.45% 1,000 ML IV SCH (14:00)
[2022-02-10] MEDS: hydrALAZINE HCL 25 MG TABLET (FP) PO SCH ×2 (14:53→21:08)
[2022-02-11] MEDS ORDERED: methaDONE HCL 40 MG DISPERSABLE TABLET ONE (06:09)
[2022-02-11] MEDS: hydrALAZINE HCL 25 MG TABLET (FP) PO SCH ×4 (06:11→21:00)
[2022-02-11 07:23] LABS: BASO % 0.6 % (0-2.0); EOS % 0.9 % (0-4.5); HEMATOCRIT 40.5 % (32.4-45.2); HEMOGLOBIN 13.3 GM/dL (10.7-15.3); LYMPH % 31.9 % (8-40); MCH 27.6 pg (25.7-33.7); MCHC 32.9 g/dl (32.0-36.0); MEAN CELL VOLUME 83.9 fl (80-96); MEAN PLT VOLUME 7.8 fl (7.5-11.1); MONO % 10.4 % (3.8-10.2); NEUT % 56.2 % (42.8-82.8); PLATELET COUNT 187 10^3/uL (134-434); RBC 4.82 M/mm3 (3.60-5.2); RDW 15.1 % (11.6-15.6); WHITE BLOOD COUNT 4.5 K/mm3 (4.0-10.0)
[2022-02-11 07:49] LABS: CALCIUM 9.8 mg/dL (8.5-10.1)
[2022-02-11 07:50] LABS: ALBUMIN 3.2 g/dl (3.4-5.0); BLOOD UREA NITROGEN 39.6 mg/dL (7-18)
[2022-02-11 07:53] LABS: BILIRUBIN,TOTAL 0.6 mg/dL (0.2-1); CREATININE 2.2 mg/dL (0.55-1.3); PHOSPHOROUS 3.1 mg/dL (2.5-4.9); TOT PROT 5.9 g/dl (6.4-8.2)
[2022-02-11] MEDS: NIFEdipine E.R 60 MG TABLET PO SCH ×2 (11:21→21:02)
[2022-02-11] MEDS: APIXABAN 2.5 MG TABLET PO SCH ×3 (11:21→21:00)
[2022-02-11] MEDS: PANTOPRAZOLE SODIUM 40 MG VIAL IVPUSH SCH (11:21)
[2022-02-11] MEDS ORDERED: ZOLPIDEM TARTRATE 5 MG TABLET PO ONE (20:00)
[2022-02-11] MEDS ORDERED: NIFEdipine E.R 60 MG TABLET ONE (20:59)
[2022-02-12] MEDS ORDERED: methaDONE HCL 40 MG DISPERSABLE TABLET ONE (05:26)
[2022-02-12] MEDS: hydrALAZINE HCL 25 MG TABLET (FP) PO SCH ×4 (05:39→21:13)
[2022-02-12] MEDS: PANTOPRAZOLE SODIUM 40 MG VIAL IVPUSH SCH (09:33)
[2022-02-12] MEDS: APIXABAN 2.5 MG TABLET PO SCH ×3 (09:34→21:13)
[2022-02-12] MEDS: ASPIRIN 81 MG CHEWABLE TABLETS PO SCH (09:34)
[2022-02-12] MEDS: NIFEdipine E.R 60 MG TABLET PO SCH ×3 (09:34→21:13)
[2022-02-12 10:59] VITALS: BMI 21.5
[2022-02-13] MEDS: hydrALAZINE HCL 25 MG TABLET (FP) PO SCH ×2 (05:36→13:39)
[2022-02-13] MEDS ORDERED: methaDONE HCL 40 MG DISPERSABLE TABLET ONE (08:29)
[2022-02-13] MEDS: NIFEdipine E.R 60 MG TABLET PO SCH (09:01)
[2022-02-13 09:10] LABS: HEMATOCRIT 38.8 % (32.4-45.2); HEMOGLOBIN 12.6 GM/dL (10.7-15.3); MCH 27.6 pg (25.7-33.7); MCHC 32.5 g/dl (32.0-36.0); MEAN CELL VOLUME 84.9 fl (80-96); MEAN PLT VOLUME 8.2 fl (7.5-11.1); PLATELET COUNT 127 10^3/uL (134-434); RBC 4.57 M/mm3 (3.60-5.2); WHITE BLOOD COUNT 3.6 K/mm3 (4.0-10.0)
[2022-02-13 09:33] LABS: BLOOD UREA NITROGEN 37.4 mg/dL (7-18); CALCIUM 9.6 mg/dL (8.5-10.1); MAGNESIUM 2.1 mg/dL (1.8-2.4)
[2022-02-13 09:35] LABS: CREATININE 1.8 mg/dL (0.55-1.3)
[2022-02-13] MEDS ORDERED: REGADENOSON 0.4 MG/5 ML PRE-FILLED SYRINGE IVPUSH ONE ×2 (10:15→10:30)
[2022-02-13] MEDS: ASPIRIN 81 MG CHEWABLE TABLETS PO SCH (12:59)
[2022-02-13] MEDS: PANTOPRAZOLE SODIUM 40 MG VIAL IVPUSH SCH (12:59)
[2022-02-13] MEDS: APIXABAN 2.5 MG TABLET PO SCH (12:59)
[2022-02-13 14:14] VITALS: BP 137/56; PULSE 80; TEMP 98.2
== END 2022-02-13 18:51 | disposition home health service (06) | DRG 199 ==
LOC: JER 04:47 → JERBED 11:23 → J4W 21:10
PROVIDERS: ADMIT Family Medicine; ATTEND Family Medicine
DX: I16.1 Hypertensive emergency (principal); I21.4 Non-ST elevation (NSTEMI) myocardial infarction; I13.0 Hypertensive heart and chronic kidney disease with heart failure and stage 1 through stage 4 chronic kidney disease, or unspecified chronic kidney disease; N17.9 Acute kidney failure, unspecified; E78.5 Hyperlipidemia, unspecified; E05.90 Thyrotoxicosis, unspecified without thyrotoxic crisis or storm; R11.2 Nausea with vomiting, unspecified; F41.8 Other specified anxiety disorders; K57.90 Diverticulosis of intestine, part unspecified, without perforation or abscess without bleeding; F20.0 Paranoid schizophrenia; N18.9 Chronic kidney disease, unspecified; I50.22 Chronic systolic (congestive) heart failure; K44.9 Diaphragmatic hernia without obstruction or gangrene; I25.2 Old myocardial infarction; D35.00 Benign neoplasm of unspecified adrenal gland; D64.9 Anemia, unspecified; R94.31 Abnormal electrocardiogram [ECG] [EKG]; R74.8 Abnormal levels of other serum enzymes; Z86.711 Personal history of pulmonary embolism; Z86.718 Personal history of other venous thrombosis and embolism
CPT/HCPCS: 36415; 71045-TC-FY; 74176-TC; 78452-TC; 80048; 80053; 82570; 83690; 83735; 84100; 84156; 84300; 84484; 84540; 84550; 85025; 85027; 93005; 93010; 93017; 93306-TC; 99285-25; A9502; C9803-CS; J2785; U0003; U0005

== ENCOUNTER 2022-04-12 12:42 | Observation (INO) | payer OTHER ==
[2022-04-12 12:50] VITALS: BMI 23.8
[2022-04-12] MEDS ORDERED: ONDANSETRON 4 MG/2 ML VIAL IVPUSH ONE ×2 (13:14→16:48)
[2022-04-12] MEDS ORDERED: FAMOTIDINE 20 MG/50 ML IVPB 20 MG/50 ML MG IVPB ONE ×2 (13:14→13:24)
[2022-04-12] MEDS ORDERED: ACETAMINOPHEN INJECTION 100 ML IVPB ONE (13:25)
[2022-04-12] MEDS ORDERED: ACETAMINOPHEN 1000 MG/100 ML BAG IVPB ONE (13:25)
[2022-04-12 14:20] LABS: HEMATOCRIT 40.6 % (32.4-45.2); HEMOGLOBIN 12.8 GM/dL (10.7-15.3); MCH 27.2 pg (25.7-33.7); MCHC 31.6 g/dl (32.0-36.0); MEAN CELL VOLUME 85.9 fl (80-96); MEAN PLT VOLUME 7.9 fl (7.5-11.1); PLATELET COUNT 334 10^3/uL (134-434); RBC 4.73 M/mm3 (3.60-5.2); RDW 14.9 % (11.6-15.6); WHITE BLOOD COUNT 8.1 K/mm3 (4.0-10.0)
[2022-04-12] MEDS ORDERED: METOCLOPRAMIDE HCL INJECTION 10 MG/2 ML VIAL IVPB ONE (14:25)
[2022-04-12 14:26] LABS: INR 0.94 (0.83-1.09); PROTHROMBIN TIME (PATIENT) 10.8 SEC (9.7-13.0)
[2022-04-12 14:29] LABS: ACTIVATED PTT 29.7 SECONDS (25.2-36.5)
[2022-04-12] MEDS ORDERED: METOCLOPRAMIDE HCL INJECTION 10 MG/2 ML VIAL ONE (14:33)
[2022-04-12 14:40] LABS: BLOOD UREA NITROGEN 23.5 mg/dL (7-18); CALCIUM 10.6 mg/dL (8.5-10.1)
[2022-04-12 14:41] LABS: ALBUMIN 3.7 g/dl (3.4-5.0)
[2022-04-12 14:44] LABS: CREATININE 1.8 mg/dL (0.55-1.3)
[2022-04-12 14:45] LABS: BILIRUBIN,TOTAL 0.3 mg/dL (0.2-1)
[2022-04-12 14:52] LABS: EPI CELLS 2 /uL (0-25.1); HYALINE CASTS 0 /uL (0-3.1); PH,URINE 8.5 (5.0-8.0); URINE APPEARANCE CLEAR; URINE BACTERIA 59 /uL (0-1359); URINE BILIRUBIN NEGATIVE (NEGATIVE); URINE COLOR YELLOW; URINE GLUCOSE (UA) TRACE (NEGATIVE); URINE KETONE NEGATIVE (NEGATIVE); URINE LEUK ESTERASE NEGATIVE (NEGATIVE); URINE NITRITE NEGATIVE (NEGATIVE); URINE PROTEIN 2+ (NEGATIVE); URINE RBC 8 /uL (0-23.9); URINE UROBILINOGEN 0.2 mg/dL (0.2-1.0); URINE WBC 2 /uL (0-25.8)
[2022-04-12 15:04] LABS: ANISOCYTOSIS 0; MACROCYTOSIS 0; PLATELET ESTIMATE NORMAL
[2022-04-12] MEDS ORDERED: MAG HYDROX/AL HYDROX/SIMETH -MYLANTA- ORAL SUSPENSION PO ONE (15:28)
[2022-04-12] MEDS ORDERED: MAG HYDROX/AL HYDROX/SIMETH 30 ML UNIT-DOSE CUP ONE (16:26)
[2022-04-12] MEDS ORDERED: SUCRALFATE 1 GM TABLET (FP) PO ONE (16:48)
[2022-04-12] MEDS ORDERED: SUCRALFATE 1 GM TABLET (FP) ONE (16:53)
[2022-04-12] MEDS ORDERED: ONDANSETRON 4 MG/2 ML VIAL ONE (16:53)
[2022-04-12] MEDS ORDERED: ONDANSETRON 4 MG/2 ML VIAL IVPUSH PRN (18:01)
[2022-04-12] MEDS ORDERED: ASPIRIN 81 MG CHEWABLE TABLETS PO ONE (18:24)
[2022-04-12 18:37] LABS: LACTIC ACID 2.3 mmol/L (0.4-2.0)
[2022-04-12] MEDS ORDERED: ASPIRIN 81 MG CHEWABLE TABLETS ONE (18:51)
[2022-04-12] MEDS ORDERED: MIRTAZAPINE 15 MG TABLET (FP) PO SCH (22:00)
[2022-04-12] MEDS: hydrALAZINE HCL 25 MG TABLET (FP) PO SCH (22:47)
[2022-04-12] MEDS: APIXABAN 2.5 MG TABLET PO SCH (22:48)
[2022-04-13] MEDS ORDERED: methaDONE HCL 40 MG DISPERSABLE TABLET PO SCH (06:00)
[2022-04-13] MEDS: hydrALAZINE HCL 25 MG TABLET (FP) PO SCH ×2 (06:05→13:25)
[2022-04-13 07:46] LABS: BASO % 0.7 % (0-2.0); EOS % 0.1 % (0-4.5); HEMATOCRIT 38.3 % (32.4-45.2); HEMOGLOBIN 12.1 GM/dL (10.7-15.3); LYMPH % 15.3 % (8-40); MCH 27.2 pg (25.7-33.7); MCHC 31.7 g/dl (32.0-36.0); MEAN CELL VOLUME 85.9 fl (80-96); MEAN PLT VOLUME 7.4 fl (7.5-11.1); MONO % 8.8 % (3.8-10.2); NEUT % 75.1 % (42.8-82.8); PLATELET COUNT 247 10^3/uL (134-434); RBC 4.45 M/mm3 (3.60-5.2); RDW 15.2 % (11.6-15.6)
[2022-04-13 08:10] LABS: CALCIUM 10.1 mg/dL (8.5-10.1)
[2022-04-13 08:11] LABS: ALBUMIN 3.1 g/dl (3.4-5.0); BLOOD UREA NITROGEN 22.7 mg/dL (7-18)
[2022-04-13 08:14] LABS: CREATININE 1.8 mg/dL (0.55-1.3)
[2022-04-13 08:15] LABS: BILIRUBIN,TOTAL 0.4 mg/dL (0.2-1)
[2022-04-13 09:42] VITALS: RESP 16
[2022-04-13] MEDS ORDERED: ASPIRIN 81 MG CHEWABLE TABLETS PO SCH (10:00)
[2022-04-13] MEDS ORDERED: NIFEdipine E.R 60 MG TABLET PO SCH (10:00)
[2022-04-13] MEDS ORDERED: PANTOPRAZOLE 20 MG TABLET PO SCH (10:00)
[2022-04-13] MEDS: APIXABAN 2.5 MG TABLET PO SCH (10:19)
[2022-04-13 14:42] LABS: URINE UREA NITROGEN 638 mg/dL (350-1000)
[2022-04-13 14:45] VITALS: BP 132/69; PULSE 54; TEMP 97.9
== END 2022-04-13 18:53 | disposition home or self-care (01) ==
LOC: JER 12:42 → JERBED 16:48 → J4W 21:31
PROVIDERS: ADMIT Family Medicine; ATTEND Family Medicine
PROC: 3E033GC Introduction of Other Therapeutic Substance into Peripheral Vein, Percutaneous Approach (ICD-10-PCS; principal; 2022-04-12)
PROC: 3E033GC Introduction of Other Therapeutic Substance into Peripheral Vein, Percutaneous Approach (ICD-10-PCS; 2022-04-12)
PROC: 3E013GC Introduction of Other Therapeutic Substance into Subcutaneous Tissue, Percutaneous Approach (ICD-10-PCS; 2022-04-12)
DX: R11.2 Nausea with vomiting, unspecified (principal); F11.20 Opioid dependence, uncomplicated; I16.0 Hypertensive urgency; I13.0 Hypertensive heart and chronic kidney disease with heart failure and stage 1 through stage 4 chronic kidney disease, or unspecified chronic kidney disease; N18.30 Chronic kidney disease, stage 3 unspecified; I50.20 Unspecified systolic (congestive) heart failure; I42.8 Other cardiomyopathies; R74.02 Elevation of levels of lactic acid dehydrogenase [LDH]; E78.5 Hyperlipidemia, unspecified; Z86.718 Personal history of other venous thrombosis and embolism; Z86.711 Personal history of pulmonary embolism; Z79.01 Long term (current) use of anticoagulants
CPT/HCPCS: 36415; 71045-TC-FY; 74176-TC; 76705-TC; 80053; 81003; 82550; 82553; 82570; 83605; 83690; 83735; 84156; 84300; 84484; 84540; 85025; 85610; 85730; 87086; 93005; 93010; 96365; 96375; 96376; 99285-25; C9803-CS; G0378; U0003; U0005

== ENCOUNTER 2022-05-23 04:45 | Day surgery (SDC) | payer OTHER ==
[2022-05-22 16:56] VITALS: BMI 24.9
[2022-05-23 09:20] VITALS: TEMP 98
[2022-05-23 09:34] VITALS: RESP 16
[2022-05-23 10:16] VITALS: BP 170/69; PULSE 65
[2022-05-23 11:14] LABS: BASO % 0.7 % (0-2.0); EOS % 0.6 % (0-4.5); HEMATOCRIT 39.5 % (32.4-45.2); HEMOGLOBIN 12.4 GM/dL (10.7-15.3); LYMPH % 22.6 % (8-40); MCH 26.5 pg (25.7-33.7); MCHC 31.3 g/dl (32.0-36.0); MEAN CELL VOLUME 84.6 fl (80-96); MEAN PLT VOLUME 7.6 fl (7.5-11.1); NEUT % 72.1 % (42.8-82.8); PLATELET COUNT 289 10^3/uL (134-434); RBC 4.67 M/mm3 (3.60-5.2); RDW 14.9 % (11.6-15.6); WHITE BLOOD COUNT 3.5 K/mm3 (4.0-10.0)
[2022-05-23 11:22] LABS: INR 0.94 (0.83-1.09); PROTHROMBIN TIME (PATIENT) 10.8 SEC (9.7-13.0)
[2022-05-23 11:40] LABS: CHLORIDE 109 mmol/L (98-107); SODIUM 146 mmol/L (136-145)
[2022-05-23 11:43] LABS: CALCIUM 10.5 mg/dL (8.5-10.1)
[2022-05-23 11:44] LABS: ALBUMIN 3.6 g/dl (3.4-5.0); ANION GAP 4 MMOL/L (8-16); BLOOD UREA NITROGEN 25.1 mg/dL (7-18); CO2 33 mmol/L (21-32); GLUCOSE,RANDOM 89 mg/dL (74-106)
[2022-05-23 11:47] LABS: CREATININE 1.6 mg/dL (0.55-1.3); SGOT/AST 24 U/L (15-37); SGPT/ALT 23 U/L (13-61)
[2022-05-23 11:48] LABS: BILIRUBIN,TOTAL 0.4 mg/dL (0.2-1); TOT PROT 6.9 g/dl (6.4-8.2)
[2022-05-23 11:50] LABS: ALK PHOS 153 U/L (45-117)
== END 2022-05-23 10:40 | disposition home or self-care (01) ==
LOC: JASU-ENDO 04:45
PROVIDERS: ATTEND Internal Medicine Gastroenterology
PROC: 0DB98ZX Excision of Duodenum, Via Natural or Artificial Opening Endoscopic, Diagnostic (ICD-10-PCS; 2022-05-23)
PROC: 0DB78ZX Excision of Stomach, Pylorus, Via Natural or Artificial Opening Endoscopic, Diagnostic (ICD-10-PCS; 2022-05-23)
PROC: 0DBK8ZX Excision of Ascending Colon, Via Natural or Artificial Opening Endoscopic, Diagnostic (ICD-10-PCS; principal; 2022-05-23 08:00)
DX: Z12.11 Encounter for screening for malignant neoplasm of colon (principal); K57.30 Diverticulosis of large intestine without perforation or abscess without bleeding; K31.7 Polyp of stomach and duodenum; K29.50 Unspecified chronic gastritis without bleeding; D12.2 Benign neoplasm of ascending colon; Z86.010 Personal history of colon polyps
CPT/HCPCS: 36415; 80053; 85025; 85610; 86140; 86316; 88305-TC; 88342-TC

== ENCOUNTER 2023-03-11 06:10 | Emergency (ER) | payer OTHER ==
[2023-03-11 06:14] VITALS: BMI 24.5
[2023-03-11] MEDS ORDERED: ONDANSETRON 4 MG/2 ML VIAL IVPUSH ONE ×2 (07:26→09:07)
[2023-03-11] MEDS ORDERED: LACTATED RINGERS SOLUTION 1000 ML INFUS.BAG IV ONE (07:26)
[2023-03-11] MEDS ORDERED: ONDANSETRON 4 MG/2 ML VIAL ONE ×2 (07:31→09:32)
[2023-03-11 07:59] LABS: HEMATOCRIT 47.7 % (32.4-45.2); HEMOGLOBIN 15.3 GM/dL (10.7-15.3); MCH 26.6 pg (25.7-33.7); MCHC 32.1 g/dl (32.0-36.0); MEAN CELL VOLUME 82.9 fl (80-96); MEAN PLT VOLUME 7.4 fl (7.5-11.1); PLATELET COUNT 312 10^3/uL (134-434); RBC 5.75 M/mm3 (3.60-5.2); RDW 16.2 % (11.6-15.6); WHITE BLOOD COUNT 6.8 K/mm3 (4.0-10.0)
[2023-03-11 08:12] LABS: POTASSIUM 3.5 mmol/L (3.5-5.1)
[2023-03-11 08:14] LABS: ALBUMIN 4.2 g/dl (3.4-5.0); BLOOD UREA NITROGEN 22.3 mg/dL (7-18); CALCIUM 11.2 mg/dL (8.5-10.1)
[2023-03-11 08:18] LABS: CREATININE 1.7 mg/dL (0.55-1.3)
[2023-03-11 08:19] LABS: BILIRUBIN,TOTAL 0.3 mg/dL (0.2-1); TOT PROT 8.1 g/dl (6.4-8.2)
[2023-03-11] MEDS ORDERED: ASPIRIN 81 MG CHEWABLE TABLETS PO ONE (08:36)
[2023-03-11] MEDS ORDERED: HEPARIN NA (PORCINE) 5,000 UNITS/ML 1ML VIAL IVPUSH ONE (08:47)
[2023-03-11] MEDS ORDERED: ASPIRIN 81 MG CHEWABLE TABLETS ONE (08:48)
[2023-03-11] MEDS ORDERED: TICAGRELOR 90 MG TABLET PO SCH ×2 (08:59→10:00)
[2023-03-11] MEDS ORDERED: METOPROLOL TARTRATE 25 MG TABLET (FP) PO ONE (08:59)
[2023-03-11] MEDS ORDERED: HEPARIN SOD,PORK IN 0.45% NACL 25,000 UNIT/500 ML INFUS.BAG IVPB SCH (09:00)
[2023-03-11] MEDS ORDERED: METOPROLOL TARTRATE 25 MG TABLET (FP) ONE (09:01)
[2023-03-11] MEDS ORDERED: METOPROLOL TARTRATE 5 MG/5 ML VIAL ONE ×2 (09:09→09:49)
[2023-03-11] MEDS ORDERED: HEPARIN INFUSION - 25,000 UNITS/500 ML INFUS.BAG IVPB ONE (09:12)
[2023-03-11] MEDS ORDERED: HEPARIN NA (PORCINE) 5,000 UNITS/ML 1ML VIAL ONE (09:12)
[2023-03-11 09:35] LABS: ANISOCYTOSIS 0; HELMET CELLS 0; HOWELL-JOLLY BODIES 0; MACROCYTOSIS 0; OVALOCYTE 0; ROULEAU 0; SICKELED CELLS 0; TARGET CELLS 0; TEAR DROP CELLS 0; TOXIC GRANULATION 0
[2023-03-11 09:41] LABS: INR 1.03 (0.83-1.09)
[2023-03-11 09:44] LABS: ACTIVATED PTT 30.1 SECONDS (25.2-36.5)
[2023-03-11] MEDS ORDERED: METOPROLOL TARTRATE 5 MG/5 ML VIAL IVPUSH ONE (09:48)
[2023-03-11 10:33] VITALS: BP 180/113; PULSE 102; RESP 20; TEMP 98.2
== END 2023-03-11 10:00 | disposition short-term general hospital (02) ==
LOC: JER 06:10
PROC: 3E033GC Introduction of Other Therapeutic Substance into Peripheral Vein, Percutaneous Approach (ICD-10-PCS; principal; 2023-03-11)
PROC: 3E033GC Introduction of Other Therapeutic Substance into Peripheral Vein, Percutaneous Approach (ICD-10-PCS; 2023-03-11)
PROC: 3E033GC Introduction of Other Therapeutic Substance into Peripheral Vein, Percutaneous Approach (ICD-10-PCS; 2023-03-11)
PROC: 3E033GC Introduction of Other Therapeutic Substance into Peripheral Vein, Percutaneous Approach (ICD-10-PCS; 2023-03-11)
DX: R07.9 Chest pain, unspecified (principal); R11.2 Nausea with vomiting, unspecified; R63.8 Other symptoms and signs concerning food and fluid intake; I11.0 Hypertensive heart disease with heart failure; I50.9 Heart failure, unspecified; Z20.822 Contact with and (suspected) exposure to COVID-19
CPT/HCPCS: 0241U-QW; 36415; 71045-TC-FY; 80053; 83690; 84484; 85025; 85610; 85730; 93005; 93010; 99291; J1644

== ENCOUNTER 2023-08-13 05:01 | Inpatient (IN) | payer OTHER ==
[2023-08-13] MEDS ORDERED: ONDANSETRON 4 MG/2 ML VIAL IVPUSH ONE (05:29)
[2023-08-13] MEDS ORDERED: SODIUM CHLORIDE 0.9% 500 ML INFUS.BAG IV ONE (05:29)
[2023-08-13] MEDS ORDERED: PANTOPRAZOLE SODIUM 40 MG VIAL IVPUSH ONE ×2 (05:29→07:22)
[2023-08-13] MEDS ORDERED: PANTOPRAZOLE SODIUM 40 MG/100 ML BAG IVPB ONE (06:15)
[2023-08-13] MEDS ORDERED: ONDANSETRON 4 MG/2 ML VIAL ONE (06:15)
[2023-08-13 06:43] LABS: HEMATOCRIT 34.7 % (32.4-45.2); MCH 27.1 pg (25.7-33.7); MCHC 31.8 g/dl (32.0-36.0); MEAN CELL VOLUME 85.1 fl (80-96); MEAN PLT VOLUME 7.9 fl (7.5-11.1); PLATELET COUNT 217 10^3/uL (134-434); RBC 4.08 M/mm3 (3.60-5.2); RDW 15.8 % (11.6-15.6); WHITE BLOOD COUNT 7.2 K/mm3 (4.0-10.0)
[2023-08-13 06:55] LABS: INR 1.39 (0.83-1.09); PROTHROMBIN TIME (PATIENT) 16.1 SEC (9.7-13.0)
[2023-08-13 06:58] LABS: ACTIVATED PTT 30.3 SECONDS (25.2-36.5)
[2023-08-13 07:02] LABS: POTASSIUM 4.9 mmol/L (3.5-5.1)
[2023-08-13 07:04] LABS: ALBUMIN 2.1 g/dl (3.4-5.0); BLOOD UREA NITROGEN 60.2 mg/dL (7-18); CALCIUM 10.6 mg/dL (8.5-10.1); MAGNESIUM 2.2 mg/dL (1.8-2.4)
[2023-08-13 07:07] LABS: CREATININE 2.6 mg/dL (0.55-1.3); PHOSPHOROUS 3.8 mg/dL (2.5-4.9)
[2023-08-13 07:09] LABS: BILIRUBIN,TOTAL 0.6 mg/dL (0.2-1); TOT PROT 6.2 g/dl (6.4-8.2)
[2023-08-13 07:13] LABS: N-TERMINAL BNP 2979.7 pg/ml (5-125)
[2023-08-13] MEDS ORDERED: LACTATED RINGERS SOLUTION 1000 ML INFUS.BAG IV ONE (07:23)
[2023-08-13] MEDS ORDERED: PANTOPRAZOLE SODIUM 80 MG in SODIUM CHLORIDE 100 ML IVPB SCH (07:30)
[2023-08-13] MEDS ORDERED: ACETAMINOPHEN 1000 MG/100 ML BAG IVPB ONE ×2 (08:46→22:09)
[2023-08-13 09:05] LABS: ANISOCYTOSIS 0; MACROCYTOSIS 0
[2023-08-13] MEDS ORDERED: ACETAMINOPHEN INJECTION 100 ML IVPB ONE ×2 (11:03→22:18)
[2023-08-13] MEDS ORDERED: ACETAMINOPHEN 325 MG TABLET (FP) PO PRN (11:57)
[2023-08-13 12:38] LABS: HEMATOCRIT 31.1 % (32.4-45.2); MCH 27.1 pg (25.7-33.7); MCHC 32.1 g/dl (32.0-36.0); MEAN CELL VOLUME 84.2 fl (80-96); MEAN PLT VOLUME 7.9 fl (7.5-11.1); PLATELET COUNT 194 10^3/uL (134-434); RBC 3.69 M/mm3 (3.60-5.2); RDW 15.6 % (11.6-15.6); WHITE BLOOD COUNT 5.6 K/mm3 (4.0-10.0)
[2023-08-13 13:15] LABS: ANISOCYTOSIS 0; MACROCYTOSIS 0
[2023-08-13] MEDS ORDERED: AZITHROMYCIN IVPB 500 MG/250 ML BAG IVPB ONE (13:47)
[2023-08-13] MEDS: AZITHROMYCIN IVPB 500 MG in DEXTROSE 5%-WATER - 250 ML IVPB ONE ×2 (13:49→18:52)
[2023-08-13] MEDS ORDERED: PIPERACILLIN/TAZOB 3.375 GM 3.375 GM/50 ML BAG IVPB ONE (21:22)
[2023-08-13] MEDS ORDERED: MIRTAZAPINE 15 MG TABLET (FP) ONE (22:18)
[2023-08-13] MEDS ORDERED: APIXABAN 2.5 MG TABLET ONE (22:18)
[2023-08-13] MEDS: MIRTAZAPINE 15 MG TABLET (FP) PO SCH (22:43)
[2023-08-13] MEDS: PIPERACILLIN/TAZOB 3.375 GM 3.375 GM in DEXTROSE 5%-WATER - 50 ML IVPB SCH ×2 (22:43)
[2023-08-13] MEDS: APIXABAN 2.5 MG TABLET PO SCH (22:44)
[2023-08-14 01:17] LABS: HEMATOCRIT 31.4 % (32.4-45.2); HEMOGLOBIN 9.9 GM/dL (10.7-15.3); MCH 26.6 pg (25.7-33.7); MCHC 31.7 g/dl (32.0-36.0); MEAN PLT VOLUME 7.9 fl (7.5-11.1); PLATELET COUNT 224 10^3/uL (134-434); RBC 3.74 M/mm3 (3.60-5.2); RDW 15.7 % (11.6-15.6); WHITE BLOOD COUNT 6.4 K/mm3 (4.0-10.0)
[2023-08-14] MEDS: PIPERACILLIN/TAZOB 3.375 GM 3.375 GM in DEXTROSE 5%-WATER - 50 ML IVPB SCH ×3 (02:36→19:00)
[2023-08-14 02:40] LABS: ANISOCYTOSIS 3+; MACROCYTOSIS 0; OVALOCYTE 1+
[2023-08-14 03:07] LABS: ARTERIAL BLD GAS O2 SATURATION 85.1 % (95-98); ARTERIAL BLOOD GAS BASE EXCESS -0.7 mmol/L (-2-2); ARTERIAL BLOOD GAS pH 7.373 (7.350-7.450)
[2023-08-14 03:22] LABS: ALLENS TEST POSITIVE
[2023-08-14 08:07] LABS: HEMATOCRIT 33.2 % (32.4-45.2); HEMOGLOBIN 10.7 GM/dL (10.7-15.3); MCH 27.3 pg (25.7-33.7); MCHC 32.2 g/dl (32.0-36.0); MEAN CELL VOLUME 84.7 fl (80-96); MEAN PLT VOLUME 8.1 fl (7.5-11.1); PLATELET COUNT 258 10^3/uL (134-434); RBC 3.92 M/mm3 (3.60-5.2); RDW 15.6 % (11.6-15.6); WHITE BLOOD COUNT 6.4 K/mm3 (4.0-10.0)
[2023-08-14 08:37] LABS: POTASSIUM 4.1 mmol/L (3.5-5.1)
[2023-08-14 08:44] LABS: ALBUMIN 1.8 g/dl (3.4-5.0); BLOOD UREA NITROGEN 56.3 mg/dL (7-18); CALCIUM 10.2 mg/dL (8.5-10.1)
[2023-08-14 08:46] LABS: MAGNESIUM 2.3 mg/dL (1.8-2.4)
[2023-08-14 08:47] LABS: CREATININE 2.4 mg/dL (0.55-1.3)
[2023-08-14 08:49] LABS: BILIRUBIN,TOTAL 0.5 mg/dL (0.2-1); TOT PROT 5.3 g/dl (6.4-8.2)
[2023-08-14] MEDS ORDERED: ACETAMINOPHEN 325 MG TABLET (FP) PO PRN ×2 (09:07→14:45)
[2023-08-14 09:29] LABS: ANISOCYTOSIS 2+; MACROCYTOSIS 0
[2023-08-14] MEDS ORDERED: ACETAMINOPHEN 1000 MG/100 ML BAG IVPB ONE (09:30)
[2023-08-14] MEDS ORDERED: ACETAMINOPHEN INJECTION 100 ML IVPB ONE (09:31)
[2023-08-14] MEDS ORDERED: PIPERACILLIN/TAZOB 3.375 GM 3.375 GM/50 ML BAG IVPB ONE ×2 (09:31→18:55)
[2023-08-14] MEDS: NIFEdipine E.R 60 MG TABLET PO SCH (09:37)
[2023-08-14] MEDS: PANTOPRAZOLE 40 MG TABLET PO SCH (09:40)
[2023-08-14] MEDS: APIXABAN 2.5 MG TABLET PO SCH ×2 (09:40→22:34)
[2023-08-14] MEDS ORDERED: AZITHROMYCIN IVPB 500 MG/250 ML BAG IVPB ONE (11:01)
[2023-08-14] MEDS: AZITHROMYCIN IVPB 500 MG/250 ML BAG IVPB SCH (11:23)
[2023-08-14] MEDS ORDERED: CEFTRIAXONE 1 GM in DEXTROSE 5%-WATER - 50 ML IVPB ONE (11:49)
[2023-08-14] MEDS ORDERED: methaDONE HCL 10 MG TABLET PO SCH ×2 (12:30→14:43)
[2023-08-14] MEDS ORDERED: methaDONE HCL 10 MG TABLET PO ONE (14:44)
[2023-08-14] MEDS ORDERED: methylPREDNISolone NA SUCC 40 MG/1 ML VIAL ONE (15:33)
[2023-08-14] MEDS: methylPREDNISolone NA SUCC 40 MG/1 ML VIAL IVPUSH SCH (15:40)
[2023-08-14] MEDS ORDERED: SODIUM CHLORIDE 0.45% 1,000 ML IV SCH (16:00)
[2023-08-14 17:18] LABS: EPI CELLS 5 /uL (0-25.1); HYALINE CASTS 0 /uL (0-3.1); PH,URINE 6.5 (5.0-8.0); URINE APPEARANCE CLEAR; URINE BACTERIA 1170 /uL (0-1359); URINE BILIRUBIN NEGATIVE (NEGATIVE); URINE COLOR YELLOW; URINE GLUCOSE (UA) NEGATIVE (NEGATIVE); URINE KETONE NEGATIVE (NEGATIVE); URINE LEUK ESTERASE NEGATIVE (NEGATIVE); URINE NITRITE NEGATIVE (NEGATIVE); URINE PROTEIN 1+ (NEGATIVE); URINE RBC 53 /uL (0-23.9); URINE WBC 9 /uL (0-25.8)
[2023-08-14] MEDS ORDERED: APIXABAN 2.5 MG TABLET ONE (22:28)
[2023-08-14] MEDS ORDERED: ACETAMINOPHEN 325 MG TABLET (FP) ONE (22:28)
[2023-08-14] MEDS ORDERED: MIRTAZAPINE 15 MG TABLET (FP) ONE (22:30)
[2023-08-14] MEDS: MIRTAZAPINE 15 MG TABLET (FP) PO SCH (22:35)
[2023-08-14] MEDS ORDERED: MELATONIN 5 MG TABLETS PO PRN (22:50)
[2023-08-15] MEDS ORDERED: PIPERACILLIN/TAZOB 3.375 GM 3.375 GM/50 ML BAG IVPB ONE ×2 (01:00→09:44)
[2023-08-15] MEDS: PIPERACILLIN/TAZOB 3.375 GM 3.375 GM in DEXTROSE 5%-WATER - 50 ML IVPB SCH ×3 (01:21→18:26)
[2023-08-15] MEDS ORDERED: methaDONE HCL 10 MG TABLET ONE (06:04)
[2023-08-15 07:18] LABS: HEMATOCRIT 32.4 % (32.4-45.2); HEMOGLOBIN 10.4 GM/dL (10.7-15.3); MCH 27.1 pg (25.7-33.7); MCHC 32.2 g/dl (32.0-36.0); MEAN CELL VOLUME 84.3 fl (80-96); MEAN PLT VOLUME 7.9 fl (7.5-11.1); PLATELET COUNT 286 10^3/uL (134-434); RBC 3.85 M/mm3 (3.60-5.2); RDW 15.8 % (11.6-15.6); WHITE BLOOD COUNT 10.6 K/mm3 (4.0-10.0)
[2023-08-15 07:28] LABS: POTASSIUM 4.7 mmol/L (3.5-5.1)
[2023-08-15 07:31] LABS: CALCIUM 10.4 mg/dL (8.5-10.1)
[2023-08-15 07:32] LABS: ALBUMIN 1.7 g/dl (3.4-5.0)
[2023-08-15 07:35] LABS: CREATININE 2.5 mg/dL (0.55-1.3)
[2023-08-15 07:36] LABS: BILIRUBIN,TOTAL 0.5 mg/dL (0.2-1)
[2023-08-15 07:37] LABS: TOT PROT 5.3 g/dl (6.4-8.2)
[2023-08-15 09:16] LABS: ANISOCYTOSIS 0; MACROCYTOSIS 0
[2023-08-15] MEDS ORDERED: methylPREDNISolone NA SUCC 40 MG/1 ML VIAL ONE (09:44)
[2023-08-15] MEDS ORDERED: AZITHROMYCIN IVPB 500 MG/250 ML BAG IVPB ONE (09:44)
[2023-08-15] MEDS: PANTOPRAZOLE 40 MG TABLET PO SCH (10:03)
[2023-08-15] MEDS: AZITHROMYCIN IVPB 500 MG/250 ML BAG IVPB SCH (10:03)
[2023-08-15] MEDS: APIXABAN 2.5 MG TABLET PO SCH ×2 (10:03→21:16)
[2023-08-15] MEDS: methylPREDNISolone NA SUCC 40 MG/1 ML VIAL IVPUSH SCH (10:03)
[2023-08-15] MEDS: NIFEdipine E.R 60 MG TABLET PO SCH (10:03)
[2023-08-15] MEDS: ALPRAZolam 1 MG TABLET PO PRN (15:15)
[2023-08-15] MEDS: MIRTAZAPINE 15 MG TABLET (FP) PO SCH (21:16)
[2023-08-16] MEDS: PIPERACILLIN/TAZOB 3.375 GM 3.375 GM in DEXTROSE 5%-WATER - 50 ML IVPB SCH ×3 (01:20→17:27)
[2023-08-16] MEDS ORDERED: TRIMETHOBENZAMIDE HCL 200MG/2ML INJ IM ONE ×2 (06:30→08:30)
[2023-08-16] MEDS: NIFEdipine E.R 60 MG TABLET PO SCH ×2 (07:59→09:43)
[2023-08-16] MEDS: CARVEDILOL 25 MG TABLET (FP) PO SCH ×2 (07:59→21:48)
[2023-08-16] MEDS: ALPRAZolam 1 MG TABLET PO PRN (08:11)
[2023-08-16] MEDS ORDERED: ONDANSETRON 4 MG/2 ML VIAL IVPUSH PRN (08:53)
[2023-08-16] MEDS: hydrALAZINE HCL 20 MG/ML VIAL IVPUSH PRN ×2 (09:55→10:17)
[2023-08-16] MEDS: APIXABAN 2.5 MG TABLET PO SCH ×2 (10:26→21:48)
[2023-08-16] MEDS: methylPREDNISolone NA SUCC 40 MG/1 ML VIAL IVPUSH SCH (10:26)
[2023-08-16] MEDS: AZITHROMYCIN IVPB 500 MG/250 ML BAG IVPB SCH (11:54)
[2023-08-16 13:42] LABS: HEMATOCRIT 34.3 % (32.4-45.2); HEMOGLOBIN 10.7 GM/dL (10.7-15.3); MCH 26.5 pg (25.7-33.7); MCHC 31.3 g/dl (32.0-36.0); MEAN CELL VOLUME 84.7 fl (80-96); MEAN PLT VOLUME 7.4 fl (7.5-11.1); PLATELET COUNT 432 10^3/uL (134-434); RBC 4.04 M/mm3 (3.60-5.2); RDW 16.2 % (11.6-15.6); WHITE BLOOD COUNT 14.7 K/mm3 (4.0-10.0)
[2023-08-16 14:13] LABS: POTASSIUM 3.4 mmol/L (3.5-5.1)
[2023-08-16 14:16] LABS: BLOOD UREA NITROGEN 54.2 mg/dL (7-18)
[2023-08-16 14:18] LABS: ANISOCYTOSIS 0; MACROCYTOSIS 0
[2023-08-16 14:19] LABS: CREATININE 2.4 mg/dL (0.55-1.3)
[2023-08-16 14:20] LABS: BILIRUBIN,TOTAL 0.5 mg/dL (0.2-1)
[2023-08-16 14:21] LABS: TOT PROT 6.4 g/dl (6.4-8.2)
[2023-08-16] MEDS ORDERED: POTASSIUM CHLORIDE ORAL LIQUID 20 MEQ/15 ML PO ONE (15:18)
[2023-08-16] MEDS: PANTOPRAZOLE SODIUM 80 MG in SODIUM CHLORIDE 100 ML IVPB SCH ×2 (15:40→22:43)
[2023-08-16] MEDS: LORazepam 2 MG/ML SDV VIAL IVPB SCH ×2 (15:51→21:47)
[2023-08-16] MEDS: ALBUTEROL SO4 2.5/IPRATROPIUM 0.5 INH SOL 3 ML VIAL.NEB. NEB SCH ×2 (16:23→19:45)
[2023-08-16] MEDS ORDERED: BISACODYL 10 MG SUPP.RECT PR PRN (17:21)
[2023-08-16] MEDS: MIRTAZAPINE 15 MG TABLET (FP) PO SCH (21:49)
[2023-08-16] MEDS ORDERED: MUPIROCIN 2% TOPICAL OINTMENT FOR DECOLONIZATION NS SCH (22:00)
[2023-08-16] MEDS ORDERED: CHLORHEXIDINE GLUCONATE 4% CLEANSER FOR DECOLONIZATION TP SCH (22:00)
[2023-08-17] MEDS: PIPERACILLIN/TAZOB 3.375 GM 3.375 GM in DEXTROSE 5%-WATER - 50 ML IVPB SCH ×3 (01:08→17:10)
[2023-08-17] MEDS: LORazepam 2 MG/ML SDV VIAL IVPB SCH ×3 (05:39→21:16)
[2023-08-17] MEDS: PANTOPRAZOLE SODIUM 80 MG in SODIUM CHLORIDE 100 ML IVPB SCH (06:08)
[2023-08-17] MEDS: ALBUTEROL SO4 2.5/IPRATROPIUM 0.5 INH SOL 3 ML VIAL.NEB. NEB SCH ×4 (07:43→20:31)
[2023-08-17] MEDS: APIXABAN 2.5 MG TABLET PO SCH ×2 (09:06→21:16)
[2023-08-17] MEDS: CARVEDILOL 25 MG TABLET (FP) PO SCH ×2 (09:06→21:16)
[2023-08-17] MEDS: NIFEdipine E.R 60 MG TABLET PO SCH (09:06)
[2023-08-17] MEDS: methylPREDNISolone NA SUCC 40 MG/1 ML VIAL IVPUSH SCH (09:06)
[2023-08-17] MEDS: AZITHROMYCIN IVPB 500 MG/250 ML BAG IVPB SCH (09:07)
[2023-08-17] MEDS: MIRTAZAPINE 15 MG TABLET (FP) PO SCH (21:16)
[2023-08-18] MEDS: PIPERACILLIN/TAZOB 3.375 GM 3.375 GM in DEXTROSE 5%-WATER - 50 ML IVPB SCH ×3 (01:06→18:14)
[2023-08-18 01:47] LABS: OPIATES, URI NEGATIVE (NEGATIVE); PHENCYCLIDINE,URINE NEGATIVE (NEGATIVE); URINE BARBITURATES NEGATIVE (NEGATIVE)
[2023-08-18 01:48] LABS: COCAINE, UR NEGATIVE (NEGATIVE)
[2023-08-18 02:13] LABS: METHADONE, UR POSITIVE (NEGATIVE); URINE AMPHETAMINES NEGATIVE (NEGATIVE); URINE BENZODIAZEPINES POSITIVE (NEGATIVE)
[2023-08-18] MEDS: LORazepam 2 MG/ML SDV VIAL IVPB SCH ×3 (05:44→22:13)
[2023-08-18] MEDS: ALBUTEROL SO4 2.5/IPRATROPIUM 0.5 INH SOL 3 ML VIAL.NEB. NEB SCH ×4 (09:31→20:15)
[2023-08-18] MEDS: POLYETHYLENE GLYCOL (HEALTHYLAX) 3350 17 GM PACKET PO SCH (10:10)
[2023-08-18] MEDS: PANTOPRAZOLE 40 MG TABLET PO SCH (10:11)
[2023-08-18] MEDS: methylPREDNISolone NA SUCC 40 MG/1 ML VIAL IVPUSH SCH (10:11)
[2023-08-18] MEDS: NIFEdipine E.R 60 MG TABLET PO SCH (10:11)
[2023-08-18] MEDS: APIXABAN 2.5 MG TABLET PO SCH ×2 (10:11→22:14)
[2023-08-18] MEDS: CARVEDILOL 25 MG TABLET (FP) PO SCH ×2 (10:11→22:15)
[2023-08-18] MEDS: AZITHROMYCIN IVPB 500 MG/250 ML BAG IVPB SCH (11:09)
[2023-08-18] MEDS: MIRTAZAPINE 15 MG TABLET (FP) PO SCH (22:14)
[2023-08-19] MEDS: PIPERACILLIN/TAZOB 3.375 GM 3.375 GM in DEXTROSE 5%-WATER - 50 ML IVPB SCH ×3 (02:17→18:12)
[2023-08-19] MEDS: LORazepam 2 MG/ML SDV VIAL IVPB SCH ×3 (05:34→23:26)
[2023-08-19 07:24] LABS: BASO % 0.3 % (0-2.0); EOS % 0.9 % (0-4.5); HEMATOCRIT 28.7 % (32.4-45.2); HEMOGLOBIN 9.2 GM/dL (10.7-15.3); LYMPH % 6.6 % (8-40); MEAN CELL VOLUME 84.2 fl (80-96); MEAN PLT VOLUME 7.2 fl (7.5-11.1); MONO % 6.2 % (3.8-10.2); PLATELET COUNT 428 10^3/uL (134-434); RBC 3.41 M/mm3 (3.60-5.2); WHITE BLOOD COUNT 8.7 K/mm3 (4.0-10.0)
[2023-08-19 07:41] LABS: POTASSIUM 3.7 mmol/L (3.5-5.1)
[2023-08-19 07:45] LABS: ALBUMIN 1.7 g/dl (3.4-5.0); CALCIUM 9.3 mg/dL (8.5-10.1)
[2023-08-19] MEDS: ALBUTEROL SO4 2.5/IPRATROPIUM 0.5 INH SOL 3 ML VIAL.NEB. NEB SCH ×4 (07:45→20:19)
[2023-08-19 07:50] LABS: BILIRUBIN,TOTAL 0.2 mg/dL (0.2-1); TOT PROT 4.7 g/dl (6.4-8.2)
[2023-08-19] MEDS: NIFEdipine E.R 60 MG TABLET PO SCH (10:04)
[2023-08-19] MEDS: CARVEDILOL 25 MG TABLET (FP) PO SCH ×2 (10:04→23:25)
[2023-08-19] MEDS: methylPREDNISolone NA SUCC 40 MG/1 ML VIAL IVPUSH SCH (10:05)
[2023-08-19] MEDS: PANTOPRAZOLE 40 MG TABLET PO SCH (10:05)
[2023-08-19] MEDS: APIXABAN 2.5 MG TABLET PO SCH ×2 (10:05→23:24)
[2023-08-19] MEDS: POLYETHYLENE GLYCOL (HEALTHYLAX) 3350 17 GM PACKET PO SCH (10:05)
[2023-08-19] MEDS: AZITHROMYCIN IVPB 500 MG/250 ML BAG IVPB SCH (10:58)
[2023-08-19] MEDS ORDERED: ACETAMINOPHEN 325 MG TABLET (FP) PO ONE ×2 (19:30→23:30)
[2023-08-19] MEDS: MIRTAZAPINE 15 MG TABLET (FP) PO SCH (23:24)
[2023-08-20] MEDS: PIPERACILLIN/TAZOB 3.375 GM 3.375 GM in DEXTROSE 5%-WATER - 50 ML IVPB SCH ×2 (01:00→10:44)
[2023-08-20] MEDS: LORazepam 2 MG/ML SDV VIAL IVPB SCH ×3 (06:11→21:47)
[2023-08-20] MEDS: ALBUTEROL SO4 2.5/IPRATROPIUM 0.5 INH SOL 3 ML VIAL.NEB. NEB SCH ×5 (07:27→21:06)
[2023-08-20] MEDS: AZITHROMYCIN IVPB 500 MG/250 ML BAG IVPB SCH (10:44)
[2023-08-20] MEDS: APIXABAN 2.5 MG TABLET PO SCH ×2 (10:45→21:47)
[2023-08-20] MEDS: NIFEdipine E.R 60 MG TABLET PO SCH (10:45)
[2023-08-20] MEDS: POLYETHYLENE GLYCOL (HEALTHYLAX) 3350 17 GM PACKET PO SCH (10:45)
[2023-08-20] MEDS: CARVEDILOL 25 MG TABLET (FP) PO SCH ×2 (10:45→21:46)
[2023-08-20] MEDS: PANTOPRAZOLE 40 MG TABLET PO SCH (10:45)
[2023-08-20 12:20] VITALS: BMI 24.3
[2023-08-20] MEDS ORDERED: OSELTAMIVIR PHOSPHATE 30 MG CAPSULE PO SCH (13:15)
[2023-08-20] MEDS: MIRTAZAPINE 15 MG TABLET (FP) PO SCH (21:47)
[2023-08-21 02:59] VITALS: RESP 18
[2023-08-21] MEDS: LORazepam 2 MG/ML SDV VIAL IVPB SCH ×3 (06:24→21:48)
[2023-08-21] MEDS: ALBUTEROL SO4 2.5/IPRATROPIUM 0.5 INH SOL 3 ML VIAL.NEB. NEB SCH ×2 (08:49→12:54)
[2023-08-21] MEDS: APIXABAN 2.5 MG TABLET PO SCH ×2 (09:59→21:48)
[2023-08-21] MEDS: NIFEdipine E.R 60 MG TABLET PO SCH (09:59)
[2023-08-21] MEDS: CARVEDILOL 25 MG TABLET (FP) PO SCH ×2 (09:59→21:48)
[2023-08-21] MEDS: POLYETHYLENE GLYCOL (HEALTHYLAX) 3350 17 GM PACKET PO SCH (09:59)
[2023-08-21] MEDS: PANTOPRAZOLE 40 MG TABLET PO SCH (09:59)
[2023-08-21 11:51] LABS: BASO % 0.1 % (0-2.0); EOS % 1.3 % (0-4.5); HEMATOCRIT 30.9 % (32.4-45.2); HEMOGLOBIN 9.8 GM/dL (10.7-15.3); LYMPH % 8.8 % (8-40); MCH 26.7 pg (25.7-33.7); MCHC 31.6 g/dl (32.0-36.0); MEAN CELL VOLUME 84.5 fl (80-96); MEAN PLT VOLUME 7.3 fl (7.5-11.1); MONO % 3.6 % (3.8-10.2); NEUT % 86.2 % (42.8-82.8); PLATELET COUNT 495 10^3/uL (134-434); RBC 3.65 M/mm3 (3.60-5.2); RDW 16.2 % (11.6-15.6); WHITE BLOOD COUNT 7.3 K/mm3 (4.0-10.0)
[2023-08-21] MEDS ORDERED: ACETAMINOPHEN 500 MG TABLET (FP) PO ONE (13:54)
[2023-08-21] MEDS: MIRTAZAPINE 15 MG TABLET (FP) PO SCH (21:47)
[2023-08-22] MEDS: LORazepam 2 MG/ML SDV VIAL IVPB SCH ×2 (06:21→15:02)
[2023-08-22] MEDS ORDERED: methaDONE HCL 10 MG TABLET PO ONE (06:23)
[2023-08-22] MEDS: POLYETHYLENE GLYCOL (HEALTHYLAX) 3350 17 GM PACKET PO SCH (10:15)
[2023-08-22] MEDS: PANTOPRAZOLE 40 MG TABLET PO SCH (10:15)
[2023-08-22] MEDS: APIXABAN 2.5 MG TABLET PO SCH (10:15)
[2023-08-22] MEDS: NIFEdipine E.R 60 MG TABLET PO SCH (10:15)
[2023-08-22] MEDS: CARVEDILOL 25 MG TABLET (FP) PO SCH (10:15)
[2023-08-22 14:58] VITALS: BP 132/78; PULSE 94; TEMP 97.3
== END 2023-08-22 15:04 | disposition home health service (06) | DRG 871 ==
LOC: JER 05:01 → JERBED 11:48 → J4S 08-15 11:50
PROVIDERS: ADMIT Internal Medicine; ATTEND Internal Medicine
DX: A41.89 Other specified sepsis (principal); I50.23 Acute on chronic systolic (congestive) heart failure; J96.01 Acute respiratory failure with hypoxia; J18.9 Pneumonia, unspecified organism; N17.9 Acute kidney failure, unspecified; I13.0 Hypertensive heart and chronic kidney disease with heart failure and stage 1 through stage 4 chronic kidney disease, or unspecified chronic kidney disease; I42.8 Other cardiomyopathies; F20.0 Paranoid schizophrenia; F11.20 Opioid dependence, uncomplicated; F13.239 Sedative, hypnotic or anxiolytic dependence with withdrawal, unspecified; R79.89 Other specified abnormal findings of blood chemistry; N18.30 Chronic kidney disease, stage 3 unspecified; I25.10 Atherosclerotic heart disease of native coronary artery without angina pectoris; I25.2 Old myocardial infarction; F12.90 Cannabis use, unspecified, uncomplicated; D72.829 Elevated white blood cell count, unspecified; K57.90 Diverticulosis of intestine, part unspecified, without perforation or abscess without bleeding; I16.0 Hypertensive urgency; F41.8 Other specified anxiety disorders; R11.10 Vomiting, unspecified; R63.4 Abnormal weight loss; F31.9 Bipolar disorder, unspecified; R53.83 Other fatigue; Z86.711 Personal history of pulmonary embolism; Z68.24 Body mass index [BMI] 24.0-24.9, adult; Z86.718 Personal history of other venous thrombosis and embolism
CPT/HCPCS: 0241U-QW; 36415; 36600; 71045-TC-FY; 71046-TC-FY; 74176-TC; 76705-TC; 80053; 80307; 81003; 82550; 82553; 82803; 82962; 83605; 83690; 83735; 83880; 84100; 84443; 84484; 85025; 85610; 85730; 86704; 86708; 86803; 86850; 86870; 86880; 86900; 86901; 86902; 87040; 87086; 87340; 87517; 87899; 93005; 93010; 93306-TC; 94010; 94640; 94761; 97116-GP; 99285-25

== ENCOUNTER 2024-02-07 19:23 | Inpatient (IN) | payer OTHER ==
[2024-02-07] MEDS: ONDANSETRON 4 MG TABLET PO ONE (20:26)
[2024-02-07] MEDS: ONDANSETRON 4 MG/2 ML VIAL IVPB ONE (20:26)
[2024-02-07] MEDS ORDERED: ONDANSETRON 4 MG/2 ML VIAL ONE (20:27)
[2024-02-07] MEDS ORDERED: ACETAMINOPHEN INJECTION 100 ML IVPB ONE (20:27)
[2024-02-07] MEDS: SODIUM CHLORIDE 0.9% 500 ML INFUS.BAG IV ONE (20:59)
[2024-02-07] MEDS: ACETAMINOPHEN 1000 MG/100 ML BAG IVPB ONE (20:59)
[2024-02-07] MEDS: ONDANSETRON 4 MG/2 ML VIAL IVPUSH ONE ×2 (21:00→21:01)
[2024-02-07 21:04] LABS: BASO % 0.2 % (0-2.0); HEMATOCRIT 46.8 % (32.4-45.2); HEMOGLOBIN 15.2 GM/dL (10.7-15.3); LYMPH % 7.6 % (8-40); MCH 26.3 pg (25.7-33.7); MCHC 32.4 g/dl (32.0-36.0); MEAN PLT VOLUME 6.7 fl (7.5-11.1); MONO % 4.7 % (3.8-10.2); NEUT % 87.5 % (42.8-82.8); PLATELET COUNT 233 10^3/uL (134-434); RBC 5.78 M/mm3 (3.60-5.2); RDW 17.4 % (11.6-15.6); WHITE BLOOD COUNT 8.9 K/mm3 (4.0-10.0)
[2024-02-07] MEDS ORDERED: FAMOTIDINE 20 MG/50 ML IVPB 20 MG/50 ML MG IVPB ONE (21:05)
[2024-02-07] MEDS: FAMOTIDINE 20 MG/50 ML IVPB 20 MG/50 ML MG IVPB ONE (21:18)
[2024-02-07 21:23] LABS: POTASSIUM 4.1 mmol/L (3.5-5.1)
[2024-02-07 21:26] LABS: ALBUMIN 4.1 g/dl (3.4-5.0); BLOOD UREA NITROGEN 38.2 mg/dL (7-18); MAGNESIUM 2.1 mg/dL (1.8-2.4)
[2024-02-07 21:31] LABS: BILIRUBIN,TOTAL 0.5 mg/dL (0.2-1); TOT PROT 7.8 g/dl (6.4-8.2)
[2024-02-07 21:35] LABS: CREATININE 2.8 mg/dL (0.55-1.3)
[2024-02-07] MEDS ORDERED: ASPIRIN 325 MG TABLET ONE (22:29)
[2024-02-07] MEDS: ASPIRIN 325 MG TABLET PO ONE (22:38)
[2024-02-08 01:53] LABS: EPI CELLS 36 /uL (0-25.1); HYALINE CASTS 2 /uL (0-3.1); URINE APPEARANCE CLOUDY; URINE BACTERIA >9,000 /uL (0-1359); URINE BILIRUBIN NEGATIVE (NEGATIVE); URINE COLOR YELLOW; URINE GLUCOSE (UA) NEGATIVE (NEGATIVE); URINE KETONE NEGATIVE (NEGATIVE); URINE LEUK ESTERASE TRACE (NEGATIVE); URINE NITRITE NEGATIVE (NEGATIVE); URINE PROTEIN 4+ (NEGATIVE); URINE RBC 13 /uL (0-23.9); URINE UROBILINOGEN 0.2 mg/dL (0.2-1.0); URINE WBC 89 /uL (0-25.8)
[2024-02-08] MEDS: CARVEDILOL 25 MG TABLET (FP) PO ONE (06:49)
[2024-02-08 08:34] LABS: BASO % 0.2 % (0-2.0); HEMATOCRIT 45.9 % (32.4-45.2); HEMOGLOBIN 15.1 GM/dL (10.7-15.3); LYMPH % 8.7 % (8-40); MCH 26.5 pg (25.7-33.7); MCHC 32.9 g/dl (32.0-36.0); MEAN CELL VOLUME 80.6 fl (80-96); MONO % 5.2 % (3.8-10.2); NEUT % 85.9 % (42.8-82.8); PLATELET COUNT 194 10^3/uL (134-434); RBC 5.69 M/mm3 (3.60-5.2); RDW 17.3 % (11.6-15.6); WHITE BLOOD COUNT 8.1 K/mm3 (4.0-10.0)
[2024-02-08 08:51] LABS: POTASSIUM 3.8 mmol/L (3.5-5.1)
[2024-02-08 08:56] LABS: CALCIUM 10.5 mg/dL (8.5-10.1)
[2024-02-08 08:57] LABS: ALBUMIN 3.7 g/dl (3.4-5.0)
[2024-02-08 08:59] LABS: CREATININE 2.9 mg/dL (0.55-1.3)
[2024-02-08 09:00] LABS: BILIRUBIN,TOTAL 0.5 mg/dL (0.2-1)
[2024-02-08 09:02] LABS: TOT PROT 7.4 g/dl (6.4-8.2)
[2024-02-08] MEDS: APIXABAN 2.5 MG TABLET PO SCH (09:03)
[2024-02-08] MEDS: cloNIDine-TTS 0.1 MG/24 HRS PATCH.TDWK TD SCH (09:03)
[2024-02-08] MEDS: NIFEdipine E.R 60 MG TABLET PO SCH (09:03)
[2024-02-08] MEDS ORDERED: MAG HYDROX/AL HYDROX/SIMETH 30 ML UNIT-DOSE CUP PO PRN (11:21)
[2024-02-08] MEDS: FAMOTIDINE 20 MG/50 ML IVPB 20 MG/50 ML MG IVPB ONE (12:05)
[2024-02-08 13:46] VITALS: BMI 26.9
[2024-02-08] MEDS: DEXTROSE 5%-WATER - 1,000 ML IV SCH (14:48)
[2024-02-08] MEDS: NIFEdipine E.R. 30 MG TABLET PO ONE (14:48)
[2024-02-08 15:32] LABS: COCAINE, UR NEGATIVE (NEGATIVE); METHADONE, UR NEGATIVE (NEGATIVE); URINE AMPHETAMINES NEGATIVE (NEGATIVE)
[2024-02-08 15:33] LABS: OPIATES, URI NEGATIVE (NEGATIVE); PHENCYCLIDINE,URINE NEGATIVE (NEGATIVE); URINE BARBITURATES NEGATIVE (NEGATIVE); URINE BENZODIAZEPINES POSITIVE (NEGATIVE)
[2024-02-08] MEDS: CEFTRIAXONE 1 GM in DEXTROSE 5%-WATER - 50 ML IVPB SCH (17:07)
[2024-02-08] MEDS: PHENAZOPYRIDINE HCL 100 MG TABLET (FP) PO ONE (17:56)
[2024-02-08] MEDS: CARVEDILOL 25 MG TABLET (FP) PO SCH (21:42)
[2024-02-08] MEDS: ALPRAZolam 1 MG TABLET PO PRN (22:25)
[2024-02-09 08:25] LABS: HEMATOCRIT 42.8 % (32.4-45.2); HEMOGLOBIN 14.2 GM/dL (10.7-15.3); MCH 26.5 pg (25.7-33.7); MEAN CELL VOLUME 80.3 fl (80-96); MEAN PLT VOLUME 7.5 fl (7.5-11.1); PLATELET COUNT 155 10^3/uL (134-434); RBC 5.34 M/mm3 (3.60-5.2); RDW 16.8 % (11.6-15.6); WHITE BLOOD COUNT 6.7 K/mm3 (4.0-10.0)
[2024-02-09 08:43] LABS: POTASSIUM 3.5 mmol/L (3.5-5.1)
[2024-02-09 08:49] LABS: BLOOD UREA NITROGEN 44.8 mg/dL (7-18); CALCIUM 9.9 mg/dL (8.5-10.1)
[2024-02-09 08:50] LABS: ALBUMIN 3.5 g/dl (3.4-5.0)
[2024-02-09 08:54] LABS: BILIRUBIN,TOTAL 0.5 mg/dL (0.2-1); TOT PROT 6.6 g/dl (6.4-8.2)
[2024-02-09] MEDS: NIFEdipine E.R. 90 MG TABLET PO SCH (09:32)
[2024-02-09] MEDS: ALPRAZolam 1 MG TABLET PO ONE (21:57)
[2024-02-10 08:31] LABS: POTASSIUM 3.3 mmol/L (3.5-5.1)
[2024-02-10 08:35] LABS: ALBUMIN 3.3 g/dl (3.4-5.0); BLOOD UREA NITROGEN 41.4 mg/dL (7-18); CALCIUM 9.8 mg/dL (8.5-10.1)
[2024-02-10 08:38] LABS: CREATININE 2.5 mg/dL (0.55-1.3)
[2024-02-10 08:40] LABS: BILIRUBIN,TOTAL 0.6 mg/dL (0.2-1); TOT PROT 6.3 g/dl (6.4-8.2)
[2024-02-10] MEDS: ALPRAZolam 1 MG TABLET PO PRN (11:57)
[2024-02-10] MEDS: POTASSIUM CHLORIDE ORAL LIQUID 20 MEQ/15 ML PO ONE (11:57)
[2024-02-10] MEDS ORDERED: TRIMETHOBENZAMIDE HCL 200MG/2ML INJ IM PRN (21:22)
[2024-02-11 08:14] LABS: HEMATOCRIT 37.8 % (32.4-45.2); HEMOGLOBIN 12.5 GM/dL (10.7-15.3); MCH 26.6 pg (25.7-33.7); MCHC 33.1 g/dl (32.0-36.0); MEAN CELL VOLUME 80.4 fl (80-96); MEAN PLT VOLUME 7.3 fl (7.5-11.1); PLATELET COUNT 140 10^3/uL (134-434); RDW 16.5 % (11.6-15.6); WHITE BLOOD COUNT 3.6 K/mm3 (4.0-10.0)
[2024-02-11 08:33] LABS: POTASSIUM 3.6 mmol/L (3.5-5.1)
[2024-02-11 08:39] LABS: BLOOD UREA NITROGEN 39.9 mg/dL (7-18); CALCIUM 9.3 mg/dL (8.5-10.1)
[2024-02-11 08:41] LABS: CREATININE 2.7 mg/dL (0.55-1.3)
[2024-02-11 08:44] LABS: BILIRUBIN,TOTAL 0.5 mg/dL (0.2-1); TOT PROT 5.9 g/dl (6.4-8.2)
[2024-02-11 11:23] VITALS: BP 112/72; PULSE 90; RESP 18; TEMP 98.4
== END 2024-02-11 12:36 | disposition home or self-care (01) | DRG 392 ==
LOC: JER 19:23 → JERBED 23:17 → J4W 02-08 02:21
PROVIDERS: ADMIT Internal Medicine; ATTEND Family Medicine
DX: K29.70 Gastritis, unspecified, without bleeding (principal); F11.20 Opioid dependence, uncomplicated; N17.9 Acute kidney failure, unspecified; I13.0 Hypertensive heart and chronic kidney disease with heart failure and stage 1 through stage 4 chronic kidney disease, or unspecified chronic kidney disease; I50.42 Chronic combined systolic (congestive) and diastolic (congestive) heart failure; I24.89 Other forms of acute ischemic heart disease; R10.32 Left lower quadrant pain; E86.0 Dehydration; F31.9 Bipolar disorder, unspecified; E83.52 Hypercalcemia; F20.9 Schizophrenia, unspecified; I48.91 Unspecified atrial fibrillation; N18.9 Chronic kidney disease, unspecified
CPT/HCPCS: 36415; 71045-TC-FY; 74176-TC; 76775-TC; 80053; 80061; 80307; 81003; 83690; 83735; 84443; 84484; 85025; 85027; 93005; 93010; 99285-25; J0131